=== PATIENT | male | born 1945 | race Caucasian/White ===

== ENCOUNTER 2018-01-11 00:25 | Emergency (ER) | payer MEDICARE ==
[2018-01-11] MEDS ORDERED: NS 0.9% 1000 ML* 1,000 ML IV ONE ×2 (01:11→04:02)
[2018-01-11] MEDS ORDERED: Metoclopramide IV* 5 MG/ML 2 ML VIAL IV ONE (01:12)
[2018-01-11] MEDS ORDERED: Morphine VIAL* 10 MG/ML 1 ML VIAL IV ONE (01:12)
[2018-01-11 01:40] LABS: Hematocrit 51 % (42-52); Mean Corpuscular HGB Conc 33 g/dl (31-36); Mean Corpuscular Hemoglobin 29 pg (27-31); Mean Corpuscular Volume 88 fL (80-94); Mean Platelet Volume 6.9 um3 (7.4-10.4); Platelet Count 457 10^3/ul (150-450); Red Blood Count 5.84 10^6/ul (4.00-5.40); Red Cell Distribution Width 15 % (10.5-15); White Blood Count 29.3 10^3/ul (3.5-10.8)
[2018-01-11 01:47] LABS: INR 1.2 (0.77-1.02)
[2018-01-11 01:55] LABS: EGFR Non-African American 121.1 (>60)
--- NOTE | 2018-01-11 01:55 | ED ---
Abdominal Pain/Male - HPI Summary HPI Summary: A 72 y/o male DENNIS presents to ED c/o abdominal pain reaching 7/10 in severity. In the ED room, the patient has a pulse of 118 BPM, O2 saturation of 93% and blood pressure of 132/86. As per triage, "Pt brought in by ambulance from home for c/o inability to ambulate, shortness of breath, and RUQ abdominal pain radiating to right shoulder. EMS report SpO2 on room air on their arrival mid 80 's. Oxygen applied on 3L/min, SpO2 93%. Pt states he had oxygen set up at home for a short period of time and denies having to utilize it daily. Pt also c/o RUQ radiating ot his right shoulder. Pt states abdominal pain is exacerbated upon coughing. manager monitoring applied and noted HR 136 and as high as 167. Pt also going out of A-fib and sepideh noted". According to the patient, he has been experiencing RUQ abdominal pain since 1700 last night. He denies any vomiting, however, does feel slightly SOB and has a cough. Does not take O2 at home. No known medical conditions. PMHx of no abdominal surgeries. This past Thursday, patient got a flu shot. - History of Current Complaint Chief Complaint: EDAbdPain Stated Complaint: ABD PAIN Time Seen by Provider: 01/11/18 00:59 Hx Obtained From: Patient Onset/Duration: Sudden Onset, Lasting Days, Still Present Timing: Constant Severity Initially: Moderate Severity Currently: Moderate Pain Intensity: 7 Pain Scale Used: 0-10 Numeric Location: Discrete At: RUQ Radiates: No Character: Not Applicable Aggravating Factor(s): Nothing Alleviating Factor(s): Nothing Associated Signs And Symptoms: Positive: Negative - Allergies/Home Medications Allergies/Adverse Reactions: Allergies Allergy/AdvReac Type Severity Reaction Status Date / Time Penicillins Allergy Hives Verified 01/11/18 00:51 PMH/Surg Hx/FS Hx/Imm Hx Endocrine/Hematology History: Denies: Hx Diabetes, Hx Systemic Lupus Erythematosus Cardiovascular History: Reports: Hx Hypertension Denies: Hx Congestive Heart Failure, Hx Pacemaker/ICD, Other Cardiovascular Problems/Disorders Respiratory History: Denies: Hx Asthma History: Denies: Hx Dialysis, Hx Renal Disease Musculoskeletal History: Reports: Hx Arthritis, Hx Back Problems Denies: Hx Rheumatoid Arthritis Sensory History: Reports: Hx Cataracts - RIGHT EYE CATARACT SURGERY, Hx Contacts or Glasses Opthamlomology History: Reports: Hx Cataracts - RIGHT EYE CATARACT SURGERY, Hx Contacts or Glasses - Cancer History Hx Chemotherapy: No - Surgical History Surgery Procedure, Year, and Place: 1968 RT HAND [facility]. 1970 [place] [place]. 20-30 ANAL [facility]. 2011? RIGHT EYE CATARACT SURGERY Hx Anesthesia Reactions: No Infectious Disease History: No Infectious Disease History: Denies: Traveled Outside the [place] in Last 30 Days - Family History Known Family History: Positive: Diabetes - mother, Other - father - PE - Social History Alcohol Use: Weekly Substance Use Type: Reports: None Smoking Status (MU): Heavy Every Day Tobacco Smoker Type: Cigarettes Length of Time of Smoking/Using Tobacco: 40 YRS Have You Smoked in the Last Year: Yes Review of Systems Negative: Fever Positive: Shortness Of Breath, Cough Positive: Abdominal Pain. Negative: Vomiting All Other Systems Reviewed And Are Negative: Yes Physical Exam - Summary Physical Exam Summary: GENERAL: Patient is a well-developed and nourished male who is lying comfortable in the stretcher. Patient is not in any acute respiratory distress. HEAD AND FACE: Normocephalic EYES: PERRLA, EOMI x 2. EARS: Hearing grossly intact. MOUTH: Oropharynx within normal limits. NECK: Supple, trachea is midline, no adenopathy, no JVD, no carotid bruit. CHEST: Symmetric, no tenderness at palpation LUNGS: Clear to auscultation bilaterally. No wheezing or crackles. CVS: Regular rate and rhythm, S1 and S2 present, no murmurs or gallops appreciated. ABDOMEN: Soft, tender to palpation in RUQ. Bowel sounds are normal. No abdominal abnormal pulsations. EXTREMITIES: Full ROM in all major joints, no edema, no cyanosis or clubbing. NEURO: Alert and oriented x 3. No acute neurological deficits. Speech is normal and follows commands. SKIN: Dry and warm Triage Information Reviewed: Yes Vital Signs On Initial Exam: Initial Vitals Pulse Resp BP Pulse Ox 114 42 132/86 90 01/11/18 00:34 01/11/18 00:34 10 00:34 01/11/18 00:34 Vital Signs Reviewed: Yes Diagnostics - Vital Signs Vital Signs Temp Pulse Resp BP Pulse Ox 01/11/18 00:40 99.7 F 136 38 132/86 86 01/11/18 00:34 114 42 132/86 90 - Laboratory Lab Results: Lab Results 01/11/18 01/11/18 01/11/18 Range/Units 01:23 01:23 01:23 WBC 29.3 H (3.5-10.8) 10^3/ul RBC 5.84 H (4.00-5.40) 10^6/ul Hgb 17.0 (14.0-18.0) g/dl Hct 51 (42-52) % MCV 88 (80-94) fL MCH 29 (27-31) pg MCHC 33 (31-36) g/dl RDW 15 (10.5-15) % Plt Count 457 H (150-450) 10^3/ul MPV 6.9 L (7.4-10.4) um3 Neut % (Auto) Pending Lymph % (Auto) Pending Lares % (Auto) Pending Eos % (Auto) Pending Baso % (Auto) Pending Absolute Neuts (auto) Pending Absolute Lymphs (auto) Pending Absolute Monos (auto) Pending Absolute Eos (auto) Pending Absolute Basos (auto) Pending Absolute Nucleated RBC Pending Nucleated RBC % Pending INR (Anticoag Therapy) 1.20 H (0.77-1.02) APTT 35.4 (26.0-36.3) seconds Lactic Acid 1.1 (0.5-2.0) mmol/L Result Diagrams: 01/11/18 01:23 01/11/18 01:23 Lab Statement: Any lab studies that have been ordered have been reviewed, and results considered in the medical decision making process. - CT Chest/Abd/Pel CTA CT Interpretation Completed By: Radiologist - Airspace consolidation involving right middle lobe. Near-complete obstruction of the bronchus intermedius. Differential considerations include neoplasm pneumonia. Moderate right pleural effusion with adjacent compressive atelectasis. Atherosclerotic disease of the abdominal aorta. Slight interval increase in size of infrarenal abdominal aortic aneurysm measuring 3.2 cm versus 2.8 cm on the previous exam. Dr. Chakraborty has reviewed this radiology report. - EKG 0050 Cardiac Rate: Tachycardia - 128 BPM EKG Rhythm: Sinus Tachycardia Ectopy: PVCs, PACs EKG Interpretation: Multiple premature complexes Re-Evaluation - Re-Evaluation First Eval Re-Evaluation Time: 03:41 Comment: The patient reports that he is feeling fine but he is continuously tachycardic and increasingly hypoxic. Second Eval Re-Evaluation Time: 04:06 Abdominal Pain Fem Course/Dx - Course Assessment/Plan: A 72 y/o male DENNIS presents to ED c/o abdominal pain reaching 7 /10 in severity. Chest/Abd/Pel CTA reveals airspace consolidation involving right middle lobe. Near-complete obstruction of the bronchus intermedius. Differential considerations include neoplasm pneumonia. Moderate right pleural effusion with adjacent compressive atelectasis. Atherosclerotic disease of the abdominal aorta. Slight interval increase in size of infrarenal abdominal aortic aneurysm measuring 3.2 cm versus 2.8 cm on the previous exam. In the ED course, the patient was given fluids, reglan, morphine, decadron, zosyn, and vancomycin. Case discussed with hospitalist. Dr. Hoffman accepts the patient for admission. After Dr. Hoffman spoke with Dr. Sweet about the patient. Dr. Sweet recommends transfering the patient for interventional bronch because if there is a possibility that the patient will need a stent, we do not have the capabilities to do it here. Additionally, the patient might need cardiothoracic surgery which [place] [facility] [place] I discussed results and plan of care with patient. The patient wants to be transferred to [facility]. Consulted Dr. Alas from [facility] ED who accepts the patient for transfer because they have the services available. The patient agrees with this plan. Patient stable upon transfer. - Diagnoses Differential Diagnosis/HQI/PQRI: Other - sepsis secondary to pneumonia Provider Diagnoses: Sepsis, PNA (pneumonia) - Provider Notifications Discussed Care Of Patient With: Danielle Hoffman Time Discussed With Above Provider: 04:04 Instructed by Provider To: Other - Consulted with Dr. Hoffman who accepts the patient for admission. Consulted Dr. Alas from [facility] ED who accepts the patient for transfer. - Critical Care Time Critical Care Time: 30-74 min Discharge - Sign-Out/Discharge Documenting (check all that apply): Patient Departure - transfer - Discharge Plan Condition: Stable Disposition: TRANS HIGHER LVL OF CARE FAC Referrals: Rodolfo Jackson MD [Primary Care Provider] - - Billing Disposition and Condition Condition: STABLE Disposition: Trans Higher Lvl of Care Fac - Attestation Statements Document Initiated by Scribe: Yes Documenting Scribe: Derick Romano Provider For Whom Savanah is Documenting (Include Credential): Deonte Chakraborty MD Scribe Attestation: Derick Alvarado, scribed for Deonte Chakraborty MD on 01/11/18 at 0518. Scribe Documentation Reviewed: Yes Provider Attestation: The documentation as recorded by the migdaliaibDerick pérez accurately reflects the service I personally performed and the decisions made by me, Deonte Chakraborty MD
[2018-01-11] MEDS ORDERED: Morphine INJ* 4 MG/ML 1 ML SYRINGE (NEW SYRINGE VERSION) ONE (02:00)
[2018-01-11] MEDS ORDERED: Morphine INJ* 4 MG/ML 1 ML SYRINGE (NEW SYRINGE VERSION) IV ONE (02:00)
[2018-01-11 02:22] LABS: ABS Basophils 0.1 10^3/ul (0-0.2); ABS Eosinophils 0 10^3/ul (0-0.6); ABS Lymphocytes 0.9 10^3/ul (1.0-4.8); ABS Monocytes 1.5 10^3/ul (0-0.8); ABS Neutrophils 26.8 10^3/ul (1.5-7.7); ABS Nucleated RBC 0 10^3/ul; Eosinophil % 0.1 % (0-6); Lymphocyte % 3.1 % (25-47); Nucleated Red Blood Cells % 0
[2018-01-11] MEDS ORDERED: Iohexol 350* (CONTRAST) 500 ML MDV IV ONE (02:29)
--- NOTE | 2018-01-11 03:50 | RAD ---
EXAM: CT Angiography Chest With Intravenous Contrast EXAM DATE/TIME: 01/11/2018 2:34 AM CLINICAL HISTORY: 72 years old, male; Pain; Sternal or substernal pain; Abdominal pain; Flank; Right upper quadrant (ruq); Additional info: Sob/ruq pain TECHNIQUE: Axial computed tomographic angiography images of the chest with intravenous contrast using CT angiography protocol. All CT scans at this facility use at least one of these dose optimization techniques: automated exposure control; mA and/or kV adjustment per patient size (includes targeted exams where dose is matched to clinical indication); or iterative reconstruction. Coronal and sagittal reformatted images were created and reviewed. MIP reconstructed images were created and reviewed. CONTRAST: 100 ml of OMNI 350 administered intravenously. COMPARISON: CTA CHEST CTA CHEST 03/26/2015 2:19 AM FINDINGS: Pulmonary arteries: Normal. No pulmonary emboli. Aorta: Atherosclerotic disease of the thoracic aorta. Lungs: Centrilobular and paraseptal edema. Airspace consolidation involving right middle lobe. Near-complete obstruction of the bronchus intermedius. Minimal aeration in the right lower lobe. Compressive atelectasis of the right lower lobe. Dependent and linear atelectasis at the left base. Pleural space: Moderate right pleural effusion. Heart: Atherosclerotic changes in the coronary arteries. Mediastinum: Mild right lung volume was left to right mediastinal shift. Bones/joints: Osteopenia. Severe multilevel degenerative disc disease. Soft tissues: Unremarkable. Lymph nodes: Extensive right upper and lower paratracheal, subcarinal, and right hilar adenopathy. IMPRESSION: Airspace consolidation involving right middle lobe. Near-complete obstruction of the bronchus intermedius. Differential considerations include neoplasm pneumonia. Moderate right pleural effusion with adjacent compressive atelectasis. EXAM: CT Angiography Abdomen and Pelvis With Intravenous Contrast EXAM DATE/TIME: 01/11/2018 2:34 AM CLINICAL HISTORY: 72 years old, male; Pain; Sternal or substernal pain; Abdominal pain; Flank; Right upper quadrant (ruq); Additional info: Sob/ruq pain TECHNIQUE: Axial computed tomographic angiography images of the abdomen and pelvis with intravenous contrast material, including non-contrast images if performed. MIP and/or 3D reconstructed images were created and reviewed. All CT scans at this facility use at least one of these dose optimization techniques: automated exposure control; mA and/or kV adjustment per patient size (includes targeted exams where dose is matched to clinical indication); or iterative reconstruction. Coronal and sagittal reformatted images were created and reviewed. MIP reconstructed images were created and reviewed. CONTRAST: 100 ml of OMNI 350 administered intravenously. COMPARISON: CTA CHEST CTA CHEST 03/26/2015 2:19 AM FINDINGS: VASCULATURE: Aorta: Atherosclerotic disease of the abdominal aorta. Slight interval increase in size of infrarenal abdominal aortic aneurysm measuring 3.2 cm versus 2.8 cm on the previous exam. Celiac Trunk and Mesenteric Arteries: No occlusion or significant stenosis. Renal Arteries: No occlusion or significant stenosis. Iliac Arteries: No occlusion or significant stenosis. Common Femoral Arteries: Atherosclerotic disease. No occlusion or significant stenosis. ABDOMEN: Liver: Hepatomegaly. Slight interval increase in the size of a simple appearing 2.2 cm left hepatic lobe cyst previously measuring 1.5 cm. Multiple additional liver cyst stable. Gallbladder and bile ducts: Unremarkable. No calcified stones. No ductal dilation. Pancreas: Unremarkable. No mass. No ductal dilation. Spleen: Unremarkable. No splenomegaly. Adrenals: Stable left adrenal hyperplasia. Kidneys and ureters: Interval increase in size of exophytic left superior pole renal cyst measuring 3 cm versus 2.5 cm on the previous exam. Slight interval increase in the size of exophytic right renal cyst measuring 5.5 cm versus 5 cm on the previous exam. Nonspecific bilateral perinephric fat stranding. Stomach and bowel: Unremarkable. No obstruction. No mucosal thickening. Appendix: No evidence of appendicitis. PELVIS: Bladder: Distended urinary bladder. Reproductive: Unremarkable as visualized. ABDOMEN and PELVIS: Intraperitoneal space: Unremarkable. No free air. No significant fluid collection. Bones/joints: No acute fracture. No dislocation. Soft tissues: Bilateral fat containing inguinal hernias. Fat containing umbilical hernia. Lymph nodes: Unremarkable. No enlarged lymph nodes. IMPRESSION: Atherosclerotic disease of the abdominal aorta. Slight interval increase in size of infrarenal abdominal aortic aneurysm measuring 3.2 cm versus 2.8 cm on the previous exam. To contact [facility] with a general question: [facility] - [phone] For direct physician to physician contact: Physician Hotline - [phone] [facility] ([facility] Facility ID #[id number])
[2018-01-11] MEDS ORDERED: Vancomycin(*) 1,500 MG in NS 0.9% 250 ML* 250 ML IVPB ONE (04:01)
[2018-01-11] MEDS ORDERED: Piperacillin/Tazobac ADVAN(*) 3.375 GM in NS 0.9% 100 ML* 100 ML IVPB ONE (04:01)
[2018-01-11] MEDS ORDERED: Dexamethasone IV* 4 MG/ML 5 ML VIAL (20 MG) IVPB ONE (04:04)
[2018-01-11] MEDS ORDERED: NS 0.9% 250 ML* 250 ML ONE (04:05)
[2018-01-11 04:55] LABS: Urine Red Blood Cell 3+(>10/hpf) (Absent); Urine White Blood Cell Absent (Absent)
[2018-01-11 05:00] LABS: Urine Appearance Cloudy; Urine Blood 1+ (Negative); Urine Color Yellow; Urine Ketones Negative (Negative); Urine Protein 2+(100 mg/dL) (Negative); Urine Urobilinogen Positive (Negative)
--- NOTE | 2018-01-11 05:06 | HP ---
H&P (Free Text) History and Physical: er presented pt's ct scan of chest. this content writer called icu Dr Sweet reg pt's ct scan near complete obstructionof r main bronchus with mass like lesion ( not mucus ) pt's may need ct surgery backup when getting bronch. ok with Dr Sweet to transfer since pt may need ct surgery backup which is not available here. a [address] has [address] surgery may be better for pt's circumstances
[2018-01-11 06:07] VITALS: BP 139/88
== END 2018-01-11 06:09 | disposition short-term general hospital (02) ==
LOC: ED 00:25
DX: A41.9 Sepsis, unspecified organism (principal); J18.9 Pneumonia, unspecified organism; R10.11 Right upper quadrant pain; I10 Essential (primary) hypertension; F17.210 Nicotine dependence, cigarettes, uncomplicated; R06.02 Shortness of breath
CPT/HCPCS: 36415; 71275; 74177; 80053; 81003; 81015; 82803; 83605; 83690; 83735; 83880; 84484; 85025; 85610; 85730; 93005; 96365; 96366; 96375; 99284; J1100; J2270; J2543; J2765; J3370; Q9967

== ENCOUNTER 2018-03-01 09:58 | Day surgery (SDC) | payer MEDICARE ==
[~2018-03-01 09:58] MED LIST: Buffered Lidocaine 0.9% SYRIN* 5 ML/SYR SYRINGE INTRADERM ONE; Dexamethasone IV* 4 MG/ML 1 ML (4 MG) IV SLOW PU ONE; DiMENhydriNATE IV* 50 MG/ML VIAL IV PUSH PRN; Famotidine IV* 10 MG/ML 2 ML (20 mg) IV ONE; Levalbuterol 0.63MG/3ML NEB* UNIT OF USE INH ONE; Naloxone* 0.4 MG/ML 1 ML VIAL IV PRN; Ondansetron TAB* 4 MG PO ONE; PROCHLORPERAZINE INJ 5 MG/ML 2 ML VIAL IV PRN; fentaNYL* 50 MCG/ML 2 ML VIAL (100 MCG VIAL) IV PRN; oxyCODONE/Acetamin 5/325 MG* TAB PO PRN
[2018-03-01] MEDS ORDERED: Propofol* 10 MG/ML 20 ML BTL ONE ×2 (12:15→13:33)
[2018-03-01] MEDS ORDERED: fentaNYL* 50 MCG/ML 2 ML VIAL (100 MCG VIAL) ONE (12:15)
[2018-03-01] MEDS ORDERED: Midazolam* 1 MG/ML 2 ML VIAL (2 MG) ONE (12:15)
[2018-03-01] MEDS ORDERED: Atracurium* 10 MG/ML 10 ML VIAL ONE (12:15)
[2018-03-01] MEDS ORDERED: Ondansetron INJ* 2 MG/ML VIAL IV PRN (12:50)
[2018-03-01] MEDS ORDERED: Naloxone* 0.4 MG/ML 1 ML VIAL IV PRN (12:50)
[2018-03-01] MEDS ORDERED: fentaNYL* 50 MCG/ML 2 ML VIAL (100 MCG VIAL) IV PRN (12:50)
[2018-03-01] MEDS ORDERED: Ondansetron INJ* 2 MG/ML VIAL ONE (13:33)
[2018-03-01] MEDS ORDERED: Dexamethasone IV* 4 MG/ML 1 ML (4 MG) ONE (13:35)
[2018-03-01 18:48] VITALS: BP 144/85
--- NOTE | 2018-03-02 03:54 | PRO ---
BRONCHOSCOPY REPORT: DATE OF PROCEDURE: 03/01/18 - [facility] PROCEDURE PERFORMED: Bronchoscopy with endobronchial ultrasound guided fine- needle aspiration for mediastinal and hilar nodes and bronchoalveolar lavage. PREPROCEDURAL DIAGNOSES: 1. Lung collapse. 2. Pleural effusion. 3. Recurrent lymphadenopathy. ANESTHESIA: General anesthesia. ANESTHESIOLOGIST: Dr. Ervin. DESCRIPTION OF PROCEDURE: Informed consent was obtained from the patient prior to the procedure after all the risks and benefits were thoroughly explained. The patient with ongoing issues with cough, phlegm, having blood-streaked phlegm. The patient recently was treated for pneumonia and right-sided pleural effusion and needed chest tube placement. The patient with persistent opacities and bronchoscopy was performed. The patient was intubated with a size 8.0 endotracheal tube. Flexible Olympus bronchoscope was inserted through ET tube for airway inspection. 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 The patient noted to have copious yellow-green secretions emanating from airways on both sides. Secretions were thick and copious in amounts. Secretions were suctioned out. The patient with significant bronchomalacia predominantly on the right side. Right middle-lobe bronchus is a slit like and is collapsed possibly from extrinsic compression. Did not notice any endobronchial lesions in the airways. Thick secretions were suctioned out multiple times. Bronchial lavage was obtained. Bronchoscope was then withdrawn and EBUS bronchoscope was inserted. Station 7 was enlarged and was accessed with 2 passes. Rapid onsite evaluation revealed lymphatic tissue. No malignant cells are noted. Left-sided nodes were not enlarged. Station R4 was then accessed with 3 passes. Rapid onsite evaluation revealed lymphatic tissue with no malignant cells. R10 was accessed with 3 passes, lymphatic tissue with no malignant cells. Station R15 was then accessed with 4 passes. Rapid onsite evaluation revealed lymphatic tissue. Specimen was placed in formalin. The patient again had thick secretions which were again suctioned out with regular bronchoscope. Bronchoscope could be advanced into the middle lobe with difficulty; however, significant tracheomalacia was seen and also extrinsic collapse was seen. The patient was extubated and seen in recovery in optimal condition. [id number] #: [id number] [facility]
== END 2018-03-01 16:00 | disposition home or self-care (01) ==
LOC: OR 09:58
PROVIDERS: ATTEND Internal Medicine
DX: J98.19 Other pulmonary collapse (principal); J90 Pleural effusion, not elsewhere classified; J98.4 Other disorders of lung; J44.9 Chronic obstructive pulmonary disease, unspecified; R59.0 Localized enlarged lymph nodes; R09.02 Hypoxemia; R06.83 Snoring; I10 Essential (primary) hypertension; E66.09 Other obesity due to excess calories; Z88.0 Allergy status to penicillin; Z91.018 Allergy to other foods
CPT/HCPCS: 87070; 87077; 87102; 87116; 87186; 87205; 87206; 88112; 88172; 88173; 88184; 88185; 88187; 88188; 88189; 88305; J1100; J2250; J2405; J2704; J3010

== ENCOUNTER 2018-06-15 13:31 | Inpatient (IN) | payer MEDICARE ==
[2018-06-15] MEDS ORDERED: NS 0.9% 1000 ML** 1,000 ML IV ONE (15:30)
[2018-06-15] MEDS ORDERED: Clindamycin 600 MG/D5W BAG(*) 600 MG/50 ML BAG IV ONE (15:31)
[2018-06-15 16:08] LABS: ABS Basophils 0.1 10^3/ul (0-0.2); ABS Eosinophils 0.4 10^3/ul (0-0.6); ABS Lymphocytes 1.8 10^3/ul (1.0-4.8); ABS Monocytes 1.2 10^3/ul (0-0.8); ABS Neutrophils 8.3 10^3/ul (1.5-7.7); ABS Nucleated RBC 0 10^3/ul; Eosinophil % 3.5 %; Hematocrit 50 % (36-46); Hemoglobin 16.1 g/dL (14.0-18.0); Lymphocyte % 15.7 %; Mean Corpuscular HGB Conc 33 g/dL (31-36); Mean Corpuscular Hemoglobin 28 pg (27-31); Mean Corpuscular Volume 86 fL (80-94); Mean Platelet Volume 7.4 fL (7.4-10.4); Nucleated Red Blood Cells % 0.1; Platelet Count 347 10^3/uL (150-450); Red Blood Count 5.78 10^6 /uL (4.18-5.48); Red Cell Distribution Width 17 % (10.5-15); White Blood Count 11.8 10^3/uL (3.5-10.8)
[2018-06-15 16:10] LABS: Albumin 3.5 g/dL (3.2-5.2); Calcium 9.5 mg/dL (8.6-10.3); Potassium 4.4 mmol/L (3.5-5.0); Total Bilirubin 0.2 mg/dL (0.2-1.0)
[2018-06-15 16:16] LABS: Albumin/Globulin Ratio 0.9 (1-3); BUN/Creatinine Ratio 27.6 (8-20); C Reactive Protein 9.43 mg/L (<8.01); EGFR African American 91.2 (>60); EGFR Non-African American 75.4 (>60); Total Protein 7.5 g/dL (6.4-8.9)
[2018-06-15] MEDS ORDERED: Acetaminophen TAB* 325 MG PO PRN (17:18)
[2018-06-15] MEDS ORDERED: Albuterol 2.5 MG/3 ML NEB.SOL* (0.083%) INH PRN (17:18)
[2018-06-15 19:01] LABS: Activated Partial Thrombo Time 37.1 seconds (26.0-36.3); INR 0.9 (0.77-1.02)
[2018-06-15] MEDS: Heparin VIAL(*) 5000 UNITS/ML VIAL (FIVE THOUSAND) SUBCUT SCH (21:27)
[2018-06-15] MEDS: diPHENhydraMINE PO* 50 MG PO PRN (21:27)
[2018-06-15] MEDS: Moisturizing CREAM* 120 GM JAR TOPICAL SCH (21:28)
--- NOTE | 2018-06-15 22:09 | HP ---
CC: Dr. Jackson* HISTORY AND PHYSICAL: DATE OF ADMISSION: 06/15/18 PRIMARY CARE PROVIDER: Dr. Jackson. ATTENDING PHYSICIAN WHILE IN THE HOSPITAL: Nakita Anderson DO* (report being dictated by Antoine Da Silva NP) CHIEF COMPLAINT: Lower extremity redness. HISTORY OF PRESENT ILLNESS: Mr. Munguia is a 72-year-old male patient who has a history of polycythemia vera, history of hypertension, COPD, history of GERD, who recently was in the hospital in February with what appears to be pneumonia. We will try to get those records from [facility]. He comes in. He states that at that time he noted that he had some redness of his lower extremities, particularly at his feet, which he has had for a year at least. He states that after that hospitalization, his legs were more swollen and he also had worsening redness from the feet up to his mid leg between the knee and the ankle , the pretibial area. He states that he was on some type of dressing changes, he is going to bring in the box to clarify, that helped him and the redness had gone back down to just above his ankles bilaterally. He states that over the last 3 weeks, he has had increasing swelling on his legs bilaterally and that he required a fluid pill, which was started by his primary. He states that 3 weeks ago, his legs gotten more swollen. He was started on a diuretic. He noted that in the last couple of weeks, he had some cramping in his legs bilaterally. He started putting a salve and cream on there for foot pain and leg pain and since starting this, he started noticing the redness again got much worse and his legs look drier belt conveyor and the redness spread up to his legs over the last week and a half bilaterally. He denied any drainage. No blisters were noted. He states that it is itching at times and at times he states that his legs feel hot. He denies any worsening swelling now. He states his swelling appears to be better. He denies having any pain with the exception that they feel hot and that they itch at times. He denies any fevers or chills. He denied having any other symptoms of cough, shortness of breath. He states he does have some residual cough from his pneumonia. He is occasionally bringing up some sputum. With this, he states at times, he has trouble lying all the way back because when he is bringing up sputum, he chokes on it at sometimes. He has not done that recently. He denied having any chest pain and no abdominal pain. There was concern because of the degree of redness bilaterally that there was possibly an underlying cellulitis and we were asked to evaluate for admission. PAST MEDICAL HISTORY: Significant for, 1. Polycythemia vera. 2. Hypertension. 3. COPD. 4. GERD. 5. Hospitalization in December of last year for pneumonia. We will try to get records. PAST SURGICAL HISTORY: He has had bronchoscopy done in February of last year. No other surgeries are reported. MEDICATIONS: Home meds according to the list that he provided include: 1. Bumex 1 mg p.o. daily. 2. Aspirin 81 mg daily. 3. Lisinopril/hydrochlorothiazide 1 tablet p.o. daily. ALLERGIES TO MEDICATIONS: Include PENICILLIN. FAMILY HISTORY: His mother had history of cancer. Father had a history of CHF. SOCIAL HISTORY: He does drink 2 to 3 beers rarely. He states his last beer was several months ago now. Surrogate decision maker is his . He is a smoker. He was smoking a pack a day; he is now smoking between 1 and 2 cigarettes a day. REVIEW OF SYSTEMS: There is no documented fever. He denied having any significant weight change. There was no double vision. He denied having any ear discharge. There was no rhinorrhea. There was no sore throat. No thyroid enlargement. He denied having any chest pain. There was no orthopnea. There was no nocturnal dyspnea. He denies having any abdominal pain. There was no nausea, no vomiting. No dysuria, no frequency. No seizure, no loss of consciousness. There is pruritus per my HPI. No skin ulcerations. Review of 14 systems completed, all others negative. PHYSICAL EXAMINATION GENERAL: At this time, Mr. Munguia is a 72-year-old male patient. He is sitting in the ED stretcher. He does not appear to be in any acute distress. He appears to be well nourished, well developed. VITAL SIGNS: Blood pressure 147/87, pulse 90, respirations are 18, O2 sat 96%, temperature 97.7. HEENT: Head: Atraumatic and normocephalic. Eyes: EOMs are intact. Sclerae anicteric and not pale. Throat: Oral mucosa appears to be dry. No oropharyngeal erythema. NECK: Supple. LUNGS: Clear to auscultation bilaterally. There were no wheezes or rales. He did have some rhonchi in his right upper lobe. He had equal diaphragmatic expansion. HEART: Sounds S1, S2. He had a regular rate and rhythm. No murmurs, rubs or gallops. ABDOMEN: Soft. It was flat. It was nontender. Bowel sounds are present. EXTREMITIES: Pulses were 2+ in the upper extremities. They are palpable in the lower extremities in the pedal area. He had no pitting edema. He had 5/5 strength throughout. NEUROLOGIC: He is awake, alert. He is oriented x3. Tongue midline. Pull Over Machine Operator were equal. No gross focal deficits. SKIN: Intact. He does have erythema bilaterally to the lower extremities starting from the ankle and extending up to below the knees bilaterally. He does have some erythema. He did have what appeared to be some raised papules that were erythematic to the knees bilaterally. Again, no open areas were noted , otherwise intact. DIAGNOSTIC STUDIES/LAB DATA: WBC 11.8, RBC of 5.78, hemoglobin of 16.1, hematocrit of 50, platelet count of 347. Sodium is 136, potassium of 4.4, chloride of 99, bicarb 32, BUN 27, creatinine of 0.98, glucose 96. Lactate 1.5. Calcium 9.5. Total bili 0.2, AST 17, ALT 18, alk phos 79. Troponin 0. CRP of 9.4. Albumin 3.5. Old medical records were reviewed. ASSESSMENT AND PLAN: Mr. Munguia is a 72-year-old male patient coming in to the ER today complaining of worsening redness to his lower extremities bilaterally. We were asked to evaluate for admission. He will be admitted under observation status for: 1. Cellulitis versus dermatitis. Again, I suspect that he does have an offending agent of the salve that he was putting on his legs bilaterally. It does have ingredients that may be certainly causing a dermatitis, but his legs are again erythematic bilaterally, which makes cellulitis less likely; however, they are warm. He may have underlying cellulitis, so I do think he deserves clindamycin given his allergies to PENICILLIN. I am going to go ahead and put him on Eucerin cream bilaterally, stop that offending agent and continue to monitor. I am hesitant to use a topical steroid given the area and the fact that his skin does appear to be thin already in his lower extremities. We will continue to monitor him and we will follow. 2. Polycythemia vera. Continue his current medical regimen. 3. History of recent pneumonia. We will get records from [facility]. I have requested this. 4. History of chronic obstructive pulmonary disease. I have ordered p.r.n. albuterol. We will continue with pulmonary toileting given the rhonchi. I will also just to be sure check a chest x-ray. 5. Gastroesophageal reflux disease. Continue PPI therapy. 6. DVT prophylaxis. He will be placed on heparin subcu. 7. Code status. Full code. 8. Fluids, electrolytes and nutrition. He can have a heart healthy diet. TIME SPENT: On admission was 60 minutes, greater than half the time spent face- to- face with the patient obtaining my history and physical; other half time spent going over the plan of care with the patient and implementing plan of care. I did discuss the plan of care with my attending, Dr. Anderson, she is in agreement. ANTOINE DA SILVA, AIRCRAFT RIGGING AND CONTROLS MECHANIC [id number]/[facility] #: [id number] MYNOR
[2018-06-15] MEDS: Clindamycin 600 MG/D5W BAG(*) 600 MG/50 ML BAG IV SCH (22:44)
[2018-06-15] MEDS: hydrOXYzine HCL TAB* 50 MG PO PRN (23:59)
[2018-06-16] MEDS: Clindamycin 600 MG/D5W BAG(*) 600 MG/50 ML BAG IV SCH ×4 (04:55→22:23)
[2018-06-16] MEDS: Heparin VIAL(*) 5000 UNITS/ML VIAL (FIVE THOUSAND) SUBCUT SCH ×3 (04:55→21:21)
[2018-06-16 05:34] LABS: ABS Basophils 0.1 10^3/ul (0-0.2); ABS Eosinophils 0.6 10^3/ul (0-0.6); ABS Neutrophils 6.7 10^3/ul (1.5-7.7); ABS Nucleated RBC 0 10^3/ul; Eosinophil % 5.8 %; Hematocrit 49 % (36-46); Hemoglobin 15.8 g/dL (14.0-18.0); Lymphocyte % 19.1 %; Mean Corpuscular HGB Conc 33 g/dL (31-36); Mean Corpuscular Hemoglobin 28 pg (27-31); Mean Corpuscular Volume 86 fL (80-94); Mean Platelet Volume 7.4 fL (7.4-10.4); Nucleated Red Blood Cells % 0.1; Platelet Count 332 10^3/uL (150-450); Red Blood Count 5.66 10^6 /uL (4.18-5.48); Red Cell Distribution Width 17 % (10.5-15); White Blood Count 10.4 10^3/uL (3.5-10.8)
[2018-06-16 05:40] LABS: INR 0.98 (0.77-1.02)
[2018-06-16] MEDS: hydrOXYzine HCL TAB* 50 MG PO PRN (05:44)
[2018-06-16 05:55] LABS: BUN/Creatinine Ratio 28.9 (8-20); EGFR African American 110.5 (>60); EGFR Non-African American 91.3 (>60)
--- NOTE | 2018-06-16 06:18 | ED ---
Skin Complaint - HPI Summary HPI Summary: Patient is a 72-year-old male presenting to the ED with complaint of bilateral lower extremity edema, erythema, crusting of the skin, warmth and pain which is been worsening over the past several days. Patient has a history of polycythemia vera and hypertension. He states he has had symptoms similar to this in the past, however has been treated with a salve for pain control of the legs. He states he was recently hospitalized and afterdischarge his legs were swollen and red, and also very painful. The swelling increased to the mid leg and then to the knee just yesterday. His PCP recently placed him on a fluid pill to help with some of the swelling. However despite these measures, 3 weeks ago his symptoms worsened. He endorses itching to the area. He denies any fevers, sweats, chills. He states the salve is used to help his pain, however has worsened the small blisters and redness to the legs. - History of Current Complaint Chief Complaint: EDRashSkinAbscess Time Seen by Provider: 06/15/18 14:22 Stated Complaint: PAIN FROM KNEE DOWN/SWELLING/BLISTERS PER PT Hx Obtained From: Patient Onset/Duration: Started Hours Ago, Started Days Ago Skin Exposure Onset/Duration: Hours Ago, Days Ago Timing: Constant Onset Severity: Moderate Current Severity: Moderate Pain Intensity: 0 Pain Scale Used: 0-10 Numeric Character: Swelling, Pruritus, Pain, Hives, Redness, Raised, Painful Aggravating Symptom(s): Touch Alleviating Symptom(s): Other: - salve Associated Signs & Symptoms: Tenderness, Red Streaks - Additional Pertinent History Primary Care Physician: HUEY Oxygen Devices Used Prior to Hospitalization: None - Allergy/Home Medications Allergies/Adverse Reactions: Allergies Allergy/AdvReac Type Severity Reaction Status Date / Time Penicillins Allergy Hives Verified 06/15/18 13:39 Home Medications: Home Medications Bumetanide TAB* [Bumex 1 MG TAB*] 1 mg PO DAILY 06/15/18 [History Confirmed ] PMH/Surg Hx/FS Hx/Imm Hx Previously Healthy: Yes Endocrine/Hematology History: Denies: Hx Diabetes, Hx Systemic Lupus Erythematosus Cardiovascular History: Reports: Hx Hypertension Denies: Hx Congestive Heart Failure, Hx Pacemaker/ICD, Other Cardiovascular Problems/Disorders Respiratory History: Reports: Other Respiratory Problems/Disorders - COPD Denies: Hx Asthma History: Denies: Hx Dialysis, Hx Renal Disease Musculoskeletal History: Reports: Hx Arthritis, Hx Back Problems Denies: Hx Rheumatoid Arthritis Sensory History: Reports: Hx Cataracts - RIGHT EYE CATARACT SURGERY, Hx Contacts or Glasses Denies: Hx Hearing Aid Opthamlomology History: Reports: Hx Cataracts - RIGHT EYE CATARACT SURGERY, Hx Contacts or Glasses - Cancer History Hx Chemotherapy: No - Surgical History Surgery Procedure, Year, and Place: 1968 RT HAND [facility]. 1969 P[place]. 20-30 ANAL [facility]STS [facility]. 2011? RIGHT EYE CATARACT SURGERY Hx Anesthesia Reactions: No - Immunization History Hx Pertussis Vaccination: No Immunizations Up to Date: Yes Infectious Disease History: No Infectious Disease History: Denies: Traveled Outside the [place] in Last 30 Days - Family History Known Family History: Positive: Diabetes - mother, Other - father - PE - Social History Occupation: Unemployed Lives: With Family Alcohol Use: None Hx Substance Use: No Substance Use Type: Reports: None Hx Tobacco Use: Yes Smoking Status (MU): Former Smoker Type: Cigarettes Amount Used/How Often: SMOKES CIGARETTE ONCE EVERY FEW DAYS , DOESN'T INHLAE Length of Time of Smoking/Using Tobacco: 40 YRS Have You Smoked in the Last Year: Yes Review of Systems Constitutional: Negative Negative: Fever, Chills, Fatigue, Skin Diaphoresis Negative: Diplopia Negative: Sore Throat Negative: Palpitations, Chest Pain Negative: Cough Positive: Myalgia - throughout the bilateral lower extremities. Negative: Arthralgia Positive: Other - erythema, warmth, raised papules, swelling to the bilateral lower ext Negative: Headache, Weakness All Other Systems Reviewed And Are Negative: Yes Physical Exam Triage Information Reviewed: Yes Vital Signs On Initial Exam: Initial Vitals Temp Pulse Resp BP Pulse Ox 97.7 F 75 20 175/100 92 06/15/18 13:35 06/15/18 13:35 06/15/18 13:35 06/15/18 13:35 06/15/18 13:35 Vital Signs Reviewed: Yes Appearance: Positive: Well-Appearing, Well-Nourished Skin: Positive: Warm, Skin Color Reflects Adequate Perfusion, Other - erythema, warmth, raised papules, swelling to the bilateral lower ext Head/Face: Positive: Normal Head/Face Inspection Eyes: Positive: EOMI, Conjunctiva Clear Neck: Positive: Supple, No Lymphadenopathy Respiratory/Lung Sounds: Positive: Clear to Auscultation, Breath Sounds Present Cardiovascular: Positive: RRR, Pulses are Symmetrical in both Upper and Lower Extremities Musculoskeletal: Positive: Strength/ROM Intact Neurological: Positive: Sensory/Motor Intact, Alert, Oriented to Person Place, Time Psychiatric: Positive: Normal, Affect/Mood Appropriate AVPU Assessment: Alert Diagnostics - Vital Signs Vital Signs Temp Pulse Resp BP Pulse Ox 06/15/18 16:17 123/71 06/15/18 15:47 147/87 06/15/18 15:17 90 132/69 96 06/15/18 14:47 105 145/79 84 06/15/18 14:23 90 95 06/15/18 13:35 97.7 F 75 20 175/100 92 - Laboratory Lab Results: Lab Results 06/15/18 06/15/18 06/15/18 Range/Units 15:37 15:45 15:45 WBC 11.8 H (3.5-10.8) 10^3/uL RBC 5.78 H (4.18-5.48) 10^6 /uL Hgb 16.1 (14.0-18.0) g/dL Hct 50 H (36-46) % MCV 86 (80-94) fL MCH 28 (27-31) pg MCHC 33 (31-36) g/dL RDW 17 H (10.5-15) % Plt Count 347 (150-450) 10^3/uL MPV 7.4 (7.4-10.4) fL Neut % (Auto) 70.2 % Lymph % (Auto) 15.7 % [place] % (Auto) 9.8 % Eos % (Auto) 3.5 % Baso % (Auto) 0.8 % Absolute Neuts (auto) 8.3 H (1.5-7.7) 10^3/ul Absolute Lymphs (auto) 1.8 (1.0-4.8) 10^3/ul Absolute Monos (auto) 1.2 H (0-0.8) 10^3/ul Absolute Eos (auto) 0.4 (0-0.6) 10^3/ul Absolute Basos (auto) 0.1 (0-0.2) 10^3/ul Absolute Nucleated RBC 0 10^3/ul Nucleated RBC % 0.1 INR (Anticoag Therapy) 0.90 (0.77-1.02) APTT 37.1 H (26.0-36.3) seconds Sodium 136 (135-145) mmol/L Potassium 4.4 (3.5-5.0) mmol/L Chloride 99 L (101-111) mmol/L Carbon Dioxide 32 (22-32) mmol/L Anion Gap 5 (2-11) mmol/L BUN 27 H (6-24) mg/dL Creatinine 0.98 (0.67-1.17) mg/dL Est GFR ( Amer) 91.2 (>60) Est GFR (Non-Af Amer) 75.4 (>60) BUN/Creatinine Ratio 27.6 H (8-20) Glucose 96 (70-100) mg/dL Lactic Acid (0.5-2.0) mmol/L Calcium 9.5 (8.6-10.3) mg/dL Magnesium 2.0 (1.9-2.7) mg/dL Total Bilirubin 0.20 (0.2-1.0) mg/dL AST 17 (13-39) U/L ALT 18 (7-52) U/L Alkaline Phosphatase 79 (34-104) U/L Troponin I 0.00 (<0.04) ng/mL C-Reactive Protein 9.43 H (<8.01) mg/L Total Protein 7.5 (6.4-8.9) g/dL Albumin 3.5 (3.2-5.2) g/dL Globulin 4.0 (2-4) g/dL Albumin/Globulin Ratio 0.9 L (1-3) 06/15/ Range/Units 15:45 WBC (3.5-10.8) 10^3/uL RBC (4.18-5.48) 10^6 /uL Hgb (14.0-18.0) g/dL Hct (36-46) % MCV (80-94) fL MCH (27-31) pg MCHC (31-36) g/dL RDW (10.5-15) % Plt Count (150-450) 10^3/uL MPV (7.4-10.4) fL Neut % (Auto) % Lymph % (Auto) % [place] % (Auto) % Eos % (Auto) % Baso % (Auto) % Absolute Neuts (auto) (1.5-7.7) 10^3/ul Absolute Lymphs (auto) (1.0-4.8) 10^3/ul Absolute Monos (auto) (0-0.8) 10^3/ul Absolute Eos (auto) (0-0.6) 10^3/ul Absolute Basos (auto) (0-0.2) 10^3/ul Absolute Nucleated RBC 10^3/ul Nucleated RBC % INR (Anticoag Therapy) (0.77-1.02) APTT (26.0-36.3) seconds Sodium (135-145) mmol/L Potassium (3.5-5.0) mmol/L Chloride (101-111) mmol/L Carbon Dioxide (22-32) mmol/L Anion Gap (2-11) mmol/L BUN (6-24) mg/dL Creatinine (0.67-1.17) mg/dL Est GFR ( Amer) (>60) Est GFR (Non-Af Amer) (>60) BUN/Creatinine Ratio (8-20) Glucose (70-100) mg/dL Lactic Acid 1.5 (0.5-2.0) mmol/L Calcium (8.6-10.3) mg/dL Magnesium (1.9-2.7) mg/dL Total Bilirubin (0.2-1.0) mg/dL AST (13-39) U/L ALT (7-52) U/L Alkaline Phosphatase (34-104) U/L Troponin I (<0.04) ng/mL C-Reactive Protein (<8.01) mg/L Total Protein (6.4-8.9) g/dL Albumin (3.2-5.2) g/dL Globulin (2-4) g/dL Albumin/Globulin Ratio (1-3) Result Diagrams: 06/16/18 05:12 06/16/18 05:12 Lab Statement: Any lab studies that have been ordered have been reviewed, and results considered in the medical decision making process. Course/Dx - Course Course Of Treatment: Patient presents with worsening erythema, itching, swelling , warmth to the bilateral lower extremities which has been increasing from the ankles and mid tibial area to just above the knees in the past 2 days. Labs obtained which are all WNL. CRP is low and he has no white count. Vital signs are stable and he is afebrile. This may be a dermatitis from the salve, versus a chronic stasis issue with a possible underlying cellulitis. He does have some raised papules to the knees. Unsure if there is an underlying cellulitic infection, I have asked the hospitalist for a consult and admission. - Diagnoses Provider Diagnoses: Leg swelling, Cellulitis Discharge - Sign-Out/Discharge Documenting (check all that apply): Patient Departure All imaging exams completed and their final reports reviewed: Yes Patient Received Moderate/Deep Sedation with Procedure: No - Discharge Plan Condition: Fair Disposition: ADMITTED TO [facility] - Billing Disposition and Condition Condition: FAIR Disposition: Admitted to [facility]
[2018-06-16] MEDS: Lisinopril TAB* 10 MG PO SCH (08:25)
[2018-06-16] MEDS: Aspirin 81 mg CHEW TAB* 81 MG TAB.CHEW PO SCH (08:25)
[2018-06-16] MEDS: Moisturizing CREAM* 120 GM JAR TOPICAL SCH (08:27)
[2018-06-16] MEDS ORDERED: Dexamethasone IV* 4 MG/ML 1 ML (4 MG) IV SLOW PU ONE (11:28)
[2018-06-16] MEDS ORDERED: Perflutren Lipid Microsphere* 3 ML VIAL ONE (12:03)
--- NOTE | 2018-06-16 15:14 | ECHO ---
Patient: DERIAN SEGURA [facility] Rec#: [id number] : 1945 Date: 06/16/2018 Age: 72y Height: 175 cm / 68.9 in Weight: 113 kg / 249.1 lbs Sex: M BSA: 2.27 Room#: [facility] 02 Admit Date#: 06/15/2018 Type: Inpatient Referring: Ana Sampson Reading: Sandee Giles MD Martial Arts Instructor: Daniela Ramirez,BRIDGETCS,RDMS CC: Rodolfo Jackson MD Transthoracic Echocardiogram Indication: CHF BP: 112/73 HR: 86 Rhythm: NSR with PVCs Findings History: HTN, COPD, smoker Technical Comments: The study quality is poor. The study is technically limited due to the patient's history of COPD. The study was technically limited due to the patient's inability to lay in the left lateral decubitus position. Left Ventricle: The left ventricular chamber size is normal. Mild concentric left ventricular hypertrophy is observed. Global left ventricular wall motion and contractility are within normal limits. The estimated ejection fraction is 50-55%. There is an E to A reversal in the mitral valve flow pattern suggestive of diastolic dysfunction. Left Atrium: The left atrium is mildly dilated. Right Ventricle: The right ventricular chamber size and systolic function are within normal limits. Right Atrium: The right atrium is mild to moderately dilated. Aortic Valve: The aortic valve leaflets are mildly thickened. There is aortic annular calcification. There is no evidence of aortic regurgitation. There is no evidence of aortic stenosis. Mitral Valve: There is mitral annular calcification. The mitral valve leaflets are mildly thickened. There is no evidence of mitral regurgitation. There is mild mitral stenosis. The mean gradient across the mitral valve is 3 mmHg. The mitral valve area, by pressure half time, is calculated at 2.7 cm2. Tricuspid Valve: The tricuspid valve leaflets are normal. There is no evidence of tricuspid valve regurgitation. Unable to estimate the right ventricular systolic pressure. Pulmonic Valve: The pulmonic valve structure is not well visualized. Pericardium: There is no significant pericardial effusion. A pericardial fat pad is visualized. Pulmonary Artery: The main pulmonary artery is not well visualized. Venous: The inferior vena cava is dilated. There is less than 50% respiratory change in the inferior vena cava dimension. Contrast: Definity was used to optimize study. A total of 3.5 ml was used. Conclusions The study is technically limited. Mild concentric left ventricular hypertrophy is observed. Global left ventricular wall motion and contractility are within normal limits. The estimated ejection fraction is 50-55%. There is an E to A reversal in the mitral valve flow pattern suggestive of diastolic dysfunction. The right ventricular chamber size and systolic function are within normal limits. The aortic valve leaflets are mildly sclerosed. There is mitral annular calcification. The mitral valve leaflets are mildly thickened. There is mild mitral stenosis. The mean gradient across the mitral valve is 3 mmHg. The mitral valve area, by pressure half time, is calculated at 2.7 cm2. No prior echo to compare. Measurements Name Value Normal Range RVDdMajor (2D) 3.7 cm (2.2 - 4.4) RAd ISD 4CH 6.1 cm (3.4 - 4.9) RA (A4C)W 4.4 cm (2.9 - 4.6) Aortic Annulus 2.4 cm (1.4 - 2.6) Ao root diameter (2D) 3.6 cm (2.1 - 3.5) LAd ISD 4CH 6.1 cm (2.9 - 5.3) LA ISD 4CH W 4.4 cm (2.5 - 4.5) Name Value Normal Range LA ESV BP (A/L) index 27 ml/m2 - Name Value Normal Range MV E-wave Vmax 0.7 m/sec - MV deceleration time 158 msec - MV A-wave Vmax 1.1 m/sec - MV E:A ratio 0.7 ratio - LV lateral e' Vmax 0.09 m/sec - LV E:e' lateral ratio 8 ratio - Name Value Normal Range AV Vmax 1.3 m/sec - AV VTI 23 cm - AV peak gradient 7 mmHg - AV mean gradient 5 mmHg - LVOT Vmax 0.9 m/sec - LVOT VTI 14 cm - LVOT peak gradient 3.2 mmHg - LVOT mean gradient 1 mmHg - Name Value Normal Range MV Vmax 1.3 m/sec - MV VTI 26 cm - MV peak gradient 7 mmHg - MV mean gradient 3 mmHg - MV PHT 81 msec - MVA (PHT) 2.7 cm2 - Name Value Normal Range RAP 8 mmHg - IVC diameter 2.4 cm -
--- NOTE | 2018-06-16 18:15 | PN ---
Subjective Date of Service: 06/16/18 Interval History: Patient seen and examined. Had a very uncomfortable night, legs are itchy. Denies fevers or chills. Does state he cannot lay flat without having SOB but denies chest pain. Objective Active Medications: Acetaminophen (Tylenol Tab*) 650 mg PO Q4H PRN PRN Reason: FEVER/PAIN Albuterol (Ventolin 2.5 Mg/3 Ml Neb.Chary*) 2.5 mg INH Q2H PRN PRN Reason: SOB/WHEEZING Aspirin (Aspirin 81 Mg Chew Tab*) 81 mg PO QAM [facility] Last Admin: 06/16/18 08:25 Dose: 81 mg Diphenhydramine HCl (Benadryl Po*) 50 mg PO Q6H PRN PRN Reason: PRURITIS Last Admin: 06/15/18 21:27 Dose: 50 mg Heparin Sodium (Porcine) (Heparin Vial(*)) 5,000 units SUBCUT Q8HR [facility] Last Admin: 06/16/18 15:05 Dose: 5,000 units Hydroxyzine HCl (Atarax Tab*) 50 mg PO Q6H PRN PRN Reason: ANXIETY Last Admin: 06/16/18 05:44 Dose: 50 mg Clindamycin HCl/Dextrose (Cleocin 600 Mg/50 Ml(*)) 600 mg in 50 mls @ 100 mls/ hr IV Q6H [facility] Last Admin: 06/16/18 16:44 Dose: 100 mls/hr Lisinopril (Prinivil Tab*) 10 mg PO DAILY [facility] Last Admin: 06/16/18 08:25 Dose: 10 mg Vital Signs - 8 hr 06/16/18 06/16/18 11:34 16:36 Temperature 97.4 F Pulse Rate 92 86 Respiratory 20 Rate Blood Pressure 105/60 144/77 (mmHg) O2 Sat by Pulse 94 93 Oximetry Oxygen Devices in Use Now: None Appearance: alert, NAD Eyes: No Scleral Icterus, PERRLA Ears/Nose/Mouth/Throat: NL Teeth, Lips, Gums, Mucous Membranes Moist Neck: NL Appearance and Movements; NL JVP, Trachea Midline Respiratory: Symmetrical Chest Expansion and Respiratory Effort, - - bi-basilar crackles Cardiovascular: NL Sounds; No Murmurs; No JVD, RRR, - - bilateral LE edema Abdominal: NL Sounds; No Tenderness; No Distention Extremities: - - dusky LE iwth edema Skin: - - erythema and diffuse mac-pap rash Neurological: Alert and Oriented x 3, NL Muscle Strength and Tone Nutrition: Taking PO's Result Diagrams: 06/16/18 05:12 06/16/18 05:12 Additional Lab and Data: Lab Results 06/15/18 06/15/18 06/15/18 Range/Units 15:37 15:45 15:45 WBC 11.8 H (3.5-10.8) 10^3/uL RBC 5.78 H (4.18-5.48) 10^6 /uL Hgb 16.1 (14.0-18.0) g/dL Hct 50 H (36-46) % MCV 86 (80-94) fL MCH 28 (27-31) pg MCHC 33 (31-36) g/dL RDW 17 H (10.5-15) % Plt Count 347 (150-450) 10^3/uL MPV 7.4 (7.4-10.4) fL Neut % (Auto) 70.2 % Lymph % (Auto) 15.7 % Wolfe % (Auto) 9.8 % Eos % (Auto) 3.5 % Baso % (Auto) 0.8 % Absolute Neuts (auto) 8.3 H (1.5-7.7) 10^3/ul Absolute Lymphs (auto) 1.8 (1.0-4.8) 10^3/ul Absolute Monos (auto) 1.2 H (0-0.8) 10^3/ul Absolute Eos (auto) 0.4 (0-0.6) 10^3/ul Absolute Basos (auto) 0.1 (0-0.2) 10^3/ul Absolute Nucleated RBC 0 10^3/ul Nucleated RBC % 0.1 INR (Anticoag Therapy) 0.90 (0.77-1.02) APTT 37.1 H (26.0-36.3) seconds Sodium 136 (135-145) mmol/L Potassium 4.4 (3.5-5.0) mmol/L Chloride 99 L (101-111) mmol/L Carbon Dioxide 32 (22-32) mmol/L Anion Gap 5 (2-11) mmol/L BUN 27 H (6-24) mg/dL Creatinine 0.98 (0.67-1.17) mg/dL Est GFR ( Amer) 91.2 (>60) Est GFR (Non-Af Amer) 75.4 (>60) BUN/Creatinine Ratio 27.6 H (8-20) Glucose 96 (70-100) mg/dL Lactic Acid (0.5-2.0) mmol/L Calcium 9.5 (8.6-10.3) mg/dL Magnesium 2.0 (1.9-2.7) mg/dL Total Bilirubin 0.20 (0.2-1.0) mg/dL AST 17 (13-39) U/L ALT 18 (7-52) U/L Alkaline Phosphatase 79 (34-104) U/L Troponin I 0.00 (<0.04) ng/mL C-Reactive Protein 9.43 H (<8.01) mg/L Total Protein 7.5 (6.4-8.9) g/dL Albumin 3.5 (3.2-5.2) g/dL Globulin 4.0 (2-4) g/dL Albumin/Globulin Ratio 0.9 L (1-3) 06/15/18 Range/Units 15:45 WBC (3.5-10.8) 10^3/uL RBC (4.18-5.48) 10^6 /uL Hgb (14.0-18.0) g/dL Hct (36-46) % MCV (80-94) fL MCH (27-31) pg MCHC (31-36) g/dL RDW (10.5-15) % Plt Count (150-450) 10^3/uL MPV (7.4-10.4) fL Neut % (Auto) % Lymph % (Auto) % Wolfe % (Auto) % Eos % (Auto) % Baso % (Auto) % Absolute Neuts (auto) (1.5-7.7) 10^3/ul Absolute Lymphs (auto) (1.0-4.8) 10^3/ul Absolute Monos (auto) (0-0.8) 10^3/ul Absolute Eos (auto) (0-0.6) 10^3/ul Absolute Basos (auto) (0-0.2) 10^3/ul Absolute Nucleated RBC 10^3/ul Nucleated RBC % INR (Anticoag Therapy) (0.77-1.02) APTT (26.0-36.3) seconds Sodium (135-145) mmol/L Potassium (3.5-5.0) mmol/L Chloride (101-111) mmol/L Carbon Dioxide (22-32) mmol/L Anion Gap (2-11) mmol/L BUN (6-24) mg/dL Creatinine (0.67-1.17) mg/dL Est GFR ( Amer) (>60) Est GFR (Non-Af Amer) (>60) BUN/Creatinine Ratio (8-20) Glucose (70-100) mg/dL Lactic Acid 1.5 (0.5-2.0) mmol/L Calcium (8.6-10.3) mg/dL Magnesium (1.9-2.7) mg/dL Total Bilirubin (0.2-1.0) mg/dL AST (13-39) U/L ALT (7-52) U/L Alkaline Phosphatase (34-104) U/L Troponin I (<0.04) ng/mL C-Reactive Protein (<8.01) mg/L Total Protein (6.4-8.9) g/dL Albumin (3.2-5.2) g/dL Globulin (2-4) g/dL Albumin/Globulin Ratio (1-3) Microbiology and Other Data: Microbiology 06/15/18 17:38 Aerobic Blood Culture - Preliminary Blood Venous No Growth Day 1 Anaerobic Blood Culture - Preliminary No Growth Day 1 Diagnostic Imaging: Conclusions: The study is technically limited. Mild concentric left ventricular hypertrophy is observed. Global left ventricular wall motion and contractility are within normal limits. The estimated ejection fraction is 50-55%. There is an E to A reversal in the mitral valve flow pattern suggestive of diastolic dysfunction. The right ventricular chamber size and systolic function are within normal limits. The aortic valve leaflets are mildly sclerosed. There is mitral annular calcification. The mitral valve leaflets are mildly thickened. There is mild mitral stenosis. The mean gradient across the mitral valve is 3 mmHg. The mitral valve area, by pressure half time, is calculated at 2.7 cm2. No prior echo to compare. Patient Name: DERIAN SEGURA Medical Record#: [id number] Ordering Physician: Antoine Da Silva DESKTOP OPERATOR Acct.#: [id number] : 1945 Age: 72 Sex: M Location: [address] [place] [address] - MEDICAL Exam Date: 06/15/181733 ADM Status: ADM Real Order Information: CHEST AP OR PORT Accession Number: [id number] CPT: 05321 Indication: Rhonchi. COPD. Comparison: February 04, 2018 chest radiograph and January 11, 2018 CT Technique: Upright AP 1756 hours Report: Bilateral alveolar consolidation most prominent at the RIGHT lung base. Probable small RIGHT pleural effusion. Negative for cardiomegaly. Upper normal central pulmonary vasculature. Unremarkable mediastinal contours. IMPRESSION: #. The constellation of findings is suspicious for bronchopneumonia most confluent at the RIGHT lung base superimposed on chronic obstructive pulmonary disease. Assess/Plan/Problems-Billing Assessment: This is a 72 year old male with hx of pneumonia and pneumothorax that presented to ED with complaints of bilateral LE rash and edema. - Patient Problems (1) Cellulitis Code(s): L03.90 - CELLULITIS, UNSPECIFIED SNOMED Code(s): 086760034 Comment: - Cellulitis vs venous stasis dermatitis? Margins marked - One dose IV decadron for itching now and will start on oral prednisone in AM - Elevate legs - Continue clindamycin (2) Diastolic dysfunction Code(s): I51.89 - OTHER ILL-DEFINED HEART DISEASES SNOMED Code(s): 6383365 Comment: - does not appear to be in failure - ECHO as above - supportive care - SOB with laying flat may be related to restrictive lung disease and obesity ( patient sleeps in recliner)? - Recommend outpatient sleep study (3) COPD (chronic obstructive pulmonary disease) Code(s): J44.9 - CHRONIC OBSTRUCTIVE PULMONARY DISEASE, UNSPECIFIED SNOMED Code(s): 68152393 Comment: - Not in exacerbation (4) HTN (hypertension) Code(s): I10 - ESSENTIAL (PRIMARY) HYPERTENSION SNOMED Code(s): 80865856 Comment: - continue lisinopril (5) Polycythemia Code(s): D75.1 - SECONDARY POLYCYTHEMIA SNOMED Code(s): 942500912 Comment: - Stable (6) DVT prophylaxis Code(s): JJY7048 - SNOMED Code(s): 513686875 Comment: - HSQ (7) Full code status Code(s): Z78.9 - OTHER SPECIFIED HEALTH STATUS SNOMED Code(s): 828351934 Status and Disposition: Inpatient.
[2018-06-17] MEDS: hydrOXYzine HCL TAB* 50 MG PO PRN ×4 (03:27→21:43)
[2018-06-17] MEDS: Clindamycin 600 MG/D5W BAG(*) 600 MG/50 ML BAG IV SCH ×4 (05:44→22:44)
[2018-06-17] MEDS: Heparin VIAL(*) 5000 UNITS/ML VIAL (FIVE THOUSAND) SUBCUT SCH ×3 (05:44→21:43)
[2018-06-17] MEDS: diPHENhydraMINE PO* 50 MG PO PRN ×3 (05:51→21:43)
[2018-06-17] MEDS: Aspirin 81 mg CHEW TAB* 81 MG TAB.CHEW PO SCH (09:08)
[2018-06-17] MEDS: predniSONE TAB* 20 MG PO SCH (09:08)
[2018-06-17] MEDS: Lisinopril TAB* 10 MG PO SCH (09:08)
[2018-06-17] MEDS ORDERED: Furosemide IV* 10 MG/ML VIAL (40 MG) IV ONE (10:21)
--- NOTE | 2018-06-17 10:31 | PN ---
Subjective Date of Service: 06/17/18 Interval History: Patient seen and examined. Patient states pain increasing as well as swelling and erythema. He is significantly more itchy and uncomfortable. Denies SOB, no chest pain. Afebrile. Objective Active Medications: Acetaminophen (Tylenol Tab*) 650 mg PO Q4H PRN PRN Reason: FEVER/PAIN Albuterol (Ventolin 2.5 Mg/3 Ml Neb.Chary*) 2.5 mg INH Q2H PRN PRN Reason: SOB/WHEEZING Aspirin (Aspirin 81 Mg Chew Tab*) 81 mg PO QAM [facility] Last Admin: 06/17/18 09:08 Dose: 81 mg Diphenhydramine HCl (Benadryl Po*) 50 mg PO Q6H PRN PRN Reason: PRURITIS Last Admin: 06/17/18 05:51 Dose: 50 mg Furosemide (Lasix Iv*) 40 mg IV ONCE ONE Stop: 06/17/18 10:22 Heparin Sodium (Porcine) (Heparin Vial(*)) 5,000 units SUBCUT Q8HR [facility] Last Admin: 06/17/18 05:44 Dose: 5,000 units Hydroxyzine HCl (Atarax Tab*) 50 mg PO Q6H PRN PRN Reason: ANXIETY Last Admin: 06/17/18 09:26 Dose: 50 mg Clindamycin HCl/Dextrose (Cleocin 600 Mg/50 Ml(*)) 600 mg in 50 mls @ 100 mls/ hr IV Q6H [facility] Last Admin: 06/17/18 05:44 Dose: 100 mls/hr Lisinopril (Prinivil Tab*) 10 mg PO DAILY [facility] Last Admin: 06/17/18 09:08 Dose: 10 mg Prednisone (Deltasone Tab*) 40 mg PO DAILY [facility] Last Admin: 06/17/18 09:08 Dose: 40 mg Vital Signs - 8 hr 06/17/18 06/17/18 06/17/18 03:09 05:51 07:47 Temperature 97.1 F 98.6 F Pulse Rate 79 72 Respiratory 24 18 16 Rate Blood Pressure 136/84 137/71 (mmHg) O2 Sat by Pulse 91 95 Oximetry Oxygen Devices in Use Now: None Appearance: alert, mildly distressed Eyes: No Scleral Icterus, PERRLA Ears/Nose/Mouth/Throat: NL Teeth, Lips, Gums, Mucous Membranes Moist Neck: NL Appearance and Movements; NL JVP, Trachea Midline Respiratory: Symmetrical Chest Expansion and Respiratory Effort, Clear to Auscultation Cardiovascular: NL Sounds; No Murmurs; No JVD, RRR Abdominal: NL Sounds; No Tenderness; No Distention, - - obese Extremities: - - bilateral LE edema, erythema and macular rash with significant discoloration to the ankles, areas of crusting and drainage noted Neurological: Alert and Oriented x 3, - - unsteady gait, utilizing rolling walker Nutrition: Taking PO's Result Diagrams: 06/16/18 05:12 06/16/18 05:12 Additional Lab and Data: Lab Results 06/15/18 06/15/18 06/15/18 Range/Units 15:37 15:45 15:45 WBC 11.8 H (3.5-10.8) 10^3/uL RBC 5.78 H (4.18-5.48) 10^6 /uL Hgb 16.1 (14.0-18.0) g/dL Hct 50 H (36-46) % MCV 86 (80-94) fL MCH 28 (27-31) pg MCHC 33 (31-36) g/dL RDW 17 H (10.5-15) % Plt Count 347 (150-450) 10^3/uL MPV 7.4 (7.4-10.4) fL Neut % (Auto) 70.2 % Lymph % (Auto) 15.7 % Woodford % (Auto) 9.8 % Eos % (Auto) 3.5 % Baso % (Auto) 0.8 % Absolute Neuts (auto) 8.3 H (1.5-7.7) 10^3/ul Absolute Lymphs (auto) 1.8 (1.0-4.8) 10^3/ul Absolute Monos (auto) 1.2 H (0-0.8) 10^3/ul Absolute Eos (auto) 0.4 (0-0.6) 10^3/ul Absolute Basos (auto) 0.1 (0-0.2) 10^3/ul Absolute Nucleated RBC 0 10^3/ul Nucleated RBC % 0.1 INR (Anticoag Therapy) 0.90 (0.77-1.02) APTT 37.1 H (26.0-36.3) seconds Sodium 136 (135-145) mmol/L Potassium 4.4 (3.5-5.0) mmol/L Chloride 99 L (101-111) mmol/L Carbon Dioxide 32 (22-32) mmol/L Anion Gap 5 (2-11) mmol/L BUN 27 H (6-24) mg/dL Creatinine 0.98 (0.67-1.17) mg/dL Est GFR ( Amer) 91.2 (>60) Est GFR (Non-Af Amer) 75.4 (>60) BUN/Creatinine Ratio 27.6 H (8-20) Glucose 96 (70-100) mg/dL Lactic Acid (0.5-2.0) mmol/L Calcium 9.5 (8.6-10.3) mg/dL Magnesium 2.0 (1.9-2.7) mg/dL Total Bilirubin 0.20 (0.2-1.0) mg/dL AST 17 (13-39) U/L ALT 18 (7-52) U/L Alkaline Phosphatase 79 (34-104) U/L Troponin I 0.00 (<0.04) ng/mL C-Reactive Protein 9.43 H (<8.01) mg/L Total Protein 7.5 (6.4-8.9) g/dL Albumin 3.5 (3.2-5.2) g/dL Globulin 4.0 (2-4) g/dL Albumin/Globulin Ratio 0.9 L (1-3) 03/26/19 Range/Units 15:45 WBC (3.5-10.8) 10^3/uL RBC (4.18-5.48) 10^6 /uL Hgb (14.0-18.0) g/dL Hct (36-46) % MCV (80-94) fL MCH (27-31) pg MCHC (31-36) g/dL RDW (10.5-15) % Plt Count (150-450) 10^3/uL MPV (7.4-10.4) fL Neut % (Auto) % Lymph % (Auto) % [place] % (Auto) % Eos % (Auto) % Baso % (Auto) % Absolute Neuts (auto) (1.5-7.7) 10^3/ul Absolute Lymphs (auto) (1.0-4.8) 10^3/ul Absolute Monos (auto) (0-0.8) 10^3/ul Absolute Eos (auto) (0-0.6) 10^3/ul Absolute Basos (auto) (0-0.2) 10^3/ul Absolute Nucleated RBC 10^3/ul Nucleated RBC % INR (Anticoag Therapy) (0.77-1.02) APTT (26.0-36.3) seconds Sodium (135-145) mmol/L Potassium (3.5-5.0) mmol/L Chloride (101-111) mmol/L Carbon Dioxide (22-32) mmol/L Anion Gap (2-11) mmol/L BUN (6-24) mg/dL Creatinine (0.67-1.17) mg/dL Est GFR ( Amer) (>60) Est GFR (Non-Af Amer) (>60) BUN/Creatinine Ratio (8-20) Glucose (70-100) mg/dL Lactic Acid 1.5 (0.5-2.0) mmol/L Calcium (8.6-10.3) mg/dL Magnesium (1.9-2.7) mg/dL Total Bilirubin (0.2-1.0) mg/dL AST (13-39) U/L ALT (7-52) U/L Alkaline Phosphatase (34-104) U/L Troponin I (<0.04) ng/mL C-Reactive Protein (<8.01) mg/L Total Protein (6.4-8.9) g/dL Albumin (3.2-5.2) g/dL Globulin (2-4) g/dL Albumin/Globulin Ratio (1-3) Microbiology and Other Data: Microbiology 06/15/18 17:38 Aerobic Blood Culture - Preliminary Blood Venous No Growth Day 1 Anaerobic Blood Culture - Preliminary No Growth Day 1 Diagnostic Imaging: Conclusions: The study is technically limited. Mild concentric left ventricular hypertrophy is observed. Global left ventricular wall motion and contractility are within normal limits. The estimated ejection fraction is 50-55%. There is an E to A reversal in the mitral valve flow pattern suggestive of diastolic dysfunction. The right ventricular chamber size and systolic function are within normal limits. The aortic valve leaflets are mildly sclerosed. There is mitral annular calcification. The mitral valve leaflets are mildly thickened. There is mild mitral stenosis. The mean gradient across the mitral valve is 3 mmHg. The mitral valve area, by pressure half time, is calculated at 2.7 cm2. No prior echo to compare. Patient Name: DERIAN SEGURA Medical Record#: [id number] Ordering Physician: Antoine Da Silva LABELLING MACHINE OPERATOR Acct.#: [id number] : 1945 Age: 72 Sex: M Location: [address] [place] [address] - MEDICAL Exam Date: 06/15/181733 ADM Status: ADM Real Order Information: CHEST AP OR PORT Accession Number: [id number] CPT: 29786 Indication: Rhonchi. COPD. Comparison: February 04, 2018 chest radiograph and January 11, 2018 CT Technique: Upright AP 1756 hours Report: Bilateral alveolar consolidation most prominent at the RIGHT lung base. Probable small RIGHT pleural effusion. Negative for cardiomegaly. Upper normal central pulmonary vasculature. Unremarkable mediastinal contours. IMPRESSION: #. The constellation of findings is suspicious for bronchopneumonia most confluent at the RIGHT lung base superimposed on chronic obstructive pulmonary disease. Assess/Plan/Problems-Billing Assessment: This is a 72 year old male with hx of pneumonia and pneumothorax that presented to ED with complaints of bilateral LE rash and edema. - Patient Problems (1) Cellulitis Code(s): L03.90 - CELLULITIS, UNSPECIFIED SNOMED Code(s): 797255681 Comment: - Cellulitis vs venous stasis dermatitis vs reaction? Margins not encroaching past markings, however circumferential edema and erythema has significantly increased from yesterday as is pain and itching - Clindamycin and steroids do not appear to be helping - One dose lasix IV now and monitor edema - Contacted Dr. Walsh from derm who will consult on the case - Elevate legs (2) Diastolic dysfunction Code(s): I51.89 - OTHER ILL-DEFINED HEART DISEASES SNOMED Code(s): 7297442 Comment: - does not appear to be in failure - ECHO as above - supportive care - SOB with laying flat may be related to restrictive lung disease and obesity ( patient sleeps in recliner)? - Recommend outpatient sleep study (3) COPD (chronic obstructive pulmonary disease) Code(s): J44.9 - CHRONIC OBSTRUCTIVE PULMONARY DISEASE, UNSPECIFIED SNOMED Code(s): 42168853 Comment: - Not in exacerbation (4) HTN (hypertension) Code(s): I10 - ESSENTIAL (PRIMARY) HYPERTENSION SNOMED Code(s): 17963078 Comment: - continue lisinopril (5) Polycythemia Code(s): D75.1 - SECONDARY POLYCYTHEMIA SNOMED Code(s): 061038369 Comment: - Stable (6) DVT prophylaxis Code(s): JIP2430 - SNOMED Code(s): 615313802 Comment: - HSQ (7) Full code status Code(s): Z78.9 - OTHER SPECIFIED HEALTH STATUS SNOMED Code(s): 962095425 Status and Disposition: Failed 2 day observation. Inpatient for continued care, IV diuresis and dermatology consultation.
[2018-06-17 12:13] LABS: Calcium 9.4 mg/dL (8.6-10.3)
[2018-06-17 12:19] LABS: BUN/Creatinine Ratio 28.2 (8-20); C Reactive Protein 10.75 mg/L (<8.01); EGFR African American 118.7 (>60); EGFR Non-African American 98.1 (>60)
[2018-06-17 12:23] LABS: ABS Basophils 0 10^3/ul (0-0.2); ABS Eosinophils 0.3 10^3/ul (0-0.6); ABS Lymphocytes 1.1 10^3/ul (1.0-4.8); ABS Neutrophils 12.3 10^3/ul (1.5-7.7); ABS Nucleated RBC 0 10^3/ul; Eosinophil % 1.7 %; Hematocrit 51 % (36-46); Hemoglobin 16.2 g/dL (14.0-18.0); Lymphocyte % 7.4 %; Mean Corpuscular HGB Conc 32 g/dL (31-36); Mean Corpuscular Hemoglobin 27 pg (27-31); Mean Corpuscular Volume 87 fL (80-94); Mean Platelet Volume 7.6 fL (7.4-10.4); Nucleated Red Blood Cells % 0; Platelet Count 311 10^3/uL (150-450); Red Blood Count 5.92 10^6 /uL (4.18-5.48); Red Cell Distribution Width 18 % (10.5-15); White Blood Count 14.7 10^3/uL (3.5-10.8)
[2018-06-17 12:27] LABS: Potassium 4.1 mmol/L (3.5-5.0)
[2018-06-18] MEDS: hydrOXYzine HCL TAB* 50 MG PO PRN ×4 (03:47→21:44)
[2018-06-18] MEDS: diPHENhydraMINE PO* 50 MG PO PRN ×3 (03:47→19:43)
[2018-06-18] MEDS: Heparin VIAL(*) 5000 UNITS/ML VIAL (FIVE THOUSAND) SUBCUT SCH ×3 (05:19→21:43)
[2018-06-18] MEDS: Clindamycin 600 MG/D5W BAG(*) 600 MG/50 ML BAG IV SCH ×3 (05:19→17:27)
[2018-06-18] MEDS: Lisinopril TAB* 10 MG PO SCH (10:39)
[2018-06-18] MEDS: predniSONE TAB* 20 MG PO SCH (10:39)
[2018-06-18] MEDS: Aspirin 81 mg CHEW TAB* 81 MG TAB.CHEW PO SCH (10:39)
--- NOTE | 2018-06-18 18:16 | PN ---
Subjective Date of Service: 06/18/18 Interval History: Pt has had diarrhea x2. He states that his b/l LE continue to each, and he has occasional shooting pain in the right velasquez. He states that they appear to be less swollen. He states that they swell when he walks, but are relieved with elevation. Pt also c/o heartburn, stating that he has not gotten his medication that he takes at home. Objective Active Medications: Acetaminophen (Tylenol Tab*) 650 mg PO Q4H PRN Albuterol (Ventolin 2.5 Mg/3 Ml Neb.Chary*) 2.5 mg INH Q2H PRN Aspirin (Aspirin 81 Mg Chew Tab*) 81 mg PO QAM CONNIE Diphenhydramine HCl (Benadryl Po*) 50 mg PO Q6H PRN Heparin Sodium (Porcine) (Heparin Vial(*)) 5,000 units SUBCUT Q8HR CONNIE Hydroxyzine HCl (Atarax Tab*) 50 mg PO Q6H PRN Clindamycin HCl/Dextrose (Cleocin 600 Mg/50 Ml(*)) 600 mg in 50 mls @ 100 mls/ hr IV Q6H CONNIE Ketoconazole (Nizoral 2% Cream (Nf)) 1 applic TOPICAL DAILY CONNIE Lactobacillus Rhamnosus (Lactobacillus Acidophilus*) 1 tab PO DAILY CONNIE Lisinopril (Prinivil Tab*) 10 mg PO DAILY CONNIE Mupirocin (Bactroban 2 % Oint*) 1 applic TOPICAL BID CONNIE Prednisone (Deltasone Tab*) 40 mg PO DAILY CONNIE Triamcinolone Acetonide (Triamcinolone 0.5% Oint *) 1 applic TOPICAL BID CONNIE Vital Signs: Temp Pulse Resp BP Pulse Ox 97.8 F 76 16 140/73 94 06/18/18 15:21 06/18/18 15:21 06/18/18 16:07 06/18/18 15:21 06/18/18 15:21 Oxygen Devices in Use Now: None Appearance: Pt is sitting up in chair with legs elevated. He appears to be in no acute distress. Eyes: No Scleral Icterus, PERRLA Ears/Nose/Mouth/Throat: NL Teeth, Lips, Gums, Mucous Membranes Moist Neck: NL Appearance and Movements; NL JVP, Trachea Midline Respiratory: Symmetrical Chest Expansion and Respiratory Effort, - - small amount of rhonchi throughout b/l lungs Cardiovascular: NL Sounds; No Murmurs; No JVD, RRR, No Edema Abdominal: NL Sounds; No Tenderness; No Distention, No Hepatosplenomegaly Extremities: No Clubbing, Cyanosis, - - B/l LE erythema that does not extend beyond previously marked area, R>L. B/l LE edema 1+ pitting. Crusting/ scabbing and drainage R>L Neurological: Alert and Oriented x 3 Result Diagrams: 06/17/18 11:43 06/17/18 11:43 Additional Lab and Data: Lab Results 06/15/18 06/15/18 06/15/18 Range/Units 15:37 15:45 15:45 WBC 11.8 H (3.5-10.8) 10^3/uL RBC 5.78 H (4.18-5.48) 10^6 /uL Hgb 16.1 (14.0-18.0) g/dL Hct 50 H (36-46) % MCV 86 (80-94) fL MCH 28 (27-31) pg MCHC 33 (31-36) g/dL RDW 17 H (10.5-15) % Plt Count 347 (150-450) 10^3/uL MPV 7.4 (7.4-10.4) fL Neut % (Auto) 70.2 % Lymph % (Auto) 15.7 % [place] % (Auto) 9.8 % Eos % (Auto) 3.5 % Baso % (Auto) 0.8 % Absolute Neuts (auto) 8.3 H (1.5-7.7) 10^3/ul Absolute Lymphs (auto) 1.8 (1.0-4.8) 10^3/ul Absolute Monos (auto) 1.2 H (0-0.8) 10^3/ul Absolute Eos (auto) 0.4 (0-0.6) 10^3/ul Absolute Basos (auto) 0.1 (0-0.2) 10^3/ul Absolute Nucleated RBC 0 10^3/ul Nucleated RBC % 0.1 INR (Anticoag Therapy) 0.90 (0.77-1.02) APTT 37.1 H (26.0-36.3) seconds Sodium 136 (135-145) mmol/L Potassium 4.4 (3.5-5.0) mmol/L Chloride 99 L (101-111) mmol/L Carbon Dioxide 32 (22-32) mmol/L Anion Gap 5 (2-11) mmol/L BUN 27 H (6-24) mg/dL Creatinine 0.98 (0.67-1.17) mg/dL Est GFR ( Amer) 91.2 (>60) Est GFR (Non-Af Amer) 75.4 (>60) BUN/Creatinine Ratio 27.6 H (8-20) Glucose 96 (70-100) mg/dL Lactic Acid (0.5-2.0) mmol/L Calcium 9.5 (8.6-10.3) mg/dL Magnesium 2.0 (1.9-2.7) mg/dL Total Bilirubin 0.20 (0.2-1.0) mg/dL AST 17 (13-39) U/L ALT 18 (7-52) U/L Alkaline Phosphatase 79 (34-104) U/L Troponin I 0.00 (<0.04) ng/mL C-Reactive Protein 9.43 H (<8.01) mg/L Total Protein 7.5 (6.4-8.9) g/dL Albumin 3.5 (3.2-5.2) g/dL Globulin 4.0 (2-4) g/dL Albumin/Globulin Ratio 0.9 L (1-3) 06/15/18 Range/Units 15:45 WBC (3.5-10.8) 10^3/uL RBC (4.18-5.48) 10^6 /uL Hgb (14.0-18.0) g/dL Hct (36-46) % MCV (80-94) fL MCH (27-31) pg MCHC (31-36) g/dL RDW (10.5-15) % Plt Count (150-450) 10^3/uL MPV (7.4-10.4) fL Neut % (Auto) % Lymph % (Auto) % [place] % (Auto) % Eos % (Auto) % Baso % (Auto) % Absolute Neuts (auto) (1.5-7.7) 10^3/ul Absolute Lymphs (auto) (1.0-4.8) 10^3/ul Absolute Monos (auto) (0-0.8) 10^3/ul Absolute Eos (auto) (0-0.6) 10^3/ul Absolute Basos (auto) (0-0.2) 10^3/ul Absolute Nucleated RBC 10^3/ul Nucleated RBC % INR (Anticoag Therapy) (0.77-1.02) APTT (26.0-36.3) seconds Sodium (135-145) mmol/L Potassium (3.5-5.0) mmol/L Chloride (101-111) mmol/L Carbon Dioxide (22-32) mmol/L Anion Gap (2-11) mmol/L BUN (6-24) mg/dL Creatinine (0.67-1.17) mg/dL Est GFR ( Amer) (>60) Est GFR (Non-Af Amer) (>60) BUN/Creatinine Ratio (8-20) Glucose (70-100) mg/dL Lactic Acid 1.5 (0.5-2.0) mmol/L Calcium (8.6-10.3) mg/dL Magnesium (1.9-2.7) mg/dL Total Bilirubin (0.2-1.0) mg/dL AST (13-39) U/L ALT (7-52) U/L Alkaline Phosphatase (34-104) U/L Troponin I (<0.04) ng/mL C-Reactive Protein (<8.01) mg/L Total Protein (6.4-8.9) g/dL Albumin (3.2-5.2) g/dL Globulin (2-4) g/dL Albumin/Globulin Ratio (1-3) Microbiology and Other Data: Microbiology 06/15/18 17:38 Aerobic Blood Culture - Preliminary Blood Venous No Growth Day 1 Anaerobic Blood Culture - Preliminary No Growth Day 1 Diagnostic Imaging: Conclusions: The study is technically limited. Mild concentric left ventricular hypertrophy is observed. Global left ventricular wall motion and contractility are within normal limits. The estimated ejection fraction is 50-55%. There is an E to A reversal in the mitral valve flow pattern suggestive of diastolic dysfunction. The right ventricular chamber size and systolic function are within normal limits. The aortic valve leaflets are mildly sclerosed. There is mitral annular calcification. The mitral valve leaflets are mildly thickened. There is mild mitral stenosis. The mean gradient across the mitral valve is 3 mmHg. The mitral valve area, by pressure half time, is calculated at 2.7 cm2. No prior echo to compare. Patient Name: DERIAN SEGURA Medical Record#: [id number] Ordering Physician: Antoine Da Silva PATIENT SERVICES ASSISTANT Acct.#: [id number] : 1945 Age: 72 Sex: M Location: [address] [place] [address] MEDICAL Exam Date: 06/15/181733 ADM Status: ADM Real Order Information: CHEST AP OR PORT Accession Number: [id number] CPT: 81645 Indication: Rhonchi. COPD. Comparison: February 04, 2018 chest radiograph and January 11, 2018 CT Technique: Upright AP 1756 hours Report: Bilateral alveolar consolidation most prominent at the RIGHT lung base. Probable small RIGHT pleural effusion. Negative for cardiomegaly. Upper normal central pulmonary vasculature. Unremarkable mediastinal contours. IMPRESSION: #. The constellation of findings is suspicious for bronchopneumonia most confluent at the RIGHT lung base superimposed on chronic obstructive pulmonary disease. Assess/Plan/Problems-Billing Assessment: This is a 72 year old male with hx of pneumonia and pneumothorax that presented to ED with complaints of bilateral LE rash and edema. - Patient Problems (1) Stasis dermatitis of both legs Comment: -Consulted Derm; thank you for the recommendations -D/c clinda, prednisone -Stasis dermatitis: fluocinonide BID 2weeks on, 1 week off prn rash; mupirocin BID x2 weeks; wrap legs with xeroform, kerlix, JOHN for compression; elevated b/ l LE -Bacterial culture of extremities ordered -Call [phone] when ready for d/c for office appt with Dr. Vaughan -Tinea Pedis: Ketoconazole qd x2 months -Lasix 20 IV tomorrow a.m. (2) Diastolic dysfunction Comment: - does not appear to be in failure - ECHO as above - supportive care - SOB with laying flat may be related to restrictive lung disease and obesity ( patient sleeps in recliner)? - Recommend outpatient sleep study (3) COPD (chronic obstructive pulmonary disease) Current Visit: No Status: Acute Code(s): J44.9 - CHRONIC OBSTRUCTIVE PULMONARY DISEASE, UNSPECIFIED SNOMED Code(s): 58168473 Comment: - Not in exacerbation (4) HTN (hypertension) Current Visit: No Status: Acute Priority: High Code(s): I10 - ESSENTIAL ( PRIMARY) HYPERTENSION SNOMED Code(s): 39331539 Comment: - continue lisinopril (5) Polycythemia Current Visit: No Status: Acute Priority: High Code(s): D75.1 - SECONDARY POLYCYTHEMIA SNOMED Code(s): 732691099 Comment: - Stable (6) DVT prophylaxis Comment: - HSQ (7) Full code status Status and Disposition: Failed 2 day observation. Inpatient for continued care, IV diuresis and dermatology consultation.
[2018-06-18] MEDS ORDERED: Furosemide IV* 10 MG/ML 2 ML VIAL (20 MG) IV ONE (18:31)
[2018-06-18] MEDS: Mupirocin 2% OINT* TUBE TOPICAL SCH (21:43)
[2018-06-18] MEDS: CMCS:Ketoconazole 2 % CREAM (NF) 30 GM TUBE TOPICAL SCH (21:43)
[2018-06-18] MEDS: Triamcinolone 0.5% OINT * 15 GM TUBE TOPICAL SCH (21:43)
[2018-06-19] MEDS: diPHENhydraMINE PO* 50 MG PO PRN ×2 (02:14→08:32)
[2018-06-19] MEDS: hydrOXYzine HCL TAB* 50 MG PO PRN ×3 (04:59→19:49)
[2018-06-19] MEDS: Heparin VIAL(*) 5000 UNITS/ML VIAL (FIVE THOUSAND) SUBCUT SCH ×3 (05:00→21:26)
[2018-06-19 05:20] LABS: ABS Basophils 0.1 10^3/ul (0-0.2); ABS Eosinophils 0.6 10^3/ul (0-0.6); ABS Lymphocytes 2.3 10^3/ul (1.0-4.8); ABS Monocytes 1.4 10^3/ul (0-0.8); ABS Neutrophils 10.9 10^3/ul (1.5-7.7); ABS Nucleated RBC 0 10^3/ul; Eosinophil % 4.2 %; Hematocrit 51 % (36-46); Hemoglobin 16.8 g/dL (14.0-18.0); Lymphocyte % 15.2 %; Mean Corpuscular HGB Conc 33 g/dL (31-36); Mean Corpuscular Hemoglobin 28 pg (27-31); Mean Corpuscular Volume 86 fL (80-94); Mean Platelet Volume 7.3 fL (7.4-10.4); Nucleated Red Blood Cells % 0; Platelet Count 331 10^3/uL (150-450); Red Cell Distribution Width 17 % (10.5-15); White Blood Count 15.3 10^3/uL (3.5-10.8)
[2018-06-19 05:36] LABS: BUN/Creatinine Ratio 24.4 (8-20); Calcium 9.2 mg/dL (8.6-10.3); EGFR African American 106.1 (>60); EGFR Non-African American 87.7 (>60); Potassium 4.1 mmol/L (3.5-5.0)
[2018-06-19] MEDS: predniSONE TAB* 20 MG PO SCH (08:32)
[2018-06-19] MEDS: Aspirin 81 mg CHEW TAB* 81 MG TAB.CHEW PO SCH (08:32)
[2018-06-19] MEDS: Lactobacillus Acidophilus* 1 TAB PO SCH (08:32)
[2018-06-19] MEDS: Lisinopril TAB* 10 MG PO SCH (08:32)
[2018-06-19] MEDS: Pantoprazole IV* 40 MG IV SCH (08:32)
[2018-06-19] MEDS: Mupirocin 2% OINT* TUBE TOPICAL SCH ×2 (08:36→19:51)
[2018-06-19] MEDS: CMCS:Ketoconazole 2 % CREAM (NF) 30 GM TUBE TOPICAL SCH (08:36)
[2018-06-19] MEDS: Triamcinolone 0.5% OINT * 15 GM TUBE TOPICAL SCH ×2 (08:36→19:51)
--- NOTE | 2018-06-19 11:28 | PN ---
Subjective Date of Service: 06/19/18 Interval History: Pt states that b/l LE are a more bright red than yesterday, although there has been no spreading of erythema. He believes the edema has improved since admission, though. He states that LE are still itchy, although itching appears to have decreased. He is regularly taking atarax, benadryl for itching. He states that his GERD has improved since pantoprazole. He continues to have chronic cough with scan sputum production, which has not changed in nature. Objective Active Medications: Acetaminophen (Tylenol Tab*) 650 mg PO Q4H PRN Albuterol (Ventolin 2.5 Mg/3 Ml Neb.Chary*) 2.5 mg INH Q2H PRN Aspirin (Aspirin 81 Mg Chew Tab*) 81 mg PO QAM CONNIE Diphenhydramine HCl (Benadryl Po*) 50 mg PO Q6H PRN Heparin Sodium (Porcine) (Heparin Vial(*)) 5,000 units SUBCUT Q8HR CONNIE Hydroxyzine HCl (Atarax Tab*) 50 mg PO Q6H PRN Ketoconazole (Nizoral 2% Cream (Nf)) 1 applic TOPICAL DAILY CONNIE Lactobacillus Rhamnosus (Lactobacillus Acidophilus*) 1 tab PO DAILY CONNIE Lisinopril (Prinivil Tab*) 10 mg PO DAILY CONNIE Mupirocin (Bactroban 2 % Oint*) 1 applic TOPICAL BID CONNIE Pantoprazole Sodium (Protonix Iv*) 40 mg IV Q24H CONNIE Prednisone (Deltasone Tab*) 40 mg PO DAILY CONNIE Triamcinolone Acetonide (Triamcinolone 0.5% Oint *) 1 applic TOPICAL BID CONNIE Vital Signs: Temp Pulse Resp BP Pulse Ox 97.4 F 82 12 152/81 98 06/19/18 11:42 06/19/18 15:09 06/19/18 11:42 06/19/18 15:09 06/19/18 15:09 Oxygen Devices in Use Now: None Appearance: Pt is sitting in chair with LE elevated. He appears to be in no acute distress. Eyes: No Scleral Icterus, PERRLA Ears/Nose/Mouth/Throat: NL Teeth, Lips, Gums, Clear Oropharnyx, Mucous Membranes Moist Neck: NL Appearance and Movements; NL JVP, Trachea Midline Respiratory: Symmetrical Chest Expansion and Respiratory Effort, Clear to Auscultation - Without wheeze, rhonchi, rales Cardiovascular: NL Sounds; No Murmurs; No JVD, RRR Abdominal: NL Sounds; No Tenderness; No Distention, No Hepatosplenomegaly Extremities: No Clubbing, Cyanosis, - - B/L LE erythema. R>L edema with R extremity scabbing Neurological: Alert and Oriented x 3 Result Diagrams: 06/19/18 04:57 06/19/18 04:57 Additional Lab and Data: Lab Results 06/15/18 06/15/18 06/15/18 Range/Units 15:37 15:45 15:45 WBC 11.8 H (3.5-10.8) 10^3/uL RBC 5.78 H (4.18-5.48) 10^6 /uL Hgb 16.1 (14.0-18.0) g/dL Hct 50 H (36-46) % MCV 86 (80-94) fL MCH 28 (27-31) pg MCHC 33 (31-36) g/dL RDW 17 H (10.5-15) % Plt Count 347 (150-450) 10^3/uL MPV 7.4 (7.4-10.4) fL Neut % (Auto) 70.2 % Lymph % (Auto) 15.7 % [place] % (Auto) 9.8 % Eos % (Auto) 3.5 % Baso % (Auto) 0.8 % Absolute Neuts (auto) 8.3 H (1.5-7.7) 10^3/ul Absolute Lymphs (auto) 1.8 (1.0-4.8) 10^3/ul Absolute Monos (auto) 1.2 H (0-0.8) 10^3/ul Absolute Eos (auto) 0.4 (0-0.6) 10^3/ul Absolute Basos (auto) 0.1 (0-0.2) 10^3/ul Absolute Nucleated RBC 0 10^3/ul Nucleated RBC % 0.1 INR (Anticoag Therapy) 0.90 (0.77-1.02) APTT 37.1 H (26.0-36.3) seconds Sodium 136 (135-145) mmol/L Potassium 4.4 (3.5-5.0) mmol/L Chloride 99 L (101-111) mmol/L Carbon Dioxide 32 (22-32) mmol/L Anion Gap 5 (2-11) mmol/L BUN 27 H (6-24) mg/dL Creatinine 0.98 (0.67-1.17) mg/dL Est GFR ( Amer) 91.2 (>60) Est GFR (Non-Af Amer) 75.4 (>60) BUN/Creatinine Ratio 27.6 H (8-20) Glucose 96 (70-100) mg/dL Lactic Acid (0.5-2.0) mmol/L Calcium 9.5 (8.6-10.3) mg/dL Magnesium 2.0 (1.9-2.7) mg/dL Total Bilirubin 0.20 (0.2-1.0) mg/dL AST 17 (13-39) U/L ALT 18 (7-52) U/L Alkaline Phosphatase 79 (34-104) U/L Troponin I 0.00 (<0.04) ng/mL C-Reactive Protein 9.43 H (<8.01) mg/L Total Protein 7.5 (6.4-8.9) g/dL Albumin 3.5 (3.2-5.2) g/dL Globulin 4.0 (2-4) g/dL Albumin/Globulin Ratio 0.9 L (1-3) 06/15/ Range/Units 15:45 WBC (3.5-10.8) 10^3/uL RBC (4.18-5.48) 10^6 /uL Hgb (14.0-18.0) g/dL Hct (36-46) % MCV (80-94) fL MCH (27-31) pg MCHC (31-36) g/dL RDW (10.5-15) % Plt Count (150-450) 10^3/uL MPV (7.4-10.4) fL Neut % (Auto) % Lymph % (Auto) % [place] % (Auto) % Eos % (Auto) % Baso % (Auto) % Absolute Neuts (auto) (1.5-7.7) 10^3/ul Absolute Lymphs (auto) (1.0-4.8) 10^3/ul Absolute Monos (auto) (0-0.8) 10^3/ul Absolute Eos (auto) (0-0.6) 10^3/ul Absolute Basos (auto) (0-0.2) 10^3/ul Absolute Nucleated RBC 10^3/ul Nucleated RBC % INR (Anticoag Therapy) (0.77-1.02) APTT (26.0-36.3) seconds Sodium (135-145) mmol/L Potassium (3.5-5.0) mmol/L Chloride (101-111) mmol/L Carbon Dioxide (22-32) mmol/L Anion Gap (2-11) mmol/L BUN (6-24) mg/dL Creatinine (0.67-1.17) mg/dL Est GFR ( Amer) (>60) Est GFR (Non-Af Amer) (>60) BUN/Creatinine Ratio (8-20) Glucose (70-100) mg/dL Lactic Acid 1.5 (0.5-2.0) mmol/L Calcium (8.6-10.3) mg/dL Magnesium (1.9-2.7) mg/dL Total Bilirubin (0.2-1.0) mg/dL AST (13-39) U/L ALT (7-52) U/L Alkaline Phosphatase (34-104) U/L Troponin I (<0.04) ng/mL C-Reactive Protein (<8.01) mg/L Total Protein (6.4-8.9) g/dL Albumin (3.2-5.2) g/dL Globulin (2-4) g/dL Albumin/Globulin Ratio (1-3) Microbiology and Other Data: Microbiology 06/15/18 17:38 Aerobic Blood Culture - Preliminary Blood Venous No Growth Day 1 Anaerobic Blood Culture - Preliminary No Growth Day 1 Diagnostic Imaging: Conclusions: The study is technically limited. Mild concentric left ventricular hypertrophy is observed. Global left ventricular wall motion and contractility are within normal limits. The estimated ejection fraction is 50-55%. There is an E to A reversal in the mitral valve flow pattern suggestive of diastolic dysfunction. The right ventricular chamber size and systolic function are within normal limits. The aortic valve leaflets are mildly sclerosed. There is mitral annular calcification. The mitral valve leaflets are mildly thickened. There is mild mitral stenosis. The mean gradient across the mitral valve is 3 mmHg. The mitral valve area, by pressure half time, is calculated at 2.7 cm2. No prior echo to compare. Patient Name: DERIAN SEGURA Medical Record#: [id number] Ordering Physician: Antoine Da Silva RETANNED LEATHER ROLLER Acct.#: [id number] : 1945 Age: 72 Sex: M Location: [address] [place] [address] MEDICAL Exam Date: 06/15/18 1734 ADM Status: ADM Real Order Information: CHEST AP OR PORT Accession Number: [id number] CPT: 50403 Indication: Rhonchi. COPD. Comparison: February 04, 2018 chest radiograph and January 11, 2018 CT Technique: Upright AP 1756 hours Report: Bilateral alveolar consolidation most prominent at the RIGHT lung base. Probable small RIGHT pleural effusion. Negative for cardiomegaly. Upper normal central pulmonary vasculature. Unremarkable mediastinal contours. IMPRESSION: #. The constellation of findings is suspicious for bronchopneumonia most confluent at the RIGHT lung base superimposed on chronic obstructive pulmonary disease. Assess/Plan/Problems-Billing Assessment: This is a 72 year old male with hx of pneumonia and pneumothorax that presented to ED with complaints of bilateral LE rash and edema. - Patient Problems (1) Stasis dermatitis of both legs Comment: -Consulted Derm; thank you for the recommendations -D/c clinda, prednisone -Stasis dermatitis: fluocinonide BID 2weeks on, 1 week off prn rash; mupirocin BID x2 weeks; -D/c wrap, as pt has been elevating legs and ? wrap over ointment causing further irritation -Bacterial culture of extremities ordered -Call [phone] when ready for d/c for office appt with Dr. Vaughan -Tinea Pedis: Ketoconazole qd x2 months -Lasix 20 IV tomorrow a.m. (2) Leukocytosis Comment: -Likely result of prednisone; last dose this morning -Will continue to monitor (3) Diastolic dysfunction Comment: -does not appear to be in failure -ECHO as above -supportive care -SOB with laying flat may be related to restrictive lung disease and obesity ( patient sleeps in recliner)? -Recommend outpatient sleep study (4) GERD (gastroesophageal reflux disease) Comment: -Pantoprazole ordered; pt reports resolution of symptoms (5) COPD (chronic obstructive pulmonary disease) Comment: -Not in exacerbation (6) HTN (hypertension) Comment: - continue lisinopril (7) Polycythemia Comment: - Stable (8) DVT prophylaxis Comment: - HSQ (9) Full code status Status and Disposition: Failed 2 day observation. Inpatient for continued care, IV diuresis and dermatology consultation.
[2018-06-20] MEDS: diPHENhydraMINE PO* 50 MG PO PRN ×3 (03:40→19:53)
[2018-06-20] MEDS: Heparin VIAL(*) 5000 UNITS/ML VIAL (FIVE THOUSAND) SUBCUT SCH ×3 (04:07→20:04)
[2018-06-20] MEDS: Lisinopril TAB* 10 MG PO SCH (08:01)
[2018-06-20] MEDS: Triamcinolone 0.5% OINT * 15 GM TUBE TOPICAL SCH ×2 (08:01→19:54)
[2018-06-20] MEDS: Pantoprazole IV* 40 MG IV SCH (08:01)
[2018-06-20] MEDS: Lactobacillus Acidophilus* 1 TAB PO SCH (08:01)
[2018-06-20] MEDS: Mupirocin 2% OINT* TUBE TOPICAL SCH ×2 (08:01→19:54)
[2018-06-20] MEDS: CMCS:Ketoconazole 2 % CREAM (NF) 30 GM TUBE TOPICAL SCH (08:01)
[2018-06-20] MEDS: hydrOXYzine HCL TAB* 50 MG PO PRN ×2 (08:01→15:14)
[2018-06-20] MEDS: Aspirin 81 mg CHEW TAB* 81 MG TAB.CHEW PO SCH (08:01)
--- NOTE | 2018-06-20 08:47 | PN ---
Subjective Date of Service: 06/20/18 Interval History: Pt continues to have no s/s of infection; 06/19 leukocytosis believed to be from prednisone use (discontinued 06/19). Denies change in cough; denies wheeze, diarrhea, abd pain, fever. Pt states that LE itching has decreased, although he continues to use atarax and benadryl around the clock. Pt states that the red bumps on his leg have gone down. Objective Active Medications: Acetaminophen (Tylenol Tab*) 650 mg PO Q4H PRN Albuterol (Ventolin 2.5 Mg/3 Ml Neb.Chary*) 2.5 mg INH Q2H PRN Aspirin (Aspirin 81 Mg Chew Tab*) 81 mg PO QAM CONNIE Diphenhydramine HCl (Benadryl Po*) 50 mg PO Q6H PRN Furosemide (Lasix Iv*) 20 mg IV ONCE ONE Heparin Sodium (Porcine) (Heparin Vial(*)) 5,000 units SUBCUT Q8HR CONNIE Hydroxyzine HCl (Atarax Tab*) 50 mg PO Q6H PRN Ketoconazole (Nizoral 2% Cream (Nf)) 1 applic TOPICAL DAILY CONNIE Lactobacillus Rhamnosus (Lactobacillus Acidophilus*) 1 tab PO DAILY CONNIE Lisinopril (Prinivil Tab*) 10 mg PO DAILY CONNIE Mupirocin (Bactroban 2 % Oint*) 1 applic TOPICAL BID CONNIE Pantoprazole Sodium (Protonix Iv*) 40 mg IV Q24H CONNIE Triamcinolone Acetonide (Triamcinolone 0.5% Oint *) 1 applic TOPICAL BID CONNIE Vital Signs: Temp Pulse Resp BP Pulse Ox 97.2 F 97 20 156/85 90 06/20/18 15:28 06/20/18 15:28 06/20/18 15:28 06/20/18 15:28 06/20/18 15:28 Oxygen Devices in Use Now: None Appearance: Pt sitting in recliner with LE elevated. He is in no acute distress. Eyes: No Scleral Icterus, PERRLA Ears/Nose/Mouth/Throat: NL Teeth, Lips, Gums, Clear Oropharnyx, Mucous Membranes Moist Neck: NL Appearance and Movements; NL JVP, Trachea Midline Respiratory: Symmetrical Chest Expansion and Respiratory Effort, - - End expiratory wheeze on expiration b/l Cardiovascular: NL Sounds; No Murmurs; No JVD, RRR Abdominal: NL Sounds; No Tenderness; No Distention, No Hepatosplenomegaly Extremities: - - RLE > LLE erythema, edema. RLE with crusting and intact papules that has decreased from yesterday. Neurological: Alert and Oriented x 3 Result Diagrams: 06/19/18 04:57 06/19/18 04:57 Additional Lab and Data: Lab Results 06/15/18 06/15/18 06/15/18 Range/Units 15:37 15:45 15:45 WBC 11.8 H (3.5-10.8) 10^3/uL RBC 5.78 H (4.18-5.48) 10^6 /uL Hgb 16.1 (14.0-18.0) g/dL Hct 50 H (36-46) % MCV 86 (80-94) fL MCH 28 (27-31) pg MCHC 33 (31-36) g/dL RDW 17 H (10.5-15) % Plt Count 347 (150-450) 10^3/uL MPV 7.4 (7.4-10.4) fL Neut % (Auto) 70.2 % Lymph % (Auto) 15.7 % Foster % (Auto) 9.8 % Eos % (Auto) 3.5 % Baso % (Auto) 0.8 % Absolute Neuts (auto) 8.3 H (1.5-7.7) 10^3/ul Absolute Lymphs (auto) 1.8 (1.0-4.8) 10^3/ul Absolute Monos (auto) 1.2 H (0-0.8) 10^3/ul Absolute Eos (auto) 0.4 (0-0.6) 10^3/ul Absolute Basos (auto) 0.1 (0-0.2) 10^3/ul Absolute Nucleated RBC 0 10^3/ul Nucleated RBC % 0.1 INR (Anticoag Therapy) 0.90 (0.77-1.02) APTT 37.1 H (26.0-36.3) seconds Sodium 136 (135-145) mmol/L Potassium 4.4 (3.5-5.0) mmol/L Chloride 99 L (101-111) mmol/L Carbon Dioxide 32 (22-32) mmol/L Anion Gap 5 (2-11) mmol/L BUN 27 H (6-24) mg/dL Creatinine 0.98 (0.67-1.17) mg/dL Est GFR ( Amer) 91.2 (>60) Est GFR (Non-Af Amer) 75.4 (>60) BUN/Creatinine Ratio 27.6 H (8-20) Glucose 96 (70-100) mg/dL Lactic Acid (0.5-2.0) mmol/L Calcium 9.5 (8.6-10.3) mg/dL Magnesium 2.0 (1.9-2.7) mg/dL Total Bilirubin 0.20 (0.2-1.0) mg/dL AST 17 (13-39) U/L ALT 18 (7-52) U/L Alkaline Phosphatase 79 (34-104) U/L Troponin I 0.00 (<0.04) ng/mL C-Reactive Protein 9.43 H (<8.01) mg/L Total Protein 7.5 (6.4-8.9) g/dL Albumin 3.5 (3.2-5.2) g/dL Globulin 4.0 (2-4) g/dL Albumin/Globulin Ratio 0.9 L (1-3) //19 Range/Units 15:45 WBC (3.5-10.8) 10^3/uL RBC (4.18-5.48) 10^6 /uL Hgb (14.0-18.0) g/dL Hct (36-46) % MCV (80-94) fL MCH (27-31) pg MCHC (31-36) g/dL RDW (10.5-15) % Plt Count (150-450) 10^3/uL MPV (7.4-10.4) fL Neut % (Auto) % Lymph % (Auto) % Foster % (Auto) % Eos % (Auto) % Baso % (Auto) % Absolute Neuts (auto) (1.5-7.7) 10^3/ul Absolute Lymphs (auto) (1.0-4.8) 10^3/ul Absolute Monos (auto) (0-0.8) 10^3/ul Absolute Eos (auto) (0-0.6) 10^3/ul Absolute Basos (auto) (0-0.2) 10^3/ul Absolute Nucleated RBC 10^3/ul Nucleated RBC % INR (Anticoag Therapy) (0.77-1.02) APTT (26.0-36.3) seconds Sodium (135-145) mmol/L Potassium (3.5-5.0) mmol/L Chloride (101-111) mmol/L Carbon Dioxide (22-32) mmol/L Anion Gap (2-11) mmol/L BUN (6-24) mg/dL Creatinine (0.67-1.17) mg/dL Est GFR ( Amer) (>60) Est GFR (Non-Af Amer) (>60) BUN/Creatinine Ratio (8-20) Glucose (70-100) mg/dL Lactic Acid 1.5 (0.5-2.0) mmol/L Calcium (8.6-10.3) mg/dL Magnesium (1.9-2.7) mg/dL Total Bilirubin (0.2-1.0) mg/dL AST (13-39) U/L ALT (7-52) U/L Alkaline Phosphatase (34-104) U/L Troponin I (<0.04) ng/mL C-Reactive Protein (<8.01) mg/L Total Protein (6.4-8.9) g/dL Albumin (3.2-5.2) g/dL Globulin (2-4) g/dL Albumin/Globulin Ratio (1-3) Microbiology and Other Data: Microbiology 06/15/18 17:38 Aerobic Blood Culture - Preliminary Blood Venous No Growth Day 1 Anaerobic Blood Culture - Preliminary No Growth Day 1 Diagnostic Imaging: Conclusions: The study is technically limited. Mild concentric left ventricular hypertrophy is observed. Global left ventricular wall motion and contractility are within normal limits. The estimated ejection fraction is 50-55%. There is an E to A reversal in the mitral valve flow pattern suggestive of diastolic dysfunction. The right ventricular chamber size and systolic function are within normal limits. The aortic valve leaflets are mildly sclerosed. There is mitral annular calcification. The mitral valve leaflets are mildly thickened. There is mild mitral stenosis. The mean gradient across the mitral valve is 3 mmHg. The mitral valve area, by pressure half time, is calculated at 2.7 cm2. No prior echo to compare. Patient Name: DERIAN SEGURA Medical Record#: [id number] Ordering Physician: Antoine Da Silva [employer] SUPERVISOR Acct.#: [id number] : 1945 Age: 72 Sex: M Location: [address] [place] [address] - MEDICAL Exam Date: 06/15/181733 ADM Status: ADM Real Order Information: CHEST AP OR PORT Accession Number: [id number] CPT: 02535 Indication: Rhonchi. COPD. Comparison: February 04, 2018 chest radiograph and January 11, 2018 CT Technique: Upright AP 1756 hours Report: Bilateral alveolar consolidation most prominent at the RIGHT lung base. Probable small RIGHT pleural effusion. Negative for cardiomegaly. Upper normal central pulmonary vasculature. Unremarkable mediastinal contours. IMPRESSION: #. The constellation of findings is suspicious for bronchopneumonia most confluent at the RIGHT lung base superimposed on chronic obstructive pulmonary disease. Assess/Plan/Problems-Billing Assessment: This is a 72 year old male with hx of pneumonia and pneumothorax that presented to ED with complaints of bilateral LE rash and edema. - Patient Problems (1) Stasis dermatitis of both legs Comment: -Consulted Derm; thank you for the recommendations -D/c clinda, prednisone (last dose 06/19) -Stasis dermatitis: fluocinonide BID 2weeks on, 1 week off prn rash; mupirocin BID x2 weeks -Improved LE erythema since wrap discontinuation; continue elevation, prn rx for itching -Bacterial culture of RLE shows normal mary kate -Call [phone] when ready for d/c for office appt with Dr. Vaughan -Tinea Pedis: Ketoconazole qd x2 months -Lasix 20 IV continued for tomorrow a.m. (2) Leukocytosis Comment: -Likely result of prednisone; last dose 06/19 -Will continue to monitor (3) Diastolic dysfunction Comment: -does not appear to be in failure -ECHO as above -supportive care -SOB with laying flat may be related to restrictive lung disease and obesity ( patient sleeps in recliner)? -Recommend outpatient sleep study (4) GERD (gastroesophageal reflux disease) Comment: -Pantoprazole ordered; pt reports resolution of symptoms (5) COPD (chronic obstructive pulmonary disease) Comment: -Not in exacerbation (6) HTN (hypertension) Comment: - continue lisinopril (7) Polycythemia Comment: - Stable (8) DVT prophylaxis Comment: - HSQ (9) Full code status Status and Disposition: Failed 2 day observation. Inpatient for continued care, IV diuresis and dermatology consultation.
[2018-06-20] MEDS ORDERED: Furosemide IV* 10 MG/ML 2 ML VIAL (20 MG) IV ONE (09:00)
[2018-06-21] MEDS: hydrOXYzine HCL TAB* 50 MG PO PRN ×2 (03:28→12:22)
[2018-06-21] MEDS: Heparin VIAL(*) 5000 UNITS/ML VIAL (FIVE THOUSAND) SUBCUT SCH ×2 (05:48→12:22)
[2018-06-21] MEDS ORDERED: Furosemide IV* 10 MG/ML 2 ML VIAL (20 MG) IV ONE (06:00)
[2018-06-21] MEDS: Aspirin 81 mg CHEW TAB* 81 MG TAB.CHEW PO SCH (08:22)
[2018-06-21] MEDS: Lisinopril TAB* 10 MG PO SCH (08:22)
[2018-06-21] MEDS: Lactobacillus Acidophilus* 1 TAB PO SCH (08:22)
[2018-06-21] MEDS: diPHENhydraMINE PO* 50 MG PO PRN (08:22)
[2018-06-21] MEDS: Mupirocin 2% OINT* TUBE TOPICAL SCH (08:23)
[2018-06-21] MEDS: Pantoprazole IV* 40 MG IV SCH (08:23)
[2018-06-21] MEDS: CMCS:Ketoconazole 2 % CREAM (NF) 30 GM TUBE TOPICAL SCH (08:23)
[2018-06-21] MEDS: Triamcinolone 0.5% OINT * 15 GM TUBE TOPICAL SCH (08:23)
[2018-06-21 08:31] LABS: Hematocrit 50 % (36-46); Hemoglobin 16.5 g/dL (14.0-18.0); Mean Corpuscular HGB Conc 33 g/dL (31-36); Mean Corpuscular Hemoglobin 28 pg (27-31); Mean Corpuscular Volume 85 fL (80-94); Mean Platelet Volume 7.1 fL (7.4-10.4); Platelet Count 351 10^3/uL (150-450); Red Blood Count 5.88 10^6 /uL (4.18-5.48); Red Cell Distribution Width 17 % (10.5-15); White Blood Count 14.9 10^3/uL (3.5-10.8)
[2018-06-21 08:54] LABS: BUN/Creatinine Ratio 18.8 (8-20); Calcium 9.5 mg/dL (8.6-10.3); EGFR African American 88.1 (>60); EGFR Non-African American 72.8 (>60); Potassium 4.4 mmol/L (3.5-5.0)
--- NOTE | 2018-06-21 09:37 | PN ---
Subjective Date of Service: 06/21/18 Interval History: Patient stable for discharge, therefore, discharged. See Discharge summary. Objective Active Medications: Acetaminophen (Tylenol Tab*) 650 mg PO Q4H PRN PRN Reason: FEVER/PAIN Albuterol (Ventolin 2.5 Mg/3 Ml Neb.Chary*) 2.5 mg INH Q2H PRN PRN Reason: SOB/WHEEZING Aspirin (Aspirin 81 Mg Chew Tab*) 81 mg PO QAM [facility] Last Admin: 06/21/18 08:22 Dose: 81 mg Diphenhydramine HCl (Benadryl Po*) 50 mg PO Q6H PRN PRN Reason: PRURITIS Last Admin: 06/21/18 08:22 Dose: 50 mg Heparin Sodium (Porcine) (Heparin Vial(*)) 5,000 units SUBCUT Q8HR [facility] Last Admin: 06/21/18 05:48 Dose: 5,000 units Hydroxyzine HCl (Atarax Tab*) 50 mg PO Q6H PRN PRN Reason: ANXIETY Last Admin: 06/21/18 03:28 Dose: 50 mg Ketoconazole (Nizoral 2% Cream (Nf)) 1 applic TOPICAL DAILY [facility] Last Admin: 06/21/18 08:23 Dose: 1 applic Lactobacillus Rhamnosus (Lactobacillus Acidophilus*) 1 tab PO DAILY [facility] Last Admin: 06/21/18 08:22 Dose: 1 tab Lisinopril (Prinivil Tab*) 10 mg PO DAILY [facility] Last Admin: 06/21/18 08:22 Dose: 10 mg Mupirocin (Bactroban 2 % Oint*) 1 applic TOPICAL BID [facility] Last Admin: 06/21/18 08:23 Dose: 1 applic Pantoprazole Sodium (Protonix Iv*) 40 mg IV Q24H [facility] Last Admin: 06/21/18 08:23 Dose: 40 mg Triamcinolone Acetonide (Triamcinolone 0.5% Oint *) 1 applic TOPICAL BID [facility] Last Admin: 06/21/18 08:23 Dose: 1 applic Vital Signs - 8 hr 06/21/18 06/21/18 06/21/18 02:55 02:56 08:06 Temperature 97.5 F 97.5 F 96.6 F Pulse Rate 71 71 89 Respiratory 22 22 20 Rate Blood Pressure 132/73 132/73 138/68 (mmHg) O2 Sat by Pulse 93 93 98 Oximetry 06/21/18 06/21/18 06/21/18 08:20 08:22 08:24 Temperature 97.5 F 97.5 F Pulse Rate 87 85 Respiratory 16 22 16 Rate Blood Pressure 129/82 129/82 (mmHg) O2 Sat by Pulse 88 89 Oximetry Oxygen Devices in Use Now: None Result Diagrams: 06/21/18 08:17 06/21/18 08:17 Additional Lab and Data: Lab Results 06/15/18 06/15/18 06/15/18 Range/Units 15:37 15:45 15:45 WBC 11.8 H (3.5-10.8) 10^3/uL RBC 5.78 H (4.18-5.48) 10^6 /uL Hgb 16.1 (14.0-18.0) g/dL Hct 50 H (36-46) % MCV 86 (80-94) fL MCH 28 (27-31) pg MCHC 33 (31-36) g/dL RDW 17 H (10.5-15) % Plt Count 347 (150-450) 10^3/uL MPV 7.4 (7.4-10.4) fL Neut % (Auto) 70.2 % Lymph % (Auto) 15.7 % Tift % (Auto) 9.8 % Eos % (Auto) 3.5 % Baso % (Auto) 0.8 % Absolute Neuts (auto) 8.3 H (1.5-7.7) 10^3/ul Absolute Lymphs (auto) 1.8 (1.0-4.8) 10^3/ul Absolute Monos (auto) 1.2 H (0-0.8) 10^3/ul Absolute Eos (auto) 0.4 (0-0.6) 10^3/ul Absolute Basos (auto) 0.1 (0-0.2) 10^3/ul Absolute Nucleated RBC 0 10^3/ul Nucleated RBC % 0.1 INR (Anticoag Therapy) 0.90 (0.77-1.02) APTT 37.1 H (26.0-36.3) seconds Sodium 136 (135-145) mmol/L Potassium 4.4 (3.5-5.0) mmol/L Chloride 99 L (101-111) mmol/L Carbon Dioxide 32 (22-32) mmol/L Anion Gap 5 (2-11) mmol/L BUN 27 H (6-24) mg/dL Creatinine 0.98 (0.67-1.17) mg/dL Est GFR ( Amer) 91.2 (>60) Est GFR (Non-Af Amer) 75.4 (>60) BUN/Creatinine Ratio 27.6 H (8-20) Glucose 96 (70-100) mg/dL Lactic Acid (0.5-2.0) mmol/L Calcium 9.5 (8.6-10.3) mg/dL Magnesium 2.0 (1.9-2.7) mg/dL Total Bilirubin 0.20 (0.2-1.0) mg/dL AST 17 (13-39) U/L ALT 18 (7-52) U/L Alkaline Phosphatase 79 (34-104) U/L Troponin I 0.00 (<0.04) ng/mL C-Reactive Protein 9.43 H (<8.01) mg/L Total Protein 7.5 (6.4-8.9) g/dL Albumin 3.5 (3.2-5.2) g/dL Globulin 4.0 (2-4) g/dL Albumin/Globulin Ratio 0.9 L (1-3) 06/15/ Range/Units 15:45 WBC (3.5-10.8) 10^3/uL RBC (4.18-5.48) 10^6 /uL Hgb (14.0-18.0) g/dL Hct (36-46) % MCV (80-94) fL MCH (27-31) pg MCHC (31-36) g/dL RDW (10.5-15) % Plt Count (150-450) 10^3/uL MPV (7.4-10.4) fL Neut % (Auto) % Lymph % (Auto) % Tift % (Auto) % Eos % (Auto) % Baso % (Auto) % Absolute Neuts (auto) (1.5-7.7) 10^3/ul Absolute Lymphs (auto) (1.0-4.8) 10^3/ul Absolute Monos (auto) (0-0.8) 10^3/ul Absolute Eos (auto) (0-0.6) 10^3/ul Absolute Basos (auto) (0-0.2) 10^3/ul Absolute Nucleated RBC 10^3/ul Nucleated RBC % INR (Anticoag Therapy) (0.77-1.02) APTT (26.0-36.3) seconds Sodium (135-145) mmol/L Potassium (3.5-5.0) mmol/L Chloride (101-111) mmol/L Carbon Dioxide (22-32) mmol/L Anion Gap (2-11) mmol/L BUN (6-24) mg/dL Creatinine (0.67-1.17) mg/dL Est GFR ( Amer) (>60) Est GFR (Non-Af Amer) (>60) BUN/Creatinine Ratio (8-20) Glucose (70-100) mg/dL Lactic Acid 1.5 (0.5-2.0) mmol/L Calcium (8.6-10.3) mg/dL Magnesium (1.9-2.7) mg/dL Total Bilirubin (0.2-1.0) mg/dL AST (13-39) U/L ALT (7-52) U/L Alkaline Phosphatase (34-104) U/L Troponin I (<0.04) ng/mL C-Reactive Protein (<8.01) mg/L Total Protein (6.4-8.9) g/dL Albumin (3.2-5.2) g/dL Globulin (2-4) g/dL Albumin/Globulin Ratio (1-3) Microbiology and Other Data: Microbiology 06/15/18 17:38 Aerobic Blood Culture - Preliminary Blood Venous No Growth Day 1 Anaerobic Blood Culture - Preliminary No Growth Day 1 Diagnostic Imaging: Conclusions: The study is technically limited. Mild concentric left ventricular hypertrophy is observed. Global left ventricular wall motion and contractility are within normal limits. The estimated ejection fraction is 50-55%. There is an E to A reversal in the mitral valve flow pattern suggestive of diastolic dysfunction. The right ventricular chamber size and systolic function are within normal limits. The aortic valve leaflets are mildly sclerosed. There is mitral annular calcification. The mitral valve leaflets are mildly thickened. There is mild mitral stenosis. The mean gradient across the mitral valve is 3 mmHg. The mitral valve area, by pressure half time, is calculated at 2.7 cm2. No prior echo to compare. Patient Name: DERIAN SEGURA Medical Record#: [id number] Ordering Physician: Antoine Da Silva [employer] DEVELOPER Acct.#: [id number] : 1945 Age: 72 Sex: M Location: [address] [place] [address] MEDICAL Exam Date: 06/15/181733 ADM Status: ADM Real Order Information: CHEST AP OR PORT Accession Number: [id number] CPT: 38595 Indication: Rhonchi. COPD. Comparison: February 04, 2018 chest radiograph and January 11, 2018 CT Technique: Upright AP 1756 hours Report: Bilateral alveolar consolidation most prominent at the RIGHT lung base. Probable small RIGHT pleural effusion. Negative for cardiomegaly. Upper normal central pulmonary vasculature. Unremarkable mediastinal contours. IMPRESSION: #. The constellation of findings is suspicious for bronchopneumonia most confluent at the RIGHT lung base superimposed on chronic obstructive pulmonary disease. Assess/Plan/Problems-Billing Assessment: This is a 72 year old male with hx of pneumonia and pneumothorax that presented to ED with complaints of bilateral LE rash and edema. - Patient Problems (1) Diastolic dysfunction Comment: -does not appear to be in failure -ECHO as above -supportive care -SOB with laying flat may be related to restrictive lung disease and obesity ( patient sleeps in recliner)? -Recommend outpatient sleep study Patient stable for discharge, therefore, discharged. See Discharge summary. (2) GERD (gastroesophageal reflux disease) Comment: -Pantoprazole ordered; pt reports resolution of symptoms Patient stable for discharge, therefore, discharged. See Discharge summary. (3) Leukocytosis Comment: - Likely result of prednisone; last dose 06/19 - Afebrile, not tachycardic, not tachypenic Patient stable for discharge, therefore, discharged. See Discharge summary. (4) Stasis dermatitis of both legs Comment: - Consulted Derm; thank you for the recommendations - D/c clinda, prednisone (last dose 06/19) - Stasis dermatitis: fluocinonide BID 2weeks on, 1 week off prn rash; mupirocin BID x2 weeks - Improved LE erythema since wrap discontinuation; continue elevation, prn rx for itching - Bacterial culture of RLE shows normal mary kate - Tinea Pedis: Ketoconazole qd x2 months Patient stable for discharge, therefore, discharged. See Discharge summary. (5) COPD (chronic obstructive pulmonary disease) Comment: -Not in exacerbation Patient stable for discharge, therefore, discharged. See Discharge summary. (6) DVT prophylaxis Comment: Patient stable for discharge, therefore, discharged. See Discharge summary. (7) Full code status (8) HTN (hypertension) Comment: Patient stable for discharge, therefore, discharged. See Discharge summary. (9) Polycythemia Comment: - Stable Patient stable for discharge, therefore, discharged. See Discharge summary. Status and Disposition: Patient stable for discharge, therefore, discharged. See Discharge summary.
[2018-06-21 16:45] VITALS: BP 138/89
--- NOTE | 2018-06-21 21:47 | DS ---
CC: Dr. Jackson * DISCHARGE SUMMARY: DATE OF ADMISSION: 06/15/18 DATE OF DISCHARGE: 06/21/18 PRIMARY CARE PROVIDER: Dr. Jackson. ATTENDING PHYSICIAN: Dr. Soledad Carter * (dictated by Vincent Finney NP) PRIMARY DIAGNOSES: 1. Stasis dermatitis of both legs. 2. Leukocytosis. 3. Diastolic dysfunction. 4. Gastroesophageal reflux disease. SECONDARY DIAGNOSES: 1. Chronic obstructive pulmonary disease. 2. Hypertension. 3. Polycythemia. STUDIES WHILE IN THE HOSPITAL: EKG: Impression: Sinus tachycardia. Venous Doppler Study: Impression: No DVT of bilateral lower extremities. Chest x-ray: Impression: The consolidation of findings is suspicious for bronchial pneumonia most confluent at the right lung base. Superimposed on COPD. Transthoracic echo: Impression: Study is technically limited. Mild concentric left ventricular hypertrophy is observed. Global left ventricular wall motion and contractility are within normal limits. Estimated ejection fraction is 50% to 55%. There is an E to A reversal on the mitral valve flow pattern suggestive of diastolic dysfunction. Right ventricular chamber size and systolic function are within normal limits. Aortic valve leaflets are mildly sclerosed. Mitral anular calcification. Mitral valve leaflets are mildly thickened. Mild mitral stenosis. Mean gradient across the mitral valve is 3 mmHg. Mitral valve area by pressure half time is calculated at 27 cm2. No prior echo to compare. Chest x-ray repeat: Impression: Atelectasis or small pleural effusion at right lung base, progressed relative to 06/15/18 chest x-ray. DISCHARGE HOME MEDICATIONS: New home medications: 1. Triamcinolone acetonide 1 application topical b.i.d. 2. Omeprazole 40 mg p.o. daily. 3. Ketoconazole 2% 1 application topical daily. 4. Atarax 50 mg p.o. q.6 hours p.r.n. anxiety. 5. Benadryl 50 mg p.o. q.6 hours p.r.n. itching. Continued home medications: 1. Bumex 1 mg p.o. daily. 2. Aspirin 81 mg p.o. daily. 3. Lisinopril/hydrochlorothiazide 01/01.5 one tab p.o. q.a.m. Discontinued home medications: No home medications discontinued. Changed home medications: No home medications changed. HISTORY OF PRESENT ILLNESS/HOSPITAL COURSE: Mr. Munguia is a 72-year-old male with a past medical history significant for polycythemia vera, hypertension, COPD, history of GERD, who was recently hospitalized in February with what appears to be pneumonia. He presented to the emergency room on 06/15/18 with complaints of worsening redness from the feet up to mid leg between the knees and ankle and pretibial area over the last 3 weeks. Please see history and physical dictated by Antoine Da Silva NP for further details of events leading up to his presentation to the emergency department, but in short the patient states that he has noted some redness in his lower extremities particularly his feet over the past year. He report that after his hospitalization, he has noticed more swelling and increase in redness. He was started on a diuretic with the primary care. He also was started on a salves and cream for the foot pain and leg pain and after this he started noticing more redness and itching. While in the emergency department, the patient was noted to have erythema bilaterally to lower extremities starting from the ankle and extending up to below the knee bilaterally. He also had erythema and what appeared to be raised papules, but no open areas. He was also noted to have mild leukocytosis at 11.8. Given his presentation, the patient was admitted to the medical floor for further evaluation and treatment. Since these areas are warm, he was started on clindamycin. While admitted, the patient had an echo given complaints of shortness of breath while laying flat. Results as above. It was suspected that the patient's shortness of breath while laying flat was more related to obstructive lung disease and obesity. He did not appear to be in any failure. Throughout his stay, he was noted to have increase in swelling and erythema. Given the increased swelling, the patient was given IV Lasix and he was continued on clindamycin and steroids, but these did not appear to be helping, therefore, Dr. Vaughan was contacted for dermatology consultation. Dermatology suspected stasis dermatitis in both legs. Dermatology recommended using clinda and prednisone. She recommended the following treatment, fluocinonide b.i.d. 2 weeks on, 1 week off then use as needed for rash; mupirocin b.i.d. x2 weeks; continue elevation; continue p.r.n. medications for itching; ketoconazole daily x2 months for tenia pedis. The patient was also initially having bilateral lower extremities wrapped but this caused increased erythema, therefore it was discontinued and erythema improved. The patient's hospitalization was complicated by leukocytosis. We suspect this is secondary to prednisone/steroid use as the patient has been afebrile, not tachycardiac, not tachypneic and does not exhibit any signs other signs of infection. The patient was stable for discharge home today with home nursing care. The patient and daughter report the patient's legs appear much improved. The patient also reports his shortness of breath is greatly improved. REVIEW OF SYSTEMS: The patient reports scant itching to bilateral lower extremities. The patient reports mild swelling to right lower extremity, but greatly improved. The patient reports left lower extremity is near baseline. The patient denies shortness of breath. The patient denies chest pain, palpitations, nausea, vomiting, diarrhea. The patient denies fever and chills. A 14-point review of systems was completed and all others were negative. PHYSICAL EXAMINATION: Vital Signs: Temp 98.7, HR 92, RR 20, O2 saturation 96% on room air, BP 151/73. General: Mr. Munguia is a 72-year-old male who is sitting in recliner, appears to be in no acute distress, appears stated age. HEENT: EOMs intact. PERRLA. Oral mucosa is moist with lesion. Posterior oropharynx is clear. Neck: Supple. No lymphadenopathy. Respiratory: The patient has sporadic rhonchi, but otherwise good aeration. No crackles or rubs. Cardiac: S1 and S2 present. No murmurs, rubs, or gallops. Regular rate and rhythm. Abdomen: Abdomen is soft and nontender. Bowel sounds x4. Extremities: No edema. The patient has mild erythema from bilateral feet to mid velasquez bilaterally. The patient reports this is much improved from previously. The patient has scant papules noted. Once again, much improved. The patient has mild swelling to right lower extremity. Left lower extremity has no swelling noted. Bilateral calves are supple without pain. Skin: As above. Remainder intact. Neuro: Neuro exam is grossly intact. No focal deficits or weakness. DIAGNOSTIC STUDIES/LAB DATA: WBC 14.9, hemoglobin 16.5, hematocrit 50, platelets 351. Sodium 137, potassium 4.4, chloride 99, BUN 19, creatinine 1.01. DISCHARGE PLAN/FOLLOWUP: 1. Stasis dermatitis of both legs: The patient should continue creams as recommended and I have written this out in his discharge, please see HPI as above. The patient should continue elevation. The patient should continue p.r.n. medications for itching. We will schedule the patient an appointment with Dr. Vaughan. The patient should continue his Bumex. The patient's primary care could consider changing to Lasix or increasing Bumex dose if edema returns. 2. Leukocytosis: The patient's leukocytosis is slightly trending down. I suspect this is secondary to his prednisone/steroid use. I would recommend the patient follow up in 1 week with his primary care and have a repeat CBC. 3. Diastolics dysfunction: The patient does not appear to be in failure. Given the patient's shortness of breath when lying flat which could possibly be restrictive lung disease and obesity, we recommend an outpatient sleep study. Given the echo results, the patient's primary care and the patient can decide whether or not a cardiology consult outpatient is necessary. 4. Gastroesophageal reflux disease: The patient did experience some gastroesophageal reflux disease while hospitalized and Protonix IV was given. The patient reported resolution of symptoms. I have ordered the patient omeprazole 40 mg daily for 1 month. The patient should be reassessed by primary care regarding continuation of his medication. 5. Chronic obstructive pulmonary disease: The patient is currently not in exacerbation. I have encouraged the patient to continue smoking cessation. 6. Hypertension: Please continue home medications as same. Follow up with your primary care in 1 week. 7. Polycythemia: This is stable. Please follow up with your primary care. 8. Followup: The patient should follow up with Dr. Vaughan on 07/14/18 at 9 :15. The patient should follow up with his primary care provider in 1 week. The patient will have [facility]. 9. Education: The patient and family member were educated on signs and symptoms of new and worsening condition and when to return to the emergency department. Both stated understanding. TIME SPENT: Approximately 60 minutes was spent on this discharge, greater than half the time was spent [id number] with the patient discussing my discharge plans and instructions. PLAN OF CARE: This plan was also discussed with my attending, Dr. Carter, who agrees with my plan. Reviewed by VINCENT FINNEY NP 07/02/18 1259 [id number]/[facility] #: [id number] [place]
== END 2018-06-21 18:30 | disposition home health service (06) | DRG 300 ==
LOC: ED 13:31 → MED 17:16 → OBSVTOIN 06-16 11:00
PROVIDERS: ADMIT Internal Medicine; ATTEND Internal Medicine
DX: I87.2 Venous insufficiency (chronic) (peripheral) (principal); L03.116 Cellulitis of left lower limb; L03.115 Cellulitis of right lower limb; I10 Essential (primary) hypertension; D45 Polycythemia vera; J44.9 Chronic obstructive pulmonary disease, unspecified; M19.90 Unspecified osteoarthritis, unspecified site; H26.9 Unspecified cataract; B35.3 Tinea pedis; K21.9 Gastro-esophageal reflux disease without esophagitis; I51.89 Other ill-defined heart diseases; D72.829 Elevated white blood cell count, unspecified; I08.0 Rheumatic disorders of both mitral and aortic valves; R19.7 Diarrhea, unspecified; R05 Cough; E66.9 Obesity, unspecified; Z68.35 Body mass index [BMI] 35.0-35.9, adult; Z98.41 Cataract extraction status, right eye; Z87.891 Personal history of nicotine dependence; Z82.49 Family history of ischemic heart disease and other diseases of the circulatory system; Z88.0 Allergy status to penicillin; Z79.82 Long term (current) use of aspirin; T38.0X5A Adverse effect of glucocorticoids and synthetic analogues, initial encounter; Y92.239 Unspecified place in hospital as the place of occurrence of the external cause
CPT/HCPCS: 36415; 71045; 80048; 80053; 83605; 83735; 84484; 85025; 85027; 85610; 85730; 86140; 87040; 87070; 87077; 87205; 87640; 87641; 93005; 93306; 93970; 99284; A9270-GY; C8929; G0378; G8978-GP-CI; G8979-GP-CI; G8980-GP-CI; J1100; J1644; J1940; J7512

== ENCOUNTER 2018-07-24 10:03 | Emergency (ER) | payer MEDICARE ==
--- NOTE | 2018-07-24 10:27 | ED ---
Lower Extremity - HPI Summary HPI Summary: This patient is a 72 year old M presenting to ED with a chief complaint of lower bilateral leg swelling since two days ago. Patient rates the pain 8/10 in severity. Symptoms aggravated by walking. Symptoms alleviated by nothing. Patient reports bilateral lower leg redness and left big toe pain and SOB. Patient states he sleeps in a recliner because he has SOB. He has been having more SOB than usual. Patient states he was in here a month ago with similar complaints of swelling and redness in the lower extremities. Patient is still taking Levaquin, which he was prescribed June 2018. Patient had a collapsed lung in December 2017 for which he was treated in [place]. PMHx of HTN, COPD, arthritis, but denies gout, DM, lupus, CHF, asthma, kidney disease, and vascular deficiency. PSHx of right hand shrapnel removal, pilonidal cyst, anal cysts, and right eye cataract surgery. FHx of DM and PE in father. Patient does not drink EtOH or use substances but is a former cigarette smoker of pack a day for 50 years, quitting six months ago. - History of Current Complaint Chief Complaint: EDExtremityLower Stated Complaint: SWELLING FEET Time Seen by Provider: 07/24/18 10:18 Hx Obtained From: Patient Onset of Pain: Days - 2 days ago Onset/Duration: Days - 2 days ago Severity Currently: Severe Pain Intensity: 8 Pain Scale Used: 0-10 Numeric Timing: Constant, Lasting Days - 2 days Location: Other - Bilateral lower extremities, pain noted in left big toe Associated Signs And Symptoms: Positive: Swelling, Redness, Other - SOB, left big toe pain Aggravating Factor(s): Ambulation Alleviating Factor(s): Nothing - Allergies/Home Medications Allergies/Adverse Reactions: Allergies Allergy/AdvReac Type Severity Reaction Status Date / Time Penicillins Allergy Hives Verified 07/24/18 10:13 Home Medications: Home Medications Ranitidine TAB (NF) [Zantac TAB (NF)] 1 tab PO DAILY PRN 07/24/18 [History Confirmed 07/24/18] PMH/Surg Hx/FS Hx/Imm Hx Previously Healthy: No Endocrine/Hematology History: Denies: Hx Diabetes, Hx Systemic Lupus Erythematosus Cardiovascular History: Reports: Hx Hypertension Denies: Hx Congestive Heart Failure, Hx Pacemaker/ICD, Other Cardiovascular Problems/Disorders Respiratory History: Reports: Other Respiratory Problems/Disorders - COPD Denies: Hx Asthma History: Denies: Hx Dialysis, Hx Renal Disease Musculoskeletal History: Reports: Hx Arthritis, Hx Back Problems Denies: Hx Rheumatoid Arthritis, Hx Gout Sensory History: Reports: Hx Cataracts - RIGHT EYE CATARACT SURGERY, Hx Contacts or Glasses Denies: Hx Hearing Aid Opthamlomology History: Reports: Hx Cataracts - RIGHT EYE CATARACT SURGERY, Hx Contacts or Glasses - Cancer History Hx Chemotherapy: No - Surgical History Surgery Procedure, Year, and Place: 1968 RT HAND SCHRAPNEL NIRMAL [place]. 1969 PILONIDAL CYST [place]. 20-30 ANAL CYSTS OFC. 2011? RIGHT EYE CATARACT SURGERY Hx Anesthesia Reactions: No Infectious Disease History: No Infectious Disease History: Denies: Traveled Outside the [place] in Last 30 Days - Family History Known Family History: Positive: Diabetes - mother, Other - father - PE - Social History Alcohol Use: None Hx Substance Use: No Substance Use Type: Reports: None Hx Tobacco Use: Yes Smoking Status (MU): Former Smoker Type: Cigarettes Amount Used/How Often: SMOKES CIGARETTE ONCE EVERY FEW DAYS , DOESN'T INHLAE Length of Time of Smoking/Using Tobacco: 40 YRS Have You Smoked in the Last Year: Yes Review of Systems Negative: Fever Positive: Shortness Of Breath Positive: Other - Bilateral lower extremity swelling, Pain in left big toe Skin: Other - Erythema in bilateral lower extremity All Other Systems Reviewed And Are Negative: Yes Physical Exam - Summary Physical Exam Summary: VITAL SIGNS: Reviewed. GENERAL: Patient is a obese male with poor hygiene who is lying comfortable in the stretcher. Patient is not in any acute respiratory distress. HEAD AND FACE: No signs of trauma. No ecchymosis, hematomas or skull depressions. No sinus tenderness. EYES: PERRLA, EOMI x 2, No injected conjunctiva, no nystagmus. EARS: Hearing grossly intact. Ear canals and tympanic membranes are within normal limits. MOUTH: Oropharynx within normal limits. NECK: Supple, trachea is midline, no adenopathy, no JVD, no carotid bruit, no c- spine tenderness, neck with full ROM. CHEST: Symmetric, no tenderness at palpation LUNGS: Clear to auscultation bilaterally. No wheezing or crackles. CVS: Regular rate and rhythm, S1 and S2 present, no murmurs or gallops appreciated. ABDOMEN: Soft, non-tender. No signs of distention. No rebound no guarding, and no masses palpated. Bowel sounds are normal. EXTREMITIES: Bilateral lower extremity swelling and erythema, decreased pedal pulses, tenderness in both feet, FROM in all major joints, no cyanosis or clubbing. NEURO: Alert and oriented x 3. No acute neurological deficits. Speech is normal and follows commands. Triage Information Reviewed: Yes Vital Signs On Initial Exam: Initial Vitals Temp Pulse Resp BP Pulse Ox 97.0 F 96 16 125/76 97 07/24/18 10:08 07/24/18 10:08 07/24/18 10:08 07/24/18 10:08 07/24/18 10:08 Vital Signs Reviewed: Yes Diagnostics - Vital Signs Vital Signs Temp Pulse Resp BP Pulse Ox 07/24/18 10:08 97.0 F 96 16 125/76 97 - Laboratory Result Diagrams: 07/24/18 10:36 07/24/18 10:36 Lab Statement: Any lab studies that have been ordered have been reviewed, and results considered in the medical decision making process. - Radiology CXR Radiology Interpretation Completed By: Radiologist Summary of Radiographic Findings: 1. SMALL RIGHT BASILAR INFILTRATE AND PLEURAL THICKENING, UNCHANGED. 2. COPD. Dr. Presley has reviewed this radiology report. - EKG 1046 Cardiac Rate: NL - 93 BPM EKG Rhythm: Sinus Rhythm ST Segment: Normal EKG Comparison: No Significant Change - Similar to 06/16/18 Summary of EKG Findings: Sinus rhythm 93 BPM, no ST elevations, normal axis, Q wave in 3. Similar to EKG taken 06/16/18. Lower Extremity Course/Dx - Course Assessment/Plan: This patient is a 72-year-old male who has past medical history significant for polycythemia vera, respiratory failure, sepsis, hypertension, COPD, pneumonia, cellulitis, diastolic dysfunction, discusses dermatitis of both legs, GERD and leukocytosis. He comes in today because he has noticed that his both lower extremities are more swollen than usual, more red and increase in pain. He also reports that he is sleeping in a recliner because he becomes short of breath when he lays down. Blood work without any significant abnormality except for WBCs of 13.3, INR is 1.18, chloride 99, BUN is 39, creatinine 1.51, lactic acid is 2.6, CRP is 56.1. Chest x-ray impression : Small right basilar infiltrate and pleural thickening, unchanged. Positive COPD. Since the patient was already taking Levaquin for the pneumonia however not improving his symptoms, the patient was placed in cefepime and Levaquin. At this point I discussed my physical exam and findings with Dr. Kat from the hospital services who will consult for this patient. After his assessment she recommends that the patient can be discharged home with follow-up with the primary care physician. They adjusted the Lasix and also will only recommended to finish taking the Levaquin orally for 10 days. The patient agrees and understands and he feels better to go home and follow up with the primary care physician. He is hemodynamically stable alert and oriented 3. - Diagnoses Provider Diagnoses: Edema of both lower legs due to peripheral venous insufficiency, Pneumonia - Physician Notifications Discussed Care Of Patient With: Tracey Kat Time Discussed With Above Provider: 12:37 Instructed by Provider To: Other - Discussed patient case with Dr. Kat, hospitalist who will come to the ED to consult with the patient. Discharge - Sign-Out/Discharge Documenting (check all that apply): Patient Departure - Discharge Patient Received Moderate/Deep Sedation with Procedure: No - Discharge Plan Condition: Stable Disposition: HOME Prescriptions: Albuterol HFA INHALER* [Ventolin HFA Inhaler*] 1 puff INH Q4H PRN #1 mdi PRN Reason: Wheezing Colchicine* [Colcrys*] 0.6 mg PO BID #30 tab Oxycodone HCl 5 mg PO Q6H PRN #15 tablet MDD 4 tabs PRN Reason: Pain predniSONE TAB* [Deltasone TAB*] 50 mg PO DAILY #4 tab Patient Education Materials: Leg Edema (ED), Pneumonia (ED) Referrals: Rodolfo Jackson MD [Primary Care Provider] - 3 Days Additional Instructions: Follow-up with your primary care provider in 3 days. RETURN THE ER FOR CHANGING OR WORSENING SYMPTOMS. - Billing Disposition and Condition Condition: STABLE Disposition: Home - Attestation Statements Document Initiated by Scribe: Yes Documenting Scribe: Chucky Mancini Provider For Whom Scribe is Documenting (Include Credential): Travis Presley MD Scribe Attestation: Chucky Alvarado, scribed for Travis Presley MD on 07/24/18 at 2122. Scribe Documentation Reviewed: Yes Provider Attestation: The documentation as recorded by the scribe, Chucky Mancini accurately reflects the service I personally performed and the decisions made by me, Travis Presley MD Status of Scribe Document: Viewed
[2018-07-24 10:47] LABS: ABS Basophils 0.1 10^3/ul (0-0.2); ABS Eosinophils 0.3 10^3/ul (0-0.6); ABS Lymphocytes 2.2 10^3/ul (1.0-4.8); ABS Monocytes 1.5 10^3/ul (0-0.8); ABS Neutrophils 9.2 10^3/ul (1.5-7.7); Eosinophil % 2.2 %; Hematocrit 48 % (42-52); Lymphocyte % 16.3 %; Mean Corpuscular HGB Conc 33 g/dL (31-36); Mean Corpuscular Hemoglobin 28 pg (27-31); Mean Corpuscular Volume 86 fL (80-94); Mean Platelet Volume 6.9 fL (7.4-10.4); Platelet Count 317 10^3/uL (150-450); Red Blood Count 5.65 10^6 /uL (4.18-5.48); Red Cell Distribution Width 16 % (10.5-15); White Blood Count 13.3 10^3/uL (3.5-10.8)
[2018-07-24 10:56] LABS: INR 1.18 (0.82-1.09)
[2018-07-24 11:21] LABS: Albumin 3.8 g/dL (3.2-5.2); Albumin/Globulin Ratio 0.9 (1-3); BUN/Creatinine Ratio 25.8 (8-20); C Reactive Protein 56.1 mg/L (<8.01); Calcium 9.6 mg/dL (8.6-10.3); EGFR African American 55.4 (>60); EGFR Non-African American 45.8 (>60); Globulin 4.2 g/dL (2-4); Potassium 3.9 mmol/L (3.5-5.0); Total Bilirubin 0.8 mg/dL (0.2-1.0)
[2018-07-24 11:23] LABS: Troponin I 0.01 ng/mL (<0.04)
[2018-07-24 12:30] LABS: Urine Appearance Clear; Urine Bacteria Absent (Absent); Urine Bilirubin Negative (Negative); Urine Blood 1+ (Negative); Urine Color Straw; Urine Glucose Negative (Negative); Urine Ketones Negative (Negative); Urine Nitrite Negative (Negative); Urine Protein Negative (Negative); Urine Red Blood Cell Trace(0-2/hpf) (Absent); Urine Specific Gravity 1.006 (1.010-1.030); Urine Squamous Epithelial Cell Present (Absent); Urine Urobilinogen Negative (Negative); Urine White Blood Cell Absent (Absent)
[2018-07-24] MEDS ORDERED: Levofloxacin 750 MG IVPREMIX(* 750 MG/150 ML BAG IVPB ONE (12:30)
[2018-07-24] MEDS ORDERED: Cefepime(*) 2 GM in NS 0.9% 50 ML* 50 ML IVPB ONE (12:30)
[2018-07-24] MEDS ORDERED: Albuterol/Ipratropium NEB.SOL* Albuterol 2.5 MG/Ipratropium 0.5 MG 3 ML INH ONE (13:34)
[2018-07-24] MEDS ORDERED: predniSONE TAB* 20 MG PO ONE (13:34)
[2018-07-24] MEDS ORDERED: oxyCODONE TAB* 5 MG TAB PO ONE (13:47)
[2018-07-24] MEDS ORDERED: Cefepime 2 GM in Dextrose(*) 2 GM/50 ML BAG IV ONE (15:00)
[2018-07-24 15:12] VITALS: BP 113/61
[2018-07-24 16:00] LABS: Uric Acid 13.1 mg/dL (4.4-7.6)
--- NOTE | 2018-07-24 19:04 | CONS ---
CC: Dr. Travis Presley; Dr. Rodolfo Jackson * CONSULTATION REPORT: DATE OF CONSULT: 07/24/18 CONSULTING PROVIDER: Dr. Travis Presley. MY ATTENDING WHILE IN THE HOSPITAL: Dr. Tracey Kat. (DICTATED BY RICHA CRESPO) PRIMARY CARE PROVIDER: Dr. Rodolfo Jackson. REASON FOR CONSULTATION: Lower extremity swelling, pain, SIRS, SUKI. HISTORY OF PRESENT ILLNESS: Mr. Munguia is a 72-year-old male with past medical history significant for COPD, recent admission for aspiration pneumonia with mucus plugging and concern for endobronchial lesion with negative cytology, diastolic function, polycythemia vera and chronic kidney disease, who today came to the emergency department after 2 nights ago beginning to having a relatively sudden onset of severe 7/10 pain and redness in his left foot around his first MTP, which is worse with walking, severely limiting his activity level. The patient denies fevers or chills. The patient never had anything like this before. The patient has no other swelling in his joints. The patient has chronic venous stasis dermatitis in his lower legs, diagnosed in a recent hospitalization at this facility for which he is on mupirocin, triamcinolone, and Bumex. The patient has been urinating frequently recently, but large amount 3 times a day, but over the last week or so, has noticed a decrease in his urine output besides still taking the same dose of diuretics. The patient denies other changes in the color or clarity of his urine. The patient has no pain with urination, no dizziness on standing, no chest pain. The patient has chronic shortness of breath, but this is at his baseline. The patient has had a cough for which his primary care provider has treated him with currently 8 days of Levaquin. The patient is not limited by shortness of breath with ambulation, mainly pain in his left foot. The patient has not seen his channel development director after follow up from his endobronchial ultrasound, but has an appointment later this month. The patient has no home inhalers for his COPD. The patient denies abdominal pain, diarrhea or wheezing. The patient has no orthopnea, just worsening cough lying flat. The patient denies recent illnesses or sick contacts. In the emergency department, the patient was found to have leukocytosis at his baseline, polycythemia vera, elevated BUN to creatinine ratio, elevated lactic acid, tachycardia and slightly elevated CRP. The patient had an infiltrate on chest x-ray, which is unchanged from most recent exam. Due to concerns for pneumonia, cellulitis, SUKI, and lower extremity pain, we were asked to evaluate the patient for admission to the hospital. PAST MEDICAL HISTORY: Diastolic dysfunction, polycythemia vera, GERD, hypertension, COPD, possible obstructive sleep apnea, recent history of aspiration pneumonia with prolonged hospitalization, chest tube placement, endobronchial ultrasound, chronic kidney disease, abdominal aortic aneurysm. PAST SURGICAL HISTORY: Bronchoscopy, chest tube. MEDICATIONS: 1. Lisinopril/hydrochlorothiazide 10/12.5 one tab p.o. daily. 2. Bumex 1 mg p.o. daily. 3. Hydroxyzine 50 mg p.o. q.6 hours as needed for itching. 4. Levofloxacin 500 mg p.o. daily x10 days. 5. Aspirin 81 mg p.o. daily. 6. Triamcinolone 1 application topical b.i.d. 7. Mupirocin 2% 1 application topical daily. 8. Ranitidine 400 mg p.o. daily. 9. Ketoconazole cream 1 application topical daily. 10. Lactobacillus 1 tab p.o. daily. ALLERGIES: PENICILLIN. FAMILY HISTORY: The patient's father of CHF. The patient's mother of bone cancer. The patient has a sister who is 70 years old and has diabetes mellitus. SOCIAL HISTORY: The patient quit smoking 6 months ago. The patient has smoked about a pack a day for his adult life up to that point. Patient drinks occasional alcohol. Denies illicit drug use. 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 The patient is recently . The patient is x2. The patient has 4 biological children, 3 stepchildren. REVIEW OF SYSTEMS: A 14-point review of systems was reviewed negative except as stated in the HPI. Of note, the patient with recent hospitalization lost 30 pounds and then regained same 30 pounds. PHYSICAL EXAM: General: The patient is an 72-year-old male who appears stated age, who is sitting comfortably, in no acute distress. Vital Signs: At the time of evaluation, temperature 97.0, pulse rate 90, respiratory rate 20, oxygen saturation 96% on room air, blood pressure 110/82. HEENT: Head normocephalic, atraumatic. Sclerae anicteric. No conjunctival injection. Nasal mucosa moist. Oral mucosa moist. No pharyngeal erythema, discharge or exudate. Neck: Supple, nontender. No lymphadenopathy. No carotid bruit auscultated. No JVD. Cardiac: Regular rate and rhythm. No clicks, murmurs, gallops, or rubs. Pulses 2+ in his bilateral dorsalis pedis, posterior tibialis , and radial areas. 1+ bilateral mild pitting lower extremity edema with associated changes consistent with venous stasis dermatitis. Respiratory: Wheezing and rhonchi in the right lower lobe, wheezing in the left lower lobe. Abdomen: Soft, nontender, nondistended. Bowel sounds present and normoactive in all 4 quadrants. No hepatosplenomegaly. No abdominal bruits auscultated. No hepatojugular reflux. Genitourinary: No suprapubic or CVA tenderness. Skin : Redness over the first MTP on the left foot with significant erythema. Chronic venous stasis changes in bilateral lower legs. No bilateral calf tenderness. No other rashes. Neuro: Cranial nerves II through XII grossly intact. No focal deficits. Alert and oriented x3. Psychiatric: Pleasant and cooperative LABORATORY DATA: White blood cell count 13.3, hemoglobin 16.0, platelet account 317. INR 1.18. APTT 35.0. Sodium 139, potassium 3.9, chloride 99, carbon dioxide 32, anion gap 8, BUN 39, creatinine 1.51, glucose 100, lactic acid 2.6, calcium 9.6, bilirubin 0.8, AST 20, ALT 16, alkaline phosphatase 86, creatinine kinase 71, CK-MB 2.0, troponin I 0.01, CRP 56.1. BNP 20, protein 8.0 , albumin 3.8, globulin 4.2. Urine shows hyaline casts, urine squamous epithelial cells, blood, low specific gravity. Studies: Chest x-ray read as small right basilar infiltrate and pleural thickening, unchanged and COPD. Electrocardiogram shows sinus tachycardia, type 1 AV block, incomplete left bundle-branch block pattern, normal axis, PVCs , no other significant findings consistent with previous exam. Foot x-ray pending. ASSESSMENT AND PLAN: Impression: Mr. Munguia is a 72-year-old male with past medical history significant for polycythemia vera, diastolic dysfunction, recent pneumonia, chronic obstructive pulmonary disease and chronic kidney disease, who presents to the emergency department with left foot pain and swelling at the MTP joint, chronic cough and acute kidney injury. The patient is on diuretics and has a likely gout flare and is appropriate for outpatient management. 1. Gout flare. This is the patient's first gout flare. He is presenting with classic podagra. He has both the demographic, dietary and medication risk factors for this including recent high-dose diuretic therapy, frequent consumption of seafood and alcohol. He has the classic findings of elevated CRP. The patient's foot x-ray is pending. Though, this is nondiagnostic for gout, the patient will be treated with colchicine and steroids and should follow up with primary care provider in 1 week. The patient's uric acid level is pending at this time. In the non-critical period of patient's gout flare, he should likely be started on uric acid-lowering therapy. The patient does not need arthrocentesis at this time given classic podagra symptoms. 2. Acute kidney injury. The patient's creatinine has increased significantly above his baseline, but not to a degree where it would need urgent intervention , has no significant electrolyte abnormalities. The patient's lactic acid is elevated as is his BUN to creatinine ratio indicating likely dehydration in the setting of diuretic therapy and poor oral intake. The patient's Bumex has been held at this time. He has been encouraged to drink excess fluids, keep his legs elevated as much as possible and follow up with his primary care provider for a repeat BMP within 1 week. 3. History of pneumonia, chronic obstructive pulmonary disease exacerbation. The patient has abnormal lung exam consistent with chronic obstructive pulmonary disease exacerbation. The patient is on no home inhalers. We will provide patient with an albuterol inhaler. The patient was given nebulizer here in the emergency department. The patient should have a long-acting chronic obstructive pulmonary disease inhalers based on the recommendations of primary care provider and channel development director, who he will see later this month. The patient does not appear to have findings consistent with acute pneumonia. The patient's chest x-ray findings are chronic at this point and should be further evaluated. Per his channel development director recommendation, the patient will be started on steroids for co-treatment of his mild chronic obstructive pulmonary disease exacerbation and gout flare. The patient has 2 more days left on initial 10- day course of Levaquin. The patient should take 2 more days and not refill his Levaquin at this time unless more clear findings consistent with community- acquired pneumonia appear. 4. Hypertension. Continue the patient's hydrochlorothiazide and lisinopril. 5. Possible obstructive sleep apnea. This is brought up in the patient's previous consultation with Pulmonology. The patient should have evaluation for sleep apnea when his respiratory function has returned to baseline. 6. Polycythemia vera. The patient should follow up with his oncologist for this, appears to be in a stable state. The patient do not have any signs of complication from this. 7. Disposition. The patient is stable for discharge from the hospital pending response to above therapies. TIME SPENT: Approximately 60 minutes was spent on this consultation, 30 of which was spent [id number] with the patient obtaining history and physical and discussing treatment plan. This plan has been discussed with my attending, Dr. Tracey Kat, and ED provider, Dr. Travis Presley and they are in agreement with the patient discharge to home. RICHA CRESPO [id number]/[facility] #: [id number] [place]
[2018-07-25] MEDS ORDERED: Colchicine* 0.6 MG TAB PO ONE (13:47)
== END 2018-07-24 15:13 | disposition home or self-care (01) ==
LOC: ED 10:03
DX: J18.9 Pneumonia, unspecified organism (principal); R60.0 Localized edema; R94.31 Abnormal electrocardiogram [ECG] [EKG]; I87.2 Venous insufficiency (chronic) (peripheral); I10 Essential (primary) hypertension; J44.9 Chronic obstructive pulmonary disease, unspecified; M19.90 Unspecified osteoarthritis, unspecified site; R06.02 Shortness of breath; Z87.891 Personal history of nicotine dependence; Z88.0 Allergy status to penicillin
CPT/HCPCS: 36415; 71046; 80053; 81003; 81015; 82550; 82553; 83605; 83880; 84484; 84550; 85025; 85610; 85730; 86140; 93005; 96365; 96366; 99284; A9270-GY; J0692; J7512

== ENCOUNTER 2019-02-05 10:21 | Observation (INO) | payer MEDICARE ==
--- OUTSIDE RECORDS SUMMARY | 2019-02-05 10:31 | XMS REPORT | Continuity of Care Document ---
:1945 External Reference #:[id number] Author Name Amanda Bower, LORI Address [address] [place] [address] Care Team Providers Name Role Phone Rodolfo Jackson Family Medicine Care Team Information Manager Transportation [phone] [employer] [facility] [employer] Care Team Information Manager Transportation [phone] Problems Active Problems Provider Date Benign essential hypertension Rodolfo Jackson M.D. Onset: 12/24/2010 Chronic obstructive lung disease Rodolfo Jackson M.D. Onset: 12/24/2010 Lymphadenopathy Rodolfo Jackson M.D. Onset: 02/16/2012 Age-related cataract Rodolfo Jackson M.D. Onset: 07/01/2012 Anorectal abscess Rodolfo Jackson M.D. Onset: 01/31/2013 Lateral cystocele Rodolfo Jackson M.D. Onset: 07/04/2013 Leukocytosis Rodolfo Jackson M.D. Onset: 07/04/2013 Secondary polycythemia Rodolfo Jackson M.D. Onset: 11/25/2013 Essential hypertension Rodolfo Jackson M.D. Onset: 12/25/2014 Shoulder joint pain Rodolfo Jackson M.D. Onset: 12/25/2014 Arthralgia of the upper arm Rodolfo Jackson M.D. Onset: 12/25/2014 Edema Rodolfo Jackson M.D. Onset: 04/17/2015 Cellulitis and abscess of trunk Rodolfo Jackson M.D. Onset: 10/09/2016 Benign prostatic hypertrophy without outflow Rodolfo Jackson M.D. Onset: obstruction Open wound of knee and/or leg and/or ankle Rodolfo Jackson M.D. Onset: 2017 Pneumonia due to other specified bacteria Rodolfo Jackson M.D. Onset: 2017 Other nonspecific abnormal finding of lung Rodolfo Jackson M.D. Onset: 2017 field Polycythemia vera (clinical) Rodolfo Jackson M.D. Onset: 05/27/2018 Acute bronchitis Rodolfo Jackson M.D. Onset: 05/27/2018 Social History Type Date Description Comments Sex Unknown Tobacco Use Start: Unknown End: Unknown Former Cigarette Smoker 1 Pack Daily Smoking Status Reviewed: 12/28/18 Former Cigarette Smoker 1 Pack Daily ETOH Use Rare Tobacco Use Start: Unknown End: Unknown Patient is a former smoker Allergies, Adverse Reactions, Alerts Active Allergies Reaction Severity Comments Date Penicillin Keflex 10/28/2001 Sulfamethoxazole / Trimethoprim rash 10/16/2016 Medications Active Medications SIG Qnty Indications Ordering Date Provider Levofloxacin 1 by mouth every 10tabs L03.116 Amanda Lary 12/28/2018 500mg day For Leg Bower, 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 Tablets Omeprazole 1 by mouth every 90caps Rodolfo Jackson, 07/15/2018 20mg day as Needed For M.D. Capsules DR Day Hydroxyzine HCL take 1 tab four 60tabs Rodolfo Jackson, 07/15/2018 25mg times a day as M.D. Tablets needed for itching or allergy Mupirocin apply topically 22gm Rodolfo Jackson, 07/07/2018 2% Ointment three times a day M.D. to affected area(s) Bumetanide take 2 tablet by 60tabs R60.0 Rodolfo Jackson, 05/27/2018 1mg Tablets mouth every day M.D. for fluid retention Lisinopril-Hydrochlor take 1 tablet by 90tabs Rodolfo Jackson, 02/27/2014 othiazide mouth once daily M.D. 10-12.5mg Tablets Triamcinolone apply thin layer 80gm Rodolfo Jackson, 02/09/2012 Acetonide twice to three a M.D. 0.1% Cream day as needed to arms and legs for itching and irritation Aspirin 81 1 po qd Unknown 81mg Tablets DR History Medications Prednisone 1 by mouth every 5tabs L03.115 Rodolfo Jackson, 11/30/2018 - 50mg day M.D. 12/28/2018 Tablets Levofloxacin 1 by mouth every 30tabs L03.115 Rodolfo Jackson, 10/22/2018 - 500mg day For Leg M.D. 11/30/2018 Tablets Infection Amlactin Ultra apply to bilateral 140gm L03.115 Nayana 09/07/2018 - lower extremities [facility] 10/22/2018 Cream twice daily Prednisone 1 by mouth every 5tabs L03.115 Nayana 09/07/2018 - 50mg day [facility], [facility] 10/22/2018 Tablets Levofloxacin 1 by mouth every 10tabs J20.9 Rodolfo Jackson, 07/15/2018 - 500mg day for bronchitis M.D. 09/07/2018 Tablets Note please remove o2 Rodolfo Jackson, 07/13/2018 - from pts home M.D. 10/22/2018 Immunizations CPT Code Status Date Vaccine Lot # [id number] Given 01/07/2018 High-Dose, Influenza Virus Vacccine-fluzone 65 and older [id number] Given 01/03/2016 High-Dose, Influenza Virus Vacccine-fluzone 65 and [id number] older 49068 Given 12/25/2014 Influenza Vac, Quadrivalent, Slit Virus, Im [id number] Given 12/25/2014 Pneumococcal Conjugate Vacc-13 [id number] 61644 Given 03/14/2014 High-Dose, Influenza Virus Vacccine-fluzone 65 and [id number] older 07719 Given 12/24/2010 DO Not Use Split Influenza Virus Vaccine [id number] Vital Signs Date Vital Result Comment 12/28/2018 2:26pm BP Systolic 98 mmHg BP Diastolic 66 mmHg Heart Rate 112 /min Body Temperature 97.5 F Respiratory Rate 17 /min O2 % BldC Oximetry 98 % Ra Height 67 inches 5'7" Weight 254.00 lb BMI (Body Mass Index) 39.8 kg/m2 11/30/2018 2:12pm BP Systolic 108 mmHg BP Diastolic 68 mmHg Heart Rate 86 /min Body Temperature 98.4 F Respiratory Rate 17 /min O2 % BldC Oximetry 96 % Height 67 inches 5'7" Weight 256.00 lb BMI (Body Mass Index) 40.1 kg/m2 Results Test Date Facility Test Result H/L Range Note Comprehensive Metabolic 10/22/2018 [facility](fma) Sodium 137 mEq/L 134-149 Prof Potassium 4.5 mEq/L 3.6-5.5 Chloride 97 mEq/L 94-112 Carbon Dioxide 31 mEq/L 21-32 Glucose 84 mg/dL 70-105 BUN 19 mg/dL 6-26 Creatinine 1.1 mg/dL 0.6-1.4 BUN/Creat Ratio 17.3 CALC 8.0-36.0 Calcium 9.2 mg/dL 8.6-10.2 Total Protein 7.3 g/dL 6.4-8.3 Albumin 3.8 g/dL 3.8-5.5 Globulin 3.5 g/dL 2.0-4.8 A/G Ratio 1.1 CALC 0.6-2.3 Alk. Phosphatase 82 U/L 22-95 Alt (SGPT) 18 U/L 7-35 Ast (Sgot) 18 U/L 5-34 Total Bilirubin 0.4 mg/dL 0.2-1.3 GFR Non- >60 ml/min/1.73m^ >=60 GFR >60 ml/min/1.73m^ >=60 CBC Electronic (Fma New) 10/22/2018 [facility] WBC 14.84 High 4.0- 10.0 (607)- - RBC 4.99 3.93-6.0 Hemoglobin (Fma/CMC/CTX) 14.6 g/dL 12.0-17.0 Hematocrit (Fma/CMC/CTX) 45.7 % 35.0-50.0 Mean Corpuscular Vol 91.6 fL 80-95 Mean Corpuscular Hemoglobin 29.3 pg 25.6-32.2 Mean Corpuscular Hemo Concen 31.9 g/dL Low 32.2-36.0 Platelets 354 10^3/ul 163-400 RDW-CV 16.0 High 11.6-14.4 Mean Platelet Volume 8.6 fL 8.0-12.4 Absolute Neutrophils BLD 11.07 High 1.56-6.13 Absolute Lymphocytes 1.93 1.18-3.74 Absolute Monocytes BLD Auto 1.27 High 0.24-0.82 Absolute Eos Blood 0.39 0.04-0.54 Absolute Basophils 0.05 0.01-0.08 Neutrophil % 74.6 % High 34.0-70.0 Lymph% 13.0 % Low 20.0-52.0 Monocytes % 8.6 % 5.0-12.0 Eos % 2.6 % 0.7-7.0 Basophil% 0.3 % 0-1.2 CBC Auto Diff 07/24/2018 [facility] White Blood Count 13.3 10^3/uL High 3.5- 10.8 Red Blood Count 5.65 10^6/uL High 4.18-5.48 Hemoglobin 16.0 g/dL Normal 14.0-18.0 Hematocrit 48 % Normal 42-52 Mean Corpuscular Volume 86 fL Normal 80-94 Mean Corpuscular Hemoglobin 28 pg Normal 27-31 Mean Corpuscular HGB Conc 33 g/dL Normal 31-36 Red Cell Distribution Width 16 % High 10.5-15 Platelet Count 317 10^3/uL Normal 150-450 Mean Platelet Volume 6.9 fL Low 7.4-10.4 Abs Neutrophils 9.2 10^3/uL High 1.5-7.7 Abs Lymphocytes 2.2 10^3/uL Normal 1.0-4.8 Abs Monocytes 1.5 10^3/uL High 0-0.8 Abs Eosinophils 0.3 10^3/uL Normal 0-0.6 Abs Basophils 0.1 10^3/uL Normal 0-0.2 Abs Nucleated RBC 0.0 10^3/uL Granulocyte % 69.6 % Lymphocyte % 16.3 % Monocyte % 11.3 % Eosinophil % 2.2 % Basophil % 0.6 % Nucleated Red Blood Cells % 0.0 Inr/Protime 07/24/2018 [facility] Inr 1.18 High 0.82-1.09 1 Laboratory test 07/24/2018 [facility] Partial Thrombo 35.0 seconds Normal 26.0- 36.3 finding Time PTT B-Type Natriuretic Peptide BNP 20 pg/mL <=100 Comp Metabolic Panel 07/24/2018 [facility] Sodium 139 mmol/L Normal 135-145 Potassium 3.9 mmol/L Normal 3.5-5.0 Chloride 99 mmol/L Low 101-111 Co2 Carbon Dioxide 32 mmol/L Normal 22-32 Anion Gap 8 mmol/L Normal 2-11 Glucose 100 mg/dL Normal 70-100 Blood Urea Nitrogen 39 mg/dL High 6-24 Creatinine 1.51 mg/dL High 0.67-1.17 BUN/Creatinine Ratio 25.8 High 8-20 Calcium 9.6 mg/dL Normal 8.6-10.3 Total Protein 8.0 g/dL Normal 6.4-8.9 Albumin 3.8 g/dL Normal 3.2-5.2 Globulin 4.2 g/dL High 2-4 Albumin/Globulin Ratio 0.9 Low 1-3 Total Bilirubin 0.80 mg/dL Normal 0.2-1.0 Alkaline Phosphatase 86 U/L Normal 34-104 Alt 16 U/L Normal 7-52 Ast 20 U/L Normal 13-39 Egfr Non- 45.8 >60 Egfr 55.4 >60 2 Laboratory test finding 07/24/2018 [facility] Creatine Kinase(CK) 71 U/L Normal 10-223 C Reactive Protein 56.10 mg/L High <8.01 Troponin I 0.01 ng/mL <0.04 3 CKMB 07/24/2018 [facility] CKMB ng/mL 2.0 ng/mL Normal 0.6-6.3 Laboratory test finding 07/24/2018 [facility] Lactic Acid 2.6 mmol/L Critical high 0.5-2.0 4 Urinalysis Profile 07/24/2018 [facility] Urine Color Straw Urine Appearance Clear Urine Specific [place] 1.006 Low 1.010-1.030 Urine pH 6.0 Normal 5-9 Urine Urobilinogen Negative Negative Urine Ketones Negative Negative Urine Protein Negative Negative Urine Leukocytes Negative Negative Urine Blood 1+ Abnormal Negative Urine Nitrite Negative Negative Urine Bilirubin Negative Negative Urine Glucose Negative Negative Urine White Blood Cell Absent Absent Urine Red Blood Cell Trace(0-2/hpf) Absent Urine Bacteria Absent Absent Urine Squamous Epithelial Cell Present Abnormal Absent Urine Hyaline Casts Present Abnormal Absent Laboratory test finding 07/24/2018 [facility] Uric Acid 13.1 mg/dL High 4.4-7.6 1 Standard intensity warfarin therapeutic range: 2.0-3.0 High intensity warfarin therapeutic range: 2.5-3.5 2 Because ethnic data is not always readily available, this report includes an eGFR for both -Americans and non- Americans. The National Kidney Disease Education Program (NKDEP) does not endorse the use of the MDRD equation for patients that are not between the ages of 18 and 70, are , have extremes of body size, muscle mass, or nutritional status, or are non- or non-. According to the National Kidney Foundation, irrespective of diagnosis, the stage of the disease is based on the level of kidney function: Stage Description GFR(mL/min/1.73 m(2)) 1 Kidney damage with normal or decreased GFR 90 2 Kidney damage with mild decrease in GFR 60-89 3 Moderate decrease in GFR 30-59 4 Severe decrease in GFR 15-29 5 Kidney failure <15 (or dialysis) 3 Troponin-I testing on Plasma Separator Tubes (PST) has a known false positive rate of 0.20-0.40%. All positive troponins reflex immediately to secondary confirmatory testing. Using the QwbcgI 800 Access Immunoassay systems, the 99th percentile upper reference limit was demonstrated to be < 0.03 ng/mL. 4 Critical Result LACT:2.6 Called to [id number] at: 11:26:27 by:[email or web address] Read back by:[facility] Severe Sepsis and Septic Shock Management Bundle Measure requires all lactic acids initially measuring >2.0 mmol/L be repeated. Procedures Date Code Description Status 07/15/2018 65226 Pulse Oximetry Completed 10/18/2010 [id number] Colonoscopy Completed Medical Devices Description No Information Available Encounters Type Date Location Provider Dx Diagnosis Office Visit 11/30/2018 Main Office Rodolfo Jackson, L03.115 Cellulitis of right 2:20p M.D. lower limb I10 Essential (primary) hypertension J44.9 Chronic obstructive pulmonary disease, unspecified R60.0 Localized edema L03.116 Cellulitis of left lower limb M10.072 Idiopathic gout, left ankle and foot Office Visit 10/22/2018 11:20a Main Office Rodolfo Jackson, I10 Essential ( primary) M.D. 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 11/30/2018 I10 Essential (primary) hypertension Rodolfo Jackson M.D. 11/30/2018 J44.9 Chronic obstructive pulmonary disease, Rodolfo Jackson M.D. unspecified 11/30/2018 R60.0 Localized edema Rodolfo Jackson M.D. 11/30/2018 L03.116 Cellulitis of left lower limb Rodolfo Jackson M.D. 11/30/2018 M10.072 Idiopathic gout, left ankle and foot Rodolfo Jackson M.D. 10/22/2018 I10 Essential (primary) hypertension Rodolfo Jackson M.D. 10/22/2018 J44.9 Chronic obstructive pulmonary disease, Rodolfo Jackson M.D. unspecified 10/22/2018 R60.0 Localized edema Rodolfo Jackson M.D. 10/22/2018 L03.115 Cellulitis of right lower limb Rodolfo aJckson M.D. 10/22/2018 L03.116 Cellulitis of left lower limb Rodolfo Jackson M.D. 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 07/15/2018 I10 Essential (primary) hypertension Rodolfo Jackson M.D. 07/15/2018 J44.9 Chronic obstructive pulmonary disease, Rodolfo Jackson M.D. unspecified 07/15/2018 J20.9 Acute bronchitis, unspecified Rodolfo Jackson M.D. 07/15/2018 R60.0 Localized edema Rodolfo Jackson M.D. Plan of Treatment Future Appointment(s):01/04/2019 1:00 pm - Amanda Bower NP at Main [id number]/01/2019 2:00 pm - Rodolfo Jackson M.D. at Main [id number]/28/2018 - Amanda Bower NPL03.116 Cellulitis of left lower limbNew Medication: Levofloxacin 500 mg - 1 by mouth every day For Leg InfectionComments:keep area clean and dry hold off on lymphedema clinic until infection improving continue mupirocin patient instructed to call back if condition fails to improve or worsens. tylenol PRN pain call if feverAllComments:Medication Management Patient Understands medications he 's taking? Yes No Are there Barriers to Adherence? Yes No Has the patient been asked about herbal supplements and therapies, andOTC meds? Yes No Care Plan1. Patient has been queried about patient's goals/preferences and functional/ lifestyle goals at relevant visits. If relevant, describe: na2. Treatment goals as explained to the patient: above3. Are there barriers to meeting treatment goals? Yes No If Yes, please describe: disease process, comorbid conditions, polypharmacy4. Self-Management goals as described to the patient: Yes NoAs always, we strongly encourage a healthy diet and making physical activity a part of your every day life. If you have questions about how or where to start, please contact the office. Functional Status Description No Information Available Mental Status Description No Information Available Referrals Refer to Reason for Referral Status Appt Date Charleen Constantino & Lymphedema Evaluate and treat. Order faxed. LT [place] [address] [phone]
--- OUTSIDE RECORDS SUMMARY | 2019-02-05 10:31 | XMS REPORT | Continuity of Care Document ---
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 Problems Active Problems Provider Date Calcific tendinitis of right shoulder Vincent Pickard MD Onset: 01/02/2015 Social History Type Date Description Comments Sex Unknown Tobacco Use Start: Unknown Former Cigarette Smoker 20 years End: 1 Pack Daily Tobacco Use Start: Unknown Occasionally Smokes A few puffs Cigarettes Tobacco Use Start: Unknown Secondhand smoke As a child Smoking Status Reviewed: 01/05/19 Secondhand smoke As a child ETOH Use Denies alcohol use Tobacco Use Start: Unknown Patient is a former Has had only a End: Unknown smoker couple puffs since hospitalization, did not inhale Recreational Drug Use Denies Drug Use Exercise Type/Frequency Exercises sporadically Physical therapy 2x per week, exercises at home, "not as much as therapist would like" due to back weakness Allergies, Adverse Reactions, Alerts Active Allergies Reaction Severity Comments Date Penicillin Hives Large quantity 01/02/2015 Tomato Juice Hives Tomatos 02/04/2018 Lemon Juice Hives Large quantity 02/04/2018 Cinnamon Hives Large quantity 02/04/2018 Inactive Allergies NKDA 01/02/2015 Medications Active Medications SIG Qnty Indications Ordering Date Provider Nebulizer System 1 unit q4 hours and 1units J44.9 Joyce Quick, 2018 ALL-In-One as needed MD Johnson Ipratropium 1 unit every 6 270ml J44.9 Joyce Quick, 12/21/2018 [place]/Albuterol hours as needed Sulfate 0.5-2.5(3)mg/3ML Solution Hypersal use as directed for 720ml Joyce Quick, 12/21/2018 3.5% secretions twice Nebulizer daily after nebulizer Cough Assist Device use as instructed 1units J98.6 Joyce Quick, 2018 twice daily Lisinopril 1 by mouth every Unknown 10mg day Tablets Aspir-81 1 by mouth every Unknown 81mg Tablets day DR Sue Unknown 1mg Tablets Colchicine 1 tab by mouth Unknown 0.6mg twice a day(3 days Tablets left unless doctor refills) Omeprazole As needed Rodolfo Jackson MD 20mg Capsules DR Medications Administered in Office Medication SIG Qnty Indications Ordering Provider Date Depomedrol 80MG Vincent Pickard MD 01/02/2015 Injection Immunizations Description No Information Available Vital Signs Date Vital Result Comment 01/05/2019 9:22am Height 70 inches 5'10" Weight 259.00 lb Heart Rate 84 /min BP Systolic Sitting 110 mmHg Rue large cuff BP Diastolic Sitting 70 mmHg Rue large cuff Respiratory Rate 24 /min O2 % BldC Oximetry 92 % BMI (Body Mass Index) 37.2 kg/m2 09/30/2018 10:46am Height 70 inches 5'10" Weight 248.00 lb Heart Rate 94 /min BP Systolic Sitting 124 mmHg Lue large cuff BP Diastolic Sitting 76 mmHg Lue large cuff Respiratory Rate 24 /min O2 % BldC Oximetry 95 % BMI (Body Mass Index) 35.6 kg/m2 Results Description No Information Available Procedures Date Code Description Status 12/09/2018 28182 Polysomnography Sleep Staging 4+ Parameters Completed 10/01/2018 72939 Sleep Study Unattended,HRT Rate,Oxygen Sat,Resp Completed Effort/Airflow 09/16/2018 72161 Plethysmography Determination Lung Volumes & Per Airway Completed Resist 09/16/2018 47299 Pulmonary Function><Bronchodil Completed Medical Devices Description No Information Available Encounters Type Date Location Provider Dx Diagnosis Office Visit 09/30/2018 [facility] Joyce Quick, J44.9 Chronic obstructive 11:30a [facility] Of pulmonary disease, Baseball Winder unspecified J98.4 Other disorders of lung R06.83 Snoring Office Visit 08/18/2018 11:30a [facility] Joyce J44.9 Chronic [facility] MD Abdelrahman obstructive Baseball Winder pulmonary disease, unspecified J98.09 Other diseases of bronchus, not elsewhere classified Office Visit 07/24/2018 11:37a [facility] Anthony M10.9 Gout, unspecified [facility] N17.9 Acute kidney failure, unspecified J44.1 Chronic obstructive pulmonary disease w (acute) exacerbation I10 Essential (primary) hypertension Assessments Date Code Description Provider 01/05/2019 J44.9 Chronic obstructive pulmonary disease, Leola Moreno NP unspecified 01/05/2019 J98.4 Other disorders of lung Leola Moreno NP 01/05/2019 G47.33 Obstructive sleep apnea (adult) (pediatric) Leola Moreno NP 12/09/2018 G47.33 Obstructive sleep apnea (adult) (pediatric) Joyce Quick MD 10/01/2018 R06.83 Snoring Joyce Quick MD 09/30/2018 J44.9 Chronic obstructive pulmonary disease, Joyce Quick MD unspecified 09/30/2018 J98.4 Other disorders of lung Joyce Quick MD 09/30/2018 R06.83 Snoring Joyce Quick MD 09/16/2018 J44.9 Chronic obstructive pulmonary disease, Joyce Quick MD unspecified 08/18/2018 J44.9 Chronic obstructive pulmonary disease, Joyce Quick MD unspecified 08/18/2018 J98.09 Other diseases of bronchus, not elsewhere Joyce Quick MD classified 07/24/2018 M10.9 Gout, unspecified RICHA Fisher 07/24/2018 N17.9 Acute kidney failure, unspecified RICHA Fisher 07/24/2018 J44.1 Chronic obstructive pulmonary disease w RICHA iFsher (acute) exacerbation 07/24/2018 I10 Essential (primary) hypertension RICHA Fisher Plan of Treatment Future Appointment(s):02/11/2019 11:00 am - Leola Moreno NP at [facility]01/05/2019 - Leola Moreno NPJ44.9 Chronic obstructive pulmonary disease, [id number] Other disorders of lungFollow up:1 month (or sooner if able to complete CT sooner)G47.33 Obstructive sleep apnea (adult) (pediatric)Recommendations:If you have difficulty with your equipment, or need to replace your mask or hoses, please contact your homecare agency. If you have any further questions, please call the [facility] at [phone] If you have any sleepiness while driving you MUST avoid operating a vehicle or machinery. If you feel tired while driving rack puller and take a nap or switch drivers. If you know you are sleepy and need to go somewhere, arrange for a ride or use public transportation. It is very important to not risk your safety or the safety of others. Functional Status Description No Information Available Mental Status Description No Information Available Referrals Description No Information Available
--- OUTSIDE RECORDS SUMMARY | 2019-02-05 10:31 | XMS REPORT | Continuity of Care Document ---
:1945 External Reference #:[id number] Author Name Amanda Bower, LORI Address [address] [facility] [place] [address] Care Team Providers Name Role Phone [facility] Care Team Information Special Effects Specialist [phone] [employer] [facility] [employer] Care Team Information Special Effects Specialist [phone] Problems Active Problems Provider Date Benign essential [...] Smoker 1 Pack Daily Smoking Status Reviewed: 01/18/19 Former Cigarette Smoker 1 Pack Daily ETOH Use Rare Tobacco Use Start: Unknown End: Unknown Patient is a former smoker Allergies, Adverse Reactions, Alerts Active Allergies Reaction Severity Comments Date Penicillin Keflex 10/28/2001 Sulfamethoxazole / Trimethoprim rash 10/16/2016 Medications Active Medications SIG Qnty Indications Ordering Date Provider Allopurinol take two tablets 60tabs Rodolfo Jackson, [...] qd Unknown 81mg Tablets DR History Medications Levofloxacin 1 by mouth every 10tabs J44.9 Amanda Lary 12/28/2018 - 500mg day For Leg Bower, ACTUARIAL MANAGER 01/07/2019 Tablets Infection Prednisone 1 by mouth every 5tabs J44.9 Rodolfo Jackson, 11/30/2018 - 50mg day M.D. 12/28/2018 Tablets Levofloxacin 1 by mouth every 30tabs J44.9 Rodolfo Jackson, 10/22/2018 - 500mg day For Leg M.D. 11/30/2018 Tablets Infection Amlactin Ultra apply to bilateral 140gm J44.9 Nayana 09/07/2018 - Cream lower extremities Clark, BUS DRIVER 10/22/2018 twice daily Prednisone 1 by mouth every 5tabs J44.9 Nayana 09/07/2018 - 50mg day Clark, BUS DRIVER 10/22/2018 Tablets Immunizations CPT Code Status Date Vaccine Lot # [id number] Given 01/18/2019 High-Dose, Influenza Virus Vacccine-fluzone 65 and as256ri older [id number] Given 01/07/2018 High-Dose, Influenza Virus Vacccine-fluzone 65 and older [id number] Given 01/03/2016 High-Dose, Influenza Virus Vacccine-fluzone 65 and [id number] older 67116 Given 12/25/2014 Influenza Vac, Quadrivalent, Slit Virus, Im [id number] 66106 Given 12/25/2014 Pneumococcal Conjugate Vacc-13 [id number] 87990 Given 03/14/2014 High-Dose, Influenza Virus Vacccine-fluzone 65 and [id number] older 82009 Given 12/24/2010 DO Not Use Split Influenza Virus Vaccine [id number] Vital Signs Date Vital Result Comment 01/18/2019 9:08am BP Systolic 120 mmHg BP Diastolic 68 mmHg Heart Rate 118 /min Body Temperature 98.2 F Respiratory Rate 18 /min O2 % BldC Oximetry 96 % Height 67 inches 5'7" Weight 266.25 lb BMI (Body Mass Index) 41.7 kg/m2 12/28/2018 2:26pm BP Systolic 98 mmHg BP Diastolic 66 mmHg Heart Rate 112 /min Body Temperature 97.5 F Respiratory Rate 17 /min O2 % BldC Oximetry 98 % Ra Height 67 inches 5'7" Weight 254.00 lb BMI (Body Mass Index) 39.8 kg/m2 Results Test Date Facility Test Result H/L Range Note Comprehensive Metabolic 10/22/2018 [facility](a) Sodium 137 mEq/L 134-149 Prof Potassium 4.5 [...] ml/min/1.73m^ >=60 CBC Electronic (Fma New) 10/22/2018 [facility] WBC 14.84 High 4.0- 10.0 (607)- - [...] 0.3 % 0-1.2 CBC Auto Diff 07/24/2018 [facility] White Blood Count 13.3 10^3/uL High 3.5- [...] Red Blood Cells % 0.0 Inr/Protime 07/24/2018 [facility] Inr 1.18 High 0.82-1.09 1 Laboratory test 07/24/2018 [facility] Partial Thrombo 35.0 seconds Normal 26.0- 36.3 finding Time PTT B-Type Natriuretic Peptide BNP 20 pg/mL <=100 Comp Metabolic Panel 07/24/2018 [facility] Sodium 139 mmol/L Normal 135-145 Potassium 3.9 [...] 55.4 >60 2 Laboratory test finding 07/24/2018 [facility] Creatine Kinase(CK) 71 U/L Normal 10-223 C Reactive Protein 56.10 mg/L High <8.01 Troponin I 0.01 ng/mL <0.04 3 CKMB 07/24/2018 [facility] CKMB ng/mL 2.0 ng/mL Normal 0.6-6.3 Laboratory test finding 07/24/2018 [facility] Lactic Acid 2.6 mmol/L Critical high 0.5-2.0 4 Urinalysis Profile 07/24/2018 [facility] Urine Color Straw Urine Appearance Clear Urine Specific Sunspot 1.006 Low 1.010-1.030 Urine pH 6.0 Normal [...] Present Abnormal Absent Laboratory test finding 07/24/2018 [facility] Uric Acid 13.1 mg/dL High 4.4-7.6 1 [...] immediately to secondary confirmatory testing. Using the [employer] DxI 800 Access Immunoassay systems, the 99th percentile upper reference limit was demonstrated to be < 0.03 ng/mL. 4 Critical Result LACT:2.6 Called to [id number] at: 11:26:27 by:[id number] Read back by:[facility] Severe Sepsis and Septic Shock Management Bundle Measure requires all lactic acids initially measuring >2.0 mmol/L be repeated. 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 10/22/2018 L03.116 Cellulitis of left lower limb Rodolfo Jackson M.D. 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 at Main Cetrxn8101/18/2019 - Amanda Bower, NPJ44.9 Chronic obstructive pulmonary disease, unspecifiedComments:following with MD Abdelrahman no feverpatient instructed to call back if condition fails to improve or worsens.Z23 Encounter for immunizationComments:Your flu vaccination has been administered. This protects you for the fall, winter and spring. It will decrease the likelihood that you will get the flu. If you are unlucky and get the flu, the symptoms will be less severe.R60.0 Localized edemaComments:Supportive Care:- Elevate legs - Increase protein in diet and try to drink at least 1-2 more glasses of water per day - Take frequent breaks while on your feet - Compression stockings ED Precautions reviewed continuing with the lymphedema clinic patient instructed to call back if condition fails to improve or worsens.AllComments:Medication Management Patient Understands medications he ' s taking? Yes No Are there Barriers to Adherence? Yes No Has the patient been asked about herbal supplements and therapies, andOTC meds? Yes No Care Plan1. Patient has been queried about patient's goals/ preferences and functional/lifestyle goals at relevant visits. If relevant, describe: na2. Treatment goals as explained to the patient: above3. Are there barriers to meeting treatment goals? Yes No If Yes, please describe: disease process, comorbid conditions, polypharmacy 4. Self-Management goals as described to the patient: [...] Evaluate and treat. Order faxed. LT Scheduled [address] [place] [address] [phone]
--- NOTE | 2019-02-05 11:01 | ED ---
Lower Extremity - HPI Summary HPI Summary: This patient is a 73 year old M presenting to [facility] with a chief complaint of leg pain since one year ago, and chest pain today. He reports shooting pain in his legs, redness, swelling and his feet are cold. There is more swelling in right leg over left leg. This morning he reports have a short episodes (lasting about 1 second) of chest pain. Pt has PMHx of COPD. Pt stopped smoking last year in December. He denies fevers, chills and cough. Per triage, the patient rates the pain 8/10 in severity. - History of Current Complaint Chief Complaint: EDChestPainROMI Stated Complaint: CHEST PAIN AND LEG PAIN PER PT Time Seen by Provider: 02/05/19 10:37 Hx Obtained From: Patient Onset of Pain: Days, Prior to Arrival Onset/Duration: Weeks Severity Initially: Moderate Severity Currently: Severe Pain Intensity: 8 Pain Scale Used: 0-10 Numeric Timing: Constant Location: Is Discrete @ - Bilateral legs Character Of Pain: Sharp Associated Signs And Symptoms: Positive: Swelling, Redness, Other - Chest pain Aggravating Factor(s): Nothing Alleviating Factor(s): Nothing - Allergies/Home Medications Allergies/Adverse Reactions: Allergies Allergy/AdvReac Type Severity Reaction Status Date / Time Penicillins Allergy Hives Verified 02/05/19 10:31 Home Medications: Home Medications Allopurinol 200 mg PO DAILY 02/05/19 [History Confirmed 02/05/19] Bumetanide TAB* [Bumex 1 MG TAB*] 2 mg PO DAILY 02/05/19 [History Confirmed ] Omeprazole 1 tab PO DAILY 02/05/19 [History Confirmed 02/05/19] Triamcinolone 0.5% OINT * 1 applic TOPICAL SEE INSTRUCTIONS PRN 02/05/19 [ History Confirmed 02/05/19] PMH/Surg Hx/FS Hx/Imm Hx Endocrine/Hematology History: Denies: Hx Diabetes, Hx Systemic Lupus Erythematosus Cardiovascular History: Reports: Hx Hypertension Denies: Hx Congestive Heart Failure, Hx Pacemaker/ICD, Other Cardiovascular Problems/Disorders Respiratory History: Reports: Hx Chronic Obstructive Pulmonary Disease (COPD), Other Respiratory Problems/Disorders - COPD Denies: Hx Asthma History: Denies: Hx Dialysis, Hx Renal Disease Musculoskeletal History: Reports: Hx Arthritis, Hx Back Problems Denies: Hx Rheumatoid Arthritis, Hx Gout Sensory History: Reports: Hx Cataracts - RIGHT EYE CATARACT SURGERY, Hx Contacts or Glasses Denies: Hx Hearing Aid Opthamlomology History: Reports: Hx Cataracts - RIGHT EYE CATARACT SURGERY, Hx Contacts or Glasses - Cancer History Hx Chemotherapy: No - Surgical History Surgery Procedure, Year, and Place: 1968 RT HAND [facility]. 1970 PILON[place]. 20-30 ANAL CYSTS [facility]. 2011? RIGHT EYE CATARACT SURGERY Hx Anesthesia Reactions: No Infectious Disease History: No Infectious Disease History: Denies: Traveled Outside the [place] in Last 30 Days - Family History Known Family History: Positive: Diabetes - mother, Other - father - PE - Social History Alcohol Use: None Hx Substance Use: No Substance Use Type: Reports: None Hx Tobacco Use: Yes Smoking Status (MU): Former Smoker Type: Cigarettes Amount Used/How Often: SMOKES CIGARETTE ONCE EVERY FEW DAYS , DOESN'T INHLAE Length of Time of Smoking/Using Tobacco: 40 YRS Have You Smoked in the Last Year: Yes Review of Systems Positive: Chest Pain Positive: Edema, Other - leg pain All Other Systems Reviewed And Are Negative: Yes Physical Exam - Summary Physical Exam Summary: VITAL SIGNS: Reviewed. GENERAL: Patient is a well-developed and nourished male who is lying comfortable in the stretcher. Patient is not in any acute respiratory distress. HEAD AND FACE: No signs of trauma. No ecchymosis, hematomas or skull depressions. No sinus tenderness. EYES: PERRLA, EOMI x 2, No injected conjunctiva, no nystagmus. EARS: Hearing grossly intact. Ear canals and tympanic membranes are within normal limits. MOUTH: Oropharynx within normal limits. NECK: Supple, trachea is midline, no adenopathy, no JVD, no carotid bruit, no c- spine tenderness, neck with full ROM. CHEST: Symmetric, no tenderness at palpation. LUNGS: Wheezing bilaterally; Decreased breath sound bilaterally CVS: Regular rate and rhythm, S1 and S2 present, no murmurs or gallops appreciated. ABDOMEN: Soft, non-tender. No signs of distention. No rebound, no guarding, and no masses palpated. Bowel sounds are normal. EXTREMITIES: Bilateral lower extremity edema and erythema; good pulses and capillary refill NEURO: Alert and oriented x 3. No acute neurological deficits. Speech is normal and follows commands. SKIN: Dry and warm Triage Information Reviewed: Yes Vital Signs On Initial Exam: Initial Vitals Temp Pulse Resp BP Pulse Ox 98.1 F 102 20 139/63 95 02/05/19 10:29 02/05/19 10:29 02/05/19 10:29 02/05/19 10:29 02/05/19 10:29 Vital Signs Reviewed: Yes Procedures - Sedation Patient Received Moderate/Deep Sedation with Procedure: No Diagnostics - Vital Signs Vital Signs Temp Pulse Resp BP Pulse Ox 02/05/19 10:38 101 28 120/74 96 02/05/19 10:36 18 02/05/19 10:29 98.1 F 102 20 139/63 95 - Laboratory Result Diagrams: 02/05/19 11:03 02/05/19 11:04 Lab Statement: Any lab studies that have been ordered have been reviewed, and results considered in the medical decision making process. - Radiology CXR Radiology Interpretation Completed By: Radiologist Summary of Radiographic Findings: CXR reveals, per radiologist, IMPRESSION: Bilateral lung densities is suspected to be pleural effusion and/or atelectasis. ED physician has reviewed this radiology report. - EKG 10:25 Cardiac Rate: Tachycardia EKG Rhythm: Sinus Rhythm Summary of EKG Findings: An EKG at 10:25 reveals sinus tachycardia rhythm [address]-elevations. Q waves in III. Similar to previous 07/24/18. ED physician has interpreted this EKG. Lower Extremity Course/Dx - Course Assessment/Plan: This patient is a 73-year-old male who presents to the emergency department with a chief complaint of having chest pain, which lasted for about 30 seconds and resolved. He also complains of bilateral lower extremity swelling, redness and pain. The patient has a past medical history significant for epistaxis dermatitis of both legs, leukocytosis, based dysfunction, GERD, COPD, hypertension and polycythemia. Chest x-ray impression : Bilateral lung densities is suspect to be pleural effusions and or atelectasis. Blood work without any significant abnormality except for WBCs of 15.6, absolute neuts of 12. Chloride is 100, BUN is 35, creatinine 1.26, magnesium is 1.7. The patient became hypotensive therefore the patient was given IV fluid boluses and the patient was started on Rocephin for a cellulitis. At this time I discussed my physical exam and findings with Dr. Crandall from the hospital services who accepted the patient for admission. - Diagnoses Provider Diagnoses: Cellulitis - Physician Notifications Discussed Care Of Patient With: Pepe Crandall Time Discussed With Above Provider: 13:52 Instructed by Provider To: Other - Discussed case with Dr. Crandall, who acceps pt for admission Discharge ED - Sign-Out/Discharge Documenting (check all that apply): Patient Departure - Admit - Discharge Plan Condition: Stable Disposition: ADMITTED TO [facility] - Billing Disposition and Condition Condition: STABLE Disposition: Admitted to [facility] - Attestation Statements Document Initiated by Savanah: Yes Documenting Scribe: Raven Brantley Provider For Whom Savanah is Documenting (Include Credential): Travis Presley MD Scribe Attestation: Raven Alvarado scribed for Travis Presley MD on 02/05/19 at 1839. Scribe Documentation Reviewed: Yes Provider Attestation: The documentation as recorded by the Raven knox accurately reflects the service I personally performed and the decisions made by Travis whitney MD Status of Scribe Document: Viewed
[2019-02-05 11:11] LABS: ABS Basophils 0.2 10^3/ul (0-0.2); ABS Eosinophils 0.6 10^3/ul (0-0.6); ABS Lymphocytes 1.4 10^3/ul (1.0-4.8); ABS Monocytes 1.3 10^3/ul (0-0.8); Eosinophil % 4.1 %; Hematocrit 45 % (42-52); Hemoglobin 14.9 g/dL (14.0-18.0); Lymphocyte % 9.3 %; Mean Corpuscular HGB Conc 33 g/dL (31-36); Mean Corpuscular Hemoglobin 29 pg (27-31); Mean Corpuscular Volume 88 fL (80-94); Platelet Count 411 10^3/uL (150-450); Red Blood Count 5.11 10^6 /uL (4.18-5.48); Red Cell Distribution Width 15 % (10-15); White Blood Count 15.6 10^3/uL (3.5-10.8)
[2019-02-05 11:31] LABS: Activated Partial Thrombo Time 38.7 seconds (26.0-38.0); INR 1.05 (0.82-1.09)
[2019-02-05 11:34] LABS: Albumin 3.9 g/dL (3.2-5.2); BUN/Creatinine Ratio 27.8 (8-20); Calcium 9.7 mg/dL (8.6-10.3); EGFR African American 68.1 (>60); EGFR Non-African American 56.3 (>60); Globulin 4.1 g/dL (2-4); Magnesium 1.7 mg/dL (1.9-2.7); Potassium 4.2 mmol/L (3.5-5.0); Total Bilirubin 0.3 mg/dL (0.2-1.0)
[2019-02-05 11:38] LABS: CKMB ng/mL 2.5 ng/mL (0.6-6.3)
[2019-02-05 11:54] LABS: TSH (Thyroid Stimulating Horm) 6.74 mcIU/mL (0.34-5.60)
[2019-02-05 13:05] LABS: C Reactive Protein 25.73 mg/L (<8.01)
[2019-02-05] MEDS ORDERED: cefTRIAXone(*) 1 GM in NS 0.9% 50 ML* 50 ML IVPB ONE (13:12)
[2019-02-05] MEDS ORDERED: NS 0.9% 1000 ML** 1,000 ML IV ONE (13:50)
[2019-02-05] MEDS ORDERED: diPHENhydraMINE PO* 50 MG PO PRN (14:30)
[2019-02-05] MEDS ORDERED: hydrOXYzine HCL TAB* 50 MG PO PRN (14:30)
[2019-02-05] MEDS ORDERED: Albuterol HFA INHALER* 8 gm MDI INH PRN (14:30)
--- NOTE | 2019-02-05 14:44 | ADMNOTE ---
Subjective Date of Service: 02/05/19 Interval History: ADMISSION HISTORY AND PHYSICAL EXAM: Allergies Allergy/AdvReac Type Severity Reaction Status Date / Time Penicillins Allergy Hives Verified 02/05/19 10:31 Home Medications Medication Instructions Recorded Confirmed Type Lisinopril/HCTZ (NF) 1 tab PO QAM 07/05/12 02/05/19 History [Zestoretic (NF)] Aspirin 81 mg CHEW TAB* 81 mg PO QAM 03/26/15 02/05/19 History diPHENhydraMINE PO* [Benadryl PO 50 mg PO Q6H PRN #30 cap 06/21/18 02/05/19 Rx 50 MG CAP*] hydrOXYzine HCL TAB* [Atarax TAB 50 mg PO Q6H PRN #60 tab 06/21/18 02/05/19 Rx 50 MG *] Albuterol HFA INHALER* [Ventolin 1 puff INH Q4H PRN #1 mdi 07/24/18 02/05/19 Rx HFA Inhaler*] Ranitidine TAB (NF) [Zantac TAB 1 tab PO DAILY PRN 07/24/18 02/05/19 History (NF)] Allopurinol 200 mg PO DAILY 02/05/19 02/05/19 History Bumetanide TAB* [Bumex 1 MG TAB*] 2 mg PO DAILY 02/05/19 02/05/19 History Omeprazole 1 tab PO DAILY 02/05/19 02/05/19 History Triamcinolone 0.5% OINT * 1 applic TOPICAL SEE INSTRUCTIONS 02/05/19 02/05/19 History PRN HPI: The patient has had trouble with BL leg edema and episodic erythema for about a year. He sleep in a recliner with his legs dangling. He does not own a bed. He was last treated for cellulitis 12/28 with levofloxacin for 10 days. In the past a visiting nurse would come and shola-wrap his legs 2-3 times a week and his would wrap them the other days. His 07/09. He lives alone in [facility]. He has "pressure tubes" which extend above his knees and which he uses often, but was told not to use them when his legs are red. His legs have been red for a few days. No chills or sweats. Family History: Findings - Sister has DM. Mother had bone cancer, father had CHF Social History: Findings - Quit smoking 2018. No alcohol abuse. Lives alone. SDM is his step-daughter Jose Greco. Past Medical History: Findings - Gout, HTN, COPD, GERD, AAA Review of Systems - Measurements Intake and Output: Intake and Output Last 24 Hours 02/03/19 02/04/19 02/05/19 02/06/19 06:59 06:59 06:59 06:59 Intake Total 50 Balance 50 Weight 259 lb Intake: IV Fluids 50 - Review of Systems Constitutional Symptoms: Negative: Weight Gain, Weight Loss, Weakness, Fatigue, Fever, Night Sweats, Unexplained Falls, Other Dermatology: Positive: Rash HEENT: Positive: Normal Eyes: Positive: Normal Thyroid: Positive: Normal Pulmonary: Positive: COPD, Exercise Intolerance Cardiology: Positive: Normal Gastroenterology: Positive: Normal Genital - Urinary: Positive: Normal Musculoskeletal: Positive: Joint Pain Endocrinology: Positive: Normal Hematologic/Lymphatic: Negative: Anemia, Easy Bruising, Hx Leukemia, Hx Lymphoma, Use of Anticoagulant, Use of Antiplatelet Drugs, Other Neurology: Positive: Normal Psychiatry: Positive: Normal Allergic/Immunologic: Negative: Hx Anaphylaxis, Hx Angioedema, Hx Environmental, Hx Seasonal, Asthma, Hx HIV, Immunocompromise, Swollen Glands LymphNodes, Other Objective Active Medications: Albuterol (Ventolin Hfa Inhaler*) 1 puff INH Q4H PRN PRN Reason: WHEEZING Allopurinol (Zyloprim Tab*) 200 mg PO DAILY CONNIE Aspirin (Aspirin 81 Mg Chew Tab*) 81 mg PO QAM CONNIE Diphenhydramine HCl (Benadryl Po*) 50 mg PO Q6H PRN PRN Reason: PRURITIS Enoxaparin Sodium (Lovenox(*)) 40 mg SUBCUT Q24H CONNIE Hydroxyzine HCl (Atarax Tab*) 50 mg PO Q6H PRN PRN Reason: ANXIETY Sodium Chloride (Ns 0.9% 1000 Ml) 1,000 mls @ 1,000 mls/hr IV .PER RATE ONE Stop: 02/05/19 14:49 Last Admin: 02/05/19 13:51 Dose: 1,000 mls/hr Ceftriaxone Sodium 1 gm/ (Sodium Chloride) 50 mls @ 100 mls/hr IVPB Q24H CONNIE Non-Formulary Medication (Bumetanide Tab*) 1 mg PO DAILY CONNIE Omeprazole (Prilosec Cap* (Nf)) 20 mg PO DAILY [facility] Vital Signs - 8 hr 02/05/19 02/05/19 02/05/19 10:29 10:36 10:38 Temperature 98.1 F Pulse Rate 102 101 Respiratory 20 18 28 Rate Blood Pressure 139/63 120/74 (mmHg) O2 Sat by Pulse 95 96 Oximetry 02/05/19 02/05/19 02/05/19 11:00 11:08 12:00 Temperature Pulse Rate 104 Respiratory 26 34 30 Rate Blood Pressure 115/78 (mmHg) O2 Sat by Pulse 80 Oximetry 02/05/19 02/05/19 02/05/19 12:08 12:38 13:00 Temperature Pulse Rate 102 102 Respiratory 22 23 29 Rate Blood Pressure 131/94 133/69 (mmHg) O2 Sat by Pulse 96 93 Oximetry 02/05/19 02/05/19 02/05/19 13:08 13:24 13:38 Temperature Pulse Rate 99 104 106 Respiratory 26 34 29 Rate Blood Pressure 87/54 115/68 90/59 (mmHg) O2 Sat by Pulse 85 93 93 Oximetry 02/05/19 02/05/19 02/05/19 13:46 13:47 13:49 Temperature Pulse Rate 88 86 Respiratory 25 29 Rate Blood Pressure 73/52 82/50 106/60 (mmHg) O2 Sat by Pulse 85 92 Oximetry 02/05/19 02/05/19 14:00 14:08 Temperature Pulse Rate 88 96 Respiratory 23 28 Rate Blood Pressure 111/74 (mmHg) O2 Sat by Pulse 91 87 Oximetry Oxygen Devices in Use Now: None Appearance: Alert, in chair in ED. In good spirits, looks comfortable. Eyes: No Scleral Icterus Neck: NL Appearance and Movements; NL JVP, No Thyroid Enlargement, Masses Respiratory: - - Barrel chest. Diminished BS BL Cardiovascular: NL Sounds; No Murmurs; No JVD, RRR, No Edema, - Extremities: No Clubbing, Cyanosis, - - 2-3+ edema BL Skin: No Nodules or Sclerosis, - - Both legs red nearly to knee, skin river, scaly. Marked onychomycosis all ten toes. Neurological: Alert and Oriented x 3, NL Sensation Result Diagrams: 02/05/19 11:03 02/05/19 11:04 Assess/Plan/Problems-Billing Assessment: - Patient Problems (1) Cellulitis Current Visit: No Status: Acute Code(s): L03.90 - CELLULITIS, UNSPECIFIED SNOMED Code(s): 255110006 Comment: David part of tx is leg elevation. Pt uncomfortable with legs up, but will give it a try. Family is pursuing getting a hospital bed for his home. Continue ceftriaxone. (2) Hypotension Current Visit: Yes Status: Acute Comment: Seen briefly in ED. 1 L NSS ordered, will be cautious as his biggest problem is his edema. (3) COPD (chronic obstructive pulmonary disease) Current Visit: No Status: Acute Code(s): J44.9 - CHRONIC OBSTRUCTIVE PULMONARY DISEASE, UNSPECIFIED SNOMED Code(s): 71565156 Comment: PRN neb albuterol/ipratropium ordered. (4) GERD (gastroesophageal reflux disease) Current Visit: No Status: Acute Code(s): K21.9 - GASTRO-ESOPHAGEAL REFLUX DISEASE WITHOUT ESOPHAGITIS SNOMED Code(s): 639571632 Comment: Omeprazole continued, home ranitidine was PRN. (5) Stasis dermatitis of both legs Current Visit: No Status: Acute Code(s): I87.2 - VENOUS INSUFFICIENCY ( CHRONIC) (PERIPHERAL) SNOMED Code(s): 44174931 Comment: HC 1% cream bid
[2019-02-05] MEDS ORDERED: Enoxaparin(*) 40 MG/0.4 ML SYR SUBCUT SCH (15:00)
[2019-02-05] MEDS ORDERED: Albuterol/Ipratropium NEB.SOL* Albuterol 2.5 MG/Ipratropium 0.5 MG 3 ML INH PRN (15:03)
[2019-02-05] MEDS: Hydrocortisone 1% CREAM* 30 GM TUBE TOPICAL SCH ×2 (16:33→23:59)
[2019-02-05] MEDS ORDERED: Morphine INJ* 4 MG/ML 1 ML SYRINGE (NEW SYRINGE VERSION) IV ONE (22:45)
[2019-02-05] MEDS ORDERED: Acetaminophen TAB* 325 MG PO PRN (22:45)
[2019-02-06] MEDS ORDERED: Allopurinol TAB* 100 MG PO SCH (09:00)
[2019-02-06] MEDS ORDERED: Aspirin 81 mg CHEW TAB* 81 MG TAB.CHEW PO SCH (09:00)
[2019-02-06] MEDS ORDERED: Bumetanide TAB* 1 MG PO SCH (09:00)
[2019-02-06] MEDS ORDERED: Pantoprazole TAB * 40 MG TAB PO SCH (09:00)
[2019-02-06] MEDS: Hydrocortisone 1% CREAM* 30 GM TUBE TOPICAL SCH (09:05)
[2019-02-06 09:14] VITALS: BP 115/64
[2019-02-06] MEDS ORDERED: cefTRIAXone(*) 1 GM in NS 0.9% 50 ML* 50 ML IVPB SCH ×2 (10:00→13:00)
--- NOTE | 2019-02-06 12:47 | DS ---
CC: Dr. Jackson * DISCHARGE SUMMARY: DATE OF ADMISSION: 02/05/19 DATE OF DISCHARGE: 02/06/19 HISTORY OF PRESENT ILLNESS: This 73-year-old man presented with swelling and redness of both lower legs. He has had many episodes of cellulitis of his legs. He has some type of pneumatic tube device that he can apply to his legs, but he cannot do this when they are red. I note that he does not own a bed, he sleeps in some type of a chair with some reclining ability. He most recently was treated for cellulitis on 12/28/18 with a 10-day course of levofloxacin. The rest of the history and physical exam is detailed in dictated admission note. HOSPITAL COURSE: The patient was given ceftriaxone 1 g once on the day of admission and once on the day of discharge. He completed a 10-day course of cefuroxime 500 mg b.i.d. He is in the process of obtaining a hospital bed. I emphasized to him the importance of elevating the legs as part of his treatment. It should be as much as possible day and night when he is not walking. His creatinine on admission was 1.26, this is lower than the last value in July of this year, but higher than values before that. His white blood count was 15.6. I had asked for a blood test on the day of discharge but the digester operator helper was not able to obtain them. I think it might be best to wait a couple of days and have this done at the outpatient setting. He can have a CBC and BMP as an outpatient in 2 days. I gave him lab requisitions for this as well. He was started on hydrocortisone cream. I would recommend he use this twice a day regularly for a week or so until the legs are not so red. He has been been using triamcinolone cream but on an as needed basis for itching on a small area. FINAL DIAGNOSES: 1. Cellulitis. 2. Chronic edema. 3. Hypotension. 4. History of hypertension. 5. Chronic obstructive pulmonary disease. 6. Gastroesophageal reflux disease. 7. Stasis dermatitis, both legs. DISCHARGE MEDICATIONS: 1. Cefuroxime 500 mg b.i.d. for 10 days. 2. Hydrocortisone cream 1% b.i.d. to both lower legs until redness is resolved. 3. Aspirin 81 mg daily. 4. Diphenhydramine 50 mg every 6 hours p.r.n. 5. Hydroxyzine 50 mg every 6 hours p.r.n. 6. Ranitidine 1 daily p.r.n. 7. Albuterol inhaler 1 puff every 4 hours p.r.n. 8. Allopurinol 200 mg daily. 9. Bumetanide 2 mg daily. 10. Omeprazole 1 tablet daily. 11. Triamcinolone 0.5% as needed. Lisinopril/hydrochlorothiazide has been discontinued until he is reevaluated for his outpatient blood pressure as his blood pressures in the hospital were on the low side. CONDITION ON DISCHARGE: Stable. DISPOSITION ON DISCHARGE: Discharged home. [id number]/[facility] #: [id number] MTDBrandon
== END 2019-02-06 11:55 | disposition home or self-care (01) ==
LOC: ED 10:21 → MED 14:26
PROVIDERS: ADMIT Internal Medicine; ATTEND Internal Medicine
DX: L03.116 Cellulitis of left lower limb (principal); L03.115 Cellulitis of right lower limb; R60.9 Edema, unspecified; R07.9 Chest pain, unspecified; I95.9 Hypotension, unspecified; I10 Essential (primary) hypertension; J44.9 Chronic obstructive pulmonary disease, unspecified; K21.9 Gastro-esophageal reflux disease without esophagitis; I87.2 Venous insufficiency (chronic) (peripheral); Z79.82 Long term (current) use of aspirin; Z79.899 Other long term (current) drug therapy; Z88.0 Allergy status to penicillin; Z87.891 Personal history of nicotine dependence; R94.31 Abnormal electrocardiogram [ECG] [EKG]
CPT/HCPCS: 36415; 71045; 80053; 82550; 82553; 83605; 83735; 83880; 84443; 84484; 85025; 85610; 85730; 86140; 87040; 87077; 87150; 87205; 93005; 96361; 96365; 96366; 96372; 96375; 99284; A9270-GY; G0378; J0696; J1650; J2270

== ENCOUNTER 2019-03-08 12:45 | Observation (INO) | payer MEDICARE, MEDICAID ==
--- NOTE | 2019-03-08 12:55 | ED ---
Abdominal Pain/Male - HPI Summary HPI Summary: The patient is a 73 y/o M arriving by ambulance to [facility] with a chief complaint of epigastric and RUQ pain onset last night. He reports that he was sitting at rest when the pain began, but it has been constant since then. He states he did not eat immediately prior to the episodes beginning, and he ate a pot pie for lunch. He endorses nausea, episodes of vomiting, and diarrhea. He denies any blood in the stool, fevers, chills, SOB, or CP. He has experienced similar symptoms before with GERD, but not to this severity. He has used Pepto Bismol and Omeprazole to no relief of the pain. Currently, the dull pain is rated 6/10 in severity. Never had a cardiac stress test. Takes one baby ASA daily, no significant use of Ibuprofen or Naproxen. PMHx: collapsed lung, HTN (taken off meds a month ago), COPD, back problems. FHx:. Former smoker, rare EtOH, no substance use. Medications reviewed. Allergies noted. - History of Current Complaint Stated Complaint: NAUSEA/VOMITING/DIAHRREA PER EMS Time Seen by Provider: 03/08/19 12:48 Hx Obtained From: Patient Onset/Duration: Sudden Onset, Lasting Hours - since last night, Still Present Timing: Constant, Lasting Hours Severity Initially: Moderate Severity Currently: Moderate Pain Intensity: 6 Pain Scale Used: 0-10 Numeric Location: Discrete At: RUQ, Epigastric Radiates: No Aggravating Factor(s): Food Alleviating Factor(s): Nothing - Pepto Bismol and Omeprazole to no relief Associated Signs And Symptoms: Positive: Nausea, Vomiting, Diarrhea. Negative: Fever, Chest Pain, Blood in Stool, Other - SOB, chills - Allergies/Home Medications Allergies/Adverse Reactions: Allergies Allergy/AdvReac Type Severity Reaction Status Date / Time Penicillins Allergy Hives Verified 03/08/19 13:12 Home Medications: Home Medications Bumetanide TAB* [Bumex 1 MG TAB*] 1 mg PO DAILY 03/08/19 [History Confirmed ] PMH/Surg Hx/FS Hx/Imm Hx Endocrine/Hematology History: Denies: Hx Diabetes, Hx Systemic Lupus Erythematosus Cardiovascular History: Reports: Hx Hypertension Denies: Hx Congestive Heart Failure, Hx Pacemaker/ICD, Other Cardiovascular Problems/Disorders Respiratory History: Reports: Hx Chronic Obstructive Pulmonary Disease (COPD), Other Respiratory Problems/Disorders - COPD Denies: Hx Asthma History: Denies: Hx Dialysis, Hx Renal Disease Musculoskeletal History: Reports: Hx Arthritis, Hx Back Problems Denies: Hx Rheumatoid Arthritis, Hx Gout Sensory History: Reports: Hx Cataracts - RIGHT EYE CATARACT SURGERY, Hx Contacts or Glasses Denies: Hx Hearing Aid Opthamlomology History: Reports: Hx Cataracts - RIGHT EYE CATARACT SURGERY, Hx Contacts or Glasses - Cancer History Hx Chemotherapy: No - Surgical History Surgical History: Yes Surgery Procedure, Year, and Place: 1968 RT HAND [facility]. 1970 PILONIDAL CYST [place]. 20-30 ANAL CYSTS [facility]. 2011? RIGHT EYE CATARACT SURGERY Hx Anesthesia Reactions: No - Family History Known Family History: Positive: Diabetes - mother, Other - father - PE - Social History Alcohol Use: Rare Hx Substance Use: No Substance Use Type: Reports: None Hx Tobacco Use: Yes Smoking Status (MU): Former Smoker Type: Cigarettes Amount Used/How Often: SMOKES CIGARETTE ONCE EVERY FEW DAYS , DOESN'T INHLAE Length of Time of Smoking/Using Tobacco: 40 YRS Have You Smoked in the Last Year: Yes Review of Systems Negative: Fever, Chills Negative: Chest Pain Negative: Shortness Of Breath Positive: Abdominal Pain - epigastric, RUQ, Vomiting, Diarrhea, Nausea. Negative: Other - blood in stool All Other Systems Reviewed And Are Negative: Yes Physical Exam - Summary Physical Exam Summary: Constitutional: Well-developed, Well-nourished, Alert. (-) Distressed Skin: Warm, Dry HENT: Normocephalic; Atraumatic Eyes: Conjunctiva normal Neck: Musculoskeletal ROM normal neck. (-) JVD, (-) Stridor, (-) Tracheal deviation Cardio: Rhythm regular, rate normal, Heart sounds normal; Intact distal pulses; Radial pulses are 2+ and symmetric. (-) Murmur Pulmonary/Chest wall: Effort normal. (-) Respiratory distress, (-) Wheezes, (-) Rales Abd: Soft, (+) tenderness in the epigastrium and RUQ worse in the RUQ, (-) Dash's sign, (-) Distension, (-) Guarding, (-) Rebound Musculoskeletal: (-) Edema Lymph: (-) Cervical adenopathy Neuro: Alert, Oriented x3 Psych: Mood and affect Normal Triage Information Reviewed: Yes Vital Signs Reviewed: Yes Procedures - Sedation Patient Received Moderate/Deep Sedation with Procedure: No Diagnostics - Laboratory Result Diagrams: 03/08/19 13:06 03/08/19 13:06 Lab Statement: Any lab studies that have been ordered have been reviewed, and results considered in the medical decision making process. - Radiology CXR Radiology Interpretation Completed By: Radiologist Summary of Radiographic Findings: Impression: 1. Redemonstrated right middle lobe collapse. An endobronchial lesion is not excluded. 2. The known density in the right lower lobe is better visualized on comparison CT (correlate with tissue sampling or PET/CT). ED physician has reviewed this imaging report. - CT Abd/Pel CT CT Interpretation Completed By: Radiologist Summary of CT Findings: Impression: 1. No pericholecystic inflammatory change. 2. Atherosclerosis with ectasia of the abdominal aorta measuring up to 3 cm transversely. 3. Enlarged prostate. ED physician has reviewed this imaging report. - Ultrasound Abd US Ultrasound Interpretation Completed By: Radiologist Summary of Ultrasound Findings: Impression: 1. No sonographic evidence of acute inflammatory change of the gallbladder or pathologic biliary obstruction. 2. Likely hepatic steatosis. ED physician has reviewed this imaging report. - EKG 1327 Cardiac Rate: Tachycardia - 132 bpm EKG Rhythm: Sinus Tachycardia Summary of EKG Findings: An EKG at 1327 revels sinus tachycardia at 134 bpm, borderline prolonged QTc, multiple premature beats. ED physician has reviewed and interpreted this EKG. Re-Evaluation - Re-Evaluation First Eval Re-Evaluation Time: 15:50 Change: Improved Comment: He is feeling better. We discussed results and plan for admission. Abdominal Pain Male Course/Dx - Course Course Of Treatment: Patient is here with severe diarrhea for the past 24 hours. Patient was tachycardic with multiple premature beats. Patient was given 2 L IV fluids with minimal change in his heart rate. Patient's family hypomagnesemic with a magnesium 1.6. Patient was given 2 g of IV magnesium. Patient had a CT scan which showed no evidence of any acute process. Patient was admitted to the hospitalist for severe dehydration and hypomagnesemia - Diagnoses Provider Diagnoses: Dehydration, Diarrhea, Hypermagnesemia, Multiple premature ventricular complexes, Tachycardia - Provider Notifications Discussed Care Of Patient With: Adryan Patel - hospitalist Time Discussed With Above Provider: 15:15 Instructed by Provider To: Other - I discussed the patient's case with Dr. Patel , who accepts the patient for admission. Discharge ED - Sign-Out/Discharge Documenting (check all that apply): Patient Departure - Patient is accepted for admission by Dr. Patel. - Discharge Plan Condition: Stable Disposition: ADMITTED TO [facility] Referrals: Rodolfo Jackson MD [Primary Care Provider] - - Billing Disposition and Condition Condition: STABLE Disposition: Admitted to [facility] - Attestation Statements Document Initiated by Scribe: Yes Documenting Scribe: Lizy Fiore Provider For Whom Savanah is Documenting (Include Credential): Dr. Bg Uribe MD Scribe Attestation: Lizy Alvarado scribed for Dr. Bg Uribe MD on 03/08/19 at 1707. Scribe Documentation Reviewed: Yes Provider Attestation: The documentation as recorded by the Lizy knox accurately reflects the service I personally performed and the decisions made by me, Dr. Bg Uribe MD Status of Scribe Document: Viewed
[2019-03-08] MEDS ORDERED: NS 0.9% 1000 ML** 1,000 ML IV ONE ×3 (12:58→16:29)
[2019-03-08 13:30] LABS: Hematocrit 52 % (42-52); Hemoglobin 17.1 g/dL (14.0-18.0); Mean Corpuscular HGB Conc 33 g/dL (31-36); Mean Corpuscular Hemoglobin 29 pg (27-31); Mean Corpuscular Volume 88 fL (80-94); Mean Platelet Volume 7.6 fL (7.4-10.4); Platelet Count 479 10^3/uL (150-450); Red Blood Count 5.93 10^6 /uL (4.18-5.48); Red Cell Distribution Width 16 % (10-15); White Blood Count 28.3 10^3/uL (3.5-10.8)
[2019-03-08 13:31] LABS: ABS Lymphocytes 0.8 10^3/ul (1.0-4.8); ABS Neutrophils 26.4 10^3/ul (1.5-7.7)
[2019-03-08] MEDS ORDERED: Ondansetron INJ* 2 MG/ML VIAL IV ONE (13:36)
[2019-03-08 13:39] LABS: ALT 15 U/L (7-52); AST 13 U/L (13-39); Albumin 3.8 g/dL (3.2-5.2); Albumin/Globulin Ratio 0.9 (1-3); Alkaline Phosphatase 94 U/L (34-104); Anion Gap 12 mmol/L (2-11); BUN/Creatinine Ratio 19.7 (8-20); Blood Urea Nitrogen 24 mg/dL (6-24); CO2 Carbon Dioxide 25 mmol/L (22-32); Calcium 9.4 mg/dL (8.6-10.3); Chloride 103 mmol/L (101-111); EGFR African American 70.7 (>60); EGFR Non-African American 58.4 (>60); Globulin 4.2 g/dL (2-4); Glucose 156 mg/dL (70-100); Potassium 3.5 mmol/L (3.5-5.0); Sodium 140 mmol/L (135-145); Troponin I 0.02 ng/mL (<0.03)
[2019-03-08] MEDS ORDERED: Iodixanol* (CONTRAST) 320 MG/ML 100 ML SDV IV ONE (13:46)
--- OUTSIDE RECORDS SUMMARY | 2019-03-08 14:02 | XMS REPORT | Continuity of Care Document ---
:1945 External Reference #:[id number] Author Name Leola Moreno NP (transmitted by agent of provider Rola Hebert) Address [address], [address] [place] [address] Care Team Providers Name Role Phone Rodolfo Jackson MD - Family Medicine Care Team Information Senior Operator Problems Active Problems Provider Date Calcific tendinitis of right shoulder Vincent Pickard MD Onset: 01/02/2015 Obstructive sleep apnea syndrome Leola Moreno NP Onset: 02/11/2019 Note: Severe Social History Type Date Description Comments Sex Unknown Tobacco Use Start: Unknown Former Cigarette Smoker 20 years End: 1 Pack Daily Tobacco Use Start: Unknown Occasionally Smokes A few puffs Cigarettes Tobacco Use Start: Unknown Secondhand smoke As a child Smoking Status Reviewed: 02/11/19 Secondhand smoke As a child ETOH Use [...] Hives Large quantity 01/02/2015 Tomato Juice Hives Large quantity 02/04/2018 Lemon Juice Hives Large quantity 02/04/2018 Cinnamon Hives Large quantity 02/04/2018 Inactive Allergies NKDA 01/02/2015 Medications Active Medications SIG Qnty Indications Ordering Date Provider Nebulizer System 1 unit q4 hours 1units J44.9 Joyce Quick, 12/21/2018 ALL-In-One and as needed Misc Ipratropium 1 unit every 6 270ml J44.9 Joyce Quick, 12/21/2018 Alpha/Albuterol hours as needed Sulfate 0.5-2.5(3)mg/3ML Solution Hypersal use as directed 720ml Leola 12/21/2018 3.5% Nebulizer for secretions LORI Moreno twice daily after nebulizer Cough Assist Device use as instructed 1units J98.6 Joyce Quick, 2018 twice daily Aspir-81 1 by mouth every Unknown 81mg Tablets day DR Garciaanikristel 1 by mouth daily Unknown 1mg Tablets Colchicine 1 tab by mouth Unknown 0.6mg twice a day(3 days Tablets left unless doctor refills) Omeprazole As needed Rodolfo Jackson MD 20mg Capsules Cefuroxime Axetil Take 1 Tablet By Unknown 500mg Mouth Twice Daily Tablets Triamcinolone Apply topically Rodolfo Jackson MD Acetonide two times per day 0.1% Cream Hydroxyzine HCL As needed Unknown 50mg Tablets Medications Administered in Office Medication SIG Qnty Indications Ordering Provider Date Depomedrol 80MG Vincent Pickard MD 01/02/2015 Injection Immunizations Description No Information Available Vital Signs Date Vital Result Comment 02/11/2019 10:32am Height 70 inches 5'10" Weight 257.00 lb Per pt, pt in wheelchair Heart Rate 89 /min BP Systolic Sitting 138 mmHg Rue large cuff BP Diastolic Sitting 76 mmHg Rue large cuff O2 % BldC Oximetry 91 % On Ra BMI (Body Mass Index) 36.9 kg/m2 01/05/2019 9:22am Height 70 inches 5'10" Weight 259.00 lb Heart Rate 84 /min BP Systolic Sitting 110 mmHg Rue large cuff BP Diastolic Sitting 70 mmHg Rue large cuff Respiratory Rate 24 /min O2 % BldC Oximetry 92 % BMI (Body Mass Index) 37.2 kg/m2 Results Description No Information Available Procedures Date Code Description Status 12/09/2018 87198 Polysomnography Sleep Staging 4+ Parameters Completed 10/01/2018 39436 Sleep Study Unattended,HRT Rate,Oxygen Sat,Resp Completed Effort/Airflow 09/16/2018 99431 Plethysmography Determination Lung Volumes & Per Airway Completed Resist 09/16/2018 50989 Pulmonary Function><Bronchodil Completed Medical Devices Description No Information Available Encounters Type Date Location Provider Dx Diagnosis Office Visit 02/11/2019 Pulmonology And Leola J44.9 Chronic 11:00a [facility] Moreno obstructive Senior Java Web Application Developer pulmonary disease, unspecified J98.4 Other disorders of lung G47.33 Obstructive sleep apnea (adult) (pediatric) Office Visit 01/05/2019 9:30a Pulmonology And Leola J44.9 Chronic [facility] obstructive Senior Java Web Application Developer pulmonary disease, unspecified J98.4 Other disorders of lung G47.33 Obstructive sleep apnea (adult) (pediatric) Office Visit 09/30/2018 11:30a Pulmonology And Joyce J44.9 Chronic [facility] obstructive Senior Java Web Application Developer pulmonary disease, unspecified J98.4 Other disorders of lung R06.83 Snoring Office Visit 08/18/2018 11:30a Pulmonology And Joyce J44.9 Chronic [facility] obstructive Senior Java Web Application Developer pulmonary disease, unspecified J98.09 Other diseases of bronchus, not elsewhere classified Assessments Date Code Description Provider 02/11/2019 J44.9 Chronic obstructive pulmonary disease, Leola Moreno NP unspecified 02/11/2019 J98.4 Other disorders of lung Leola Moreno NP 02/11/2019 G47.33 Obstructive sleep apnea (adult) (pediatric) Leola Moreno NP 01/05/2019 J44.9 Chronic obstructive pulmonary disease, Leola [...] bronchus, not elsewhere Joyce Quick MD classified Plan of Treatment 02/11/2019 - Leola Moreno, NPJ44.9 Chronic obstructive pulmonary disease, unspecifiedRecommendations:I have ordered hypersal nebulizer solution to use after you use your ipratropium/albuterol. This is supposed to help loosen the mucis so you can cough it out.J98.4 Other disorders of lungFollow up:After PET scanG47.33 Obstructive sleep apnea (adult) (pediatric)Recommendations:Please continue to work on getting a bed Functional Status Description No Information Available Mental Status Description No Information Available Referrals Description No Information Available
[2019-03-08 14:45] LABS: Magnesium 1.6 mg/dL (1.9-2.7)
[2019-03-08] MEDS ORDERED: Magnesium Sulfate 2 GM IV* 2 GM/50 ML BAG IVPB ONE (15:10)
[2019-03-08] MEDS ORDERED: LORazepam INJ* 2 MG/ML 1 ML VIAL IV PUSH ONE (15:14)
[2019-03-08] MEDS ORDERED: Lorazepam PYXIS KEY PRN (15:14)
[2019-03-08] MEDS ORDERED: Lorazepam PYXIS KEY ONE (15:32)
[2019-03-08] MEDS ORDERED: Albuterol 2.5 MG/3 ML NEB.SOL* (0.083%) INH PRN (16:22)
[2019-03-08] MEDS ORDERED: Acetaminophen TAB* 325 MG PO PRN (16:25)
[2019-03-08] MEDS ORDERED: Ondansetron INJ* 2 MG/ML VIAL IV PRN (16:25)
[2019-03-08] MEDS: cefTRIAXone(*) 2 GM in NS 0.9% 100 ML* 100 ML IVPB SCH (17:39)
--- NOTE | 2019-03-08 18:01 | HP ---
AMENDED REPORT NOW INCLUDES DESIGNATED COSIGNER ADMISSION HISTORY AND PHYSICAL: DATE OF ADMISSION: 03/08/19 PRIMARY CARE PROVIDER: Dr. Jackson. PROVIDER: Tyrese Shah NP ATTENDING PHYSICIAN: Dr. Patel.* (DICTATED BY TYRESE SHAH NP) CHIEF COMPLAINT: Diarrhea, nausea, vomiting. HISTORY OF PRESENT ILLNESS: This is a 73-year-old male with a past medical history significant for polycythemia vera, hypertension and COPD, who came to the emergency room via EMS on 03/08/19 after noticing pink tinge to his emesis this morning. Originally, the patient reported having an increased frequency in bowel movements about 3 weeks ago around that time where he drank a gallon of milk within a day. He was having 2 to 3 bowel movements each day and he described them as "little balls and a lot of water." Starting yesterday, the stool frequency increased to 5 to 6 times a day, though still formed. He had eaten a chicken pot pie around midday yesterday and after that he states he felt like he had a knot in his gut and heartburn and was burping. He had taken omeprazole for it, but it had not done anything. Late last night, he developed nausea and then this morning he vomited 3 times, but the last time he stated it looked like water, but tinged with pink. The hospitalists were asked to evaluate the patient for admission. In the emergency room, he had labs drawn, EKG done which showed sinus tachycardia, chest x-ray, abdomen and pelvis CT, and abdominal ultrasound which showed no pericholecystic inflammation. Abdominal ultrasound was negative. The patient continuing to feel nauseated, flushed, and "woozy." PAST MEDICAL HISTORY: Polycythemia vera, hypertension, COPD, GERD, pneumonia, cataracts, arthritis, numerous soft tissue abscesses in his groin, gout, and obstructive sleep apnea. PAST SURGICAL HISTORY: Bronchoscopy, right cataract surgery/repair, right hand shrapnel removal in 1968, pilonidal cyst removal, and anal cyst removal. HOME MEDICATIONS: 1. Albuterol nebulizer inhalation q.4 hours as needed. 2. Allopurinol 200 mg p.o. daily. 3. Bumetanide 1 mg p.o. daily. 4. Aspirin 81 mg p.o. q.a.m. ALLERGIES: To PENICILLINS. FAMILY HISTORY: Mother had cancer and diabetes. Father had CHF and PE. SOCIAL HISTORY: He is . Does not smoke. Occasionally drinks alcohol. No recreational substance use. REVIEW OF SYSTEMS: An 11-point system review was performed, which was positive for nausea, vomiting, diarrhea, tachycardia. Negative for any chest pain, shortness of breath, dizziness, lightheadedness, or problems voiding. PHYSICAL EXAMINATION GENERAL: This is an obese gentleman seen sitting up at the edge of the bed, in mild distress. VITAL SIGNS: Temperature 98.0, 112 pulse, 26 resps, 96% oxygen on room air, 151 /91 blood pressure. HEENT: Eyes: Conjunctivae pink and moist. PERRLA. EOMs intact. ENT: Mucous membranes dry. Oropharynx clear. NECK: Supple. LUNGS: Sounds clear throughout bilaterally on room air. No accessory muscle use noted. CARDIAC: S1, S2 present. Heart rate regular. No murmurs, gallops, or rubs appreciated. ABDOMEN: Large, soft. Rebound tenderness to the left upper quadrant. Tenderness to palpation to right lower quadrant. Dull sensation of pain to the right lower quadrant, but positive bowel sounds x4. MUSCULOSKELETAL: Able to move all extremities. Bilateral lower extremities are deep red/dusky, though cap refill is within 3 seconds. The patient states this is his norm. NEUROLOGICAL: Decreased sensation to bilateral lower extremities. No other focal deficits appreciated. PSYCH: Alert and oriented x3. Anxious. SKIN: Discoloration as described above. No open areas appreciated. No rashes or lesions noted. DIAGNOSTIC STUDIES/LAB DATA: Pertinent lab data: White blood cell count 28.3 , RBCs 5.93, RDW 16, platelet count 479. Anion gap 12, creatinine 1.22, glucose 156, lactic acid 2.0, magnesium 1.6. Globulin 4.2, albumin/globulin ratio 0.9, lipase less than 10. Diagnostic studies: Abdomen and pelvis CT showed no pericholecystic inflammatory changes, atherosclerosis with ectasia of the abdominal aorta measuring up to 3 cm transversely, enlarged prostate. EKG showed sinus tachycardia. Chest x-ray showed re-demonstrated right middle lobe collapse and endobronchial lesion is not excluded. The known density in the right lower lobe is better visualized on comparison CT. ASSESSMENT AND PLAN: My impression is that this is a 73-year-old male with a past medical history significant for polycythemia vera, hypertension, chronic obstructive pulmonary disease, who was admitted on 03/08/19 for sepsis likely secondary to intestinal infection. 1. Sepsis. White blood cell count elevated. The patient is tachycardic and tachypneic likely secondary to infection as well as dehydration. The patient has received 2 out of 3 total boluses of normal saline in the emergency room, has been started on ceftriaxone and metronidazole. We will allow for clear liquid diet. Obtain GI consult. We will allow for Zofran for nausea. 2. Hypomagnesemia. Level was 1.6 upon admission. Repleted with 2 g of IV magnesium. We will recheck magnesium level in the a.m. Potassium level was within normal limits. Croton this is likely secondary to vomiting and diarrhea. 3. Gout. Continue allopurinol from home regimen. 4. Chronic obstructive pulmonary disease. He does not require any home oxygen. Has not required the use of any inhalers until recently he obtained an order for albuterol, which he recently picked up. 5. Obstructive sleep apnea. The patient states that he has a CPAP at home. He is on his fourth mask. None of them have fit him correctly and he opts not to use it on days when he feels like he is going to be hopping up to the bathroom frequently or having a coughing jag. Declined the offer of the hospital CPAP for tonight. Family is unable to bring in his own CPAP from home. We will recommend the use of 2 L of oxygen in the overnight. 6. Hypertension. Blood pressures since admission have been slightly elevated anywhere between 140s to 160s. Continue home Bumex. Potentially, we will need to titrate medication or add an additional agent. His blood pressure goal is less than 140/90. 7. Mildly elevated troponins. Troponin on the initial draw was 0.02. Croton like this may be likely secondary to dehydration. We will trend the troponins. EKG shows no evidence of ST elevation or myocardial ischemia. 8. DVT prophylaxis: Lovenox. 9. Code status is full code. 10. Condition: The patient is guarded. 11. Disposition is admit OBV to [address] [place] [address]. TIME SPENT: Time spent on the patient is about 60 minutes with more than half of that was spent [id number]. TYRESE SHAH, MANAGER ACQUISITION [id number]/[facility] #: [id number] GARNET HEALTHBrandon
[2019-03-08 18:07] LABS: Urine Appearance Clear; Urine Bilirubin Negative (Negative); Urine Blood 1+ (Negative); Urine Color Yellow; Urine Glucose Negative (Negative); Urine Ketones Negative (Negative); Urine Nitrite Negative (Negative); Urine Protein 2+(100 mg/dL) (Negative); Urine Specific Gravity > 1.060 (1.010-1.030); Urine Urobilinogen Negative (Negative)
[2019-03-08 18:12] LABS: Urine Bacteria Absent (Absent); Urine Red Blood Cell Trace(0-2/hpf) (Absent); Urine Squamous Epithelial Cell Present (Absent); Urine White Blood Cell Absent (Absent)
[2019-03-08] MEDS: NS 0.9% 1000 ML** 1,000 ML IV SCH (19:45)
--- NOTE | 2019-03-08 20:05 | CONS ---
GASTROENTEROLOGY CONSULT: DATE OF CONSULT: 03/08/19 CONSULTING PRACTITIONERS: Leti Coffey NP; Rodolfo Jackson MD REASON FOR CONSULT: Epigastric pain and an episode of vomiting that was pink today causing him to come to the emergency room. 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 He was alarmed today when he vomited up some pink material. That seemed to follow sensing some heartburn last night, for which he took a pill he has available. He does not know the name of it. He takes it only as needed, which is couple of times a month. He thought last night his stomach was "knotted up." He mixed all this in with a history of having diarrhea for 10 or 20 years, which he acknowledges could be due to dietary indiscretions. About 4 weeks ago, he had a gallon of milk in a given day and had a lot of diarrhea and took Pepto-Bismol and Imodium A-D to deal with it. The history hops all over the place. His appetite is varied. He is not losing weight. He is currently going through a pulmonary workup by Dr Quick and is supposed to have a PET scan because of a collapsed right middle lobe. PAST MEDICAL HISTORY: 1. Morbid obesity. 2. COPD - CO2 of 56 a year ago when he was inpatient. 3. Chronic stasis dermatitis. 4. History of GERD. 5. History of gout. 6. Hypertension - compliance variable and meds may have been discontinued. 7. Polycythemia vera / myelodysplastic disorder with leukocytosis- has been evaluated by Dr. Ramirez. - Bone Marrow Bx in 2013 OUTPATIENT MEDICATIONS: 1. Bumex 2 mg. 2. Allopurinol 200. 3. Albuterol inhaler. The discharge meds from January [address] Crandall otherwise appeared to have been stopped. It is unclear if he is taking aspirin. REVIEW OF SYSTEMS: No history of seizure, CVA, TIA, MS, syncope, hepatitis, jaundice, gallstones, upper endoscopy. He had a colonoscopy more than 15 years ago, was told it was okay. PHYSICAL EXAM: He is a chronically ill-appearing man, morbidly obese, mesomorphic, in no overt distress. He says he is actually feeling a little better than when he left home. He is afebrile. Most recent blood pressure 140/ 110. Pulse is 120 and regular. HEENT Exam: Sclerae are somewhat muddy. Mucous membranes show poor dental health. He has no adenopathy. Breath sounds are diminished in all 4 areas. He has a loose rattly cough. The abdomen is grossly obese, mesomorphic with normal bowel sounds, soft and without focal guarding or tenderness. He does complain in the upper abdomen diffusely. Extremities show severe edema and erythema. Rectal: Deferred. IMPRESSION: This 73-year-old man with severe chronic obstructive pulmonary disease and who has a right lung abnormality being evaluated by Dr. Quick, has had a constellation of gastrointestinal symptoms that are mixed together and certainly do fit dietary indiscretions that he readily acknowledges. He has some background symptoms of GERD and takes a med inconsistently. He is clearly not malnourished. For the moment, we will try to stabilize him by giving a PPI regularly, a prudent diet, restoring electrolytes, reassessing his chronic obstructive pulmonary disease and then seeing where things stand. The pinkish emesis certainly is very nonspecific and with a hemoglobin of 17, not requiring immediate full evaluation if a PPI is to be given on a regular basis and he improves. [id number]/[facility] #: [id number] [place]
[2019-03-08] MEDS: Enoxaparin(*) 40 MG/0.4 ML SYR SUBCUT SCH (20:06)
[2019-03-08] MEDS: metroNIDAZOLE IV 500 MG/100ML* 500 MG/100 ML BAG IVPB SCH (20:10)
[2019-03-08] MEDS: Pantoprazole IV* 40 MG IV SCH (21:26)
[2019-03-09] MEDS: metroNIDAZOLE IV 500 MG/100ML* 500 MG/100 ML BAG IVPB SCH ×4 (02:28→18:29)
[2019-03-09 08:17] LABS: Hematocrit 45 % (42-52); Hemoglobin 14.8 g/dL (14.0-18.0); Mean Corpuscular HGB Conc 33 g/dL (31-36); Mean Corpuscular Hemoglobin 29 pg (27-31); Mean Corpuscular Volume 89 fL (80-94); Mean Platelet Volume 7.6 fL (7.4-10.4); Platelet Count 381 10^3/uL (150-450); Red Cell Distribution Width 16 % (10-15); White Blood Count 24.6 10^3/uL (3.5-10.8)
[2019-03-09 08:34] LABS: BUN/Creatinine Ratio 16.8 (8-20); Calcium 8.5 mg/dL (8.6-10.3); EGFR African American 82.2 (>60); EGFR Non-African American 67.9 (>60); Magnesium 1.9 mg/dL (1.9-2.7); Potassium 3.9 mmol/L (3.5-5.0)
[2019-03-09 09:04] LABS: ABS Eosinophils 0.1 10^3/ul (0-0.6); ABS Lymphocytes 1.1 10^3/ul (1.0-4.8); ABS Monocytes 1.9 10^3/ul (0-0.8); ABS Neutrophils 21.5 10^3/ul (1.5-7.7); Eosinophil % 0.4 %; Lymphocyte % 4.4 %; Nucleated Red Blood Cells % 0.1
[2019-03-09] MEDS: Allopurinol TAB* 100 MG PO SCH (10:59)
[2019-03-09] MEDS: Pantoprazole IV* 40 MG IV SCH ×2 (11:00→21:56)
[2019-03-09] MEDS: Bumetanide TAB* 1 MG PO SCH (11:00)
[2019-03-09] MEDS: NS 0.9% 1000 ML** 1,000 ML IV SCH (11:21)
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
[2019-03-09] MEDS: cefTRIAXone(*) 2 GM in NS 0.9% 100 ML* 100 ML IVPB SCH (16:45)
[2019-03-09] MEDS: Enoxaparin(*) 40 MG/0.4 ML SYR SUBCUT SCH (16:46)
[2019-03-10] MEDS: NS 0.9% 1000 ML** 1,000 ML IV SCH (02:23)
[2019-03-10] MEDS: metroNIDAZOLE IV 500 MG/100ML* 500 MG/100 ML BAG IVPB SCH ×3 (02:23→19:19)
[2019-03-10 10:00] LABS: ABS Basophils 0.1 10^3/ul (0-0.2); ABS Eosinophils 0.1 10^3/ul (0-0.6); ABS Lymphocytes 1.3 10^3/ul (1.0-4.8); ABS Monocytes 1.2 10^3/ul (0-0.8); ABS Neutrophils 13.2 10^3/ul (1.5-7.7); Eosinophil % 0.8 %; Hematocrit 40 % (42-52); Hemoglobin 13.1 g/dL (14.0-18.0); Lymphocyte % 8.3 %; Mean Corpuscular HGB Conc 33 g/dL (31-36); Mean Corpuscular Hemoglobin 29 pg (27-31); Mean Corpuscular Volume 88 fL (80-94); Mean Platelet Volume 7.1 fL (7.4-10.4); Nucleated Red Blood Cells % 0.1; Platelet Count 322 10^3/uL (150-450); Red Cell Distribution Width 16 % (10-15); White Blood Count 15.9 10^3/uL (3.5-10.8)
[2019-03-10] MEDS: Bumetanide TAB* 1 MG PO SCH (10:08)
[2019-03-10] MEDS: Allopurinol TAB* 100 MG PO SCH (10:08)
[2019-03-10] MEDS: Pantoprazole IV* 40 MG IV SCH ×2 (10:08→20:58)
[2019-03-10 10:14] LABS: BUN/Creatinine Ratio 13.3 (8-20); Calcium 8.5 mg/dL (8.6-10.3); EGFR Non-African American 69.4 (>60)
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
[2019-03-10 11:13] LABS: Magnesium 1.7 mg/dL (1.9-2.7)
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
[2019-03-10] MEDS ORDERED: Potassium Chlor TAB* 20 MEQ TAB.ER PO ONE ×2 (13:47→20:00)
[2019-03-10] MEDS: Magnesium Sulfate 2 GM IV* 2 GM/50 ML BAG IVPB ONE ×2 (14:51→15:50)
--- NOTE | 2019-03-10 16:40 | PN ---
Progress Note - Progress Note Date of Service: 03/10/19 Note: GI Follow up Note Patient seen and examined. Still having significant odynophagia. PPI has helped the prior epigastric pain, but odynophagia persists. No black or blood in stool. No diarrhea or constipation. Stool has formed up from admission. Stool testing negative to date VS: 145/68, P-89, R- 18, 96% RA T-97.8 Gen: alert, oriented x3 HEENT: at/nc, perrla, eomi, no jvp CVS: rrr s1s2 Resp: diminished at base Abd: obese, soft, nt, nd, bs+ Psych: appropriate mood and affect Ext: b/l edema and erythema. Lab: Hgb down to 13.1 A/P 73 year old male with odynophagia and abdominal pain 1.) Odynophagia: had course of prednisone recently, ?thrush, given persistence I have recommended EGD. Discussed risks, benefits and alternatives and he would like to proceed. Will plan with MAC given COPD and BARTOLO. 2.) Abdominal pain: has resolved at this time 3.) Diarrhea: resolved. Terry Fortune DO 03/10/19 [id number]
[2019-03-10] MEDS: Enoxaparin(*) 40 MG/0.4 ML SYR SUBCUT SCH (16:50)
[2019-03-10] MEDS: cefTRIAXone(*) 2 GM in NS 0.9% 100 ML* 100 ML IVPB SCH (16:52)
[2019-03-10] MEDS ORDERED: Potassium Chloride* LIQUID 20 MEQ/15 ML UDC PO ONE (20:00)
[2019-03-11] MEDS: metroNIDAZOLE IV 500 MG/100ML* 500 MG/100 ML BAG IVPB SCH ×3 (06:06→18:24)
[2019-03-11] MEDS: Pantoprazole IV* 40 MG IV SCH ×2 (09:44→21:39)
[2019-03-11] MEDS ORDERED: Lidocaine 2% PF * 5 ML VIAL ONE (10:52)
[2019-03-11] MEDS ORDERED: Ondansetron INJ* 2 MG/ML VIAL ONE (10:52)
[2019-03-11] MEDS ORDERED: Propofol* 10 MG/ML 20 ML BTL ONE (10:52)
[2019-03-11] MEDS ORDERED: Midazolam* 1 MG/ML 5 ML VIAL (5 MG) ONE (10:53)
[2019-03-11] MEDS ORDERED: KETAMINE HCL* 50 MG/ML 10 ML VIAL ONE (10:53)
[2019-03-11] MEDS ORDERED: fentaNYL* 50 MCG/ML 2 ML VIAL (100 MCG VIAL) ONE (10:53)
[2019-03-11] MEDS ORDERED: Ondansetron INJ* 2 MG/ML VIAL IV PRN (11:12)
[2019-03-11] MEDS ORDERED: Levalbuterol 0.63MG/3ML NEB* UNIT OF USE INH PRN (11:12)
[2019-03-11] MEDS ORDERED: Naloxone* 0.4 MG/ML 1 ML VIAL IV PRN (11:12)
[2019-03-11] MEDS ORDERED: fentaNYL* 50 MCG/ML 2 ML VIAL (100 MCG VIAL) IV PRN (11:12)
[2019-03-11] MEDS: Allopurinol TAB* 100 MG PO SCH (13:38)
[2019-03-11] MEDS: Bumetanide TAB* 1 MG PO SCH (13:39)
--- NOTE | 2019-03-11 14:02 | PN ---
Progress Note - Progress Note Date of Service: 03/11/19 Note: GI Brief EGD Note: E: Severe erosive esophagitis w/ nodularity, biopsied. G: Gastritis, Bx D: duodenitis., bx A/P The etiology of the odynophagia is the severe esophagitis. there was some nodularity at the junction, unsure if inflammatory or other, biopsied extensively. Needs BID 40mg PO PPI therapy for 3months time, Avoid motrin and NSAIDs if possible. Repeat EGD in 3 months time to assess mucosa under the erosive component. Ok to feed. Terry Fortune 03/11/19 [id number]
[2019-03-11 14:45] LABS: CO2 Carbon Dioxide 19 mmol/L (22-32); Calcium 8.4 mg/dL (8.6-10.3); Chloride 109 mmol/L (101-111); Sodium 138 mmol/L (135-145)
[2019-03-11 14:47] LABS: Anion Gap 10 mmol/L (2-11)
[2019-03-11 14:51] LABS: Blood Urea Nitrogen 12 mg/dL (6-24); EGFR African American 97.9 (>60); EGFR Non-African American 80.9 (>60); Glucose 106 mg/dL (70-100)
[2019-03-11] MEDS: Enoxaparin(*) 40 MG/0.4 ML SYR SUBCUT SCH (17:04)
[2019-03-11] MEDS: cefTRIAXone(*) 2 GM in NS 0.9% 100 ML* 100 ML IVPB SCH (17:05)
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
[2019-03-11 22:38] LABS: Hematocrit 40 % (42-52); Hemoglobin 12.9 g/dL (14.0-18.0); Mean Corpuscular HGB Conc 33 g/dL (31-36); Mean Corpuscular Hemoglobin 29 pg (27-31); Mean Corpuscular Volume 88 fL (80-94); Mean Platelet Volume 7.5 fL (7.4-10.4); Platelet Count 337 10^3/uL (150-450); Red Blood Count 4.49 10^6 /uL (4.18-5.48); Red Cell Distribution Width 16 % (10-15); White Blood Count 14.1 10^3/uL (3.5-10.8)
[2019-03-11 22:56] LABS: Potassium Redraw 3.4 mmol/L (3.5-5.0)
--- NOTE | 2019-03-11 23:46 | PRO ---
CC: Dr. Rodolfo Jackson* EGD REPORT: DATE OF PROCEDURE: 03/11/19 - Inpatient, room 452-01 INDICATION FOR PROCEDURE: Odynophagia. PROCEDURE PERFORMED: Complete esophagogastroduodenoscopy with biopsies. MEDICATIONS GIVEN: Please see Anesthesia record. DESCRIPTION OF PROCEDURE: After the EGD procedure including the risks, benefits , and alternatives with the risks not limited to perforation, surgery, missed lesions, and/or were explained to the patient, written informed consent was obtained, IV medication was given, and a bite block was placed between the teeth. The adult Olympus gastroscope was then inserted into the patient's oropharynx into the tubular esophagus. The tubular esophagus had LA-D severe erosive ulcerative esophagitis. There was some nodularity at the GE junction; this was biopsied extensively. The ulcerative esophagitis went from 41 to 30 cm and it was extensive in nature. The scope was advanced through the lower esophageal sphincter into the stomach. There was [id number] gastritis; this was biopsied and CLOtested. On retroflexion, a small sliding hiatal hernia was appreciated. The scope was advanced through the widely patent pylorus into the duodenal bulb, C-loop, distal duodenum. There was duodenitis that was present in the bulb and the C-loop; this was biopsied extensively. The scope was then removed from the patient. He tolerated the procedure well. He returned to the recovery room in stable condition. IMPRESSION: 1. Complete esophagogastroduodenoscopy with biopsies. 2. Severe LA-D erosive esophagitis with ulceration and nodularity, extensively biopsied. 3. Gastritis, biopsied. 4. Duodenitis, biopsied. RECOMMENDATIONS: Place the patient on b.i.d. PPI therapy. Await results of biopsies. Given the extensive ulcerative esophagitis, we cannot tell if the mucosa is underneath and we will need to repeat an EGD if biopsies just show inflammation. We will plan on repeating EGD in 3 months' time after he has been on b.i.d. PPI therapy for that amount. Suspect that this ulcerative esophagitis is etiology of his odynophagia. [id number]/[facility] #: [id number] [facility]
[2019-03-12] MEDS: metroNIDAZOLE IV 500 MG/100ML* 500 MG/100 ML BAG IVPB SCH ×2 (03:11→10:08)
[2019-03-12] MEDS: Allopurinol TAB* 100 MG PO SCH (08:14)
[2019-03-12] MEDS: Bumetanide TAB* 1 MG PO SCH (08:16)
[2019-03-12] MEDS: Pantoprazole IV* 40 MG IV SCH (08:16)
[2019-03-12 08:50] LABS: Hematocrit 41 % (42-52); Hemoglobin 13.6 g/dL (14.0-18.0); Mean Corpuscular HGB Conc 33 g/dL (31-36); Mean Corpuscular Hemoglobin 29 pg (27-31); Mean Corpuscular Volume 88 fL (80-94); Mean Platelet Volume 7.6 fL (7.4-10.4); Platelet Count 345 10^3/uL (150-450); Red Blood Count 4.72 10^6 /uL (4.18-5.48); Red Cell Distribution Width 16 % (10-15); White Blood Count 11.9 10^3/uL (3.5-10.8)
[2019-03-12] MEDS ORDERED: KCL 20 MEQ/100 ML IVPREMIX* 20 MEQ/100 ML BAG IV SCH (09:00)
[2019-03-12 09:17] LABS: BUN/Creatinine Ratio 10.7 (8-20); Calcium 8.7 mg/dL (8.6-10.3); EGFR Non-African American 64.4 (>60); Potassium 3.3 mmol/L (3.5-5.0)
[2019-03-12 09:43] LABS: Magnesium 1.9 mg/dL (1.9-2.7)
[2019-03-12] MEDS ORDERED: Potassium Chlor TAB* 10 MEQ TAB.ER PO ONE (10:06)
[2019-03-12 10:38] VITALS: BP 118/66
--- NOTE | 2019-03-12 13:21 | DS ---
CC: Dr. Quick; Dr. Fortune* DISCHARGE SUMMARY: DATE OF ADMISSION: 03/08/19 DATE OF DISCHARGE: 03/12/19 PROVIDER: Holli Laird NP. PRIMARY CARE PROVIDER: Dr. Jackson. ATTENDING PHYSICIAN WHILE IN THE HOSPITAL: Dr. Nakita Anderson* (dictated by Holli Laird NP). PRIMARY DIAGNOSES: 1. Sepsis, likely related to aspiration pneumonia. 2. Severe erosive esophagitis. 3. Gastritis. SECONDARY DIAGNOSES: 1. Hypertension. 2. Chronic obstructive pulmonary disease. 3. Gastroesophageal reflux disease. 4. Polycythemia vera. 5. Gout. 6. Obstructive sleep apnea. STUDIES COMPLETED WHILE IN THE HOSPITAL: 1. The patient had a chest x-ray on 03/08/19. Radiologist Impression: Re- demonstrates right middle lobe collapse and endotracheal lesion cannot be excluded, no known density. The known density in the right lower lobe is better visualized on CT. 2. He had a CT of the abdomen and pelvis. No pericholecystic inflammatory change. Atherosclerosis of the abdominal aorta measuring up to 3 cm transversely. Enlarged prostate. 3. He had a CT of the chest. Radiologist impression: Right lower lobe infiltrate, unchanged. Right middle lobe atelectasis with bronchial atelectasis , the atelectasis is improved from prior studies. Small bilateral pleural effusions and enlarged mediastinal lymph nodes. Central lobular emphysematous changes. Ectasia of the ascending thoracic aorta, unchanged. CONSULTATION: The patient was seen in consultation by Gastroenterology, Dr. Thomas and Dr. Fortune. Dr. Fortune did an upper endoscopy with findings of severe LA-D erosive esophagitis with ulceration and nodularity; extensively biopsied, gastritis, and duodenitis. DISCHARGE MEDICATIONS: [place] Medications: 1. Vantin 200 mg p.o. twice daily for 4 days. 2. Flagyl 500 mg p.o. t.i.d. x 4 days. 3. Pantoprazole 40 mg p.o. twice daily. 4. Potassium 20 mEq p.o. daily with meals. Continued Home Medications: 1. Allopurinol 200 mg p.o. daily. 2. Bumex 1 mg p.o. daily. Discontinued Medication: Aspirin 81 mg p.o. daily. HISTORY OF PRESENT ILLNESS AND HOSPITAL COURSE: Mr. Munguia is a 73-year-old male with a past medical history significant for COPD, polycythemia vera, hypertension, and GERD who presented to the emergency room on 03/08/19 after noticing pink-tinged emesis. The patient also reported having increased frequency of bowel movements for about 3 weeks after drinking a gallon of milk. The patient does report increased acid reflux and heartburn, burping, and belching since with meals and eating. He does endorse pain with swallowing. Due to the patient's persistent nausea, heartburn, and belching, he was admitted to the hospital. While in the emergency room, the patient had routine lab work drawn. He was found to have leukocytosis with a white count of 28,000. The patient does chronically have an elevated white count, but this white count was well above his baseline. He was also noted to be tachycardic, meeting sepsis criteria. Due to these findings, Hospital Medicine was asked to see and evaluate him. Hospital Medicine was asked to admit him to the hospital. During this hospitalization, the patient underwent upper endoscopy. He was found to have severe erosive esophagitis, gastritis, and duodenitis. He was started on Protonix 40 mg b.i.d. He is to follow up with GI in 3 months for a repeat upper endoscopy. He had several biopsies taken during the upper endoscopy that are currently pending at this time; he should follow up with GI for results of his upper endoscopy. Also, while in the hospital, the patient had a CT of the chest. He continues to have severe atelectasis in the right middle lobe, which is known. He has followup with Dr. Quick. The patient should follow up with Dr. Quick for further recommendations in regard to his inhaler therapy as well as rescheduling his outpatient PET scan. REVIEW OF SYSTEMS: The patient denies any fever or chills. Denies any unintended weight loss. He currently denies any chest pain or shortness of breath. He does continue to complain of cough and burning in his throat when eating. He denies any abdominal pain. Denies any nausea, vomiting, or diarrhea. Denies any urinary frequency, urgency, or pain with urination. PHYSICAL EXAMINATION: General: At this time, Mr. Munguia is a 73-year-old male. He is alert and oriented, resting and sitting in the chair in his hospital room. He is in no acute distress. Vital Signs: Blood pressure 112/61 , heart rate is 94, respirations are 20, O2 saturation is 100% on room air, temperature was 97.9. HEENT: Head is atraumatic, normocephalic. Eyes: EOMs are intact. Sclerae are anicteric and not pale. Oral mucosa appeared to be moist. Neck is supple. Lungs are diminished throughout bilaterally with diffuse crackles at the bases, greater on the right. Cardiac: S1, S2. Regular rate and rhythm. No murmurs, rubs, or gallops. Abdomen is obese, soft , nontender. Bowel sounds are present x4. Extremities: He does have purple discoloration noted to the lower extremities, which is chronic. Extremities: With purple discoloration that is chronic for the patient. Mild bilateral +1 pitting edema noted to bilateral lower extremities. Neurologic: He is awake, alert, and oriented x3. Speech is clear. Thought process is intact. There are no gross focal deficits. Skin: He does have multiple scabbed areas noted to bilateral arms. DISCHARGE PLAN: At this time, Mr. Munguia will be discharged to home. Activity as tolerated. 1. Sepsis. The patient today did meet sepsis criteria on admission with leukocytosis and tachycardia. Originally suspected source of abdominal infection, which was ruled out with CT showed no diverticulitis. I suspect his leukocytosis could be related to aspiration pneumonia as the patient does have severe reflux. He did have an upper GI that showed severe erosive esophagitis, gastritis, and duodenitis. I will continue him on a 7-day course of antibiotics , completed with Flagyl and Vantin to treat aspiration pneumonia. He should follow up with Dr. Quick in the next 1 to 2 weeks. He should call Dr. Quick' s office on Thursday to reschedule his PET scan. 2. Severe erosive esophagitis, gastritis, and duodenitis. The patient was seen by Gastroenterology, Dr. Fortune, who did an upper endoscopy. The patient should have a repeat upper endoscopy in 3 months. He will be continued on Protonix 40 mg twice daily until further direction by Gastroenterology. Will need follow-up. needs to call for appointment. 3. Chronic obstructive pulmonary disease. The patient should continue on his home medications as previously prescribed. 4. Gout. He should continue on allopurinol as previously prescribed. The patient should follow up with his primary care provider in 4 to 7 days. He should call Dr. Fortuen's office next week for a followup appointment. He should call Dr. Quick on Thursday in regards to rescheduling his PET scan and a followup appointment. TIME SPENT: Time spent on this discharge was 60 minutes. Greater than half the time was spent at the bedside reviewing events leading thus far to his hospitalization, performing physical exam, and reviewing discharge instructions. The patient verbalized understanding. The patient was instructed to return to the emergency room for any chest pain, worsening shortness of breath, fever, chills, nausea, vomiting, unable to tolerate food or fluids. The patient verbalized understanding CONDITION ON DISCHARGE: Good. DISPOSITION ON DISCHARGE: Home. I have discussed this with my attending, Dr. Nakita Anderson. She is in agreement with my plan. HOLLI LAIRD NP [id number]/[facility] #: [id number] [facility]
== END 2019-03-12 10:30 | disposition home health service (06) | DRG 871 ==
LOC: ED 12:45 → UNDOADMOB 16:25 → MEDTELE 16:25 → OBSVTOIN 03-10 11:00 → INTOOBSV 03-10 11:00 → UNDODISIN 03-12 10:30
PROVIDERS: ADMIT Internal Medicine; ATTEND Internal Medicine
PROC: 0DB68ZX Excision of Stomach, Via Natural or Artificial Opening Endoscopic, Diagnostic (ICD-10-PCS; 2019-03-11)
PROC: 0DB58ZX Excision of Esophagus, Via Natural or Artificial Opening Endoscopic, Diagnostic (ICD-10-PCS; 2019-03-11)
PROC: 0DB98ZX Excision of Duodenum, Via Natural or Artificial Opening Endoscopic, Diagnostic (ICD-10-PCS; principal; 2019-03-11 11:30)
DX: A41.9 Sepsis, unspecified organism (principal); J69.0 Pneumonitis due to inhalation of food and vomit; J98.19 Other pulmonary collapse; K22.10 Ulcer of esophagus without bleeding; J98.11 Atelectasis; E66.01 Morbid (severe) obesity due to excess calories; J44.9 Chronic obstructive pulmonary disease, unspecified; I87.2 Venous insufficiency (chronic) (peripheral); M10.9 Gout, unspecified; I10 Essential (primary) hypertension; D45 Polycythemia vera; G47.33 Obstructive sleep apnea (adult) (pediatric); M19.90 Unspecified osteoarthritis, unspecified site; E83.42 Hypomagnesemia; R79.89 Other specified abnormal findings of blood chemistry; R13.10 Dysphagia, unspecified; K29.70 Gastritis, unspecified, without bleeding; K29.80 Duodenitis without bleeding; Z68.34 Body mass index [BMI] 34.0-34.9, adult; Z88.0 Allergy status to penicillin; Z87.891 Personal history of nicotine dependence; Z79.899 Other long term (current) drug therapy; K21.0 Gastro-esophageal reflux disease with esophagitis
CPT/HCPCS: 36415; 71045; 71250; 74177; 76705; 80048; 80053; 81003; 81015; 82272; 83036; 83605; 83630; 83690; 83735; 84484; 85025; 85027; 87040; 87045; 87046; 87077; 87328; 87329; 87493; 87899; 88305; 88342; 93005; 96374; 96375; 99284; A9270-GY; G0378; J0696; J1650; J2060; J2250; J2405; J2704; J3010; J3475; Q9967

== ENCOUNTER 2019-03-17 09:50 | Emergency (ER) | payer MEDICARE, MEDICAID ==
--- NOTE | 2019-03-17 10:07 | ED ---
Back Pain - HPI Summary HPI Summary: The patient is a 73 y/o M presenting to [facility] with a chief complaint of back pain onset four days ago. He reports that he had his legs crossed with his foot up on his knee attempting to put a sock on, which he states he hasnt done in a long time, but he then developed back pain. Following this, he was at rest and went to get up and felt pain across the lower back. He didnt hear a cracking noise in his back. Aching pain is currently rated 6/10 in severity. Movement using the back especially twisting aggravates the pain, and rest alleviates it. He denies weakness or numbness in the legs or difficulty ambulating. He has not used any medications to treat the pain prior to arrival. He notes previous history of similar back problems. No known recent trauma to back. PMHx: HTN, COPD, arthritis, polycythemia vera, GERD, gout. Former smoker, rare EtOH, no substance use. Medications reviewed. Allergies noted.Tulle - History of Current Complaint Chief Complaint: EDBackInjuryPain Stated Complaint: BACK PAIN PER EMS Time Seen by Provider: 03/17/19 09:57 Hx Obtained From: Patient Onset/Duration: Lasting Days - four, Still Present Onset/Duration: Started Days Ago, Atraumatic, Still Present Timing: Constant Back Pain Location: Is Discrete @ - across lower back Pain Intensity: 6 Pain Scale Used: 0-10 Numeric Character: Aching Aggravating Symptom(s): Movement - twisting back Alleviating Symptom(s): Rest Associated Signs And Symptoms: Negative: Weakness, Numbness, Other - difficulty ambulating - Allergies/Home Medications Allergies/Adverse Reactions: Allergies Allergy/AdvReac Type Severity Reaction Status Date / Time Penicillins Allergy Hives Verified 03/08/19 13:12 PMH/Surg Hx/FS Hx/Imm Hx Endocrine/Hematology History: Denies: Hx Diabetes, Hx Systemic Lupus Erythematosus Cardiovascular History: Reports: Hx Hypertension Denies: Hx Congestive Heart Failure, Hx Pacemaker/ICD, Other Cardiovascular Problems/Disorders Respiratory History: Reports: Hx Chronic Obstructive Pulmonary Disease (COPD), Other Respiratory Problems/Disorders - COPD Denies: Hx Asthma History: Denies: Hx Dialysis, Hx Renal Disease Musculoskeletal History: Reports: Hx Arthritis, Hx Back Problems Denies: Hx Rheumatoid Arthritis, Hx Gout Sensory History: Reports: Hx Cataracts - RIGHT EYE CATARACT SURGERY, Hx Contacts or Glasses Denies: Hx Hearing Aid Opthamlomology History: Reports: Hx Cataracts - RIGHT EYE CATARACT SURGERY, Hx Contacts or Glasses - Cancer History Hx Chemotherapy: No - Surgical History Surgical History: Yes Surgery Procedure, Year, and Place: 1968 RT HAND [facility]. [address] [place] [place]. 20-30 ANAL CYSTS OFC. 2011? RIGHT EYE CATARACT SURGERY Hx Anesthesia Reactions: No Infectious Disease History: No Infectious Disease History: Denies: Traveled Outside the [place] in Last 30 Days - Family History Known Family History: Positive: Diabetes - mother, Other - father - PE - Social History Alcohol Use: Rare Hx Substance Use: No Substance Use Type: Reports: None Hx Tobacco Use: Yes Smoking Status (MU): Former Smoker Type: Cigarettes Amount Used/How Often: SMOKES CIGARETTE ONCE EVERY FEW DAYS , DOESN'T INHLAE Length of Time of Smoking/Using Tobacco: 40 YRS Have You Smoked in the Last Year: Yes Review of Systems Positive: Other - low back pain Neurological: Other - Negative: difficulty ambulating Negative: Weakness - in lower extremities, Numbness - in lower extremities All Other Systems Reviewed And Are Negative: Yes Physical Exam - Summary Physical Exam Summary: Appearance: The patient is well-nourished in no acute distress and in no acute pain. Skin: The skin is warm and dry, and skin color reflects adequate perfusion. HEENT: The head is normocephalic and atraumatic. The pupils are equal and reactive. The conjunctivae are clear and without drainage. Nares are patent and without drainage. Mouth reveals moist mucous membranes, and the throat is without erythema and exudate. The external ears are intact. The ear canals are patent and without drainage. The tympanic membranes are intact. Neck: The neck is supple with full range of motion and non-tender. There are no carotid bruits. There is no neck vein distension. Respiratory: Chest is non-tender. Lungs are clear to auscultation and breath sounds are symmetrical and equal. Cardiovascular: Heart is regular rate and rhythm. There is no murmur or rub auscultated. There is peripheral edema, and pulses are symmetrical and equal. Abdomen: The abdomen is soft and non-tender. There are normal bowel sounds heard in all four quadrants and there is no organomegaly palpated. Musculoskeletal: There is no back tenderness noted. Extremities are non-tender with full range of motion. There is good capillary refill. There is peripheral edema. There is no calf tenderness elicited. There are chronic venous stasis changes in lower extremities. There is tenderness in the paralumbar spine. Neurological: Patient is alert and oriented to person, place and time. The patient has symmetrical motor strength in all four extremities. Cranial nerves are grossly intact. Deep tendon reflexes are symmetrical and equal in all four extremities. Psychiatric: The patient has an appropriate affect and does not exhibit any anxiety or depression. Triage Information Reviewed: Yes Vital Signs On Initial Exam: Initial Vitals Temp Pulse Resp BP Pulse Ox 97.8 F 81 18 144/84 97 03/17/19 09:52 03/17/19 09:52 03/17/19 09:52 03/17/19 09:52 03/17/19 09:52 Vital Signs Reviewed: Yes Procedures - Sedation Patient Received Moderate/Deep Sedation with Procedure: No Diagnostics - Vital Signs Vital Signs Temp Pulse Resp BP Pulse Ox 03/17/19 09:52 97.8 F 81 18 144/84 97 - Laboratory Result Diagrams: 03/17/19 10:21 03/17/19 10:21 Lab Statement: Any lab studies that have been ordered have been reviewed, and results considered in the medical decision making process. - CT Lumbar CT CT Interpretation Completed By: Radiologist Summary of CT Findings: Impression: 1. Mild acute compression fracture involving the anterior column superior endplate of the L2 vertebral body with approximate 0.5 cm depression of the endplate. Negative for involvement of the middle column or resulting compromise of the central canal. No additional lumbar sacral spine fractures evident. 2. No significant change in multilevel degenerative spondylosis and posterior element osteoarthritis. ED physician has reviewed this report. Re-Evaluation - Re-Evaluation First Eval Re-Evaluation Time: 12:35 Comment: Patient is awake. We discussed results and plan for discharge. Back Pain Course/Dx - Course Course Of Treatment: Mr. Munguia presented with low back pain without weakness or change in bowel and bladder. He was not aware of any injury. Was however found to have a new compression fracture. He was nontoxic in appearance his vitals were stable and significant relief from a [place] here in the department. I will treat him symptomatically as an outpatient and recommended follow-up with his PCP. - Diagnoses Provider Diagnoses: Compression fracture Discharge ED - Sign-Out/Discharge Documenting (check all that apply): Patient Departure - Patient will be discharged home. - Discharge Plan Condition: Stable Disposition: HOME Prescriptions: HYDROcodone/ACETAMIN 5-325 MG* [[place] 5-325 TAB*] 1 tab PO Q6H PRN #20 tab MDD 4 PRN Reason: Pain Patient Education Materials: Vertebral Compression Fracture (ED) Referrals: Rodolfo Jackson MD [Primary Care Provider] - 3 Days Additional Instructions: Please take medications as prescribed. Follow up with your primary care provider in 2-3 days. Return to the emergency department for any new or worsening symptoms. - Billing Disposition and Condition Condition: STABLE Disposition: Home - Attestation Statements Document Initiated by Savanah: Yes Documenting Scribe: Lizy Fiore Provider For Whom Savanah is Documenting (Include Credential): Dr. Raejsh Collazo MD Scribe Attestation: Lizy Alvarado scribed for Dr. Rajesh Collazo MD on 03/17/19 at 1850. Scribe Documentation Reviewed: Yes Provider Attestation: The documentation as recorded by the Lizy knox accurately reflects the service I personally performed and the decisions made by me, Dr. Rajesh Collazo MD Status of Scribe Document: Viewed
[2019-03-17] MEDS ORDERED: HYDROcodone/ACETAMIN 5-325 MG* 1 TAB PO ONE (10:13)
[2019-03-17 10:34] LABS: ABS Basophils 0.1 10^3/ul (0-0.2); ABS Eosinophils 0.3 10^3/ul (0-0.6); ABS Lymphocytes 1.2 10^3/ul (1.0-4.8); ABS Monocytes 1.3 10^3/ul (0-0.8); ABS Neutrophils 8.2 10^3/ul (1.5-7.7); Eosinophil % 2.7 %; Hematocrit 45 % (42-52); Hemoglobin 14.6 g/dL (14.0-18.0); Lymphocyte % 10.8 %; Mean Corpuscular HGB Conc 33 g/dL (31-36); Mean Corpuscular Hemoglobin 29 pg (27-31); Mean Corpuscular Volume 88 fL (80-94); Mean Platelet Volume 7.5 fL (7.4-10.4); Platelet Count 390 10^3/uL (150-450); Red Blood Count 5.07 10^6 /uL (4.18-5.48); Red Cell Distribution Width 16 % (10-15)
[2019-03-17 10:58] LABS: Albumin 3.3 g/dL (3.2-5.2); Albumin/Globulin Ratio 1.1 (1-3); BUN/Creatinine Ratio 7.5 (8-20); C Reactive Protein 10.78 mg/L (<8.01); EGFR African American 82.2 (>60); EGFR Non-African American 67.9 (>60); Potassium 3.7 mmol/L (3.5-5.0); Total Bilirubin 0.3 mg/dL (0.2-1.0); Total Protein 6.3 g/dL (6.4-8.9)
--- OUTSIDE RECORDS SUMMARY | 2019-03-17 11:05 | XMS REPORT ---
:1945 Author Organization [facility] Care Team Providers Name Role Phone Unavailable Unavailable Unavailable Problems Condition Condition Condition Status Onset Resolution Last Treating Comments Name Details Category Date Date Treatment Clinician Date Gastro-esop Gastro-esop Diagnosis Active Leti hageal hageal Wendela reflux reflux disease disease without without esophagitis esophagitis Allergies, Adverse Reactions, Alerts Allergy Name Allergy Status Severity Reaction(s) Onset Inactive Treating Comments Type Date Date Clinician Penicillins Unknown Active Unknown Reaction Interface Unknown 3-26 Medications Ordered Filled Start Stop Current Ordering Indication Dosage Frequency Signature Comments Components Medication Medication Date Date Medication? Clinician (SIG) Name Name No Known No Known No None None None Medications Medications For This For This Patient Patient Procedures This patient has no known procedures. Results This patient has no known results.
--- OUTSIDE RECORDS SUMMARY | 2019-03-17 11:05 | XMS REPORT ---
:1945 Author Organization [facility] Care Team Providers Name Role Phone Unavailable [...]
--- OUTSIDE RECORDS SUMMARY | 2019-03-17 11:05 | XMS REPORT ---
:1945 Author Organization [facility] Care Team Providers Name Role Phone Unavailable [...]
--- OUTSIDE RECORDS SUMMARY | 2019-03-17 11:06 | XMS REPORT ---
:1945 Author Organization [facility] Care Team Providers Name Role Phone Unavailable Unavailable Unavailable Problems This patient has no known problems. Allergies, Adverse Reactions, Alerts Allergy Name Allergy [...]
[2019-03-17 13:14] VITALS: BP 149/89
== END 2019-03-17 13:07 | disposition home or self-care (01) ==
LOC: ED 09:50
DX: M48.56XA Collapsed vertebra, not elsewhere classified, lumbar region, initial encounter for fracture (principal); I10 Essential (primary) hypertension; J44.9 Chronic obstructive pulmonary disease, unspecified; K21.9 Gastro-esophageal reflux disease without esophagitis; Z87.891 Personal history of nicotine dependence; Z88.0 Allergy status to penicillin; Z79.899 Other long term (current) drug therapy
CPT/HCPCS: 36415; 72131; 80053; 85025; 86140; 99283

== ENCOUNTER 2019-04-13 00:59 | Emergency (ER) | payer MEDICARE ==
--- NOTE | 2019-04-13 01:47 | ED ---
Back Pain - HPI Summary HPI Summary: Pt is a 73 y/o M presenting to the ED with a chief complaint of back pain. He states his son recently , and he was angry about this so he got up out of his chair very quickly, causing him to twitch his back. He reports neck pain, back pain, and sore feet. He also reports some edema in his legs, and hes unable to keep his legs elevated. He denies other sx, including chest pain. - History of Current Complaint Chief Complaint: EDBackInjuryPain Stated Complaint: GENERAL ILLNESS PER EMS Time Seen by Provider: 04/13/19 01:39 Hx Obtained From: Patient Onset/Duration: Gradual Onset, Lasting Days, Still Present Onset/Duration: Started Days Ago, Still Present Timing: Constant, Lasting Days Severity Initially: Moderate Severity Currently: Severe Pain Intensity: 10 Pain Scale Used: 0-10 Numeric Aggravating Symptom(s): Nothing Alleviating Symptom(s): Nothing Associated Signs And Symptoms: Positive: Negative - Allergies/Home Medications Allergies/Adverse Reactions: Allergies Allergy/AdvReac Type Severity Reaction Status Date / Time Penicillins Allergy Hives Verified 03/08/19 13:12 PMH/Surg Hx/FS Hx/Imm Hx Previously Healthy: Yes Endocrine/Hematology History: Denies: Hx Diabetes, Hx Systemic Lupus Erythematosus Cardiovascular History: Reports: Hx Hypertension Denies: Hx Congestive Heart Failure, Hx Pacemaker/ICD, Other Cardiovascular Problems/Disorders Respiratory History: Reports: Hx Chronic Obstructive Pulmonary Disease (COPD), Other Respiratory Problems/Disorders - COPD Denies: Hx Asthma History: Denies: Hx Dialysis, Hx Renal Disease Musculoskeletal History: Reports: Hx Arthritis, Hx Back Problems Denies: Hx Rheumatoid Arthritis, Hx Gout Sensory History: Reports: Hx Cataracts - RIGHT EYE CATARACT SURGERY, Hx Contacts or Glasses Denies: Hx Hearing Aid Opthamlomology History: Reports: Hx Cataracts - RIGHT EYE CATARACT SURGERY, Hx Contacts or Glasses - Cancer History Hx Chemotherapy: No Hx Radiation Therapy: No - Surgical History Surgery Procedure, Year, and Place: 1968 RT HAND [facility]. [address] [place] [place]. 20-30 ANAL [facility]. 2011? RIGHT EYE CATARACT SURGERY Hx Anesthesia Reactions: No - Immunization History Immunizations Up to Date: Yes Infectious Disease History: No Infectious Disease History: Denies: Traveled Outside the [place] in Last 30 Days - Family History Known Family History: Positive: Diabetes - mother, Other - father - PE - Social History Alcohol Use: Rare Hx Substance Use: No Substance Use Type: Reports: None Hx Tobacco Use: Yes Smoking Status (MU): Former Smoker Type: Cigarettes Amount Used/How Often: SMOKES CIGARETTE ONCE EVERY FEW DAYS , DOESN'T INHLAE Length of Time of Smoking/Using Tobacco: 40 YRS Have You Smoked in the Last Year: Yes Review of Systems Negative: Chest Pain Positive: Myalgia, Edema All Other Systems Reviewed And Are Negative: Yes Physical Exam - Summary Physical Exam Summary: Appearance: Elderly obese man sitting in a recliner chair in [facility] Skin: Warm, dry, no obvious rash Eyes: sclera anicteric, no conjunctival pallor ENT: mucous membranes moist, pharynx appears normal Neck: Supple, nontender Respiratory: Clear to auscultation, no signs of respiratory distress Cardiovascular: Normal S1, S2. No murmurs. Normal distal pulses in tibial and radial bilaterally. Abdomen: Soft, nontender, normal active bowel sounds present Musculoskeletal: diffuse chronic venous stasis edema noted, but no acute cellulitis or visible ulcer. Neurological: A&Ox3, awake and alert, mentation is normal, speech is fluent and appropriate Psychiatric: affect is normal, does not appear anxious or depressed Triage Information Reviewed: Yes Vital Signs On Initial Exam: Initial Vitals Temp Pulse Resp BP Pulse Ox 97.7 F 102 22 131/101 96 04/13/19 01:10 04/13/19 01:10 04/13/19 01:10 04/13/19 01:10 04/13/19 01:10 Vital Signs Reviewed: Yes Procedures - Sedation Patient Received Moderate/Deep Sedation with Procedure: No Diagnostics - Vital Signs Vital Signs Temp Pulse Resp BP Pulse Ox 04/13/19 01:10 97.7 F 102 22 131/101 96 - Laboratory Lab Statement: Any lab studies that have been ordered have been reviewed, and results considered in the medical decision making process. Back Pain Course/Dx - Course Course Of Treatment: Pt is a 73 y/o M presenting to the ED with a chief complaint of back pain. He reports neck pain, back pain, and sore feet. He also reports some edema in his legs, and hes unable to keep his legs elevated. He denies other sx, including chest pain. On exam, pt is an elderly obese male sitting in a recliner in [place], and his LE shows diffuse chronic venous stasis edema, without acute cellulitis or visible ulcer. Pt will be d/c'ed with dx of back pain. He is stable and agreeable with this plan. - Diagnoses Provider Diagnoses: Back pain Discharge ED - Sign-Out/Discharge Documenting (check all that apply): Patient Departure - Discharge Plan Condition: Good Disposition: HOME Prescriptions: HYDROcodone/ACETAMIN 5-325 MG* [[place] 5-325 TAB*] 1 tab PO Q4H PRN #15 tab MDD 6 PRN Reason: Pain - Severe Patient Education Materials: Back Pain (ED) Referrals: Rodolfo Jackson MD [Primary Care Provider] - As Soon As Possible Additional Instructions: Contact Dr. Jackson for followup. If your back continues to give you trouble he should be the one writing for medications. We cannot continue to prescribe opioid medication for this problem. - Billing Disposition and Condition Condition: GOOD Disposition: Home - Attestation Statements Document Initiated by Scribe: Yes Documenting Scribe: Vikki Waller Provider For Whom Savanah is Documenting (Include Credential): Rajesh Gill MD. Scribe Attestation: IVikki, scribed for Rajesh Gill MD. on 04/13/19 at 0622. Scribe Documentation Reviewed: Yes Provider Attestation: The documentation as recorded by the scribeVikki accurately reflects the service I personally performed and the decisions made by me, Rajesh Gill MD. Status of Scribe Document: Viewed
[2019-04-13] MEDS ORDERED: HYDROcodone/ACETAMIN 5-325 MG* 1 TAB PO ONE (01:48)
[2019-04-13 04:40] VITALS: BP 121/85
== END 2019-04-13 04:32 | disposition home or self-care (01) ==
LOC: ED 00:59
DX: M54.9 Dorsalgia, unspecified (principal); I10 Essential (primary) hypertension; J44.9 Chronic obstructive pulmonary disease, unspecified; Z87.891 Personal history of nicotine dependence; Z88.0 Allergy status to penicillin
CPT/HCPCS: 99282

== ENCOUNTER 2019-04-21 17:44 | Inpatient (IN) | payer MEDICARE, MEDICAID ==
--- NOTE | 2019-04-21 18:22 | ED ---
Complex/Multi-Sys Presentation - HPI Summary HPI Summary: 73-year-old male with a significant past medical history of polycythemia vera, hypertension, COPD, GERD, pneumonia, numerous soft tissue abscesses of the groin , gout, obstructive sleep apnea presents to the emergency department today with multiple complaints. Patient complains of chronic low back pain which has been worse as of late. Patient describes it as a "dull" 4 out of 7 pain which is made worse with ambulation. Patient also complains of bilateral leg pain and swelling plus redness. Patient states he is being treated for a skin infection with antibiotics which were prescribed by his primary care doctor. Patient states due to his leg pain and back pain he feels unsafe ambulating at home and is afraid of falling even while using a walker. Patient also complains of chronic shortness of breath and fatigue. Patient otherwise feels well and denies recent trauma, fever, chest pain, abdominal pain. Patient does not have oxygen at home however he was hypoxic upon arrival to the emergency department setting at 88% on room air. Patient's oxygen saturation is 92% on 4 L via nasal cannula. - History Of Current Complaint Time Seen by Provider: 04/21/19 17:59 Hx Obtained From: Patient Onset/Duration: Gradual Onset Timing: Constant Severity Currently: Moderate Severity Initially: Moderate Character: Sharp Associated Signs And Symptoms: Positive: Weakness, SOB, Cough, Back Pain - Allergies/Home Medications Allergies/Adverse Reactions: Allergies Allergy/AdvReac Type Severity Reaction Status Date / Time Penicillins Allergy Hives Verified 03/08/19 13:12 PMH/Surg Hx/FS Hx/Imm Hx Endocrine/Hematology History: Denies: Hx Diabetes, Hx Systemic Lupus Erythematosus Cardiovascular History: Reports: Hx Hypertension Denies: Hx Congestive Heart Failure, Hx Pacemaker/ICD, Other Cardiovascular Problems/Disorders Respiratory History: Reports: Hx Chronic Obstructive Pulmonary Disease (COPD), Other Respiratory Problems/Disorders - COPD Denies: Hx Asthma History: Denies: Hx Dialysis, Hx Renal Disease Musculoskeletal History: Reports: Hx Arthritis, Hx Back Problems Denies: Hx Rheumatoid Arthritis, Hx Gout Sensory History: Reports: Hx Cataracts - RIGHT EYE CATARACT SURGERY, Hx Contacts or Glasses Denies: Hx Hearing Aid Opthamlomology History: Reports: Hx Cataracts - RIGHT EYE CATARACT SURGERY, Hx Contacts or Glasses - Cancer History Hx Chemotherapy: No Hx Radiation Therapy: No - Surgical History Surgery Procedure, Year, and Place: 1968 RT [facility]. [address] [place]. 20-30 ANAL [facility]. 2011? RIGHT EYE CATARACT SURGERY Hx Anesthesia Reactions: No Infectious Disease History: No Infectious Disease History: Denies: Traveled Outside the [place] in Last 30 Days - Family History Known Family History: Positive: Diabetes - mother, Other - father - PE - Social History Alcohol Use: Rare Hx Substance Use: No Substance Use Type: Reports: None Hx Tobacco Use: Yes Smoking Status (MU): Former Smoker Type: Cigarettes Amount Used/How Often: SMOKES CIGARETTE ONCE EVERY FEW DAYS , DOESN'T INHLAE Length of Time of Smoking/Using Tobacco: 40 YRS Have You Smoked in the Last Year: Yes Review of Systems Positive: Fatigue. Negative: Fever, Chills Eyes: Negative ENT: Negative Cardiovascular: Negative Positive: Shortness Of Breath, Cough Gastrointestinal: Negative Genitourinary: Negative Positive: Myalgia Positive: Rash. Negative: Bruising Neurological: Negative Psychological: Normal All Other Systems Reviewed And Are Negative: Yes Physical Exam - Summary Physical Exam Summary: Pt in no acute distress. B/L erythema and edema to the lower extremities. This appears to be due to venous stasis. PT has rhonchi throughout lung layne and mild labored breathing at rest. Triage Information Reviewed: Yes Vital Signs On Initial Exam: Initial Vitals Temp Pulse Resp BP Pulse Ox 99 F 100 18 152/100 92 04/21/19 17:53 04/21/19 17:53 04/21/19 17:53 04/21/19 17:53 04/21/19 17:53 Vital Signs Reviewed: Yes Appearance: Positive: Well-Appearing, No Pain Distress, Well-Nourished Skin: Positive: Skin Color Reflects Adequate Perfusion Eyes: Positive: EOMI, YOCASTA ENT: Positive: Hearing grossly normal Respiratory/Lung Sounds: Positive: Clear to Auscultation, Breath Sounds Present Cardiovascular: Positive: RRR, S1, S2 Abdomen Description: Positive: Soft Bowel Sounds: Positive: Present Musculoskeletal: Positive: Strength/ROM Intact Neurological: Positive: Sensory/Motor Intact, Alert, Oriented to Person Place, Time, Normal Gait, Speech Normal Psychiatric: Positive: Affect/Mood Appropriate AVPU Assessment: Alert Procedures - Sedation Patient Received Moderate/Deep Sedation with Procedure: No Diagnostics - Vital Signs Vital Signs Temp Pulse Resp BP Pulse Ox 04/21/19 17:53 99 F 100 18 152/100 92 - Laboratory Result Diagrams: 04/22/19 05:49 04/22/19 05:49 Lab Statement: Any lab studies that have been ordered have been reviewed, and results considered in the medical decision making process. Complex Multi-Symp Course/Dx Course Of Treatment: 73-year-old male was evaluated in the emergency department for back pain, leg pain, shortness of breath. Patient seen and examined his vitals are stable and he is afebrile. EKG was done promptly which shows sinus tachycardia at a rate of 103 bpm. There are noted APCs. No evidence of STEMI. EKG is unchanged when compared to prior done on 03/31/2019. Chest x-ray shows no obvious pneumonia however there is a noted pleural effusion on the right which is also present on CT scan of the chest during a past admission on . Labs show WBC 13.7 with left shift. No significant electrolyte abnormalities. Pt ambulated with oxymetry and he was found to significantly desaturate to 88% o2 on RA and had labored breathing with moving short distances.There is concern for possible pneumonia due to elevated WBC, hypoxia and persistent pleural effusion. PT given IV azythromycin, ceftriaxone. Dr. Godoy, was consulted at 2254 for admission the patient with diagnosis of right -sided pleural effusion, hypoxia, possible pneumonia. - Diagnoses Differential Diagnoses/HQI/PQRI: Metabolic Abnormality, Urinary Tract Infection , Other - pneumonia Provider Diagnoses: Pneumonia, Hypoxia - Physician Notifications Discussed Care Of Patient With: Laura Godoy - To admit the patient for weakness, likely pneumonia, hypoxia Instructed by Provider To: Admit As Inpatient Admit/Transition Orders Completed By ED Provider: No Discharge ED - Sign-Out/Discharge Documenting (check all that apply): Patient Departure - Discharge Plan Condition: Stable Disposition: [facility]ITTED TO [facility] - Billing Disposition and Condition Condition: STABLE Disposition: Admitted to [facility]
[2019-04-21 18:49] LABS: ABS Basophils 0.1 10^3/ul (0-0.2); ABS Eosinophils 0.4 10^3/ul (0-0.6); ABS Lymphocytes 1.3 10^3/ul (1.0-4.8); ABS Neutrophils 13.1 10^3/ul (1.5-7.7); Eosinophil % 2.4 %; Hematocrit 44 % (42-52); Hemoglobin 14.7 g/dL (14.0-18.0); Lymphocyte % 8.4 %; Mean Corpuscular HGB Conc 34 g/dL (31-36); Mean Corpuscular Hemoglobin 29 pg (27-31); Mean Corpuscular Volume 87 fL (80-94); Platelet Count 469 10^3/uL (150-450); Red Blood Count 5.07 10^6 /uL (4.18-5.48); Red Cell Distribution Width 16 % (10-15)
[2019-04-21 19:08] LABS: Albumin 3.5 g/dL (3.2-5.2); Calcium 9.1 mg/dL (8.6-10.3); EGFR African American 88.9 (>60); EGFR Non-African American 73.5 (>60); Globulin 3.5 g/dL (2-4); Potassium 4.1 mmol/L (3.5-5.0); Total Bilirubin 0.3 mg/dL (0.2-1.0)
[2019-04-21] MEDS ORDERED: Azithromycin 500 mg/250 ml NS 500 MG/250 ML BAG IVPB ONE (21:56)
[2019-04-21] MEDS ORDERED: cefTRIAXone(*) 1 GM in NS 0.9% 50 ML* 50 ML IVPB ONE (21:56)
[2019-04-21] MEDS ORDERED: Albuterol/Ipratropium NEB.SOL* Albuterol 2.5 MG/Ipratropium 0.5 MG 3 ML INH ONE (22:25)
[2019-04-21 22:49] LABS: C Reactive Protein 19.36 mg/L (<8.01)
[2019-04-21] MEDS ORDERED: Ipratropium 0.5MG/2.5ML NEB* 0.5 MG/2.5 ML NEB.SOLN INH PRN (23:22)
--- NOTE | 2019-04-21 23:39 | ADMNOTE ---
Subjective Interval History: this is my H/P 73-year-old male with a significant past medical history of polycythemia vera, hypertension, COPD, GERD, bronchiectasis, BARTOLO, presented to the emergency department with multiple complaints. His primary concern is his bilateral leg pain and swelling. The swelling is not new but the pain is. He is being treated outpatient for cellulitis. He has developed pain in his legs that he is attributing to constantly sitting in his recliner on top of the skin infection. Not only just that, he has chronic back pain and it's getting to the point where he is afraid of falling when he walks. He lives alone and usually takes care of himself. Pt is also complaining of fatigue and productive cough. When he arrived, he was saturating 88% on RA. Now he is on 4L saturating in the 90s. He said his productive cough is at its baseline. He did not feel more short of breath than usual. He has chronic infection of his lungs and was scheduled to see Dr. Morton in the clinic tomorrow. Family History: Unchanged from Admission Social History: Unchanged from Admission Past Medical History: Unchanged from Admission Review of Systems - Measurements Intake and Output: Intake and Output Last 24 Hours 04/19/19 04/20/19 04/21/19 04/22/19 06:59 06:59 06:59 06:59 Weight 260 lb - Review of Systems Constitutional Symptoms: Positive: Weakness Negative: Weight Gain, Weight Loss, Fatigue, Fever, Night Sweats, Unexplained Falls, Other Dermatology: Positive: Rash Negative: Normal, Skin Lesions, Cancer, Skin Lumps, Other HEENT: Negative: Normal, Change in Hearing, Vertigo, Dental Problems, Tinnitus, Sinus Problem, Other Eyes: Negative: Normal, Change in Vision, Double Vision, Eye Pain, Glaucoma, Cataract, Contacts or Glasses, Other Thyroid: Negative: Normal, Goiter, Thyroid Nodule, Cold Intolerance, Heat Intolerance , Sweatiness, Tremor, Frequent Defecation, Constipation, Palpitations, Primary Hypothyroidism, Primary Hyperthyroidism, Weight Loss, Weight Gain, Change in Skin/Hair, Change in Menstruation, Radiation Exposure, Other Pulmonary: Positive: Cough, Sputum Negative: Normal, Hemoptysis, Wheezing, Respiratory Distress, Shortness of Breath, COPD, Asthma, Exercise Intolerance, Home Oxygen, Other Cardiology: Negative: Normal, Chest Pain, Shortness of Breath, Palpitations, Swelling of Ankles, Peripheral Vascular Dis, Edema, Faintness, Syncope, Claudication, Proximal NocturnalDyspnea, Orthopnoea, Other Gastroenterology: Negative: Normal, Abdominal Pain, Nausea, Vomiting, Anorexia, Indigestion, Difficulty Swallowing, Heartburn, Constipation, Diarrhea, Blood in Stools, Change in Bowel Habits, Haematemesis, Melena, Other Musculoskeletal: Positive: Low Back Pain Negative: Joint Pain, Joint Stiffness, Arthritis, Osteoporosis, Sciatica, Joint Deformities, Kyphoscoliosis, Other Hematologic/Lymphatic: Negative: Anemia, Easy Bruising, Hx Leukemia, Hx Lymphoma, Use of Anticoagulant, Use of Antiplatelet Drugs, Other Neurology: Negative: Normal, Headache, Migraines, Change in Vision, Diplopia, Dizziness , Change in Balancing, Change in Coordination, Change in Memory, Change in Speech, Change in Sphincter Function, Change in Walking, Numbness\Paresthesiae, Unexplained Weakness, Hx of Stroke\TIA, Hx of Seizures, Other Objective Active Medications: Hydrocodone Bitart/Acetaminophen ([place] 5-325 Tab*) 1 tab PO Q4H PRN PRN Reason: PAIN - SEVERE Aspirin (Aspirin 81 Mg Chew Tab*) 81 mg PO QAM [facility] Heparin Sodium (Porcine) (Heparin Vial(*)) 5,000 units SUBCUT Q8HR [facility] Hydroxyzine HCl (Atarax Tab*) 25 mg PO QID [facility] Ipratropium [place] (Atrovent 0.5 Mg Neb.Chary*) 0.5 mg INH Q6H PRN PRN Reason: SOB/WHEEZING Pantoprazole Sodium (Protonix Tab*) 40 mg PO BID [facility] Vital Signs - 8 hr 04/21/19 04/21/19 04/21/19 17:53 18:25 19:00 Temperature 99 F Pulse Rate 100 94 91 Respiratory 18 Rate Blood Pressure 152/100 163/111 (mmHg) O2 Sat by Pulse 92 97 98 Oximetry 04/21/19 04/21/19 04/21/19 20:05 20:07 21:00 Temperature Pulse Rate 82 80 92 Respiratory Rate Blood Pressure 144/97 (mmHg) O2 Sat by Pulse 94 92 93 Oximetry 04/21/19 04/21/19 04/21/19 21:11 21:15 21:31 Temperature Pulse Rate 115 74 Respiratory Rate Blood Pressure 144/97 147/118 147/110 (mmHg) O2 Sat by Pulse 88 98 Oximetry 04/21/19 04/21/19 04/21/19 22:00 22:01 22:31 Temperature Pulse Rate 73 78 75 Respiratory Rate Blood Pressure 149/94 160/99 (mmHg) O2 Sat by Pulse 98 98 99 Oximetry 04/21/19 04/21/19 23:00 23:04 Temperature Pulse Rate 101 81 Respiratory Rate Blood Pressure 162/116 (mmHg) O2 Sat by Pulse 92 97 Oximetry Oxygen Devices in Use Now: Nasal Cannula Appearance: NID, pleasant Ears/Nose/Mouth/Throat: Mucous Membranes Moist Neck: NL Appearance and Movements; NL JVP, Trachea Midline Respiratory: - - diffused crackles Cardiovascular: NL Sounds; No Murmurs; No JVD, - - 2+ edema Lymphatic: No Cervical Adenopathy Skin: - - redness B/L Neurological: Alert and Oriented x 3 Result Diagrams: 04/21/19 18:38 04/21/19 18:38 Assess/Plan/Problems-Billing Assessment: - Patient Problems (1) Respiratory failure Current Visit: No Status: Acute Priority: High Code(s): J96.90 - RESPIRATORY FAILURE, UNSP, UNSP W HYPOXIA OR HYPERCAPNIA SNOMED Code(s): 228379578 Comment: Normally not on oxygen. He needs 4L to ambulate. He has chronic infection of his lungs, bronchiectasis and was last treated for PNA 1 month ago. Zach Xrays and CT scans in the past are honestly not that much different. His xray today show the same pleural effusion with opacities as it did in the past. Will treat him for CAP with cef and azithro. Leg U/S pending Duanishabs (2) COPD (chronic obstructive pulmonary disease) Current Visit: No Status: Acute Code(s): J44.9 - CHRONIC OBSTRUCTIVE PULMONARY DISEASE, UNSPECIFIED SNOMED Code(s): 40862103 Comment: -PRN neb albuterol ordered. - no evidence of exacerbation, he is not wheezing, his productive cough is at its baseline. -cont azithro and ceftriaxone (3) Cellulitis Current Visit: No Status: Acute Code(s): L03.90 - CELLULITIS, UNSPECIFIED SNOMED Code(s): 676304441 Comment: David part of tx is leg elevation. Pt uncomfortable with legs up, but will give it a try. on cef and azithro leg US to rule out DVT (4) Diastolic dysfunction Current Visit: No Status: Acute Code(s): I51.89 - OTHER ILL-DEFINED HEART DISEASES SNOMED Code(s): 8042478 Comment: - does not appear to be in failure (5) Full code status Current Visit: No Status: Acute Priority: High Code(s): Z78.9 - OTHER SPECIFIED HEALTH STATUS SNOMED Code(s): 298487904 (6) GERD (gastroesophageal reflux disease) Current Visit: No Status: Acute Code(s): K21.9 - GASTRO-ESOPHAGEAL REFLUX DISEASE WITHOUT ESOPHAGITIS SNOMED Code(s): 542922425 Comment: po protonix 40 mg BID (7) HTN (hypertension) Current Visit: No Status: Acute Priority: High Code(s): I10 - ESSENTIAL ( PRIMARY) HYPERTENSION SNOMED Code(s): 99402874 Comment: -Stable, continue bumantedine. (8) Leukocytosis Current Visit: No Status: Acute Code(s): D72.829 - ELEVATED WHITE BLOOD CELL COUNT, UNSPECIFIED SNOMED Code(s): 794727989 Comment: -Noted a trend of consistently high white blood cell count over the past few years, likely this is due to a myelodysplastic syndrome. (9) PNA (pneumonia) Current Visit: No Status: Acute Code(s): J18.9 - PNEUMONIA, UNSPECIFIED ORGANISM SNOMED Code(s): 022483667 Comment: As above (10) Polycythemia Current Visit: No Status: Acute Priority: High Code(s): D75.1 - SECONDARY POLYCYTHEMIA SNOMED Code(s): 028641311 Comment: -Stable. (11) DVT prophylaxis Current Visit: No Status: Acute Priority: High Code(s): MQM5681 - SNOMED Code(s): 373065387 Comment: heparin
[2019-04-22] MEDS: HYDROcodone/ACETAMIN 5-325 MG* 1 TAB PO PRN ×3 (02:05→21:57)
[2019-04-22] MEDS: hydrOXYzine HCL TAB* 25 MG PO PRN ×2 (02:05→21:57)
[2019-04-22] MEDS: Heparin VIAL(*) 5000 UNITS/ML VIAL (FIVE THOUSAND) SUBCUT SCH ×3 (05:36→21:57)
[2019-04-22 06:30] LABS: ABS Basophils 0.2 10^3/ul (0-0.2); ABS Eosinophils 0.6 10^3/ul (0-0.6); ABS Lymphocytes 2.1 10^3/ul (1.0-4.8); ABS Monocytes 1.1 10^3/ul (0-0.8); ABS Neutrophils 9.7 10^3/ul (1.5-7.7); Eosinophil % 4.5 %; Hematocrit 43 % (42-52); Hemoglobin 14.1 g/dL (14.0-18.0); Lymphocyte % 15.4 %; Mean Corpuscular HGB Conc 33 g/dL (31-36); Mean Corpuscular Hemoglobin 28 pg (27-31); Mean Corpuscular Volume 87 fL (80-94); Mean Platelet Volume 7.5 fL (7.4-10.4); Platelet Count 459 10^3/uL (150-450); Red Blood Count 4.96 10^6 /uL (4.18-5.48); Red Cell Distribution Width 16 % (10-15); White Blood Count 13.7 10^3/uL (3.5-10.8)
[2019-04-22 06:43] LABS: Calcium 9.1 mg/dL (8.6-10.3); Potassium 3.6 mmol/L (3.5-5.0)
[2019-04-22 06:48] LABS: BUN/Creatinine Ratio 16.3 (8-20); EGFR African American 97.9 (>60); EGFR Non-African American 80.9 (>60)
[2019-04-22] MEDS: Pantoprazole TAB * 40 MG TAB PO SCH ×2 (08:37→21:57)
[2019-04-22] MEDS: Aspirin 81 mg CHEW TAB* 81 MG TAB.CHEW PO SCH (08:37)
[2019-04-22] MEDS ORDERED: Furosemide IV* 10 MG/ML VIAL (40 MG) IV ONE (13:05)
--- NOTE | 2019-04-22 13:07 | PN ---
Subjective Date of Service: 04/22/19 Family History: Unchanged from Admission Social History: Unchanged from Admission Past Medical History: Unchanged from Admission Objective Active Medications: Hydrocodone Bitart/Acetaminophen ([place] 5-325 Tab*) 1 tab PO Q4H PRN PRN Reason: PAIN - SEVERE Last Admin: 04/22/19 05:35 Dose: 1 tab Albuterol/Ipratropium (Duoneb (Albuterol 2.5 Mg/Ipratropium 0.5 Mg)) 1 neb INH TID JEANNIE Aspirin (Aspirin 81 Mg Chew Tab*) 81 mg PO QAM [facility] Last Admin: 04/22/19 08:37 Dose: 81 mg Heparin Sodium (Porcine) (Heparin Vial(*)) 5,000 units SUBCUT Q8HR [facility] Last Admin: 04/22/19 05:36 Dose: 5,000 units Hydroxyzine HCl (Atarax Tab*) 25 mg PO QID PRN PRN Reason: ITCHING/ALLERGY Last Admin: 04/22/19 02:05 Dose: 25 mg Azithromycin (Zithromax 500 Mg/250 Ml) 500 mg in 250 mls @ 250 mls/hr IVPB Q24H JEANNIE Cefepime HCl 1 gm/ Sodium (Chloride) 50 mls @ 100 mls/hr IVPB Q12H JEANNIE Ipratropium [place] (Atrovent 0.5 Mg Neb.Chary*) 0.5 mg INH Q6H PRN PRN Reason: SOB/WHEEZING Pantoprazole Sodium (Protonix Tab*) 40 mg PO BID [facility] Last Admin: 04/22/19 08:37 Dose: 40 mg Vital Signs - 8 hr 04/22/19 04/22/19 04/22/19 05:35 07:15 08:00 Temperature 97.2 F Pulse Rate 85 Respiratory 20 20 18 Rate Blood Pressure 123/67 (mmHg) O2 Sat by Pulse 99 Oximetry 04/22/19 08:37 Temperature Pulse Rate Respiratory 22 Rate Blood Pressure (mmHg) O2 Sat by Pulse Oximetry Oxygen Devices in Use Now: Nasal Cannula Appearance: 73 yo m in nAD, aAOx3 Eyes: No Scleral Icterus, PERRLA Ears/Nose/Mouth/Throat: NL Teeth, Lips, Gums, Mucous Membranes Moist Neck: NL Appearance and Movements; NL JVP, Trachea Midline Respiratory: Symmetrical Chest Expansion and Respiratory Effort, - - rhonchi b/ l lower and mid lungs b/l Cardiovascular: NL Sounds; No Murmurs; No JVD, RRR Abdominal: NL Sounds; No Tenderness; No Distention, No Hepatosplenomegaly Lymphatic: No Cervical Adenopathy Extremities: No Clubbing, Cyanosis, - - massive edema of LE's L>R with skin erythema up to b/l knees, no increased warmth. Scabbed blisters on L calf noted Skin: No Nodules or Sclerosis Neurological: Alert and Oriented x 3, NL Muscle Strength and Tone Result Diagrams: 04/22/19 05:49 04/22/19 05:49 Assess/Plan/Problems-Billing Assessment: This is a 73 year old male with a past medical history significant for COPD,bronchiectasis, HTN and HLD who was admitted for SOB - Patient Problems (1) COPD (chronic obstructive pulmonary disease) Comment: -cont Jeannie nebs TID - no evidence of exacerbation, he is not wheezing, his productive cough is at its baseline. -cont azithro and cefepime (switched from Ceftriaxone to cover potential Pseudomonas due to h/o bronchiectasis) (2) PNA (pneumonia) Comment: As above -resulting in hypoxemic resp failure-pt now requires 02 (3) HTN (hypertension) Comment: -Stable (4) Diastolic dysfunction Comment: - likely in mild exacerbation -cont home bumex -tx with one dose of Lasix IV today -cont daily weights and I/O's (5) GERD (gastroesophageal reflux disease) Comment: po protonix 40 mg BID (6) Polycythemia Comment: -Stable. (7) Stasis dermatitis of both legs Comment: erythema on Le's appears chronic and related to venous stasis cont JOHN wraps LE's dopplers pending (8) DVT prophylaxis Comment: heparin Status and Disposition: inpatient. cont PT/OT, agrees to STR at d/c
[2019-04-22] MEDS: Albuterol/Ipratropium NEB.SOL* Albuterol 2.5 MG/Ipratropium 0.5 MG 3 ML INH SCH ×2 (13:52→19:25)
[2019-04-22] MEDS ORDERED: Cefepime ADVAN(*) 1 GM in NS 0.9% 50 ML* 50 ML IVPB SCH (14:00)
[2019-04-22] MEDS: Cefepime 1 GM in Dextrose(*) 1 GM/50 ML q12h (Duplex) IV SCH (15:04)
[2019-04-22] MEDS ORDERED: cefTRIAXone(*) 1 GM in NS 0.9% 50 ML* 50 ML IVPB SCH (23:00)
[2019-04-22] MEDS: Azithromycin 500 mg/250 ml NS 500 MG/250 ML BAG IVPB SCH (23:50)
[2019-04-23] MEDS: Cefepime 1 GM in Dextrose(*) 1 GM/50 ML q12h (Duplex) IV SCH ×2 (02:45→13:49)
[2019-04-23] MEDS: hydrOXYzine HCL TAB* 25 MG PO PRN ×4 (03:41→23:37)
[2019-04-23] MEDS: HYDROcodone/ACETAMIN 5-325 MG* 1 TAB PO PRN ×4 (03:44→23:36)
[2019-04-23] MEDS: Heparin VIAL(*) 5000 UNITS/ML VIAL (FIVE THOUSAND) SUBCUT SCH ×3 (05:42→20:35)
[2019-04-23] MEDS: Albuterol/Ipratropium NEB.SOL* Albuterol 2.5 MG/Ipratropium 0.5 MG 3 ML INH SCH ×3 (07:38→19:25)
[2019-04-23] MEDS: Bumetanide TAB* 2 MG PO SCH (07:58)
[2019-04-23] MEDS: Aspirin 81 mg CHEW TAB* 81 MG TAB.CHEW PO SCH (07:58)
[2019-04-23] MEDS: Pantoprazole TAB * 40 MG TAB PO SCH ×2 (08:13→20:44)
--- NOTE | 2019-04-23 09:10 | PN ---
Subjective Date of Service: 04/23/19 Interval History: Pt is feeling a little better than on admission. He continues to cough up sputum , sometimes clear but thick, sometimes discolored. He is still worried about pain in his L flank. He states when he tries to push himself up out of a chair it hurts. It is not painful to palpation. He also thinks his legs are still more swollen than normal. He would like to have his daughter bring in his pneumatic compression boots to try here in the hospital. Family History: Unchanged from Admission Social History: Unchanged from Admission Past Medical History: Unchanged from Admission Objective Active Medications: Hydrocodone Bitart/Acetaminophen ([place] 5-325 Tab*) 1 tab PO Q4H PRN PRN Reason: PAIN - SEVERE Last Admin: 04/23/19 07:59 Dose: 1 tab Albuterol/Ipratropium (Duoneb (Albuterol 2.5 Mg/Ipratropium 0.5 Mg)) 1 neb INH RT.TID [facility] Last Admin: 04/23/19 07:38 Dose: 1 neb Aspirin (Aspirin 81 Mg Chew Tab*) 81 mg PO QAM [facility] Last Admin: 04/23/19 07:58 Dose: 81 mg Bumetanide (Bumex Tab*) 2 mg PO DAILY [facility] Last Admin: 04/23/19 07:58 Dose: 2 mg Heparin Sodium (Porcine) (Heparin Vial(*)) 5,000 units SUBCUT Q8HR [facility] Last Admin: 04/23/19 05:42 Dose: 5,000 units Hydroxyzine HCl (Atarax Tab*) 25 mg PO QID PRN PRN Reason: ITCHING/ALLERGY Last Admin: 04/23/19 08:04 Dose: 25 mg Azithromycin (Zithromax 500 Mg/250 Ml) 500 mg in 250 mls @ 250 mls/hr IVPB Q24H [facility] Last Admin: 04/22/19 23:50 Dose: 250 mls/hr Cefepime HCl (Maxipime 1 Gm In Dextrose Duplex (*)) 1 gm in 50 mls @ 100 mls/ hr IV Q12H [facility] Last Admin: 04/23/19 02:45 Dose: 100 mls/hr Ipratropium [place] (Atrovent 0.5 Mg Neb.Chary*) 0.5 mg INH Q6H PRN PRN Reason: SOB/WHEEZING Pantoprazole Sodium (Protonix Tab*) 40 mg PO BID [facility] Last Admin: 04/23/19 08:13 Dose: 40 mg Vital Signs - 8 hr 04/23/19 04/23/19 04/23/19 03:44 03:55 05:46 Temperature 97.3 F Pulse Rate 92 Respiratory 17 22 15 Rate Blood Pressure 149/92 (mmHg) O2 Sat by Pulse 96 Oximetry 04/23/19 04/23/19 04/23/19 07:15 07:39 07:59 Temperature 97.1 F Pulse Rate 92 98 Respiratory 20 16 20 Rate Blood Pressure 136/71 (mmHg) O2 Sat by Pulse 98 95 Oximetry 04/23/19 08:00 Temperature Pulse Rate Respiratory 20 Rate Blood Pressure (mmHg) O2 Sat by Pulse Oximetry Oxygen Devices in Use Now: Nasal Cannula Appearance: Eldelry male sitting up in a recliner chair, NAD Eyes: No Scleral Icterus Ears/Nose/Mouth/Throat: Mucous Membranes Moist Respiratory: Symmetrical Chest Expansion and Respiratory Effort, - - diminished breath sounds throughout, lower lung zones worse than upper Cardiovascular: NL Sounds; No Murmurs; No JVD, RRR, - - 1-2+ B/L LE edema Abdominal: NL Sounds; No Tenderness; No Distention Extremities: No Clubbing, Cyanosis Skin: No Nodules or Sclerosis, - - chronic venous stasis changes to bilateral LE Neurological: Alert and Oriented x 3 Result Diagrams: 04/22/19 05:49 04/22/19 05:49 Assess/Plan/Problems-Billing Mr Munguia is a 73 year old male with a past medical history significant for COPD , bronchiectasis, HTN and HLD who was admitted for SOB. - Patient Problems (1) COPD (chronic obstructive pulmonary disease) Current Visit: Yes Status: Acute Code(s): J44.9 - CHRONIC OBSTRUCTIVE PULMONARY DISEASE, UNSPECIFIED SNOMED Code(s): 54299892 Comment: No signs of exacerbation. Will continue neb TID. Continue azithromycin and cefepime (to cover for pseudomonas in setting of bronchiectasis ) for possible pneumonia given copious sputum. Pt feels he is having a difficult time with moving/getting up from chair. Will be getting PT eval. (2) Diastolic dysfunction Current Visit: Yes Status: Acute Code(s): I51.89 - OTHER ILL-DEFINED HEART DISEASES SNOMED Code(s): 9264109 Comment: Pt with mild diastolic CHF exacerbation, he continues to have LE edema up into the thighs. He received IV lasix yesterday and back on home bumex today. His sister will bring in pneumatic compression boots as he does not want to use JOHN wraps. (3) Stasis dermatitis of both legs Current Visit: Yes Status: Acute Code(s): I87.2 - VENOUS INSUFFICIENCY ( CHRONIC) (PERIPHERAL) SNOMED Code(s): 07584608 Comment: Pt with chronic venous stasis. Dopplers negative for DVT. Try to elevate legs as much as possible. Compression boots prn. (4) GERD (gastroesophageal reflux disease) Current Visit: Yes Status: Acute Code(s): K21.9 - GASTRO-ESOPHAGEAL REFLUX DISEASE WITHOUT ESOPHAGITIS SNOMED Code(s): 107700593 Comment: Continue protonix. (5) DVT prophylaxis Current Visit: Yes Status: Acute Code(s): CGO4029 - SNOMED Code(s): 938030487 Comment: heparin SQ (6) Full code status Current Visit: Yes Status: Acute Code(s): Z78.9 - OTHER SPECIFIED HEALTH STATUS SNOMED Code(s): 223261882 Status and Disposition: may need STR
[2019-04-23] MEDS: Potassium Chlor TAB* 20 MEQ TAB.ER PO SCH (09:33)
[2019-04-23] MEDS: Hydrocortisone 1% CREAM* 30 GM TUBE TOPICAL PRN (20:35)
[2019-04-23] MEDS: Azithromycin 500 mg/250 ml NS 500 MG/250 ML BAG IVPB SCH (23:35)
[2019-04-24] MEDS: Cefepime 1 GM in Dextrose(*) 1 GM/50 ML q12h (Duplex) IV SCH (02:07)
[2019-04-24] MEDS: HYDROcodone/ACETAMIN 5-325 MG* 1 TAB PO PRN (04:33)
[2019-04-24] MEDS: Heparin VIAL(*) 5000 UNITS/ML VIAL (FIVE THOUSAND) SUBCUT SCH ×3 (04:45→20:50)
[2019-04-24] MEDS: Albuterol/Ipratropium NEB.SOL* Albuterol 2.5 MG/Ipratropium 0.5 MG 3 ML INH SCH ×3 (07:22→19:18)
[2019-04-24] MEDS: Bumetanide TAB* 2 MG PO SCH (08:12)
[2019-04-24] MEDS: Pantoprazole TAB * 40 MG TAB PO SCH ×2 (08:12→20:49)
[2019-04-24] MEDS: Potassium Chlor TAB* 20 MEQ TAB.ER PO SCH (08:12)
[2019-04-24] MEDS: Allopurinol TAB* 100 MG PO SCH (08:12)
[2019-04-24] MEDS: Aspirin 81 mg CHEW TAB* 81 MG TAB.CHEW PO SCH (08:13)
[2019-04-24] MEDS: hydrOXYzine HCL TAB* 25 MG PO PRN ×2 (08:13→20:50)
--- NOTE | 2019-04-24 10:32 | PN ---
Subjective Date of Service: 04/24/19 Interval History: Pt is feeling good currently. He states he continues to have some cough and sputum production. He denies any SOB. He has his pneumatic compression boots on this AM. He is worried that he needs a stool softener as he had only a small BM very early yesterday. Objective Active Medications: Hydrocodone Bitart/Acetaminophen ([place] 5-325 Tab*) 1 tab PO Q4H PRN PRN Reason: PAIN - SEVERE Last Admin: 04/24/19 04:33 Dose: 1 tab Albuterol/Ipratropium (Duoneb (Albuterol 2.5 Mg/Ipratropium 0.5 Mg)) 1 neb INH RT.TID [facility] Last Admin: 04/24/19 07:22 Dose: 1 neb Allopurinol (Zyloprim Tab*) 200 mg PO DAILY [facility] Last Admin: 04/24/19 08:12 Dose: 200 mg Aspirin (Aspirin 81 Mg Chew Tab*) 81 mg PO QAM [facility] Last Admin: 04/24/19 08:13 Dose: 81 mg Bumetanide (Bumex Tab*) 2 mg PO DAILY [facility] Last Admin: 04/24/19 08:12 Dose: 2 mg Heparin Sodium (Porcine) (Heparin Vial(*)) 5,000 units SUBCUT Q8HR [facility] Last Admin: 04/24/19 04:45 Dose: 5,000 units Hydrocortisone (Hytone Cream 1%*) 1 applic TOPICAL TID PRN PRN Reason: ITCHING Last Admin: 04/23/19 20:35 Dose: 1 applic Hydroxyzine HCl (Atarax Tab*) 25 mg PO QID PRN PRN Reason: ITCHING/ALLERGY Last Admin: 04/24/19 08:13 Dose: 25 mg Azithromycin (Zithromax 500 Mg/250 Ml) 500 mg in 250 mls @ 250 mls/hr IVPB Q24H [facility] Last Admin: 04/23/19 23:35 Dose: 250 mls/hr Cefepime HCl (Maxipime 1 Gm In Dextrose Duplex (*)) 1 gm in 50 mls @ 100 mls/ hr IV Q12H [facility] Last Admin: 04/24/19 02:07 Dose: 100 mls/hr Ipratropium [place] (Atrovent 0.5 Mg Neb.Chary*) 0.5 mg INH Q6H PRN PRN Reason: SOB/WHEEZING Pantoprazole Sodium (Protonix Tab*) 40 mg PO BID [facility] Last Admin: 04/24/19 08:12 Dose: 40 mg Potassium Chloride (Klor Con Er Tab*) 20 meq PO DAILY [facility] Last Admin: 04/24/19 08:12 Dose: 20 meq Vital Signs - 8 hr 04/24/19 04/24/19 04/24/19 03:20 04:33 07:15 Temperature 97.7 F 97.5 F Pulse Rate 83 85 Respiratory 20 18 18 Rate Blood Pressure 129/68 144/73 (mmHg) O2 Sat by Pulse 93 92 Oximetry 04/24/19 04/24/19 04/24/19 07:28 08:00 08:11 Temperature Pulse Rate 77 Respiratory 18 18 18 Rate Blood Pressure (mmHg) O2 Sat by Pulse 100 Oximetry Oxygen Devices in Use Now: None Appearance: Elderly male sitting up in a recliner chair with his home compression boots on, in NAD Eyes: No Scleral Icterus Ears/Nose/Mouth/Throat: Mucous Membranes Moist Respiratory: Symmetrical Chest Expansion and Respiratory Effort, Clear to Auscultation Cardiovascular: NL Sounds; No Murmurs; No JVD, RRR, - - 1-2+ edema of the posterior thighs bilaterally Abdominal: NL Sounds; No Tenderness; No Distention Extremities: No Clubbing, Cyanosis Skin: No Nodules or Sclerosis Neurological: Alert and Oriented x 3 Result Diagrams: 04/22/19 05:49 04/22/19 05:49 Assess/Plan/Problems-Billing Mr Munguia is a 73 year old male with a past medical history significant for COPD , bronchiectasis, HTN and HLD who was admitted for SOB. - Patient Problems (1) COPD (chronic obstructive pulmonary disease) Current Visit: Yes Status: Acute Code(s): J44.9 - CHRONIC OBSTRUCTIVE PULMONARY DISEASE, UNSPECIFIED SNOMED Code(s): 34118483 Comment: No signs of exacerbation. Will continue neb TID. Will change to levaquin (to continue to provide pseudomonal coverage) starting tomorrow. Pt feels he is having a difficult time with moving/getting up from chair. PT on recommended STR, they did not see the patient yesterday. (2) Diastolic dysfunction Current Visit: Yes Status: Acute Code(s): I51.89 - OTHER ILL-DEFINED HEART DISEASES SNOMED Code(s): 8228477 Comment: Pt with still marked edema of the legs well up into the posterior thighs. Change back to lasix 40mg IV BID and pt will use his compression boots. Will have strict I/Os started. Daily weights to continue. (3) Stasis dermatitis of both legs Current Visit: Yes Status: Acute Code(s): I87.2 - VENOUS INSUFFICIENCY ( CHRONIC) (PERIPHERAL) SNOMED Code(s): 96906123 Comment: Pt with chronic venous stasis. Dopplers negative for DVT. Try to elevate legs as much as possible. Compression boots prn. (4) GERD (gastroesophageal reflux disease) Current Visit: Yes Status: Acute Code(s): K21.9 - GASTRO-ESOPHAGEAL REFLUX DISEASE WITHOUT ESOPHAGITIS SNOMED Code(s): 780443669 Comment: Continue protonix. (5) DVT prophylaxis Current Visit: Yes Status: Acute Code(s): MHQ6373 - SNOMED Code(s): 711733168 Comment: heparin SQ (6) Full code status Current Visit: Yes Status: Acute Code(s): Z78.9 - OTHER SPECIFIED HEALTH STATUS SNOMED Code(s): 521860380 Status and Disposition: may need STR
[2019-04-24] MEDS: Docusate CAP* 100 MG PO SCH (10:56)
[2019-04-24] MEDS: Furosemide IV* 10 MG/ML VIAL (40 MG) IV SLOW PU SCH ×2 (10:56→16:42)
[2019-04-24] MEDS: Levofloxacin TAB* 500 MG PO SCH (20:50)
[2019-04-24] MEDS: Hydrocortisone 1% CREAM* 30 GM TUBE TOPICAL PRN (20:55)
[2019-04-25] MEDS: HYDROcodone/ACETAMIN 5-325 MG* 1 TAB PO PRN (00:57)
[2019-04-25] MEDS: hydrOXYzine HCL TAB* 25 MG PO PRN ×2 (04:25→14:47)
[2019-04-25] MEDS: Heparin VIAL(*) 5000 UNITS/ML VIAL (FIVE THOUSAND) SUBCUT SCH ×2 (04:26→14:26)
[2019-04-25 07:22] LABS: Hematocrit 47 % (42-52); Hemoglobin 15.3 g/dL (14.0-18.0); Mean Corpuscular HGB Conc 33 g/dL (31-36); Mean Corpuscular Hemoglobin 28 pg (27-31); Mean Corpuscular Volume 86 fL (80-94); Red Blood Count 5.43 10^6 /uL (4.18-5.48); Red Cell Distribution Width 16 % (10-15); White Blood Count 13.4 10^3/uL (3.5-10.8)
[2019-04-25 07:30] LABS: BUN/Creatinine Ratio 15.9 (8-20); Calcium 9.5 mg/dL (8.6-10.3); EGFR African American 82.2 (>60); EGFR Non-African American 67.9 (>60); Potassium 3.6 mmol/L (3.5-5.0)
[2019-04-25] MEDS: Albuterol/Ipratropium NEB.SOL* Albuterol 2.5 MG/Ipratropium 0.5 MG 3 ML INH SCH ×3 (07:30→19:14)
[2019-04-25] MEDS: Docusate CAP* 100 MG PO SCH (07:44)
[2019-04-25] MEDS: Allopurinol TAB* 100 MG PO SCH (07:44)
[2019-04-25] MEDS: Pantoprazole TAB * 40 MG TAB PO SCH ×2 (07:44→21:03)
[2019-04-25] MEDS: Potassium Chlor TAB* 20 MEQ TAB.ER PO SCH (07:44)
[2019-04-25] MEDS: Aspirin 81 mg CHEW TAB* 81 MG TAB.CHEW PO SCH (07:44)
[2019-04-25] MEDS: Furosemide IV* 10 MG/ML VIAL (40 MG) IV SLOW PU SCH ×2 (07:45→16:02)
[2019-04-25 08:11] LABS: ABS Basophils 0.1 10^3/ul (0-0.2); ABS Eosinophils 0.9 10^3/ul (0-0.6); ABS Lymphocytes 1.6 10^3/ul (1.0-4.8); ABS Monocytes 1.3 10^3/ul (0-0.8); ABS Neutrophils 9.5 10^3/ul (1.5-7.7); Eosinophil % 6.7 %; Lymphocyte % 12.3 %; Platelet Count Platelets clumped. 10^3/uL (150-450)
[2019-04-25] MEDS ORDERED: Potassium Chlor TAB* 20 MEQ TAB.ER PO ONE (15:52)
--- NOTE | 2019-04-25 18:01 | PN ---
Subjective Date of Service: 04/25/19 Interval History: Nursing reports heart rates into the 120-140's with ambulation, reports 10 beat run of v-tach on the monitor, patient asymptomatic Patient reports that his breathing is improved reports that he does not like wearing the CPAP at night . reports that he need assistance with getting new walker and wheelchair when he returns home. Patient denies lightheadedness or dizziness. Denies chest pain. Denies fever or chills. Denies abd pain n/v/d. Family History: Unchanged from Admission Social History: Unchanged from Admission Past Medical History: Unchanged from Admission Objective Active Medications: Hydrocodone Bitart/Acetaminophen ([place] 5-325 Tab*) 1 tab PO Q4H PRN PRN Reason: PAIN - SEVERE Last Admin: 04/25/19 00:57 Dose: 1 tab Albuterol/Ipratropium (Duoneb (Albuterol 2.5 Mg/Ipratropium 0.5 Mg)) 1 neb INH RT.TID [facility] Last Admin: 04/25/19 13:13 Dose: 1 neb Allopurinol (Zyloprim Tab*) 200 mg PO DAILY [facility] Last Admin: 04/25/19 07:44 Dose: 200 mg Aspirin (Aspirin 81 Mg Chew Tab*) 81 mg PO QAM [facility] Last Admin: 04/25/19 07:44 Dose: 81 mg Docusate Sodium (Colace Cap*) 100 mg PO DAILY [facility] Last Admin: 04/25/19 07:44 Dose: 100 mg Furosemide (Lasix Iv*) 40 mg IV SLOW PU 0800,1700 [facility] Last Admin: 04/25/19 16:02 Dose: 40 mg Heparin Sodium (Porcine) (Heparin Vial(*)) 5,000 units SUBCUT Q8HR [facility] Last Admin: 04/25/19 14:26 Dose: 5,000 units Hydrocortisone (Hytone Cream 1%*) 1 applic TOPICAL TID PRN PRN Reason: ITCHING Last Admin: 04/24/19 20:55 Dose: 1 applic Hydroxyzine HCl (Atarax Tab*) 25 mg PO QID PRN PRN Reason: ITCHING/ALLERGY Last Admin: 04/25/19 14:47 Dose: 25 mg Ipratropium [place] (Atrovent 0.5 Mg Neb.Chary*) 0.5 mg INH Q6H PRN PRN Reason: SOB/WHEEZING Levofloxacin (Levaquin Tab*) 500 mg PO Q24H [facility]; Protocol Last Admin: 04/24/19 20:50 Dose: 500 mg Pantoprazole Sodium (Protonix Tab*) 40 mg PO BID [facility] Last Admin: 04/25/19 07:44 Dose: 40 mg Potassium Chloride (Klor Con Er Tab*) 20 meq PO DAILY [facility] Last Admin: 04/25/19 07:44 Dose: 20 meq Vital Signs - 8 hr 04/25/19 04/25/19 04/25/19 11:31 13:13 15:29 Temperature 98.5 F 98.3 F Pulse Rate 82 78 65 Respiratory 20 20 18 Rate Blood Pressure 142/87 134/77 (mmHg) O2 Sat by Pulse 91 97 95 Oximetry Oxygen Devices in Use Now: None Appearance: appears comfortable sitting in bed , no acute distress Eyes: No Scleral Icterus Ears/Nose/Mouth/Throat: Clear Oropharnyx, Mucous Membranes Moist Neck: NL Appearance and Movements; NL JVP, Trachea Midline Respiratory: Symmetrical Chest Expansion and Respiratory Effort, Clear to Auscultation Cardiovascular: NL Sounds; No Murmurs; No JVD Abdominal: NL Sounds; No Tenderness; No Distention Extremities: No Clubbing, Cyanosis, - - lower legs with red/purple discoloration , mild swelling Skin: No Rash or Ulcers Neurological: Alert and Oriented x 3 Nutrition: Taking PO's Result Diagrams: 04/25/19 06:51 04/26/19 06:48 Assess/Plan/Problems-Billing Mr Munguia is a 73 year old male with a past medical history significant for COPD , bronchiectasis, HTN and HLD who was admitted for SOB. - Patient Problems (1) COPD (chronic obstructive pulmonary disease) Current Visit: Yes Status: Acute Code(s): J44.9 - CHRONIC OBSTRUCTIVE PULMONARY DISEASE, UNSPECIFIED SNOMED Code(s): 04477309 Comment: No signs of exacerbation. Will continue neb TID. - continue levaquin (to continue to provide pseudomonal coverage)- CXR with RLL infiltrate -Pt feels he is having a difficult time with moving/getting up from chair. PT on 04/22 recommended STR- seen yesterday by PT - progressing towards goals - patient reports that he feels weak - and continues to have difficulty getting up from his chair (2) Diastolic dysfunction Current Visit: Yes Status: Acute Code(s): I51.89 - OTHER ILL-DEFINED HEART DISEASES SNOMED Code(s): 0647526 Comment: edema improved - Continue strict I/O's, daily weights (3) GERD (gastroesophageal reflux disease) Current Visit: Yes Status: Acute Code(s): K21.9 - GASTRO-ESOPHAGEAL REFLUX DISEASE WITHOUT ESOPHAGITIS SNOMED Code(s): 237966677 Comment: Continue protonix. (4) HTN (hypertension) Current Visit: Yes Status: Acute Code(s): I10 - ESSENTIAL (PRIMARY) HYPERTENSION SNOMED Code(s): 68441677 Comment: -Stable (5) Stasis dermatitis of both legs Current Visit: Yes Status: Acute Code(s): I87.2 - VENOUS INSUFFICIENCY ( CHRONIC) (PERIPHERAL) SNOMED Code(s): 72727968 Comment: Pt with chronic venous stasis. Dopplers negative for DVT. Try to elevate legs as much as possible. Compression boots prn. (6) DVT prophylaxis Current Visit: Yes Status: Acute Code(s): QRC8356 - SNOMED Code(s): 848633846 Comment: heparin SQ (7) Full code status Current Visit: Yes Status: Acute Code(s): Z78.9 - OTHER SPECIFIED HEALTH STATUS SNOMED Code(s): 256670629 Status and Disposition: may need STR at discharge
[2019-04-25] MEDS: Enoxaparin(*) 40 MG/0.4 ML SYR SUBCUT SCH (21:03)
[2019-04-25] MEDS: Metoprolol Tartrate TAB* 25 MG PO SCH (21:03)
[2019-04-25] MEDS: Levofloxacin TAB* 500 MG PO SCH (21:03)
[2019-04-26] MEDS: HYDROcodone/ACETAMIN 5-325 MG* 1 TAB PO PRN (00:52)
[2019-04-26] MEDS: Bumetanide TAB* 2 MG PO SCH (05:34)
[2019-04-26] MEDS: Albuterol/Ipratropium NEB.SOL* Albuterol 2.5 MG/Ipratropium 0.5 MG 3 ML INH SCH ×3 (07:51→19:09)
[2019-04-26 08:00] LABS: BUN/Creatinine Ratio 14.8 (8-20); Calcium 9.8 mg/dL (8.6-10.3); EGFR African American 66.8 (>60); EGFR Non-African American 55.2 (>60)
[2019-04-26] MEDS: Aspirin 81 mg CHEW TAB* 81 MG TAB.CHEW PO SCH (09:42)
[2019-04-26] MEDS: Pantoprazole TAB * 40 MG TAB PO SCH ×2 (09:42→21:50)
[2019-04-26] MEDS: Potassium Chlor TAB* 20 MEQ TAB.ER PO SCH (09:42)
[2019-04-26] MEDS: Allopurinol TAB* 100 MG PO SCH (09:42)
[2019-04-26] MEDS: Docusate CAP* 100 MG PO SCH (09:42)
[2019-04-26] MEDS: Metoprolol Tartrate TAB* 25 MG PO SCH ×2 (09:43→21:49)
[2019-04-26] MEDS: Hydrocortisone 1% CREAM* 30 GM TUBE TOPICAL PRN (16:08)
[2019-04-26] MEDS: hydrOXYzine HCL TAB* 25 MG PO PRN (16:08)
--- NOTE | 2019-04-26 18:32 | PN ---
Subjective Date of Service: 04/26/19 Interval History: patient reports that he is feeling better today. No acute distress. sitting in the chair. No acute distress. denies chest pain or shortness of breath. Denies abd pain. n/v/d. Family History: Unchanged from Admission Social History: Unchanged from Admission Past Medical History: Unchanged from Admission Objective Active Medications: Hydrocodone Bitart/Acetaminophen ([place] 5-325 Tab*) 1 tab PO Q4H PRN PRN Reason: PAIN - SEVERE Last Admin: 04/26/19 00:52 Dose: 1 tab Albuterol/Ipratropium (Duoneb (Albuterol 2.5 Mg/Ipratropium 0.5 Mg)) 1 neb INH RT.TID [facility] Last Admin: 04/26/19 13:26 Dose: 1 neb Allopurinol (Zyloprim Tab*) 200 mg PO DAILY [facility] Last Admin: 04/26/19 09:42 Dose: 200 mg Aspirin (Aspirin 81 Mg Chew Tab*) 81 mg PO QAM [facility] Last Admin: 04/26/19 09:42 Dose: 81 mg Bumetanide (Bumex Tab*) 2 mg PO DAILY@0600 [facility] Last Admin: 04/26/19 05:34 Dose: 2 mg Docusate Sodium (Colace Cap*) 100 mg PO DAILY [facility] Last Admin: 04/26/19 09:42 Dose: 100 mg Enoxaparin Sodium (Lovenox(*)) 40 mg SUBCUT BEDTIME [facility] Last Admin: 04/25/19 21:03 Dose: 40 mg Hydrocortisone (Hytone Cream 1%*) 1 applic TOPICAL TID PRN PRN Reason: ITCHING Last Admin: 04/26/19 16:08 Dose: 1 applic Hydroxyzine HCl (Atarax Tab*) 25 mg PO QID PRN PRN Reason: ITCHING/ALLERGY Last Admin: 04/25/19 14:47 Dose: 25 mg Ipratropium [place] (Atrovent 0.5 Mg Neb.Chary*) 0.5 mg INH Q6H PRN PRN Reason: SOB/WHEEZING Levofloxacin (Levaquin Tab*) 500 mg PO Q24H [facility]; Protocol Last Admin: 04/25/19 21:03 Dose: 500 mg Metoprolol Tartrate (Lopressor Tab*) 12.5 mg PO Q12HR [facility] Last Admin: 04/26/19 09:43 Dose: 12.5 mg Pantoprazole Sodium (Protonix Tab*) 40 mg PO BID [facility] Last Admin: 04/26/19 09:42 Dose: 40 mg Potassium Chloride (Klor Con Er Tab*) 20 meq PO DAILY [facility] Last Admin: 04/26/19 09:42 Dose: 20 meq Vital Signs - 8 hr 04/26/19 04/26/19 11:10 13:29 Temperature 98.2 F Pulse Rate 82 Respiratory 18 16 Rate Blood Pressure 128/69 (mmHg) O2 Sat by Pulse 93 Oximetry Oxygen Devices in Use Now: None Appearance: no acute distress, alert Eyes: No Scleral Icterus Ears/Nose/Mouth/Throat: Clear Oropharnyx, Mucous Membranes Moist Neck: NL Appearance and Movements; NL JVP, Trachea Midline Respiratory: Symmetrical Chest Expansion and Respiratory Effort, Clear to Auscultation Cardiovascular: NL Sounds; No Murmurs; No JVD, - - bilat lower legs with red/ purple discoloration, moderate amt of edema Abdominal: NL Sounds; No Tenderness; No Distention Extremities: No Edema, No Clubbing, Cyanosis Skin: No Rash or Ulcers Neurological: Alert and Oriented x 3 Nutrition: Taking PO's Result Diagrams: 04/25/19 06:51 04/27/19 06:29 Assess/Plan/Problems-Billing Mr Munguia is a 73 year old male with a past medical history significant for COPD , bronchiectasis, HTN and HLD who was admitted for SOB. - Patient Problems (1) COPD (chronic obstructive pulmonary disease) Current Visit: Yes Status: Acute Code(s): J44.9 - CHRONIC OBSTRUCTIVE PULMONARY DISEASE, UNSPECIFIED SNOMED Code(s): 86222579 Comment: No signs of exacerbation. - stable - continue levaquin (to continue to provide pseudomonal coverage)- CXR with RLL infiltrate -Pt feels he is having a difficult time with moving/getting up from chair. PT on 04/22 recommended STR- seen yesterday by PT - progressing towards goals - patient reports that he feels weak - and continues to have difficulty getting up from his chair (2) Tachycardia Current Visit: Yes Status: Acute Code(s): R00.0 - TACHYCARDIA, UNSPECIFIED SNOMED Code(s): 4786293 Comment: - patient noted to have PVC's on the monitor and 1 short run of 10 pvc's- suspect this is related to his underlying infection incombination of scheduled albuterol treatments and COPD - patient was asymptomatic - also noted to have tachycardia with ambulation as well - suspect this is related to deconditioning complicated by COPD - patient was started on metoprolol 12.5 mg BID (3) Diastolic dysfunction Current Visit: Yes Status: Acute Code(s): I51.89 - OTHER ILL-DEFINED HEART DISEASES SNOMED Code(s): 2280163 Comment: edema improved - Continue strict I/O's, daily weights (4) GERD (gastroesophageal reflux disease) Current Visit: Yes Status: Acute Code(s): K21.9 - GASTRO-ESOPHAGEAL REFLUX DISEASE WITHOUT ESOPHAGITIS SNOMED Code(s): 793350210 Comment: Continue protonix. (5) HTN (hypertension) Current Visit: Yes Status: Acute Code(s): I10 - ESSENTIAL (PRIMARY) HYPERTENSION SNOMED Code(s): 89091726 Comment: -Stable (6) Stasis dermatitis of both legs Current Visit: Yes Status: Acute Code(s): I87.2 - VENOUS INSUFFICIENCY ( CHRONIC) (PERIPHERAL) SNOMED Code(s): 44628596 Comment: Pt with chronic venous stasis. Dopplers negative for DVT. Try to elevate legs as much as possible. Compression boots prn. (7) DVT prophylaxis Current Visit: Yes Status: Acute Code(s): PQH2899 - SNOMED Code(s): 346629391 Comment: heparin SQ (8) Full code status Current Visit: Yes Status: Acute Code(s): Z78.9 - OTHER SPECIFIED HEALTH STATUS SNOMED Code(s): 616313205 Status and Disposition: STR at discharge - [facility] in the AM
[2019-04-26] MEDS: Enoxaparin(*) 40 MG/0.4 ML SYR SUBCUT SCH (21:50)
[2019-04-26] MEDS: Levofloxacin TAB* 500 MG PO SCH (21:50)
[2019-04-27] MEDS: hydrOXYzine HCL TAB* 25 MG PO PRN (02:46)
[2019-04-27] MEDS: Bumetanide TAB* 2 MG PO SCH (06:21)
[2019-04-27 07:12] LABS: BUN/Creatinine Ratio 16.2 (8-20); Calcium 9.5 mg/dL (8.6-10.3); EGFR African American 74.1 (>60); EGFR Non-African American 61.3 (>60); Potassium 3.9 mmol/L (3.5-5.0)
[2019-04-27] MEDS: Albuterol/Ipratropium NEB.SOL* Albuterol 2.5 MG/Ipratropium 0.5 MG 3 ML INH SCH ×3 (08:58→20:01)
[2019-04-27] MEDS: Allopurinol TAB* 100 MG PO SCH (09:03)
[2019-04-27] MEDS: Pantoprazole TAB * 40 MG TAB PO SCH ×2 (09:04→20:45)
[2019-04-27] MEDS: Aspirin 81 mg CHEW TAB* 81 MG TAB.CHEW PO SCH (09:04)
[2019-04-27] MEDS: Potassium Chlor TAB* 20 MEQ TAB.ER PO SCH (09:04)
[2019-04-27] MEDS: Docusate CAP* 100 MG PO SCH (09:04)
[2019-04-27] MEDS: Metoprolol Tartrate TAB* 25 MG PO SCH ×2 (09:05→20:45)
--- NOTE | 2019-04-27 12:48 | PN ---
Subjective Date of Service: 04/27/19 Interval History: Patient seen and evaluated in his room. No complaints today waiting for discharge. Reports breathing is a baseline. Denies chest pain or shortness of breath. Denies abd pain n/v/d. Telemetry - reviewed - NSR with pac's occasional pvc - rate currently 94 Family History: Unchanged from Admission Social History: Unchanged from Admission Past Medical History: Unchanged from Admission Objective Active Medications: Hydrocodone Bitart/Acetaminophen ([place] 5-325 Tab*) 1 tab PO Q4H PRN PRN Reason: PAIN - SEVERE Last Admin: 04/26/19 00:52 Dose: 1 tab Albuterol/Ipratropium (Duoneb (Albuterol 2.5 Mg/Ipratropium 0.5 Mg)) 1 neb INH RT.TID [facility] Last Admin: 04/27/19 08:58 Dose: Not Given Allopurinol (Zyloprim Tab*) 200 mg PO DAILY [facility] Last Admin: 04/27/19 09:03 Dose: 200 mg Aspirin (Aspirin 81 Mg Chew Tab*) 81 mg PO QAM [facility] Last Admin: 04/27/19 09:04 Dose: 81 mg Bumetanide (Bumex Tab*) 2 mg PO DAILY@0600 [facility] Last Admin: 04/27/19 06:21 Dose: 2 mg Docusate Sodium (Colace Cap*) 100 mg PO DAILY [facility] Last Admin: 04/27/19 09:04 Dose: 100 mg Enoxaparin Sodium (Lovenox(*)) 40 mg SUBCUT BEDTIME [facility] Last Admin: 04/26/19 21:50 Dose: 40 mg Hydrocortisone (Hytone Cream 1%*) 1 applic TOPICAL TID PRN PRN Reason: ITCHING Last Admin: 04/26/19 16:08 Dose: 1 applic Hydroxyzine HCl (Atarax Tab*) 25 mg PO QID PRN PRN Reason: ITCHING/ALLERGY Last Admin: 04/27/19 02:46 Dose: 25 mg Ipratropium [place] (Atrovent 0.5 Mg Neb.Chary*) 0.5 mg INH Q6H PRN PRN Reason: SOB/WHEEZING Levofloxacin (Levaquin Tab*) 500 mg PO Q24H [facility]; Protocol Last Admin: 04/26/19 21:50 Dose: 500 mg Metoprolol Tartrate (Lopressor Tab*) 12.5 mg PO Q12HR [facility] Last Admin: 04/27/19 09:05 Dose: 12.5 mg Pantoprazole Sodium (Protonix Tab*) 40 mg PO BID [facility] Last Admin: 04/27/19 09:04 Dose: 40 mg Potassium Chloride (Klor Con Er Tab*) 20 meq PO DAILY [facility] Last Admin: 04/27/19 09:04 Dose: 20 meq Vital Signs - 8 hr 04/27/19 04/27/19 04/27/19 07:00 07:30 08:00 Temperature 97.4 F 97.3 F Pulse Rate 100 90 Respiratory 18 20 19 Rate Blood Pressure 155/58 134/78 (mmHg) O2 Sat by Pulse 92 Oximetry 04/27/19 08:15 Temperature Pulse Rate 89 Respiratory Rate Blood Pressure (mmHg) O2 Sat by Pulse Oximetry Oxygen Devices in Use Now: None Appearance: no acute distress Eyes: No Scleral Icterus Ears/Nose/Mouth/Throat: Clear Oropharnyx, Mucous Membranes Moist Neck: NL Appearance and Movements; NL JVP, Trachea Midline Respiratory: Symmetrical Chest Expansion and Respiratory Effort, Clear to Auscultation, - - in the bases bilat Cardiovascular: NL Sounds; No Murmurs; No JVD, No Edema Abdominal: NL Sounds; No Tenderness; No Distention Extremities: No Edema, No Clubbing, Cyanosis Neurological: Alert and Oriented x 3 Nutrition: Taking PO's Result Diagrams: 04/25/19 06:51 04/27/19 06:29 Assess/Plan/Problems-Billing Mr Munguia is a 73 year old male with a past medical history significant for COPD , bronchiectasis, HTN and HLD who was admitted for SOB. - Patient Problems (1) COPD (chronic obstructive pulmonary disease) Current Visit: Yes Status: Acute Code(s): J44.9 - CHRONIC OBSTRUCTIVE PULMONARY DISEASE, UNSPECIFIED SNOMED Code(s): 85505209 Comment: No signs of exacerbation. - stable - continue levaquin (to continue to provide pseudomonal coverage)- CXR with RLL infiltrate -Pt feels he is having a difficult time with moving/getting up from chair. PT on 04/22 recommended STR- seen yesterday by PT - progressing towards goals - patient reports that he feels weak - and continues to have difficulty getting up from his chair (2) Tachycardia Current Visit: Yes Status: Acute Code(s): R00.0 - TACHYCARDIA, UNSPECIFIED SNOMED Code(s): 9186571 Comment: no more episodes of non sustained runs of PVC's - HR is stable - Noted to have occasional PAC on the monitor - patient was asymptomatic - ambulation tachycardia improved - suspect this is related to deconditioning complicated by COPD - will continue metoprolol 12.5 mg BID (3) Diastolic dysfunction Current Visit: Yes Status: Acute Code(s): I51.89 - OTHER ILL-DEFINED HEART DISEASES SNOMED Code(s): 3258008 Comment: edema improved - Continue strict I/O's, daily weights (4) GERD (gastroesophageal reflux disease) Current Visit: Yes Status: Acute Code(s): K21.9 - GASTRO-ESOPHAGEAL REFLUX DISEASE WITHOUT ESOPHAGITIS SNOMED Code(s): 921483554 Comment: Continue protonix. (5) HTN (hypertension) Current Visit: Yes Status: Acute Code(s): I10 - ESSENTIAL (PRIMARY) HYPERTENSION SNOMED Code(s): 40039063 Comment: -Stable (6) Stasis dermatitis of both legs Current Visit: Yes Status: Acute Code(s): I87.2 - VENOUS INSUFFICIENCY ( CHRONIC) (PERIPHERAL) SNOMED Code(s): 54973714 Comment: Pt with chronic venous stasis. Dopplers negative for DVT. Try to elevate legs as much as possible. Compression boots prn. (7) DVT prophylaxis Current Visit: Yes Status: Acute Code(s): ZDA3732 - SNOMED Code(s): 129788217 Comment: heparin SQ (8) Full code status Current Visit: Yes Status: Acute Code(s): Z78.9 - OTHER SPECIFIED HEALTH STATUS SNOMED Code(s): 770705695 Status and Disposition: STR at discharge - [facility] in the AM pending insurance auth
[2019-04-27] MEDS: HYDROcodone/ACETAMIN 5-325 MG* 1 TAB PO PRN ×2 (14:20→20:44)
[2019-04-27] MEDS: Hydrocortisone 1% CREAM* 30 GM TUBE TOPICAL PRN (17:11)
[2019-04-27] MEDS: Levofloxacin TAB* 500 MG PO SCH (20:45)
[2019-04-27] MEDS: Enoxaparin(*) 40 MG/0.4 ML SYR SUBCUT SCH (20:47)
[2019-04-28] MEDS: hydrOXYzine HCL TAB* 25 MG PO PRN (02:12)
[2019-04-28] MEDS: HYDROcodone/ACETAMIN 5-325 MG* 1 TAB PO PRN ×4 (02:15→20:24)
--- NOTE | 2019-04-28 05:36 | DS ---
DISCHARGE SUMMARY: DATE OF ADMISSION: 04/21/19 DATE OF DISCHARGE: 04/28/19 PROVIDER: Holli Laird NP. PRIMARY CARE PROVIDER: Dr. Jackson. ATTENDING PHYSICIAN WHILE IN THE HOSPITAL: Dr. Tracey Kat * (dictated by Holli Laird NP). PRIMARY DIAGNOSES: 1. Shortness of breath. 2. Chronic obstructive pulmonary disease. 3. Right lower lobe infiltrate. 4. Respiratory failure. SECONDARY DIAGNOSES: 1. Diastolic dysfunction. 2. Stasis dermatitis, both legs. 3. Gastroesophageal reflux disease. STUDIES COMPLETED WHILE IN THE HOSPITAL: The patient had a chest x-ray on 04/21. Radiologist's impression: Right basilar infiltrate, pleural thickening unchanged. Recommended followup until resolution. He had a venous Doppler study, which showed limited visualization of the calf vessels, otherwise no evidence for deep vein thrombosis. DISCHARGE MEDICATIONS: 1. Hydroxyzine 25 mg p.o. q.i.d. p.r.n. 2. Potassium 20 mEq p.o. daily. 3. Protonix 40 mg p.o. b.i.d. 4. Atrovent nebulizer 1 neb every 6 hours as needed for shortness of breath. 5. Hydrocodone 5/325 one tablet every 4 hours as needed for pain. 6. Bumex 2 mg p.o. daily. 7. Aspirin 81 mg p.o. daily. 8. Allopurinol 200 mg p.o. daily. New Medications: 1. Levaquin, he will need 1 dose tomorrow evening to complete treatment. 2. Metoprolol 12.5 mg p.o. b.i.d. HISTORY OF PRESENT ILLNESS AND HOSPITAL COURSE: Mr. Munguia is a 73-year-old male with a past medical history significant for COPD, polycythemia vera, hypertension, GERD, bronchial atelectasis, obstructive sleep apnea, who presented to the emergency room with multiple complaints. His primary concern was bilateral leg pain and swelling. The patient reports that he was treated as an outpatient for bilateral lower leg cellulitis and presented to the emergency room due to increased swelling and new leg pain and concern for infection. The patient also reports that he has chronic back pain and has concern of falling. The patient does report that he has difficulty getting out of his chair. He also is complaining of fatigue and productive cough. He had low O2 saturations of 88% on room air and therefore was placed on 4 L nasal cannula and O2 saturations increased to 90%. Due to the patient's cough, congestion, hypoxia, lower back pain, weakness, and lower leg redness, Hospital Medicine was asked to see and evaluate the patient for admission. During this hospitalization, the patient was started on ceftriaxone and azithromycin to cover cellulitis of his lower extremities as well as the right lower lobe infiltrate. He had an ultrasound of bilateral lower extremities to rule out DVT, which was negative. He was given IV diuretics with improvement of the swelling in his legs. The swelling did improve. During this hospitalization, the patient did have episodes of tachycardia with frequent PVCs and PACs. He was started on metoprolol, which improved his exertional and at rest tachycardia. The patient has had no further nonsustained runs of PVCs and feeling better. At this time, he is stable for discharge home. DISCHARGE PLAN: At this time, the patient will be discharged to [facility] pending insurance authorization. 1. Respiratory failure. The patient did have hypoxic respiratory failure on admission. He was given oxygen. He received diuretics. He has chronic infection of the lungs, atelectasis and last was treated for pneumonia 1 month ago. X-ray and CT in the past are honestly not much different. X-ray today did show same pleural effusion with opacities as it it did in the past. He was treated for community-acquired pneumonia with ceftriaxone and azithromycin that was transitioned to Levaquin for pseudomonas coverage. He was placed on DuoNeb. His breathing status improved. His oxygen was weaned and discontinued. The patient is to have 1 more dose of Levaquin to complete his course of treatment. He should continue his nebulizer at home and home inhalers as previously prescribed. 2. COPD. Not in current exacerbation. The patient was started on Levaquin for pseudomonal coverage due to chest x-ray showing right lower lobe infiltrate. He initially received ceftriaxone and azithromycin. He does need to have 1 more dose of Levaquin to complete treatment. He should continue on home nebulizers and inhalers as previously prescribed. 3. Tachycardia. The patient did have episodes of tachycardia and nonsustained run of PVCs 10 beats. He was started on metoprolol 12.5 b.i.d. His heart rates have improved and now are maintained in the 80s and 90s. The patient is asymptomatic. We will continue him on metoprolol 12.5 b.i.d. His tachycardia is likely related to his underlying COPD as well as deconditioning. 4. Diastolic dysfunction. Lower extremity edema did improve. During this hospitalization, he was transitioned back to his home Bumex and is currently without symptoms of acute congestive heart failure. 5. GERD. The patient should continue on his home Protonix as previously prescribed. 6. Hypertension. Blood pressure is stable. He is currently not on any blood pressure medications. 7. Stasis dermatitis of both lower legs. The patient does have chronic venous stasis. His Doppler was negative for DVT. He should continue with elevation of his legs as much as possible and compression boots p.r.n. At this time, the patient is stable for discharge to [facility]. The patient should return to the emergency room for any worsening shortness of breath, chest pain, worsening swelling in his legs, significant pain in his legs , or any other concerning symptoms. DISPOSITION AT DISCHARGE: [facility]. CONDITION AT DISCHARGE: Fair. TIME SPENT: Time spent on this discharge is 45 minutes, greater than half that time was spent reviewing discharge plans and instructions. I have discussed this with my attending Dr. Tracey Kat; she is in agreement with my plan. HOLLI LAIRD NP [id number]/CPS #: [id number] [place]
[2019-04-28] MEDS: Bumetanide TAB* 2 MG PO SCH (06:14)
[2019-04-28] MEDS: Hydrocortisone 1% CREAM* 30 GM TUBE TOPICAL PRN (06:14)
[2019-04-28] MEDS: Albuterol/Ipratropium NEB.SOL* Albuterol 2.5 MG/Ipratropium 0.5 MG 3 ML INH SCH ×3 (06:56→18:49)
[2019-04-28] MEDS: Allopurinol TAB* 100 MG PO SCH (09:02)
[2019-04-28] MEDS: Aspirin 81 mg CHEW TAB* 81 MG TAB.CHEW PO SCH (09:04)
[2019-04-28] MEDS: Docusate CAP* 100 MG PO SCH (09:04)
[2019-04-28] MEDS: Pantoprazole TAB * 40 MG TAB PO SCH ×2 (09:05→20:25)
[2019-04-28] MEDS: Metoprolol Tartrate TAB* 25 MG PO SCH ×2 (09:05→20:23)
[2019-04-28] MEDS: Potassium Chlor TAB* 20 MEQ TAB.ER PO SCH (09:06)
--- NOTE | 2019-04-28 16:56 | PN ---
Subjective Date of Service: 04/28/19 Interval History: Patient is feeling well. Patient has not been sleeping well, but this is his baseline. Patient denies CP, SOB, F/C, Dizziness, Abdominal pain, diarrhea, or other pain. Patient is anxious to get to [facility] to restore functional status. Family History: Unchanged from Admission Social History: Unchanged from Admission Past Medical History: Unchanged from Admission Objective Active Medications: Hydrocodone Bitart/Acetaminophen ([place] 5-325 Tab*) 1 tab PO Q4H PRN PRN Reason: PAIN - SEVERE Last Admin: 04/28/19 14:04 Dose: 1 tab Albuterol/Ipratropium (Duoneb (Albuterol 2.5 Mg/Ipratropium 0.5 Mg)) 1 neb INH RT.TID [facility] Last Admin: 04/28/19 12:59 Dose: 1 neb Allopurinol (Zyloprim Tab*) 200 mg PO DAILY [facility] Last Admin: 04/28/19 09:02 Dose: 200 mg Aspirin (Aspirin 81 Mg Chew Tab*) 81 mg PO QAM [facility] Last Admin: 04/28/19 09:04 Dose: 81 mg Bumetanide (Bumex Tab*) 2 mg PO DAILY@0600 [facility] Last Admin: 04/28/19 06:14 Dose: 2 mg Docusate Sodium (Colace Cap*) 100 mg PO DAILY [facility] Last Admin: 04/28/19 09:04 Dose: 100 mg Enoxaparin Sodium (Lovenox(*)) 40 mg SUBCUT BEDTIME [facility] Last Admin: 04/27/19 20:47 Dose: 40 mg Hydrocortisone (Hytone Cream 1%*) 1 applic TOPICAL TID PRN PRN Reason: ITCHING Last Admin: 04/28/19 06:14 Dose: 1 applic Hydroxyzine HCl (Atarax Tab*) 25 mg PO QID PRN PRN Reason: ITCHING/ALLERGY Last Admin: 04/28/19 02:12 Dose: 25 mg Ipratropium [place] (Atrovent 0.5 Mg Neb.Chary*) 0.5 mg INH Q6H PRN PRN Reason: SOB/WHEEZING Levofloxacin (Levaquin Tab*) 500 mg PO Q24H [facility]; Protocol Stop: 04/28/19 21:01 Last Admin: 04/27/19 20:45 Dose: 500 mg Metoprolol Tartrate (Lopressor Tab*) 12.5 mg PO Q12HR [facility] Last Admin: 04/28/19 09:05 Dose: 12.5 mg Pantoprazole Sodium (Protonix Tab*) 40 mg PO BID [facility] Last Admin: 04/28/19 09:05 Dose: 40 mg Potassium Chloride (Klor Con Er Tab*) 20 meq PO DAILY [facility] Last Admin: 04/28/19 09:06 Dose: 20 meq Vital Signs - 8 hr 04/28/19 04/28/19 04/28/19 10:40 11:10 13:00 Temperature 97.3 F Pulse Rate 88 76 Respiratory 17 22 16 Rate Blood Pressure 111/57 (mmHg) O2 Sat by Pulse 93 93 Oximetry 04/28/19 04/28/19 14:04 16:00 Temperature 97.3 F Pulse Rate 83 Respiratory 16 22 Rate Blood Pressure 123/59 (mmHg) O2 Sat by Pulse 94 Oximetry Oxygen Devices in Use Now: None Appearance: Patient is a 73yo male who appears stated age and is sitting in the bed in [facility]. Eyes: No Scleral Icterus, PERRLA Ears/Nose/Mouth/Throat: NL Teeth, Lips, Gums, Clear Oropharnyx, Mucous Membranes Moist Neck: NL Appearance and Movements; NL JVP, Trachea Midline Respiratory: Symmetrical Chest Expansion and Respiratory Effort, - - Slight expiratory wheezing in bases. Cardiovascular: NL Sounds; No Murmurs; No JVD, RRR, - - 1+ B/L LE edema with chronic changes. Abdominal: NL Sounds; No Tenderness; No Distention, No Hepatosplenomegaly Lymphatic: No Cervical Adenopathy Extremities: No Clubbing, Cyanosis Skin: No Rash or Ulcers, No Nodules or Sclerosis Neurological: Alert and Oriented x 3, NL Sensation, NL Muscle Strength and Tone , - - CN II-XII intact. Result Diagrams: 04/25/19 06:51 04/27/19 06:29 Assess/Plan/Problems-Billing Mr Munguia is a 73 year old male with a past medical history significant for COPD , bronchiectasis, HTN and HLD who was admitted for SOB. - Patient Problems (1) COPD (chronic obstructive pulmonary disease) Current Visit: Yes Status: Acute Code(s): J44.9 - CHRONIC OBSTRUCTIVE PULMONARY DISEASE, UNSPECIFIED SNOMED Code(s): 10082928 Comment: - No signs of exacerbation. - Stable - Continue Levaquin (to continue to provide pseudomonal coverage)- CXR with RLL infiltrate - Breathing Improving (2) Diastolic dysfunction Current Visit: Yes Status: Acute Code(s): I51.89 - OTHER ILL-DEFINED HEART DISEASES SNOMED Code(s): 0028877 Comment: - Edema improved - Continue strict I/O's, daily weights - Continue Home Bumex (3) GERD (gastroesophageal reflux disease) Current Visit: Yes Status: Acute Code(s): K21.9 - GASTRO-ESOPHAGEAL REFLUX DISEASE WITHOUT ESOPHAGITIS SNOMED Code(s): 709982202 Comment: - Continue protonix. (4) HTN (hypertension) Current Visit: Yes Status: Acute Code(s): I10 - ESSENTIAL (PRIMARY) HYPERTENSION SNOMED Code(s): 16749475 Comment: -Stable (5) Stasis dermatitis of both legs Current Visit: Yes Status: Acute Code(s): I87.2 - VENOUS INSUFFICIENCY ( CHRONIC) (PERIPHERAL) SNOMED Code(s): 67356877 Comment: - Pt with chronic venous stasis. - Dopplers negative for DVT. - Try to elevate legs as much as possible. Compression boots prn. (6) Tachycardia Current Visit: Yes Status: Acute Code(s): R00.0 - TACHYCARDIA, UNSPECIFIED SNOMED Code(s): 8986288 Comment: - No more episodes of non sustained runs of PVC's - HR is stable - Noted to have occasional PAC on the monitor - Patient was asymptomatic - Will continue metoprolol 12.5 mg BID (7) PNA (pneumonia) Current Visit: No Status: Acute Code(s): J18.9 - PNEUMONIA, UNSPECIFIED ORGANISM SNOMED Code(s): 525374050 Comment: - Treating with Levaquin and Improving. - Day 6/7 (8) Respiratory failure Current Visit: No Status: Acute Priority: High Code(s): J96.90 - RESPIRATORY FAILURE, UNSP, UNSP W HYPOXIA OR HYPERCAPNIA SNOMED Code(s): 548389160 Comment: - Hypoxic, Due to Pneumonia - Resolved. (9) DVT prophylaxis Current Visit: Yes Status: Acute Code(s): DSO3410 - SNOMED Code(s): 586317185 Comment: - Lovenox SQ (10) Full code status Current Visit: Yes Status: Acute Code(s): Z78.9 - OTHER SPECIFIED HEALTH STATUS SNOMED Code(s): 565373020 Status and Disposition: STR at discharge - [facility] when insurance available.
[2019-04-28] MEDS: Levofloxacin TAB* 500 MG PO SCH (20:22)
[2019-04-28] MEDS: Enoxaparin(*) 40 MG/0.4 ML SYR SUBCUT SCH (20:26)
[2019-04-29] MEDS: HYDROcodone/ACETAMIN 5-325 MG* 1 TAB PO PRN ×4 (01:46→20:54)
[2019-04-29] MEDS: Bumetanide TAB* 2 MG PO SCH (06:27)
[2019-04-29] MEDS: Albuterol/Ipratropium NEB.SOL* Albuterol 2.5 MG/Ipratropium 0.5 MG 3 ML INH SCH ×3 (07:50→20:39)
[2019-04-29] MEDS: Allopurinol TAB* 100 MG PO SCH (08:22)
[2019-04-29] MEDS: Aspirin 81 mg CHEW TAB* 81 MG TAB.CHEW PO SCH (08:23)
[2019-04-29] MEDS: Potassium Chlor TAB* 20 MEQ TAB.ER PO SCH (08:23)
[2019-04-29] MEDS: Metoprolol Tartrate TAB* 25 MG PO SCH ×3 (08:23→21:03)
[2019-04-29] MEDS: Docusate CAP* 100 MG PO SCH (08:23)
[2019-04-29] MEDS: Pantoprazole TAB * 40 MG TAB PO SCH ×2 (08:23→20:53)
--- NOTE | 2019-04-29 15:57 | PN ---
Subjective Date of Service: 04/29/19 Interval History: Patient is feeling well today. Patient coughs and brings up sputum, particularly after breathing treatments. Patient denies CP, SOB, F/C, N/V, abdominal pain, diarrhea, dizziness, palpitations, or other pain. Patient was able to walk 250ft with PT today and feels like he has adequate support at home to be discharged. Family History: Unchanged from Admission Social History: Unchanged from Admission Past Medical History: Unchanged from Admission Objective Active Medications: Hydrocodone Bitart/Acetaminophen ([place] 5-325 Tab*) 1 tab PO Q4H PRN PRN Reason: PAIN - MODERATE Last Admin: 04/29/19 14:41 Dose: 1 tab Albuterol/Ipratropium (Duoneb (Albuterol 2.5 Mg/Ipratropium 0.5 Mg)) 1 neb INH RT.TID [facility] Last Admin: 04/29/19 13:30 Dose: 1 neb Allopurinol (Zyloprim Tab*) 200 mg PO DAILY [facility] Last Admin: 04/29/19 08:22 Dose: 200 mg Aspirin (Aspirin 81 Mg Chew Tab*) 81 mg PO QAM [facility] Last Admin: 04/29/19 08:23 Dose: 81 mg Bumetanide (Bumex Tab*) 2 mg PO DAILY@0600 [facility] Last Admin: 04/29/19 06:27 Dose: 2 mg Docusate Sodium (Colace Cap*) 100 mg PO DAILY [facility] Last Admin: 04/29/19 08:23 Dose: 100 mg Enoxaparin Sodium (Lovenox(*)) 40 mg SUBCUT BEDTIME [facility] Last Admin: 04/28/19 20:26 Dose: 40 mg Hydrocortisone (Hytone Cream 1%*) 1 applic TOPICAL TID PRN PRN Reason: ITCHING Last Admin: 04/28/19 06:14 Dose: 1 applic Hydroxyzine HCl (Atarax Tab*) 25 mg PO QID PRN PRN Reason: ITCHING/ALLERGY Last Admin: 04/28/19 02:12 Dose: 25 mg Ipratropium [place] (Atrovent 0.5 Mg Neb.Chary*) 0.5 mg INH Q6H PRN PRN Reason: SOB/WHEEZING Metoprolol Tartrate (Lopressor Tab*) 12.5 mg PO Q12HR [facility] Last Admin: 04/29/19 08:23 Dose: 12.5 mg Pantoprazole Sodium (Protonix Tab*) 40 mg PO BID [facility] Last Admin: 04/29/19 08:23 Dose: 40 mg Potassium Chloride (Klor Con Er Tab*) 20 meq PO DAILY [facility] Last Admin: 04/29/19 08:23 Dose: 20 meq Vital Signs - 8 hr 04/29/19 04/29/19 04/29/19 08:23 10:28 13:30 Pulse Rate 80 Respiratory 18 16 20 Rate O2 Sat by Pulse 94 Oximetry 04/29/19 14:41 Pulse Rate Respiratory 16 Rate O2 Sat by Pulse Oximetry Oxygen Devices in Use Now: None Appearance: Patient is a 73yo male who appears stated age and is sitting in the bed in [facility]. Eyes: No Scleral Icterus, PERRLA Ears/Nose/Mouth/Throat: NL Teeth, Lips, Gums, Clear Oropharnyx, Mucous Membranes Moist Neck: NL Appearance and Movements; NL JVP, Trachea Midline Respiratory: Symmetrical Chest Expansion and Respiratory Effort, Clear to Auscultation Cardiovascular: NL Sounds; No Murmurs; No JVD, RRR, - - 2+ B/L LE edema with venous statis changes. Abdominal: NL Sounds; No Tenderness; No Distention Lymphatic: No Cervical Adenopathy Extremities: No Clubbing, Cyanosis Skin: No Nodules or Sclerosis Neurological: Alert and Oriented x 3, NL Sensation, NL Muscle Strength and Tone , - - CN II-XII intact. Result Diagrams: 04/25/19 06:51 04/27/19 06:29 Assess/Plan/Problems-Billing Mr Munguia is a 73 year old male with a past medical history significant for COPD , bronchiectasis, HTN and HLD who was admitted for SOB. - Patient Problems (1) COPD (chronic obstructive pulmonary disease) Current Visit: Yes Status: Acute Code(s): J44.9 - CHRONIC OBSTRUCTIVE PULMONARY DISEASE, UNSPECIFIED SNOMED Code(s): 40421543 Comment: - No signs of exacerbation. - Stable - Completed Levaquin 5 day course. - Breathing Improved back to baseline. - Able to walk 250ft with only stopping once. (2) Diastolic dysfunction Current Visit: Yes Status: Acute Code(s): I51.89 - OTHER ILL-DEFINED HEART DISEASES SNOMED Code(s): 7835701 Comment: - Edema improved - Continue strict I/O's, daily weights - Continue Home Bumex (3) GERD (gastroesophageal reflux disease) Current Visit: Yes Status: Acute Code(s): K21.9 - GASTRO-ESOPHAGEAL REFLUX DISEASE WITHOUT ESOPHAGITIS SNOMED Code(s): 668237766 Comment: - Continue protonix. (4) HTN (hypertension) Current Visit: Yes Status: Acute Code(s): I10 - ESSENTIAL (PRIMARY) HYPERTENSION SNOMED Code(s): 83482591 Comment: -Stable (5) Stasis dermatitis of both legs Current Visit: Yes Status: Acute Code(s): I87.2 - VENOUS INSUFFICIENCY ( CHRONIC) (PERIPHERAL) SNOMED Code(s): 78406496 Comment: - Pt with chronic venous stasis. - Dopplers negative for DVT. - Try to elevate legs as much as possible. Compression boots prn. (6) Tachycardia Current Visit: Yes Status: Acute Code(s): R00.0 - TACHYCARDIA, UNSPECIFIED SNOMED Code(s): 2481190 Comment: - No more episodes of non sustained runs of PVC's - HR is stable - Noted to have occasional PAC on the monitor - Patient was asymptomatic - Will continue metoprolol 12.5 mg BID (7) PNA (pneumonia) Current Visit: No Status: Acute Code(s): J18.9 - PNEUMONIA, UNSPECIFIED ORGANISM SNOMED Code(s): 246405017 Comment: - Treated completely with 7 days levaquin. (8) Respiratory failure Current Visit: No Status: Acute Priority: High Code(s): J96.90 - RESPIRATORY FAILURE, UNSP, UNSP W HYPOXIA OR HYPERCAPNIA SNOMED Code(s): 580310886 Comment: - Hypoxic, Due to Pneumonia - Resolved. (9) DVT prophylaxis Current Visit: Yes Status: Acute Code(s): GMR8128 - SNOMED Code(s): 953759404 Comment: - Lovenox SQ (10) Full code status Current Visit: Yes Status: Acute Code(s): Z78.9 - OTHER SPECIFIED HEALTH STATUS SNOMED Code(s): 403616076 Status and Disposition: Improved sufficiently to D/C to home, likely tomorrow.
[2019-04-29] MEDS: Enoxaparin(*) 40 MG/0.4 ML SYR SUBCUT SCH (20:55)
[2019-04-30] MEDS: HYDROcodone/ACETAMIN 5-325 MG* 1 TAB PO PRN ×2 (02:37→09:05)
[2019-04-30] MEDS: Bumetanide TAB* 2 MG PO SCH (05:13)
[2019-04-30] MEDS: Albuterol/Ipratropium NEB.SOL* Albuterol 2.5 MG/Ipratropium 0.5 MG 3 ML INH SCH (07:33)
[2019-04-30 07:40] VITALS: BP 145/64
[2019-04-30] MEDS: Allopurinol TAB* 100 MG PO SCH (08:51)
[2019-04-30] MEDS: Docusate CAP* 100 MG PO SCH (08:51)
[2019-04-30] MEDS: Pantoprazole TAB * 40 MG TAB PO SCH (08:51)
[2019-04-30] MEDS: Aspirin 81 mg CHEW TAB* 81 MG TAB.CHEW PO SCH (08:51)
[2019-04-30] MEDS: Potassium Chlor TAB* 20 MEQ TAB.ER PO SCH (08:52)
[2019-04-30] MEDS: Metoprolol Tartrate TAB* 25 MG PO SCH (08:52)
--- NOTE | 2019-05-01 02:19 | DS ---
CC: Dr. Jackson * DISCHARGE SUMMARY: ADDENDUM: DATE OF ADMISSION: 04/21/19 DATE OF DISCHARGE: 04/30/19 Previous discharge summary was dictated on 04/28/19. PRIMARY CARE PROVIDER: Dr. Jackson. MY ATTENDING WHILE IN THE HOSPITAL: Dr. Basilia Mario.* (DICTATED BY RICHA CRESPO) INTERVAL HOSPITAL COURSE: The patient waited 2 days in the hospital for appeal to his rejection from subacute rehab to be processed. During this time, the patient continued to work with Physical Therapy and Occupational therapy and showed significant progress. The patient finished his last dose of Levaquin. His Tachycardia was well controlled on his metoprolol and his blood pressure has no signs of hypotension. The patient was arranged with his daughters and with visiting nurse services for home care and appropriate safe discharge plan was arranged. The patient was stable and amenable for discharge on 04/30/19. PHYSICAL EXAMINATION ON THE DAY OF DISCHARGE: General: The patient is a 73- year- old male who appears stated age and sitting comfortably in the bed, in no acute distress. Vital Signs: Temperature 97.9, pulse rate of 94, respiratory rate 22, oxygen saturation of 94% on room air, blood pressure 125/64. HEENT: Head normocephalic, atraumatic. Sclerae anicteric. No conjunctival injection. Nasal mucosa moist. Oral mucosa moist. No pharyngeal erythema, discharge or exudate. Neck: Supple, nontender. No lymphadenopathy. No carotid bruit auscultated. No JVD. Cardiac: Regular rate and rhythm. No clicks, murmurs, gallops or rubs. Pulses 2+ in bilateral dorsalis pedis, posterior tibialis, and radial areas. Respiratory: Clear to auscultation bilaterally. No wheezes, rales or rhonchi. Good air exchange bilaterally. Abdomen: Soft, nontender, nondistended. Bowel sounds present and normoactive in all 4 quadrants. No hepatosplenomegaly. No abdominal bruits auscultated. No hepatojugular reflux. Genitourinary: No suprapubic or CVA tenderness. Skin: Venous stasis dermatitis in lower extremities. No rashes or ulcers. Neuro: Cranial nerves II through XII intact. No focal deficits. Alert and oriented x3. DISCHARGE PLAN BY PROBLEMS: Community-acquired pneumonia, COPD exacerbation. The patient finished his Levaquin and his respiratory status returned to his baseline. The patient's home inhalers will be continued. DISPOSITION: Home. CONDITION: Stable. TIME SPENT: Approximately 45 minutes was spent on discharge of this patient, 30 of which was spent [id number] with the patient obtaining history and physical and discussing the treatment plan. RICHA CRESPO [id number]/FRANNIE #: [id number] MY[place]
== END 2019-04-30 11:25 | disposition home health service (06) | DRG 193 ==
LOC: ED 17:44 → MED 23:20
PROVIDERS: ADMIT Student in an Organized Health Care Education/Training Program; ATTEND Internal Medicine
DX: J18.9 Pneumonia, unspecified organism (principal); J96.01 Acute respiratory failure with hypoxia; J90 Pleural effusion, not elsewhere classified; I47.2 Ventricular tachycardia; L03.116 Cellulitis of left lower limb; L03.115 Cellulitis of right lower limb; J44.0 Chronic obstructive pulmonary disease with (acute) lower respiratory infection; K21.9 Gastro-esophageal reflux disease without esophagitis; M10.9 Gout, unspecified; G47.33 Obstructive sleep apnea (adult) (pediatric); G89.29 Other chronic pain; I10 Essential (primary) hypertension; E78.5 Hyperlipidemia, unspecified; M54.5 Low back pain; M19.90 Unspecified osteoarthritis, unspecified site; H26.9 Unspecified cataract; D45 Polycythemia vera; I87.2 Venous insufficiency (chronic) (peripheral); I49.3 Ventricular premature depolarization; Z87.01 Personal history of pneumonia (recurrent); Z88.0 Allergy status to penicillin; Z87.891 Personal history of nicotine dependence; Z98.41 Cataract extraction status, right eye; Z79.82 Long term (current) use of aspirin
CPT/HCPCS: 36415; 71046; 80048; 80053; 82803; 83605; 83735; 83880; 84484; 85025; 86140; 93005; 93970; 94640; 94660; 99284; A9270-GY; J0456; J0692; J0696; J1644; J1650; J1940

== ENCOUNTER 2020-06-01 11:32 | Inpatient (IN) ==
[2020-06-01] MEDS ORDERED: Succinylcholine 200 mg VIAL 20 mg/ml 10 ml VIAL (200 mg) ONE (11:41)
[2020-06-01] MEDS ORDERED: Rocuronium 50 mg VIAL 10 mg/ml 5 ml VIAL (50 mg) ONE (11:41)
[2020-06-01] MEDS ORDERED: Propofol 10 mg/ml 100 ML BTL 100 ML ONE (11:58)
[2020-06-01] MEDS ORDERED: NS 0.9% 1000 ml BAG 3,000 ML IV ONE (11:58)
[2020-06-01] MEDS ORDERED: Cefepime 1 GM in NS 0.9% 50 ML 50 ML IVPB ONE (11:59)
[2020-06-01] MEDS ORDERED: Propofol 10 mg/ml 100 ML BTL 100 ML IV ONE (12:12)
[2020-06-01 12:14] LABS: Hematocrit 56 % (42-52); Hemoglobin 17.3 g/dL (14.0-18.0); Mean Corpuscular HGB Conc 31 g/dL (31-36); Mean Corpuscular Hemoglobin 27 pg (27-31); Mean Corpuscular Volume 88 fL (80-94); Mean Platelet Volume 7.6 fL (7.4-10.4); Platelet Count 467 10^3/uL (150-450); Red Blood Count 6.37 10^6 /uL (4.18-5.48); Red Cell Distribution Width 18 % (10-15); White Blood Count 18.2 10^3/uL (3.5-10.8)
[2020-06-01 12:16] LABS: ALT 120 U/L (7-52); AST 108 U/L (13-39); Albumin/Globulin Ratio 0.8 (1-3); Alkaline Phosphatase 123 U/L (34-104); BUN/Creatinine Ratio 15.5 (8-20); Blood Urea Nitrogen 41 mg/dL (6-24); C Reactive Protein 14.74 mg/L (<8.01); CO2 Carbon Dioxide 30 mmol/L (22-32); Calcium 9.9 mg/dL (8.6-10.3); Chloride 96 mmol/L (101-111); Creatine Kinase 58 U/L (10-223); EGFR African American 28.8 (>60); EGFR Non-African American 23.8 (>60); Globulin 5.1 g/dL (2-4); Glucose 230 mg/dL (70-100); Sodium 136 mmol/L (135-145); Total Protein 9.1 g/dL (6.4-8.9)
[2020-06-01 12:21] LABS: Anion Gap 10 mmol/L (2-11); Potassium 5.2 mmol/L (3.5-5.0)
[2020-06-01 12:24] LABS: Troponin I 0.29 ng/mL (<0.03)
[2020-06-01 12:46] LABS: Activated Partial Thrombo Time 30.7 seconds (26.0-38.0); INR 1.04 (0.82-1.09)
[2020-06-01 12:52] LABS: ABS Basophils 0.1 10^3/ul (0-0.2); ABS Lymphocytes 1.4 10^3/ul (1.0-4.8); ABS Monocytes 1.2 10^3/ul (0-0.8); ABS Neutrophils 15.5 10^3/ul (1.5-7.7); Eosinophil % 0.1 %; Lymphocyte % 7.4 %
[2020-06-01] MEDS ORDERED: Phenylephrine 40 mcg/mL 10mL (400mcg) SYRINGE ONE (12:52)
[2020-06-01] MEDS ORDERED: fentaNYL 100 mcg/2 ml 50 MCG/ML VIAL ONE ×2 (12:55→13:32)
[2020-06-01] MEDS ORDERED: Phenylephrine IV 50 MG in NS 0.9% 250 ml 245 ML IV ONE (12:56)
[2020-06-01] MEDS ORDERED: Cefepime 1 GM in Dextrose 1 GM/50 ML BAG IV ONE (13:00)
[2020-06-01] MEDS ORDERED: Enoxaparin 40 MG/0.4 ML SYR SUBCUT SCH (14:00)
[2020-06-01] MEDS ORDERED: SODIUM ZIRCONIUM CYCLOSILICATE 5 GM PACKET PO SCH (14:00)
[2020-06-01] MEDS ORDERED: fentaNYL INFUSION 50 MCG/ML 2,500 MCG/50 ML BAG IV SCH (14:00)
[2020-06-01] MEDS ORDERED: Perflutren Lipid Microsphere 3 ML VIAL ONE (15:47)
[2020-06-01] MEDS ORDERED: Bumetanide IV 0.25 MG/ML 4 ml VIAL (1 mg) SLOW PUSH ONE (15:54)
[2020-06-01] MEDS ORDERED: methylPREDNISolone SOD 40 mg/ml 1 ml VIAL IV SCH (16:00)
[2020-06-01] MEDS: Chlorhexidine MOUTHWASH 0.12% 15 ML UDC SWISH SPIT SCH ×2 (16:41→22:01)
[2020-06-01] MEDS: Pantoprazole VIAL 40 MG VIAL IV SCH (16:42)
[2020-06-01] MEDS ORDERED: Dextrose 50% Syringe 50 ml 25 GM/50 ML SYRINGE IV PUSH PRN (16:47)
[2020-06-01] MEDS ORDERED: Lorazepam PYXIS KEY PRN (16:56)
[2020-06-01] MEDS ORDERED: LORazepam 2 mg VIAL 1 ml ONE (16:56)
[2020-06-01] MEDS ORDERED: Lorazepam PYXIS KEY ONE (16:56)
[2020-06-01] MEDS: LORazepam 2 mg VIAL 1 ml IV PUSH PRN (17:02)
[2020-06-01] MEDS: Azithromycin 500 mg/250 ml NS 500 MG/250 ML BAG IVPB SCH (17:12)
[2020-06-01] MEDS: Phenylephrine IV 50 MG in NS 0.9% 250 ml 245 ML IV SCH ×2 (17:55→23:17)
[2020-06-01] MEDS ORDERED: Norepinephrine 16MCG/ML IVPRE 4,000 MCG/250 ML BAG IV ONE (18:30)
[2020-06-01] MEDS ORDERED: Norepinephrine 16MCG/ML IVPRE 4,000 MCG/250 ML BAG IV SCH (19:00)
[2020-06-01 19:11] LABS: Troponin I 1.27 ng/mL (<0.03)
[2020-06-01] MEDS ORDERED: Midazolam 2 mg/2 ml VIAL 1 mg/ml 2 ml VIAL (2 mg) IV SLOW PU ONE (19:51)
[2020-06-01] MEDS ORDERED: Midazolam 2 mg/2 ml VIAL 1 mg/ml 2 ml VIAL (2 mg) ONE (19:51)
[2020-06-01 20:38] LABS: Troponin I 1.29 ng/mL (<0.03)
[2020-06-01] MEDS ORDERED: Mometasone/Formoter 100/5 MDI INH SCH (21:00)
[2020-06-01 21:33] LABS: BUN/Creatinine Ratio 18.8 (8-20); Blood Urea Nitrogen 45 mg/dL (6-24); CO2 Carbon Dioxide 23 mmol/L (22-32); Calcium 7.9 mg/dL (8.6-10.3); Chloride 106 mmol/L (101-111); EGFR African American 32.4 (>60); EGFR Non-African American 26.8 (>60); Glucose 145 mg/dL (70-100); Sodium 138 mmol/L (135-145)
[2020-06-01 21:35] LABS: Anion Gap 9 mmol/L (2-11); Potassium 6.2 mmol/L (3.5-5.0)
[2020-06-01] MEDS ORDERED: Dextrose 50% Syringe 50 ml 25 GM/50 ML SYRINGE IV PUSH ONE (21:36)
[2020-06-01] MEDS ORDERED: SODIUM ZIRCONIUM CYCLOSILICATE 10 GM PACKET PO ONE (21:52)
[2020-06-01] MEDS: Cefepime 1 GM in Dextrose 1 GM/50 ML BAG IV SCH (22:01)
[2020-06-01] MEDS: Hydrocortisone INJ 100 MG/2ML 2 ML VIAL IV SCH (22:01)
[2020-06-01] MEDS: Heparin 5000 UNITS/ML 1 mL VIAL IV SCH (23:24)
[2020-06-01] MEDS: Heparin DRIP 25,000 UNITS BAG 25,000 UNITS/500 ML BAG IV SCH (23:26)
[2020-06-02 01:52] LABS: INR 1.33 (0.82-1.09)
[2020-06-02 01:53] LABS: Hematocrit 49 % (42-52); Hemoglobin 15.4 g/dL (14.0-18.0); Mean Corpuscular HGB Conc 32 g/dL (31-36); Mean Corpuscular Hemoglobin 27 pg (27-31); Mean Corpuscular Volume 86 fL (80-94); Mean Platelet Volume 7.6 fL (7.4-10.4); Platelet Count 400 10^3/uL (150-450); Red Blood Count 5.69 10^6 /uL (4.18-5.48); Red Cell Distribution Width 17 % (10-15); White Blood Count 24.9 10^3/uL (3.5-10.8)
[2020-06-02 02:01] LABS: BUN/Creatinine Ratio 20.6 (8-20); Blood Urea Nitrogen 46 mg/dL (6-24); CO2 Carbon Dioxide 25 mmol/L (22-32); Calcium 7.9 mg/dL (8.6-10.3); Chloride 106 mmol/L (101-111); EGFR African American 35.1 (>60); Glucose 118 mg/dL (70-100); Magnesium 2.4 mg/dL (1.9-2.7); Phosphorus 5.6 mg/dL (2.5-5.0); Sodium 139 mmol/L (135-145)
[2020-06-02 02:05] LABS: Anion Gap 8 mmol/L (2-11); Potassium 5.5 mmol/L (3.5-5.0); Troponin I 1.68 ng/mL (<0.03)
[2020-06-02] MEDS ORDERED: Patiromer POWDER 8.4 GM PAK PO ONE (03:00)
[2020-06-02] MEDS ORDERED: Patiromer POWDER 8.4 GM PAK PO SCH (03:00)
[2020-06-02 03:24] LABS: Activated Partial Thrombo Time 55.8 seconds (26.0-38.0)
[2020-06-02 04:39] LABS: ABS Lymphocytes 0.7 10^3/ul (1.0-4.8); ABS Monocytes 1.1 10^3/ul (0-0.8); ABS Neutrophils 23.1 10^3/ul (1.5-7.7); Eosinophil % 0.1 %; Lymphocyte % 2.9 %
[2020-06-02] MEDS: Hydrocortisone INJ 100 MG/2ML 2 ML VIAL IV SCH ×3 (04:50→21:37)
[2020-06-02] MEDS: Chlorhexidine MOUTHWASH 0.12% 15 ML UDC SWISH SPIT SCH ×5 (04:52→19:25)
[2020-06-02] MEDS ORDERED: Heparin 5000 UNITS/ML 1 mL VIAL SUBCUT SCH (06:00)
[2020-06-02 07:02] LABS: BUN/Creatinine Ratio 22.6 (8-20); Calcium 8.2 mg/dL (8.6-10.3); EGFR African American 35.5 (>60); EGFR Non-African American 29.3 (>60); Magnesium 2.3 mg/dL (1.9-2.7); Phosphorus 5.5 mg/dL (2.5-5.0); Potassium 5.5 mmol/L (3.5-5.0)
[2020-06-02] MEDS ORDERED: Dextrose 50% Syringe 50 ml 25 GM/50 ML SYRINGE IV PUSH ONE (07:23)
[2020-06-02] MEDS ORDERED: CALCIUM GLUCONATE 1GM/50ML NS 1 GM/50 ML BAG IV ONE (07:25)
[2020-06-02 07:52] LABS: ABS Lymphocytes 1.1 10^3/ul (1.0-4.8); ABS Monocytes 0.7 10^3/ul (0-0.8); ABS Neutrophils 20.4 10^3/ul (1.5-7.7); Hematocrit 49 % (42-52); Mean Corpuscular HGB Conc 31 g/dL (31-36); Mean Corpuscular Hemoglobin 27 pg (27-31); Mean Corpuscular Volume 86 fL (80-94); Mean Platelet Volume 7.9 fL (7.4-10.4); Nucleated Red Blood Cells % 0.1; Platelet Count 346 10^3/uL (150-450); Red Blood Count 5.66 10^6 /uL (4.18-5.48); Red Cell Distribution Width 17 % (10-15); White Blood Count 22.3 10^3/uL (3.5-10.8)
[2020-06-02] MEDS: Albuterol/Ipratropium NEB.SOL (2.5/0.5 MG) 3 ML NEB.SOLN INH PRN (08:36)
[2020-06-02] MEDS ORDERED: Albuterol/Ipratropium NEB.SOL (2.5/0.5 MG) 3 ML NEB.SOLN INH SCH (09:00)
[2020-06-02] MEDS: Pantoprazole VIAL 40 MG VIAL IV SCH (09:46)
[2020-06-02] MEDS: Cefepime 1 GM in Dextrose 1 GM/50 ML BAG IV SCH ×2 (09:48→21:37)
[2020-06-02 10:02] LABS: Troponin I 1.68 ng/mL (<0.03)
[2020-06-02] MEDS: LORazepam 2 mg VIAL 1 ml IV PUSH PRN (10:07)
[2020-06-02] MEDS: Heparin 5000 UNITS/ML 1 mL VIAL IV SCH ×2 (10:37→16:56)
[2020-06-02] MEDS: Midazolam 50 MG VIAL IV DRIP 50 ML IV SCH (10:43)
[2020-06-02] MEDS: fentaNYL INFUSION 50 MCG/ML 2,500 MCG/50 ML BAG IV SCH (10:54)
[2020-06-02] MEDS: Albuterol/Ipratropium NEB.SOL (2.5/0.5 MG) 3 ML NEB.SOLN INH SCH ×4 (11:02→23:37)
[2020-06-02] MEDS: Nystatin TOP POWDER 15 GM BTL TOPICAL SCH ×2 (13:50→21:37)
[2020-06-02 14:41] LABS: Anion Gap 5 mmol/L (2-11); BUN/Creatinine Ratio 25.6 (8-20); Blood Urea Nitrogen 53 mg/dL (6-24); CO2 Carbon Dioxide 31 mmol/L (22-32); Calcium 8.5 mg/dL (8.6-10.3); Chloride 104 mmol/L (101-111); EGFR African American 38.3 (>60); EGFR Non-African American 31.6 (>60); Glucose 146 mg/dL (70-100); Potassium 4.9 mmol/L (3.5-5.0); Sodium 140 mmol/L (135-145)
[2020-06-02 14:46] LABS: Troponin I 1.28 ng/mL (<0.03)
[2020-06-02] MEDS: Azithromycin 500 mg/250 ml NS 500 MG/250 ML BAG IVPB SCH (16:09)
[2020-06-03] MEDS: Chlorhexidine MOUTHWASH 0.12% 15 ML UDC SWISH SPIT SCH ×6 (00:56→20:17)
[2020-06-03] MEDS: Heparin DRIP 25,000 UNITS BAG 25,000 UNITS/500 ML BAG IV SCH ×2 (01:14→19:05)
[2020-06-03] MEDS: Albuterol/Ipratropium NEB.SOL (2.5/0.5 MG) 3 ML NEB.SOLN INH SCH ×6 (03:54→23:36)
[2020-06-03] MEDS: Midazolam 50 MG VIAL IV DRIP 50 ML IV SCH (04:01)
[2020-06-03] MEDS: Hydrocortisone INJ 100 MG/2ML 2 ML VIAL IV SCH ×3 (05:56→20:17)
[2020-06-03 06:18] LABS: Hematocrit 45 % (42-52); Hemoglobin 14.2 g/dL (14.0-18.0); Mean Corpuscular HGB Conc 32 g/dL (31-36); Mean Corpuscular Hemoglobin 27 pg (27-31); Mean Corpuscular Volume 85 fL (80-94); Mean Platelet Volume 7.8 fL (7.4-10.4); Platelet Count 300 10^3/uL (150-450); Red Blood Count 5.32 10^6 /uL (4.18-5.48); Red Cell Distribution Width 17 % (10-15); White Blood Count 22.7 10^3/uL (3.5-10.8)
[2020-06-03 06:23] LABS: ABS Basophils 0.2 10^3/ul (0-0.2); ABS Lymphocytes 0.7 10^3/ul (1.0-4.8); ABS Monocytes 0.7 10^3/ul (0-0.8); Eosinophil % 0.1 %; Lymphocyte % 3.1 %; Nucleated Red Blood Cells % 0.1
[2020-06-03 06:28] LABS: Calcium 8.4 mg/dL (8.6-10.3); Magnesium 2.4 mg/dL (1.9-2.7); Potassium 4.7 mmol/L (3.5-5.0)
[2020-06-03 06:33] LABS: BUN/Creatinine Ratio 33.9 (8-20); EGFR African American 49.7 (>60); EGFR Non-African American 41.1 (>60); Phosphorus 4.4 mg/dL (2.5-5.0)
[2020-06-03] MEDS: Cefepime 1 GM in Dextrose 1 GM/50 ML BAG IV SCH ×2 (08:40→20:17)
[2020-06-03] MEDS: fentaNYL INFUSION 50 MCG/ML 2,500 MCG/50 ML BAG IV SCH (08:41)
[2020-06-03] MEDS: Pantoprazole VIAL 40 MG VIAL IV SCH (08:41)
[2020-06-03] MEDS: Nystatin TOP POWDER 15 GM BTL TOPICAL SCH ×3 (09:00→22:10)
[2020-06-03] MEDS: Azithromycin 500 mg/250 ml NS 500 MG/250 ML BAG IVPB SCH (16:20)
[2020-06-04] MEDS: Chlorhexidine MOUTHWASH 0.12% 15 ML UDC SWISH SPIT SCH ×6 (00:07→20:06)
[2020-06-04] MEDS: Midazolam 50 MG VIAL IV DRIP 50 ML IV SCH (01:59)
[2020-06-04 03:08] LABS: Urine Appearance Cloudy; Urine Bilirubin Negative (Negative); Urine Blood 1+ (Negative); Urine Color Yellow; Urine Glucose Negative (Negative); Urine Ketones Negative (Negative); Urine Nitrite Negative (Negative); Urine Protein 2+(100 mg/dL) (Negative); Urine Specific Gravity 1.024 (1.010-1.030); Urine Urobilinogen Negative (Negative)
[2020-06-04] MEDS: Albuterol/Ipratropium NEB.SOL (2.5/0.5 MG) 3 ML NEB.SOLN INH SCH ×6 (03:37→23:10)
[2020-06-04 05:23] LABS: Hematocrit 44 % (42-52); Mean Corpuscular HGB Conc 32 g/dL (31-36); Mean Corpuscular Hemoglobin 27 pg (27-31); Mean Corpuscular Volume 84 fL (80-94); Mean Platelet Volume 7.9 fL (7.4-10.4); Platelet Count 287 10^3/uL (150-450); Red Blood Count 5.25 10^6 /uL (4.18-5.48); Red Cell Distribution Width 17 % (10-15); White Blood Count 20.1 10^3/uL (3.5-10.8)
[2020-06-04 05:54] LABS: BUN/Creatinine Ratio 39.5 (8-20); Calcium 8.3 mg/dL (8.6-10.3); EGFR African American 72.5 (>60); EGFR Non-African American 59.9 (>60); Magnesium 2.5 mg/dL (1.9-2.7); Phosphorus 2.8 mg/dL (2.5-5.0); Potassium 4.6 mmol/L (3.5-5.0)
[2020-06-04 06:35] LABS: Urine Red Blood Cell 1+(3-5/hpf) (Absent)
[2020-06-04 06:36] LABS: Urine Granular Casts Present (Absent); Urine Squamous Epithelial Cell Present (Absent); Urine White Blood Cell 1+(6-10/hpf) (Absent)
[2020-06-04] MEDS: Cefepime 1 GM in Dextrose 1 GM/50 ML BAG IV SCH ×2 (07:14→20:06)
[2020-06-04] MEDS: Hydrocortisone INJ 100 MG/2ML 2 ML VIAL IV SCH ×2 (07:14→20:06)
[2020-06-04] MEDS: Pantoprazole VIAL 40 MG VIAL IV SCH (07:14)
[2020-06-04] MEDS: Nystatin TOP POWDER 15 GM BTL TOPICAL SCH ×3 (07:14→20:06)
[2020-06-04 08:14] LABS: ABS Eosinophils 0.1 10^3/ul (0-0.6); ABS Lymphocytes 0.7 10^3/ul (1.0-4.8); ABS Monocytes 0.9 10^3/ul (0-0.8); ABS Neutrophils 18.4 10^3/ul (1.5-7.7); Eosinophil % 0.4 %; Lymphocyte % 3.3 %; Nucleated Red Blood Cells % 0.1
[2020-06-04] MEDS: Enoxaparin 40 MG/0.4 ML SYR SUBCUT SCH (09:39)
[2020-06-04] MEDS ORDERED: fentaNYL 100 mcg/2 ml 50 MCG/ML VIAL ONE (14:24)
[2020-06-04] MEDS ORDERED: fentaNYL 100 mcg/2 ml 50 MCG/ML VIAL IV ONE (14:50)
[2020-06-04] MEDS: Azithromycin 500 mg/250 ml NS 500 MG/250 ML BAG IVPB SCH (15:31)
[2020-06-04] MEDS: fentaNYL INFUSION 50 MCG/ML 2,500 MCG/50 ML BAG IV SCH (21:47)
[2020-06-05] MEDS: Chlorhexidine MOUTHWASH 0.12% 15 ML UDC SWISH SPIT SCH ×7 (00:12→23:40)
[2020-06-05] MEDS: Albuterol/Ipratropium NEB.SOL (2.5/0.5 MG) 3 ML NEB.SOLN INH SCH ×6 (03:12→23:10)
[2020-06-05 04:26] LABS: ABS Basophils 0.1 10^3/ul (0-0.2); ABS Lymphocytes 0.5 10^3/ul (1.0-4.8); ABS Monocytes 0.9 10^3/ul (0-0.8); Eosinophil % 0.1 %; Hematocrit 46 % (42-52); Hemoglobin 14.4 g/dL (14.0-18.0); Lymphocyte % 3.1 %; Mean Corpuscular HGB Conc 31 g/dL (31-36); Mean Corpuscular Hemoglobin 26 pg (27-31); Mean Corpuscular Volume 84 fL (80-94); Mean Platelet Volume 7.7 fL (7.4-10.4); Nucleated Red Blood Cells % 0.1; Platelet Count 315 10^3/uL (150-450); Red Blood Count 5.46 10^6 /uL (4.18-5.48); Red Cell Distribution Width 17 % (10-15); White Blood Count 16.5 10^3/uL (3.5-10.8)
[2020-06-05 04:40] LABS: BUN/Creatinine Ratio 38.1 (8-20); Calcium 8.6 mg/dL (8.6-10.3); EGFR Non-African American 63.6 (>60); Magnesium 2.5 mg/dL (1.9-2.7); Phosphorus 2.4 mg/dL (2.5-5.0); Potassium 4.5 mmol/L (3.5-5.0)
[2020-06-05] MEDS: Cefepime 1 GM in Dextrose 1 GM/50 ML BAG IV SCH ×2 (07:24→19:08)
[2020-06-05] MEDS: Nystatin TOP POWDER 15 GM BTL TOPICAL SCH ×3 (07:24→19:25)
[2020-06-05] MEDS: Hydrocortisone INJ 100 MG/2ML 2 ML VIAL IV SCH ×2 (07:24→19:07)
[2020-06-05] MEDS: Pantoprazole VIAL 40 MG VIAL IV SCH (07:24)
[2020-06-05] MEDS: Enoxaparin 40 MG/0.4 ML SYR SUBCUT SCH (07:24)
[2020-06-05] MEDS: Polyethylene Glycol 3350 17 GM PACKET PO SCH (10:53)
[2020-06-05] MEDS: Docusate LIQ 100 MG/10 ML UDC PO SCH ×2 (10:53→19:07)
[2020-06-05] MEDS: Dexmedetomidine 1,000 MCG in NS 0.9% 250 ml 240 ML IV SCH (12:25)
[2020-06-05] MEDS: Azithromycin 500 mg/250 ml NS 500 MG/250 ML BAG IVPB SCH (15:20)
[2020-06-06] MEDS ORDERED: hydrALAZINE 20 mg/ml 1 ML Vial IV IV SLOW PU PRN (00:43)
[2020-06-06] MEDS: LORazepam 2 mg VIAL 1 ml IV PUSH PRN ×3 (01:34→22:32)
[2020-06-06] MEDS: Albuterol/Ipratropium NEB.SOL (2.5/0.5 MG) 3 ML NEB.SOLN INH SCH (02:58)
[2020-06-06 03:51] LABS: Hematocrit 49 % (42-52); Hemoglobin 15.6 g/dL (14.0-18.0); Mean Corpuscular HGB Conc 32 g/dL (31-36); Mean Corpuscular Hemoglobin 27 pg (27-31); Mean Corpuscular Volume 84 fL (80-94); Mean Platelet Volume 7.7 fL (7.4-10.4); Platelet Count 284 10^3/uL (150-450); Red Blood Count 5.85 10^6 /uL (4.18-5.48); Red Cell Distribution Width 17 % (10-15); White Blood Count 17.1 10^3/uL (3.5-10.8)
[2020-06-06 04:07] LABS: Albumin/Globulin Ratio 0.9 (1-3); BUN/Creatinine Ratio 37.9 (8-20); Calcium 8.7 mg/dL (8.6-10.3); EGFR African American 104.1 (>60); Globulin 3.2 g/dL (2-4); Magnesium 2.1 mg/dL (1.9-2.7); Phosphorus 2.1 mg/dL (2.5-5.0); Potassium 3.9 mmol/L (3.5-5.0); Total Bilirubin 0.7 mg/dL (0.2-1.0); Total Protein 6.2 g/dL (6.4-8.9)
[2020-06-06] MEDS: Chlorhexidine MOUTHWASH 0.12% 15 ML UDC SWISH SPIT SCH ×6 (04:12→23:19)
[2020-06-06 08:13] LABS: ABS Lymphocytes 0.7 10^3/ul (1.0-4.8); ABS Monocytes 1.2 10^3/ul (0-0.8); ABS Neutrophils 15.1 10^3/ul (1.5-7.7); Lymphocyte % 3.9 %; Nucleated Red Blood Cells % 0.2
[2020-06-06] MEDS: Albuterol/Ipratropium NEB.SOL (2.5/0.5 MG) 3 ML NEB.SOLN INH PRN (08:13)
[2020-06-06] MEDS: Polyethylene Glycol 3350 17 GM PACKET PO SCH (08:20)
[2020-06-06] MEDS: Enoxaparin 40 MG/0.4 ML SYR SUBCUT SCH (08:20)
[2020-06-06] MEDS: Cefepime 1 GM in Dextrose 1 GM/50 ML BAG IV SCH (08:20)
[2020-06-06] MEDS: Docusate LIQ 100 MG/10 ML UDC PO SCH ×2 (08:20→19:22)
[2020-06-06] MEDS: Nystatin TOP POWDER 15 GM BTL TOPICAL SCH ×3 (08:21→19:40)
[2020-06-06] MEDS: Pantoprazole VIAL 40 MG VIAL IV SCH (08:21)
[2020-06-06] MEDS ORDERED: Furosemide 40 mg/4 ml IV VIAL IV SLOW PU ONE (09:30)
[2020-06-06] MEDS ORDERED: Potassium Phosphate IV 15 MMOLE in NS 0.9% 250 ml 250 ML IVPB ONE (10:30)
[2020-06-06] MEDS ORDERED: fentaNYL 100 mcg/2 ml 50 MCG/ML VIAL IV SLOW PU PRN (10:36)
[2020-06-06] MEDS: Dexmedetomidine 1,000 MCG in NS 0.9% 250 ml 240 ML IV SCH (12:24)
[2020-06-06] MEDS ORDERED: Piperacillin/Tazobac ADVAN 3.375 GM in NS 0.9% 100 ml BAG 100 ML IV ONE (18:25)
[2020-06-06] MEDS ORDERED: Zosyn per Pharmacy NOTE FOLLOW UP SCH (19:00)
[2020-06-06] MEDS ORDERED: Lorazepam PYXIS KEY PRN (19:02)
[2020-06-06] MEDS ORDERED: LORazepam 2 mg VIAL 1 ml IV PUSH ONE (19:02)
[2020-06-06] MEDS: Saline FLUSH-CENTRAL 10 ML SYRINGE CENT\\PICC SCH (19:39)
[2020-06-06] MEDS ORDERED: Magnesium Sulfate 2 gm BAG 2 GM/50 ML BAG IVPB ONE (21:39)
[2020-06-06] MEDS ORDERED: Hydrocortisone INJ 100 MG/2ML 2 ML VIAL IV ONE (22:00)
[2020-06-06] MEDS: ZOSYN 3.375 GM Q8H per EXTENDED INFUSION IV SCH (22:11)
[2020-06-06] MEDS: Phenylephrine IV 50 MG in NS 0.9% 250 ml 245 ML IV SCH (22:50)
[2020-06-06] MEDS ORDERED: Vancomycin 1,500 MG in NS 0.9% 250 ml 250 ML IVPB ONE (23:50)
[2020-06-07] MEDS: LORazepam 2 mg VIAL 1 ml IV PUSH PRN ×2 (03:26→07:33)
[2020-06-07] MEDS: Chlorhexidine MOUTHWASH 0.12% 15 ML UDC SWISH SPIT SCH ×5 (04:39→20:00)
[2020-06-07] MEDS: Hydrocortisone INJ 100 MG/2ML 2 ML VIAL IV SCH ×3 (05:33→22:28)
[2020-06-07] MEDS: Saline FLUSH-CENTRAL 10 ML SYRINGE CENT\\PICC SCH ×2 (05:38→21:15)
[2020-06-07 06:07] LABS: ALT 430 U/L (7-52); AST 77 U/L (13-39); Albumin/Globulin Ratio 0.9 (1-3); Alkaline Phosphatase 77 U/L (34-104); BUN/Creatinine Ratio 46.3 (8-20); Blood Urea Nitrogen 38 mg/dL (6-24); CO2 Carbon Dioxide 34 mmol/L (22-32); Calcium 8.7 mg/dL (8.6-10.3); Chloride 108 mmol/L (101-111); EGFR African American 111.4 (>60); EGFR Non-African American 92.1 (>60); Globulin 3.4 g/dL (2-4); Glucose 147 mg/dL (70-100); Magnesium 2.9 mg/dL (1.9-2.7); Potassium 3.7 mmol/L (3.5-5.0); Total Protein 6.4 g/dL (6.4-8.9)
[2020-06-07 06:09] LABS: Hematocrit 54 % (42-52); Hemoglobin 16.7 g/dL (14.0-18.0); Mean Corpuscular HGB Conc 31 g/dL (31-36); Mean Corpuscular Hemoglobin 27 pg (27-31); Mean Corpuscular Volume 85 fL (80-94); Mean Platelet Volume 8.6 fL (7.4-10.4); Platelet Count 344 10^3/uL (150-450); Red Cell Distribution Width 18 % (10-15); White Blood Count 40.2 10^3/uL (3.5-10.8)
[2020-06-07 06:22] LABS: Anion Gap 4 mmol/L (2-11); Sodium 146 mmol/L (135-145)
[2020-06-07 06:23] LABS: Troponin I 0.28 ng/mL (<0.03)
[2020-06-07] MEDS ORDERED: KCL 20 MEQ/100 ML IVPREMIX 20 MEQ/100 ML BAG IV ONE ×2 (07:07→09:04)
[2020-06-07 07:21] LABS: ABS Basophils 0.2 10^3/ul (0-0.2); ABS Lymphocytes 0.6 10^3/ul (1.0-4.8); ABS Monocytes 1.6 10^3/ul (0-0.8); ABS Neutrophils 37.8 10^3/ul (1.5-7.7); Lymphocyte % 1.6 %; Nucleated Red Blood Cells % 0.1
[2020-06-07] MEDS: Docusate LIQ 100 MG/10 ML UDC PO SCH ×3 (07:32→21:15)
[2020-06-07] MEDS: Pantoprazole VIAL 40 MG VIAL IV SCH (07:32)
[2020-06-07] MEDS: Enoxaparin 40 MG/0.4 ML SYR SUBCUT SCH (07:33)
[2020-06-07] MEDS: Polyethylene Glycol 3350 17 GM PACKET PO SCH ×2 (07:35→08:29)
[2020-06-07] MEDS: Nystatin TOP POWDER 15 GM BTL TOPICAL SCH ×3 (07:35→21:15)
[2020-06-07] MEDS: ZOSYN 3.375 GM Q8H per EXTENDED INFUSION IV SCH ×2 (07:54→16:35)
[2020-06-07] MEDS ORDERED: Metoprolol Tartrate 5 mg VIAL 5 ml VIAL (1 mg/ml) ONE (08:59)
[2020-06-07] MEDS ORDERED: Metoprolol Tartrate 5 mg VIAL 5 ml VIAL (1 mg/ml) IV ONE (08:59)
[2020-06-07] MEDS ORDERED: Docusate LIQ 100 MG/10 ML UDC PO PRN (10:00)
[2020-06-07] MEDS ORDERED: Senna TAB 8.6 mg TAB PO PRN (10:00)
[2020-06-07] MEDS: Propofol 10 mg/ml 100 ML BTL 100 ML IV SCH ×4 (10:29→22:27)
[2020-06-07] MEDS ORDERED: Methylnaltrexone 150 MG TAB PO SCH (11:00)
[2020-06-07] MEDS ORDERED: Lactulose 30 ml UDC NG TUBE ONE (11:30)
[2020-06-07] MEDS ORDERED: Vancomycin per Pharmacy 1 EA NOTE FOLLOW UP SCH (16:00)
[2020-06-07] MEDS: Vancomycin 1,250 MG in NS 0.9% 250 ml 250 ML IVPB SCH (17:12)
[2020-06-07] MEDS: Sulfamethoxazole/Trimeth IV 500 MG in D5W 500 ml BAG 500 ML IVPB SCH (18:53)
[2020-06-07] MEDS ORDERED: Meropenem 1 GM PREMIX(*) 1 GM/50 ML BAG IV ONE (19:05)
[2020-06-08] MEDS: Chlorhexidine MOUTHWASH 0.12% 15 ML UDC SWISH SPIT SCH ×6 (00:06→19:54)
[2020-06-08] MEDS: Vancomycin 1,250 MG in NS 0.9% 250 ml 250 ML IVPB SCH ×2 (01:00→07:22)
[2020-06-08] MEDS: Sulfamethoxazole/Trimeth IV 500 MG in D5W 500 ml BAG 500 ML IVPB SCH ×3 (02:01→18:48)
[2020-06-08] MEDS: Propofol 10 mg/ml 100 ML BTL 100 ML IV SCH ×4 (02:50→20:01)
[2020-06-08] MEDS: Meropenem 500MG PREMIX(*) 500 MG/50 ML BAG IV SCH ×2 (04:19→12:50)
[2020-06-08 05:05] LABS: BUN/Creatinine Ratio 43.2 (8-20); Calcium 8.4 mg/dL (8.6-10.3); EGFR African American 102.7 (>60); EGFR Non-African American 84.9 (>60); Magnesium 2.5 mg/dL (1.9-2.7); Phosphorus 3.2 mg/dL (2.5-5.0); Potassium 3.3 mmol/L (3.5-5.0)
[2020-06-08] MEDS: Hydrocortisone INJ 100 MG/2ML 2 ML VIAL IV SCH ×3 (06:27→21:05)
[2020-06-08] MEDS: Enoxaparin 40 MG/0.4 ML SYR SUBCUT SCH (07:11)
[2020-06-08] MEDS: Docusate LIQ 100 MG/10 ML UDC PO SCH ×2 (07:12→21:05)
[2020-06-08] MEDS: Polyethylene Glycol 3350 17 GM PACKET PO SCH (07:12)
[2020-06-08] MEDS: Saline FLUSH-CENTRAL 10 ML SYRINGE CENT\\PICC SCH ×2 (07:12→19:50)
[2020-06-08] MEDS: Pantoprazole VIAL 40 MG VIAL IV SCH (07:12)
[2020-06-08] MEDS: Nystatin TOP POWDER 15 GM BTL TOPICAL SCH ×3 (07:12→21:05)
[2020-06-08] MEDS: KCL 20 MEQ/100 ML IVPREMIX 20 MEQ/100 ML BAG IV SCH ×4 (09:08→13:31)
[2020-06-08 09:29] LABS: Albumin 2.6 g/dL (3.2-5.2); Albumin/Globulin Ratio 0.9 (1-3); Globulin 2.8 g/dL (2-4); Indirect Bilirubin 0.2 mg/dL (0.3-1.0); Total Bilirubin 0.4 mg/dL (0.2-1.0); Total Protein 5.4 g/dL (6.4-8.9)
[2020-06-08 09:46] LABS: ABS Basophils 0.3 10^3/ul (0-0.2); ABS Lymphocytes 0.7 10^3/ul (1.0-4.8); ABS Monocytes 1.8 10^3/ul (0-0.8); ABS Neutrophils 33.9 10^3/ul (1.5-7.7); Hematocrit 47 % (42-52); Hemoglobin 14.7 g/dL (14.0-18.0); Lymphocyte % 1.9 %; Mean Corpuscular HGB Conc 31 g/dL (31-36); Mean Corpuscular Hemoglobin 26 pg (27-31); Mean Corpuscular Volume 85 fL (80-94); Mean Platelet Volume 8.4 fL (7.4-10.4); Nucleated Red Blood Cells % 0.1; Platelet Count 306 10^3/uL (150-450); Red Blood Count 5.58 10^6 /uL (4.18-5.48); Red Cell Distribution Width 17 % (10-15); White Blood Count 36.7 10^3/uL (3.5-10.8)
[2020-06-08 10:02] LABS: INR 1.27 (0.82-1.09)
[2020-06-08] MEDS ORDERED: Furosemide 40 mg/4 ml IV VIAL IV SLOW PU ONE (10:11)
[2020-06-08] MEDS: Lactulose 30 ml UDC NG TUBE SCH ×2 (10:43→21:03)
[2020-06-08] MEDS: Phenylephrine IV 50 MG in NS 0.9% 250 ml 245 ML IV SCH (12:33)
[2020-06-08] MEDS ORDERED: Vancomycin Trough Check NOTE FOLLOW UP ONE (16:30)
[2020-06-08 17:33] LABS: C Reactive Protein 122.3 mg/L (<8.01)
[2020-06-08] MEDS: cefTRIAXone 1 gm/50 mL NS BAG 1 GM/50 ML BAG IVPB SCH (21:00)
[2020-06-09] MEDS: Propofol 10 mg/ml 100 ML BTL 100 ML IV SCH ×4 (01:55→20:06)
[2020-06-09] MEDS: Sulfamethoxazole/Trimeth IV 500 MG in D5W 500 ml BAG 500 ML IVPB SCH ×3 (02:16→19:49)
[2020-06-09] MEDS: Chlorhexidine MOUTHWASH 0.12% 15 ML UDC SWISH SPIT SCH ×7 (03:20→23:53)
[2020-06-09 05:23] LABS: ABS Lymphocytes 0.5 10^3/ul (1.0-4.8); ABS Monocytes 1.4 10^3/ul (0-0.8); ABS Neutrophils 26.9 10^3/ul (1.5-7.7); Eosinophil % 0.1 %; Hematocrit 46 % (42-52); Hemoglobin 14.4 g/dL (14.0-18.0); Lymphocyte % 1.8 %; Mean Corpuscular HGB Conc 31 g/dL (31-36); Mean Corpuscular Hemoglobin 27 pg (27-31); Mean Corpuscular Volume 85 fL (80-94); Mean Platelet Volume 8.2 fL (7.4-10.4); Nucleated Red Blood Cells % 0.1; Platelet Count 251 10^3/uL (150-450); Red Blood Count 5.42 10^6 /uL (4.18-5.48); Red Cell Distribution Width 17 % (10-15); White Blood Count 28.8 10^3/uL (3.5-10.8)
[2020-06-09 05:32] LABS: BUN/Creatinine Ratio 35.3 (8-20); Calcium 8.3 mg/dL (8.6-10.3); EGFR African American 72.5 (>60); EGFR Non-African American 59.9 (>60); Magnesium 2.5 mg/dL (1.9-2.7); Phosphorus 3.7 mg/dL (2.5-5.0); Potassium 3.8 mmol/L (3.5-5.0)
[2020-06-09] MEDS: Hydrocortisone INJ 100 MG/2ML 2 ML VIAL IV SCH ×3 (06:11→21:28)
[2020-06-09] MEDS: Pantoprazole VIAL 40 MG VIAL IV SCH (08:32)
[2020-06-09] MEDS: Polyethylene Glycol 3350 17 GM PACKET PO SCH (08:35)
[2020-06-09] MEDS: cefTRIAXone 1 gm/50 mL NS BAG 1 GM/50 ML BAG IVPB SCH (08:35)
[2020-06-09] MEDS: Lactulose 30 ml UDC NG TUBE SCH ×2 (08:36→21:32)
[2020-06-09] MEDS: Docusate LIQ 100 MG/10 ML UDC PO SCH ×2 (08:38→21:27)
[2020-06-09] MEDS: Enoxaparin 40 MG/0.4 ML SYR SUBCUT SCH (08:38)
[2020-06-09] MEDS: Nystatin TOP POWDER 15 GM BTL TOPICAL SCH ×3 (08:39→21:28)
[2020-06-09] MEDS: Saline FLUSH-CENTRAL 10 ML SYRINGE CENT\\PICC SCH ×2 (08:52→19:49)
[2020-06-09 11:06] LABS: Albumin 2.7 g/dL (3.2-5.2); Albumin/Globulin Ratio 0.9 (1-3); Total Bilirubin 0.3 mg/dL (0.2-1.0); Total Protein 5.7 g/dL (6.4-8.9)
[2020-06-09] MEDS ORDERED: Meropenem 1 GM PREMIX(*) 1 GM/50 ML BAG IV ONE (16:26)
[2020-06-09 17:13] LABS: Body Fluid Source Pleural Fluid
[2020-06-09 17:56] LABS: Body Fluid Mono 10 %
[2020-06-10] MEDS: Meropenem 500MG PREMIX(*) 500 MG/50 ML BAG IV SCH ×3 (00:39→16:20)
[2020-06-10] MEDS: Sulfamethoxazole/Trimeth IV 500 MG in D5W 500 ml BAG 500 ML IVPB SCH ×2 (02:18→10:30)
[2020-06-10] MEDS: Propofol 10 mg/ml 100 ML BTL 100 ML IV SCH ×3 (02:50→15:57)
[2020-06-10] MEDS: Chlorhexidine MOUTHWASH 0.12% 15 ML UDC SWISH SPIT SCH ×4 (03:36→16:20)
[2020-06-10 05:23] LABS: ABS Lymphocytes 0.5 10^3/ul (1.0-4.8); ABS Neutrophils 20.7 10^3/ul (1.5-7.7); Hematocrit 46 % (42-52); Hemoglobin 14.2 g/dL (14.0-18.0); Lymphocyte % 2.2 %; Mean Corpuscular HGB Conc 31 g/dL (31-36); Mean Corpuscular Hemoglobin 26 pg (27-31); Mean Corpuscular Volume 84 fL (80-94); Mean Platelet Volume 7.9 fL (7.4-10.4); Nucleated Red Blood Cells % 0.1; Platelet Count 238 10^3/uL (150-450); Red Cell Distribution Width 17 % (10-15); White Blood Count 22.3 10^3/uL (3.5-10.8)
[2020-06-10 05:38] LABS: Albumin 2.8 g/dL (3.2-5.2); Albumin/Globulin Ratio 0.9 (1-3); BUN/Creatinine Ratio 33.6 (8-20); Calcium 8.3 mg/dL (8.6-10.3); EGFR African American 70.5 (>60); EGFR Non-African American 58.2 (>60); Potassium 3.9 mmol/L (3.5-5.0); Total Bilirubin 0.3 mg/dL (0.2-1.0); Total Protein 5.8 g/dL (6.4-8.9)
[2020-06-10] MEDS: Hydrocortisone INJ 100 MG/2ML 2 ML VIAL IV SCH ×2 (06:08→12:16)
[2020-06-10] MEDS: Saline FLUSH-CENTRAL 10 ML SYRINGE CENT\\PICC SCH (06:11)
[2020-06-10] MEDS: Docusate LIQ 100 MG/10 ML UDC PO SCH (07:22)
[2020-06-10] MEDS: Lactulose 30 ml UDC NG TUBE SCH (07:22)
[2020-06-10] MEDS: Enoxaparin 40 MG/0.4 ML SYR SUBCUT SCH (07:22)
[2020-06-10] MEDS: Pantoprazole VIAL 40 MG VIAL IV SCH (07:23)
[2020-06-10] MEDS: Nystatin TOP POWDER 15 GM BTL TOPICAL SCH ×2 (07:23→14:44)
[2020-06-10] MEDS: Polyethylene Glycol 3350 17 GM PACKET PO SCH (07:23)
[2020-06-10] MEDS ORDERED: Dextran 70/Hypromellose Tears Eye Drops 15 ml BTL (for Artificials Tears) BOTH EYES PRN (08:49)
[2020-06-10] MEDS ORDERED: Furosemide 40 mg/4 ml IV VIAL IV SLOW PU ONE (16:28)
[2020-06-10] MEDS ORDERED: LORazepam 2 mg VIAL 1 ml IV PUSH PRN (17:48)
[2020-06-10] MEDS ORDERED: Lorazepam PYXIS KEY PRN ×3 (17:48→18:28)
[2020-06-10] MEDS ORDERED: Lorazepam PYXIS KEY ONE ×3 (17:53→18:30)
[2020-06-10] MEDS ORDERED: LORazepam 2 mg VIAL 1 ml ONE ×3 (17:53→18:30)
[2020-06-10 18:11] VITALS: BP 138/63
[2020-06-10] MEDS ORDERED: Morphine 4 MG/ML VIAL (1 ml) IV ONE (18:13)
[2020-06-10] MEDS ORDERED: LORazepam 2 mg VIAL 1 ml IV PUSH ONE ×2 (18:20→18:28)
[2020-06-10] MEDS ORDERED: Morphine 2 MG/ML SYRINGE IV ONE (18:28)
[2020-06-10] MEDS ORDERED: Morphine 2 MG/ML SYRINGE ONE (18:30)
[2020-06-10] MEDS ORDERED: Hydrocortisone INJ 100 MG/2ML 2 ML VIAL IV SCH (23:00)
[2020-06-11 13:30] LABS: Albumin, BF 1.2 g/dL; Fluid Type, Albumin PLEURAL
[2020-06-12 14:53] LABS: Fluid Type, Protein, Total PLEURAL; Lactate Dehydrogenase, BF 153 U/L
[2020-06-12 16:01] LABS: Fluid Type, Glucose PLEURAL; Glucose, BF 133 mg/dL
== END 2020-06-10 19:01 | disposition expired | DRG 853 ==
LOC: ED 11:32 → ICU 13:33
PROVIDERS: ADMIT Internal Medicine; ATTEND Internal Medicine